=== PATIENT | male | born 1985 | race Caucasian/White ===

== ENCOUNTER 2016-07-05 01:41 | Emergency (ER) | payer MEDICAID ==
[2016-07-05 01:59] VITALS: BP 137/72
[2016-07-05] MEDS ORDERED: ALPRAZolam TAB* 0.5 MG PO ONE (02:49)
[2016-07-05 02:51] LABS: Hematocrit 36 % (42-52); Hemoglobin 11.9 g/dl (14.0-18.0); Mean Corpuscular HGB Conc 33 g/dl (31-36); Mean Corpuscular Hemoglobin 29 pg (27-31); Mean Corpuscular Volume 89 fL (80-94); Mean Platelet Volume 8 um3 (7.4-10.4); Red Blood Count 4.06 10^6/ul (4.0-5.4); Red Cell Distribution Width 14 % (10.5-15); White Blood Count 11.5 10^3/ul (3.5-10.8)
[2016-07-05 03:02] LABS: ALT 25 U/L (7-52); AST 35 U/L (13-39); Albumin 4.2 g/dL (3.2-5.2); Alkaline Phosphatase 79 U/L (34-104); Anion Gap 11 mmol/L (2-11); BUN/Creatinine Ratio 15.5 (8-20); Blood Urea Nitrogen 18 mg/dL (6-24); CO2 Carbon Dioxide 24 mmol/L (22-32); Calcium 9.3 mg/dL (8.6-10.3); Chloride 100 mmol/L (101-111); EGFR African American 93.8 (>60); Globulin 3.4 g/dL (2-4); Glucose 81 mg/dL (70-100); Potassium 3.9 mmol/L (3.5-5.0); Sodium 135 mmol/L (133-145); Total Protein 7.6 g/dL (6.4-8.9)
[2016-07-05 03:24] LABS: Acetaminophen < 15 mcg/mL; Alcohol < 10 mg/dL (<10); Salicylate < 2.50 mg/dL (<30)
[2016-07-05 03:34] LABS: TSH (Thyroid Stimulating Horm) 1.12 mcIU/mL (0.34-5.60)
[2016-07-05 03:37] LABS: Urine Bacteria Absent (Absent); Urine Bilirubin Negative (Negative); Urine Glucose Negative (Negative); Urine Nitrite Negative (Negative)
[2016-07-05 03:44] LABS: Benzodiazepine Urine Screen None Detected (None Detect)
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
[2016-07-05] MEDS ORDERED: Nicotine GUM* 2 MG PO PRN (11:27)
--- NOTE | 2016-07-05 13:31 | CONSULT ---
Consult Consult: Mr. Roberts presented to the ED C/O hallucinations. He admitted to polysubstance abuse and not eating or sleeping well for a couple days (he is either homeless or at a prison depending on when he is asked). He ate here and slept for many hours and then refuses a [facility] when they went in to speak with him. He was D/C'd in stable condition with a diagnosis of polysubstance abuse.
== END 2016-07-05 12:52 | disposition home or self-care (01) ==
LOC: ED 01:41
DX: F19.10 Other psychoactive substance abuse, uncomplicated (principal); R44.3 Hallucinations, unspecified; Z87.891 Personal history of nicotine dependence; I10 Essential (primary) hypertension; Z59.0 Homelessness
CPT/HCPCS: 36415; 80053; 80307; 80320; 80329; 81003; 81015; 84443; 85025; 99285; A9270-GY; G0480

== ENCOUNTER 2016-07-15 18:07 | Emergency (ER) | payer MEDICAID ==
[2016-07-15 19:52] VITALS: BP 147/67
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
--- NOTE | 2016-07-15 21:01 | RAD ---
HISTORY: Chest pain COMPARISONS: January 17, 2016 VIEWS: 2: Frontal dual-energy and lateral views of the chest. FINDINGS: CARDIOMEDIASTINAL SILHOUETTE: The cardiomediastinal silhouette is normal. LOLLY: The lolly are normal. PLEURA: The costophrenic angles are sharp. No pleural abnormalities are noted. LUNG PARENCHYMA: There is been improved aeration of the right lower lung. A nipple shadow is noted overlying the right lower lung field. ABDOMEN: The upper abdomen is clear. There is no subphrenic gas. BONES AND SOFT TISSUES: No bone or soft tissue abnormalities are noted. OTHER: None. IMPRESSION: NO ACTIVE CARDIOPULMONARY DISEASE.
[2016-07-15] MEDS ORDERED: Ibuprofen TAB* 800 MG PO ONE ×3 (21:14→21:15)
== END 2016-07-15 21:48 | disposition home or self-care (01) ==
LOC: ED 18:07
DX: R07.89 Other chest pain (principal); R06.00 Dyspnea, unspecified; Z87.891 Personal history of nicotine dependence
CPT/HCPCS: 71020; 99282; A9270-GY

== ENCOUNTER → 2016-08-22 16:24 | Emergency (ER) | payer MEDICAID ==
[~2016-08-22 16:24] MED LIST: Haloperidol INJ IV/IM* 5 MG/ML AMP IM ONE; LORazepam INJ* 2 MG/ML 1 ML VIAL IM ONE; diPHENhydraMINE IV* 50 MG/ML 1 ml VIAL (BENADRYL) IM ONE
[2016-08-22 18:16] LABS: Hematocrit 33 % (42-52); Mean Corpuscular HGB Conc 34 g/dl (31-36); Mean Corpuscular Hemoglobin 29 pg (27-31); Mean Corpuscular Volume 87 fL (80-94); Mean Platelet Volume 8 um3 (7.4-10.4); Red Blood Count 3.77 10^6/ul (4.0-5.4); Red Cell Distribution Width 13 % (10.5-15); White Blood Count 9.6 10^3/ul (3.5-10.8)
[2016-08-22 18:31] LABS: ALT 28 U/L (7-52); AST 31 U/L (13-39); Alkaline Phosphatase 87 U/L (34-104); Anion Gap 7 mmol/L (2-11); BUN/Creatinine Ratio 20.6 (8-20); Blood Urea Nitrogen 20 mg/dL (6-24); CO2 Carbon Dioxide 26 mmol/L (22-32); Chloride 101 mmol/L (101-111); EGFR African American 115.4 (>60); EGFR Non-African American 89.7 (>60); Globulin 3.3 g/dL (2-4); Glucose 88 mg/dL (70-100); Potassium 3.8 mmol/L (3.5-5.0); Sodium 134 mmol/L (133-145); Total Protein 7.3 g/dL (6.4-8.9)
[2016-08-22 18:37] LABS: Acetaminophen < 15 mcg/mL; Alcohol < 10 mg/dL (<10); Salicylate < 2.50 mg/dL (<30)
[2016-08-22 18:47] LABS: TSH (Thyroid Stimulating Horm) 0.84 mcIU/mL (0.34-5.60)
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
[2016-08-22 23:48] VITALS: BP 91/49
--- NOTE | 2016-08-23 06:58 | ED ---
Elena Holt Rebecca, scribed for Bassem Taveras on 08/22/16 at 2322 . Progress - Progress Note Progress Note: Pt was signed out from Dr. Patel. Pt is currently stable and would like to be D/ C to home to return to the [facility]. He has been eating and responsive in the ED. Pt will be D/C to home with a Dx of substance abuse. Course/Dx - Diagnoses Provider Diagnoses: Substance abuse The documentation as recorded by the Elena brewer Rebecca accurately reflects the service I personally performed and the decisions made by Darcy reynoso Emmanuel.
== END ==
LOC: ED 16:24
DX: F19.10 Other psychoactive substance abuse, uncomplicated (principal); Z87.891 Personal history of nicotine dependence; I10 Essential (primary) hypertension; K21.9 Gastro-esophageal reflux disease without esophagitis
CPT/HCPCS: 36415; 80053; 80320; 80329; 84443; 85025; 96372; 99282; G0480; J1200; J1630; J2060

== ENCOUNTER 2016-10-05 18:18 | Emergency (ER) | payer OTHER ==
[2016-10-05] MEDS ORDERED: Ondansetron ODT TAB* 4 MG PO ONE (18:52)
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
[2016-10-05 23:13] VITALS: BP 104/56
== END 2016-10-05 23:15 | disposition home or self-care (01) ==
LOC: ED 18:18
DX: R11.2 Nausea with vomiting, unspecified (principal); R19.7 Diarrhea, unspecified; R10.9 Unspecified abdominal pain
CPT/HCPCS: 99282; A9270-GY

== ENCOUNTER 2016-11-23 19:41 | Emergency (ER) | payer OTHER ==
[2016-11-23] MEDS ORDERED: diPHENhydraMINE IV* 50 MG/ML 1 ml VIAL (BENADRYL) ONE (19:50)
[2016-11-23] MEDS ORDERED: LORazepam INJ* 2 MG/ML 1 ML VIAL ONE ×2 (19:50)
[2016-11-23] MEDS ORDERED: Haloperidol INJ IV/IM* 5 MG/ML AMP ONE (19:50)
[2016-11-23] MEDS ORDERED: LORazepam INJ* 2 MG/ML 1 ML VIAL IV PUSH ONE (19:53)
[2016-11-23 20:07] LABS: Hematocrit 36 % (42-52); Hemoglobin 11.5 g/dl (14.0-18.0); Mean Corpuscular HGB Conc 32 g/dl (31-36); Mean Corpuscular Hemoglobin 29 pg (27-31); Mean Corpuscular Volume 88 fL (80-94); Mean Platelet Volume 8 um3 (7.4-10.4); Red Blood Count 4.02 10^6/ul (4.0-5.4); Red Cell Distribution Width 15 % (10.5-15); White Blood Count 15.2 10^3/ul (3.5-10.8)
[2016-11-23 20:21] LABS: ALT 28 U/L (7-52); AST 32 U/L (13-39); Albumin 4.6 g/dL (3.2-5.2); Alkaline Phosphatase 92 U/L (34-104); Anion Gap 10 mmol/L (2-11); BUN/Creatinine Ratio 20.8 (8-20); Blood Urea Nitrogen 22 mg/dL (6-24); CO2 Carbon Dioxide 24 mmol/L (22-32); Calcium 9.4 mg/dL (8.6-10.3); Chloride 104 mmol/L (101-111); EGFR African American 104.1 (>60); Globulin 3.8 g/dL (2-4); Glucose 84 mg/dL (70-100); Potassium 3.8 mmol/L (3.5-5.0); Sodium 138 mmol/L (133-145); Total Protein 8.4 g/dL (6.4-8.9)
[2016-11-23 20:58] LABS: Acetaminophen < 15 mcg/mL; Alcohol < 10 mg/dL (<10); Salicylate < 2.50 mg/dL (<30)
[2016-11-23 21:08] LABS: TSH (Thyroid Stimulating Horm) 0.61 mcIU/mL (0.34-5.60)
[2016-11-24 03:56] LABS: Albumin 4.2 g/dL (3.2-5.2); BUN/Creatinine Ratio 20.8 (8-20); Calcium 9.3 mg/dL (8.6-10.3); EGFR African American 116.7 (>60); EGFR Non-African American 90.8 (>60); Globulin 3.7 g/dL (2-4); Potassium 3.9 mmol/L (3.5-5.0); Total Bilirubin 2.6 mg/dL (0.2-1.0); Total Protein 7.9 g/dL (6.4-8.9)
[2016-11-24 04:06] LABS: Urine Bilirubin Negative (Negative); Urine Glucose Negative (Negative); Urine Nitrite Negative (Negative)
[2016-11-24 04:18] LABS: Benzodiazepine Urine Screen None Detected (None Detect)
[2016-11-24 06:24] VITALS: BP 121/54
--- NOTE | 2016-11-24 06:33 | ED ---
Alexy Holt Soohyun, scribed for Paola Muhammad MD on 11/24/16 at 0328 . Progress - Progress Note Progress Note: This 31 y/o male patient has been signed out at shift change from Dr. Calvillo. Pt was given Benadryl, Haldol and Ativan upon admission (paper order, not in MAR ) due to combativeness. Blood work indicates elevated bilirubin. EMR indicates prior elevation of bilirubin back in 2014 when pt was admitted for polysubstance abuse. Lab work results were discussed with Dr. Morales ( Hospitalist expeditionary fighting vehicle crewman) at 0324 PM, and she states that elevated bilirubin won't warrant medical admission. Currently repeat CHEM is pending for repeat bilirubin for medical clearance. 04:15 Repeat T bili is elevated at 2.6, LFT's remain WNL. LFT's are not rising rapidly, and T Bili is not at a dangerous level. Pt denies medication overdose. Toxicology is negative for alcohol and opiates, positive for canabinoids, amphetamines and cocaine. Pt is medically clear for psychiatric evaluation. After [facility], Pt is cleared for discharge per pychiatrist. Pt is ambulatory at discharge in no distress. - Results/Orders Results/Orders: EKG at 0546 AM NSR at 62 bpm Normal TONIE conduction. QTc of 414. Normal [place]. No STEMI. Course/Dx - Diagnoses Provider Diagnoses: Schizoaffective disorder, History of bipolar disorder, Polysubstance abuse, Serum total bilirubin elevated - Critical Care Time Critical Care Time: 30-74 min - 30 minutes The documentation as recorded by the Alexy brewer Soohyun accurately reflects the service I personally performed and the decisions made by , Paola Muhammad MD.
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
== END 2016-11-24 06:22 ==
LOC: ED 19:41
DX: F25.9 Schizoaffective disorder, unspecified (principal); F19.10 Other psychoactive substance abuse, uncomplicated; E80.7 Disorder of bilirubin metabolism, unspecified
CPT/HCPCS: 36415; 80053; 80307; 80320; 80329; 81003; 84443; 85025; 93005; 96374; 96375; 99285; G0480; J1200; J1630; J2060

== ENCOUNTER 2017-01-02 17:25 | Inpatient (IN) | payer OTHER ==
[2017-01-02] MEDS ORDERED: Vancomycin(*) 1,000 MG in NS 0.9% 250 ML* 250 ML IVPB ONE (18:01)
[2017-01-02 18:56] LABS: Hematocrit 32 % (42-52); Hemoglobin 10.5 g/dl (14.0-18.0); Mean Corpuscular HGB Conc 33 g/dl (31-36); Mean Corpuscular Hemoglobin 28 pg (27-31); Mean Corpuscular Volume 87 fL (80-94); Mean Platelet Volume 7 um3 (7.4-10.4); Red Blood Count 3.69 10^6/ul (4.0-5.4); Red Cell Distribution Width 15 % (10.5-15)
[2017-01-02] MEDS ORDERED: Vancomycin per Pharmacy* NOTE FOLLOW UP SCH (19:00)
[2017-01-02 19:13] LABS: Albumin 3.9 g/dL (3.2-5.2); BUN/Creatinine Ratio 12.5 (8-20); C Reactive Protein 131.25 mg/L (< 5.00); Calcium 9.4 mg/dL (8.6-10.3); EGFR African American 144.1 (>60); Globulin 4.6 g/dL (2-4); Potassium 3.8 mmol/L (3.5-5.0); Total Bilirubin 0.4 mg/dL (0.2-1.0); Total Protein 8.5 g/dL (6.4-8.9)
[2017-01-02] MEDS: NS 0.9% 1000 ML* 2,000 ML IV ONE (19:24)
[2017-01-02] MEDS ORDERED: Morphine INJ* 4 MG/ML 1 ML CARPUJECT ONE (19:48)
[2017-01-02] MEDS: Morphine INJ* 4 MG/ML 1 ML CARPUJECT IV PRN (19:49)
[2017-01-02] MEDS: Nicotine GUM* 2 MG PO PRN (22:07)
[2017-01-02] MEDS: Cefepime(*) 1 GM in NS 0.9% 50 ML* 50 ML IVPB SCH (22:09)
[2017-01-02] MEDS: Carbamide Peroxide 6.5% OTIC* 15 ML BTL RIGHT EAR SCH ×2 (22:14→22:20)
[2017-01-02] MEDS: NS 0.9% 1000 ML* 1,000 ML IV SCH (22:15)
[2017-01-02] MEDS: Ketorolac INJ* 30 MG/ML 1 ML VIAL IV PUSH PRN (22:46)
[2017-01-03] MEDS: Nicotine GUM* 2 MG PO PRN ×6 (00:56→22:53)
--- NOTE | 2017-01-03 01:37 | HP ---
HISTORY AND PHYSICAL: DATE OF ADMISSION: 01/02/17 CHIEF COMPLAINT: Right upper extremity pain and swelling. HISTORY OF PRESENT ILLNESS: Mr. Roberts is a 31-year-old with past medical history of schizoaffective disorder, bipolar disorder, polysubstance abuse, chronic pain who presents to the hospital with right upper extremity pain and swelling. The patient reports using IV methamphetamine a few weeks ago. His arm subsequently "got infected." He was seen by [facility]. Schreiber [facility] on 12/29/16. Dr. Schreiber performed an I and D in the clinic and placed the patient on doxycycline. The area of the I and D seemed to improve; however, a separate area of the arm a bit more distally became more erythematous and swollen. Over the past few days, the pain has gotten progressively worse and he has limited mobility in his hand at this point. He denies any fever or chills. No chest pain, shortness of breath, nausea, or vomiting. He reports occasional dizziness. He states the pain from the arm is preventing him from getting sleep. Of note, he also reports being treated by Dr. Schreiber for Lyme disease. The patient was treated for Lyme disease as he was found to have a target lesion on his arm and was treated by Dr. Schreiber with doxycycline. The patient was reevaluated today by Dr. Schreiber who sent him in and also contacted Dr. Gan, Orthopedics, to evaluate the patient for incision and drainage in the OR. PAST MEDICAL HISTORY: Schizoaffective disorder, bipolar disorder, polysubstance abuse, chronic pain. PAST SURGICAL HISTORY: Ankle surgery, wisdom teeth removal. HOME MEDICATIONS: 1. Doxycycline 100 mg by mouth 2 times daily. 2. Suboxone that is not prescribed. ALLERGIES: No known drug allergies. FAMILY HISTORY: Denies. SOCIAL HISTORY: The patient is homeless. Reports occasional marijuana use, 1 pack per day smoking history, minimal alcohol use. Has used IV heroin in the past, now uses home Suboxone which he buys off the street. Also reported IV methamphetamine use recently. REVIEW OF SYSTEMS: A 12-point review of systems negative except for that is noted in the HPI. PHYSICAL EXAMINATION GENERAL: The patient is a young man, appears disheveled and unkempt, lying in bed, in mild distress. VITAL SIGNS: On admission, temperature 97.8, heart rate of 105, respiratory rate of 20, O2 saturation 100% on room air, blood pressure 133/91. HEENT: Head normocephalic, atraumatic. Eyes: Pupils are equal, round, and reactive to light and accommodation. Anicteric sclerae. ENT: Moist mucous membranes. NECK: No cervical adenopathy. LUNGS: Clear to auscultation bilaterally. No wheezes, rales, or rhonchi. CARDIOVASCULAR: Mild tachycardia. No murmurs, gallops, or rubs. ABDOMEN: Soft, nontender, and nondistended. Bowel sounds positive. EXTREMITIES: No cyanosis, clubbing or edema. NEURO: The patient is alert and oriented x3. No focal neurological deficits. SKIN: The patient has an open wound from previous incision on the medial aspect of the forearm that appears to be healing well. Distal to this, there is a larger erythematous and edematous area that is tender to touch, cannot clearly appreciate any fluctuance. This also has a small opening with no drainage. Edema extends to the hand making movement difficult. LABORATORY DATA AND DIAGNOSTICS: White blood cell count of 15, hematocrit of 32, platelets of 525. INR 1.09. CRP of 131. Sodium 137, potassium 3.8, chloride of 100, carbon dioxide of 32, BUN of 10, creatinine of 0.8, glucose of 82. LFTs were within normal limits. ASSESSMENT AND PLAN: Right upper extremity abscess secondary to IV drug abuse in a 31-year-old man with past medical history of schizoaffective disorder and polysubstance abuse and chronic pain. 1. Right upper extremity abscess. The patient was ordered vancomycin in the emergency department, we will continue this for now. Received IV vancomycin in the emergency department. We will add on cefepime as well in case this is possibly polymicrobial as the patient's arm looks fairly dirty. We will recheck CBC in the morning. Blood cultures were taken. Dr. Gan has been consulted to consider taking the patient to the OR for incision and drainage. We will write for morphine IV p.r.n. for pain. Plans as per Dr. Schreiber. Once the pain is controlled here in the hospital, then switch the patient to Suboxone 8 b.i.d. while he is here. We will make the patient n.p.o. after midnight in case he goes to the OR tomorrow. 2. Tobacco abuse. Nicotine replacement patch. 3. DVT prophylaxis. SCDs. 4. Code status. The patient is full code. TIME SPENT: Total time spent on this admission 45 minutes with over half the time spent [id number] with the patient in counseling and coordinating care. [id number]/CPS #: [id number] MTDD
[2017-01-03] MEDS: Vancomycin(*) 1,000 MG in NS 0.9% 250 ML* 250 ML IVPB SCH ×3 (03:59→19:55)
[2017-01-03] MEDS: Morphine INJ* 4 MG/ML 1 ML CARPUJECT IV PRN ×2 (04:01→11:07)
--- NOTE | 2017-01-03 07:31 | PN ---
Progress Note - Progress Note Date of Service: 01/03/17 Note: Full note dictated. Abscess right dorsal forearm and severe cellulitis with possible right dorsal hand abscess. Plan for I&D in the OR later this morning. Please keep NPO. Stat xrays ordered to rule out radioopaque foreign bodies or bony erosions.
[2017-01-03] MEDS ORDERED: Mouth Piece, Nicotine* 1 EACH CARTRIDGE ONE (07:41)
[2017-01-03] MEDS: Ketorolac INJ* 30 MG/ML 1 ML VIAL IV PUSH PRN ×2 (07:45→14:48)
[2017-01-03] MEDS: Nicotine PATCH 21 MG/24 HR* PATCH TRANSDERM SCH (07:46)
[2017-01-03] MEDS: Carbamide Peroxide 6.5% OTIC* 15 ML BTL RIGHT EAR SCH (07:48)
[2017-01-03] MEDS: Nicotine Inhaler* 10 MG AMP INH PRN (07:52)
[2017-01-03] MEDS ORDERED: Lidocaine 2% PF * 5 ML VIAL ONE (08:41)
[2017-01-03] MEDS ORDERED: Ondansetron INJ* 2 MG/ML VIAL ONE (08:41)
[2017-01-03] MEDS ORDERED: fentaNYL* 50 MCG/ML 2 ML VIAL (100 MCG VIAL) ONE ×2 (08:41→10:23)
[2017-01-03] MEDS ORDERED: KETAMINE HCL* 50 MG/ML 10 ML VIAL ONE (08:41)
[2017-01-03] MEDS ORDERED: Ketorolac INJ* 30 MG/ML 1 ML VIAL ONE (08:41)
[2017-01-03] MEDS ORDERED: Propofol* 10 MG/ML 20 ML BTL IV PUSH ONE (08:41)
[2017-01-03] MEDS ORDERED: Midazolam* 1 MG/ML 5 ML VIAL (5 MG) ONE (08:42)
--- NOTE | 2017-01-03 08:48 | RAD ---
Indication: Right hand pain. 4 views of the right hand demonstrate no fracture. No other bone or joint abnormality is identified. There is soft tissue swelling noted. No evidence of subcutaneous air noted. IMPRESSION: No fracture of the right hand is noted. Soft tissue swelling without evidence of subcutaneous air is noted.
--- NOTE | 2017-01-03 08:51 | RAD ---
Indication: Right Forearm injury. 2 views of the right forearm demonstrates no fracture. No other bone or joint abnormality is noted. IMPRESSION: No fracture of the right forearm is noted.
--- NOTE | 2017-01-03 09:02 | PN ---
Progress Note - Progress Note Date of Service: 01/03/17 Note: The plan is for incision and drainage is right dorsal forearm abscess and possibly dorsal hand abscess.
[2017-01-03] MEDS ORDERED: Ondansetron INJ* 2 MG/ML VIAL IV PRN (10:14)
--- NOTE | 2017-01-03 10:20 | PN ---
Progress Note - Progress Note Date of Service: 01/03/17 Note: Now s/p I&D of abscesses. He has packing in place. Please start warm soapy water soaks twice daily for 15 minutes 01/04 in AM. If packing comes out do not replace. If packing has not come out already then please remove 01/05 in AM. Orders have been placed.
[2017-01-03] MEDS: fentaNYL* 50 MCG/ML 2 ML VIAL (100 MCG VIAL) IV PRN ×2 (10:23→10:34)
[2017-01-03] MEDS: Cefepime(*) 1 GM in NS 0.9% 50 ML* 50 ML IVPB SCH (10:52)
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
[2017-01-03] MEDS: NS 0.9% 1000 ML* 1,000 ML IV SCH ×2 (11:15→14:49)
--- NOTE | 2017-01-03 11:18 | CONS ---
CC: Kishor Ibarra MD CONSULTATION REPORT: DATE OF CONSULT: 01/03/17 CHIEF COMPLAINT: Right upper extremity infection. HISTORY OF PRESENT ILLNESS: Issac is 31. He is right-hand dominant. He was admitted to the [facility] yesterday for right forearm and hand infection. He had a spot on the oxp-pe-vskflk aspect of the radial forearm I and D'd by Dr. Schreiber on 12/29/16. He has been on doxycycline since then. Engle bsequently he developed a distal forearm abscess and she sent him over to the ER yesterday. He was admitted and I was consulted. He is refused any lab work. I have ordered some x-rays this morning. He has had some fevers and chills at home. Since he has been in the hospital. He has been afebri le and his vital signs have been stable. He had a T- max of 100.1 last night. Otherwise his vital signs have been stable. He has received vancomycin and cefepime. I do not see any cultures from e I and D on 12/29/16. He has history of polysubstance abuse, schizoaffective disorder, bipolar dis order. PAST MEDICAL HISTORY: Schizoaffective disorder, bipolar disorder, polysubstance abuse, chronic pain . PAST SURGICAL HISTORY: Ankle surgery, wisdom teeth removal, I and D performed in the clinic on 12/19 05/06. HOME MEDICATIONS: 1. He is on doxycycline 100 mg twice daily. 2. Suboxone. It is not prescribed. ALLERGIES: No known drug allergies. FAMILY HISTORY: Noncontributory and negative. SOCIAL HISTORY: He is homeless. He smokes 1 pack per day. Has minimal alcohol abuse. He used IV heroin in the past. He now uses IV Suboxone, which he buys off the street. He has used IV methamph etamine recently. REVIEW OF SYSTEMS: A 12-systems review of systems was conducted and is negative except for that men tioned in the HPI. PHYSICAL EXAM: Awake and alert, somewhat cooperative with the examination this morning. Vital Sign s: T-max is 100.1 since admission, pulse is 82, respiratory rate 22, blood pressure 117/63, satting 100% on room air. Musculoskeletal: He has a 2 to 3 cm I and D site that is longitudinal on the mi d-to-distal radial aspect of the forearm. There is no real infection there currently. He has a lar ge dorsal abscess in the distal forearm. It is large and fluctuant, probably 5 to 10 cm in diameter . There is quite a bit of dorsal hand cellulitis. I cannot definitively feel any fluctuant area, b ut there could be a small abscess there as well. The fingers move reasonably well with moderate di scomfort. Wrist motion is from 30 to 30 degrees with minimal discomfort. There is no involvement o f the infection in the fingers, but they are just mildly diffusely swollen, but not really erythemat ous. DIAGNOSTIC STUDIES/LAB DATA: Imaging: X-rays of the forearm and hand have been ordered this jb velazco Cellulitis from dorsal forearm abscess secondary to IV drug use. Laboratory: In the ER, he did have some labs drawn white blood cell count was 15, H and H was 10.5 and 32, platelet count is 525. INR is 1.09. His BMP is unremarkable. CRP is 131.25. No cultures available today. He is on IV vancomycin and cefepime. PLAN: He has been n.p.o. since midnight. We plan to take him to the operating room later this morn ing in a few hours for incision and drainage and see if we can get this cleaned up nicely. He will stay in the hospital and get IV antibiotics. We will get cultures when we are in the operating room. He has been on antibiotics, but it is a large abscess, so I think that we will probably get some r esult from the cultures. Again, the plan is for incision and drainage, right distal forearm abscess and possibly dorsal hand. [id number]/[facility] #: [id number]
[2017-01-03] MEDS ORDERED: oxyCODONE/Acetamin 5/325 MG* TAB PO PRN (11:26)
[2017-01-03] MEDS: oxyCODONE/Acetamin 5/325 MG* TAB PO PRN ×3 (11:47→22:53)
--- NOTE | 2017-01-03 16:16 | PN ---
Subjective Date of Service: 01/03/17 Interval History: Mr. Roberts reports that the pain to his right forearm is well controlled. He denies other complaint. Objective Active Medications: Carbamide Peroxide (Debrox 6.5% Otic*) 2 drop RIGHT EAR BID [facility] Vancomycin HCl 1,000 mg/ (Sodium Chloride) 250 mls @ 166.667 mls/hr IVPB Q8H [facility] Sodium Chloride (Ns 0.9% 1000 Ml*) 1,000 mls @ 100 mls/hr IV PER RATE [facility] Cefepime HCl 1 gm/ Sodium (Chloride) 50 mls @ 100 mls/hr IVPB Q12H [facility] Ketorolac Tromethamine (Toradol Inj*) 30 mg IV PUSH Q6H PRN Morphine Sulfate (Morphine Inj (Syringe)*) 4 mg IV Q4H PRN Nicotine (Nicotine Patch 21 Mg/24 Hr*) 1 patch TRANSDERM DAILY [facility] Nicotine (Nicotine Inhaler*) 10 mg INH Q2H PRN Nicotine Polacrilex (Nicotine Gum*) 2 mg PO Q2H PRN Oxycodone HCl (Roxycodone Tab*) 10 mg PO Q4H PRN Oxycodone/Acetaminophen (Percocet 5/325 Tab*) 1 tab PO Q3H PRN Oxycodone/Acetaminophen (Percocet 5/325 Tab*) 2 tab PO Q3H PRN Pharmacy Consult (Vancomycin Per Pharmacy*) 1 note FOLLOW UP .VANC PER PHARMACY [facility] Pharmacy Profile Note (Nicotine Patch Removal Note*) 1 note PATCH OFF 2100 [facility] Pharmacy Profile Note (Vancomycin Trough Check) 1 note FOLLOW UP 1130 [facility] Vital Signs: Temp Pulse Resp BP Pulse Ox 97.8 F 62 16 99/44 96 01/03/17 16:11 01/03/17 16:11 01/03/17 17:18 01/03/17 16:11 01/03/17 16:11 Oxygen Devices in Use Now: None Appearance: Male lying in bed in NAD Eyes: No Scleral Icterus Ears/Nose/Mouth/Throat: Mucous Membranes Moist Neck: Trachea Midline Respiratory: Symmetrical Chest Expansion and Respiratory Effort, Clear to Auscultation Cardiovascular: NL Sounds; No Murmurs; No JVD, No Edema Abdominal: NL Sounds; No Tenderness; No Distention Extremities: No Edema, - - Right forearm wrapped with clean dressing, CMS + Neurological: Alert and Oriented x 3, NL Muscle Strength and Tone Result Diagrams: 01/02/17 18:45 01/02/17 18:45 Microbiology and Other Data: Microbiology 01/03/17 09:39 Skin and Soft Tissue MRSA/MSSA (PCR - Final Wound - Right Mrsa Positive S.aureus Positive Gram Stain - Final 01/02/17 22:09 Gram Stain - Final Arm Right Wound Culture - Preliminary No Growth Day 1 01/03/17 00:56 Nasal Screen MRSA (PCR)(TORSTEN) - Final Nasal Mrsa Negative Assess/Plan/Problems-Billing Assessment: Mr. Roberts is a 31 yo male with a PMH of schizoaffective disorder, bipolar disorder, and IVDA who was admitted on 01/02/17 with right forearm abscesses. - Patient Problems (1) Abscess Comment: - MRSA positive, continue vancomycin and stop cefepime. - Appreciate ortho consult, patient to OR today for I&D. - Pain meds prn. (2) History of bipolar disorder Comment: - Not on home meds, supportive care. (3) History of schizoaffective disorder Comment: - Not on home meds, supportive care (4) DVT prophylaxis Comment: - SCDs. (5) Full code status Status and Disposition: Inpatient. Expected LOS > 2 days. Anticipate discharge to home when medically stable.
[2017-01-03] MEDS ORDERED: Senna TAB PO PRN (17:29)
[2017-01-03] MEDS ORDERED: Polyethylene Glycol 3350* 17 GM PACKET PO PRN (17:30)
[2017-01-03] MEDS ORDERED: Docusate CAP* 100 MG PO PRN (17:30)
[2017-01-03] MEDS: oxyCODONE TAB* 5 MG TAB PO PRN (19:56)
[2017-01-03] MEDS: Nicotine Patch Removal NOTE PATCH OFF SCH (22:54)
--- NOTE | 2017-01-03 23:30 | OP ---
DATE OF OPERATION: 01/03/17 - ROOM #[id number] DATE OF : 83 SURGEON: Heri Gan MD ENTRY LEVEL MANUFACTURING ENGINEER: JANAK Rodriguez ANESTHESIOLOGIST: Dr. Rhodes. ANESTHESIA: General. PRE-OP DIAGNOSIS: Right dorsal forearm and hand abscesses. POST-OP DIAGNOSIS: Right dorsal forearm and hand abscesses. OPERATIVE PROCEDURE: Incision and drainage of multiple abscess including large dorsal forearm abscess and a smaller dorsal forearm abscess and then dorsal hand abscess. INDICATIONS: Issac is 31. He is an IV drug user. He developed forearm abscess earlier in the week that was drained by Dr. Schreiber as an outpatient. He saw him back a few days later and he developed a very large dorsal forearm abscess. I talked to him about the risks and benefits. He wanted to proceed. ESTIMATED BLOOD LOSS: 5 mL. COMPLICATIONS: None. FINDINGS: Large amount of karla purulence. DESCRIPTION OF PROCEDURE: Issac was seen in the preoperative holding area. The correct site, side and procedure were identified. We came back to the operating room and anesthesia was induced. After anesthesia was induced, the arm was prepped and draped in usual fashion and a formal time-out was performed. I began by gravity exsanguinating the extremity and the the tourniquet was inflated to 250 mmHg. I then made a longitudinal incision in line with a typical dorsal wrist approach incision, about 3 cm in length, right over the very large dorsal abscess. Karla purulence was encountered. Cultures were taken. I came a little bit more proximal to this over a second abscess. I made a 2 cm incision. This was drained in similar fashion. I then went to the dorsal hand where he had a very large amount of dorsal swelling and few purulent areas. I made an incision in between the second and third rays a centimeter and a half in length and then a second incision a centimeter and a half in length in between the 4th and the 5th rays. The areas were opened. Small amount of purulence was encountered. I then irrigated out all the wounds. I then curetted out the areas to remove any loose nonviable tissue that could serve as a nidus for infection. The area was then copiously irrigated again. Nothing looked like it went deep to the fascia. The wounds were packed with 1-inch iodoform gauze. They were dressed with 4x4s, Kerlix and a volar cock-up wrist splint was applied. He was woken up and taken to recovery room in stable condition. [id number]/[facility] #: [id number] AYLIN
[2017-01-04] MEDS: oxyCODONE TAB* 5 MG TAB PO PRN ×3 (03:49→22:11)
[2017-01-04] MEDS: Vancomycin(*) 1,000 MG in NS 0.9% 250 ML* 250 ML IVPB SCH ×2 (03:50→16:44)
[2017-01-04] MEDS: Nicotine GUM* 2 MG PO PRN ×5 (04:03→21:12)
[2017-01-04] MEDS: Ketorolac INJ* 30 MG/ML 1 ML VIAL IV PUSH PRN (04:16)
[2017-01-04] MEDS: oxyCODONE/Acetamin 5/325 MG* TAB PO PRN ×2 (07:53→15:51)
[2017-01-04] MEDS: Nicotine PATCH 21 MG/24 HR* PATCH TRANSDERM SCH ×2 (07:54→18:50)
[2017-01-04] MEDS ORDERED: Furosemide TAB* 40 MG PO SCH (09:00)
[2017-01-04] MEDS ORDERED: Vancomycin Trough Check NOTE FOLLOW UP ONE (11:30)
--- NOTE | 2017-01-04 14:09 | PN ---
Progress Note - Progress Note Date of Service: 01/04/17 SOAP: Subjective: Pt is doing well. Pain is controlled. Denies cp/sob or f/c Objective: 31 y/o WDWN M NAD, A&Ox3 RUE- splint cdi, able flex and extend fingers, full ROM of elbow, SILT distally Vital Signs Temp Pulse Resp BP Pulse Ox 98.1 F 87 22 124/69 99 01/04/17 11:08 01/04/17 11:08 01/04/17 11:56 01/04/17 11:08 01/04/17 11:08 Culture + for MRSA Assessment: POD 1 s/p I&D right forearm abscesses Plan: Medicine co-managing Cont soapy soaks bid and use of splint Cont vanco per medicine Discharge per medicine
--- NOTE | 2017-01-04 15:12 | PN ---
Subjective Date of Service: 01/04/17 Interval History: Mr. Roberts states that he is doing well. He has some pain intermittently to his right forearm but that it is well controlled on the current regimen. He denies other complaint including chest pain, SOB, nausea, or abdominal pain. Objective Active Medications: Docusate Sodium (Colace Cap*) 100 mg PO DAILY PRN Vancomycin HCl 1,000 mg/ (Sodium Chloride) 250 mls @ 166.667 mls/hr IVPB Q8H [facility] Ketorolac Tromethamine (Toradol Inj*) 30 mg IV PUSH Q6H PRN Morphine Sulfate (Morphine Inj (Syringe)*) 4 mg IV Q4H PRN Nicotine (Nicotine Patch 21 Mg/24 Hr*) 1 patch TRANSDERM DAILY [facility] Nicotine (Nicotine Inhaler*) 10 mg INH Q2H PRN Nicotine Polacrilex (Nicotine Gum*) 2 mg PO Q2H PRN Oxycodone HCl (Roxycodone Tab*) 10 mg PO Q4H PRN Oxycodone/Acetaminophen (Percocet 5/325 Tab*) 1 tab PO Q3H PRN Oxycodone/Acetaminophen (Percocet 5/325 Tab*) 2 tab PO Q3H PRN Pharmacy Consult (Vancomycin Per Pharmacy*) 1 note FOLLOW UP .VANC PER PHARMACY [facility] Pharmacy Profile Note (Nicotine Patch Removal Note*) 1 note PATCH OFF 2100 [facility] Polyethylene Glycol/Electrolytes (Miralax*) 17 gm PO DAILY PRN Senna (Senokot Tab*) 1 tab PO DAILY PRN Vital Signs 01/03/17 01/03/17 01/03/17 16:11 17:18 17:27 Temperature 97.8 F 98.2 F Pulse Rate 62 80 Respiratory 16 16 16 Rate Blood Pressure 99/44 123/57 (mmHg) O2 Sat by Pulse 96 99 Oximetry 01/03/17 01/03/17 01/03/17 19:18 19:56 20:59 Temperature 97.7 F Pulse Rate 73 Respiratory 18 18 16 Rate Blood Pressure 103/50 (mmHg) O2 Sat by Pulse 99 Oximetry 01/03/17 01/03/17 01/03/17 21:56 22:53 22:55 Temperature Pulse Rate Respiratory 16 16 16 Rate Blood Pressure (mmHg) O2 Sat by Pulse Oximetry 01/03/17 01/04/17 01/04/17 23:29 00:53 03:41 Temperature 98.2 F 98.1 F Pulse Rate 65 58 Respiratory 18 16 16 Rate Blood Pressure 105/49 94/52 (mmHg) O2 Sat by Pulse 99 97 Oximetry 01/04/17 01/04/17 01/04/17 03:49 05:49 07:53 Temperature Pulse Rate Respiratory 18 16 16 Rate Blood Pressure (mmHg) O2 Sat by Pulse Oximetry 01/04/17 01/04/17 01/04/17 09:05 09:34 11:08 Temperature 98.0 F 98.1 F Pulse Rate 57 87 Respiratory 18 18 16 Rate Blood Pressure 118/63 124/69 (mmHg) O2 Sat by Pulse 100 100 99 Oximetry 01/04/17 01/04/17 11:56 13:56 Temperature Pulse Rate Respiratory 22 16 Rate Blood Pressure (mmHg) O2 Sat by Pulse Oximetry Oxygen Devices in Use Now: None Appearance: Male sitting up in bed in NAD Eyes: No Scleral Icterus Ears/Nose/Mouth/Throat: Mucous Membranes Moist Neck: Trachea Midline Respiratory: Symmetrical Chest Expansion and Respiratory Effort, Clear to Auscultation Cardiovascular: NL Sounds; No Murmurs; No JVD, No Edema Abdominal: NL Sounds; No Tenderness; No Distention Lymphatic: No Cervical Adenopathy Extremities: No Edema Skin: - - Dressing to right forearm CDI, + CMS Neurological: Alert and Oriented x 3, NL Muscle Strength and Tone Result Diagrams: 01/02/17 18:45 01/02/17 18:45 Microbiology and Other Data: Microbiology 01/03/17 09:39 Skin and Soft Tissue MRSA/MSSA (PCR - Final Wound - Right Mrsa Positive S.aureus Positive Gram Stain - Final 01/02/17 22:09 Gram Stain - Final Arm Right Wound Culture - Preliminary No Growth Day 1 01/03/17 00:56 Nasal Screen MRSA (PCR)(TORSTEN) - Final Nasal Mrsa Negative Assess/Plan/Problems-Billing Assessment: Mr. Roberts is a 31 yo male with a PMH of schizoaffective disorder, bipolar disorder, and IVDA who was admitted on 01/02/17 with right forearm abscesses. - Patient Problems (1) Abscess Comment: - MRSA positive, continue vancomycin and stop cefepime. - Appreciate ortho consult, patient to OR today for I&D. - Pain meds prn. (2) History of bipolar disorder Comment: - Not on home meds, supportive care. (3) History of schizoaffective disorder Comment: - Not on home meds, supportive care (4) DVT prophylaxis Comment: - SCDs. (5) Full code status Status and Disposition: Inpatient. Expected LOS > 2 days. Anticipate discharge to home when medically stable.
[2017-01-04] MEDS: Morphine INJ* 4 MG/ML 1 ML CARPUJECT IV PRN ×2 (16:21→20:59)
[2017-01-04] MEDS: Sulfamethox/Trimethoprim DS 800/160* TAB PO SCH (20:59)
[2017-01-04] MEDS ORDERED: Sulfamethox/Trimethoprim DS 800/160* TAB PO SCH (21:00)
[2017-01-04] MEDS: Nicotine Patch Removal NOTE PATCH OFF SCH (22:24)
[2017-01-05] MEDS: oxyCODONE/Acetamin 5/325 MG* TAB PO PRN ×7 (00:36→23:17)
[2017-01-05] MEDS: Morphine INJ* 4 MG/ML 1 ML CARPUJECT IV PRN ×5 (01:59→19:58)
[2017-01-05] MEDS: Nicotine GUM* 2 MG PO PRN ×7 (02:30→21:58)
[2017-01-05] MEDS: Ketorolac INJ* 30 MG/ML 1 ML VIAL IV PUSH PRN ×2 (04:12→12:23)
[2017-01-05] MEDS: oxyCODONE TAB* 5 MG TAB PO PRN ×4 (04:16→21:35)
[2017-01-05] MEDS: Sulfamethox/Trimethoprim DS 800/160* TAB PO SCH (08:02)
[2017-01-05] MEDS: Nicotine Inhaler* 10 MG AMP INH PRN ×2 (08:03→16:04)
[2017-01-05] MEDS: Nicotine PATCH 21 MG/24 HR* PATCH TRANSDERM SCH (08:03)
[2017-01-05] MEDS ORDERED: Vancomycin per Pharmacy* NOTE FOLLOW UP PRN (10:44)
[2017-01-05] MEDS: Vancomycin(*) 1,000 MG in NS 0.9% 250 ML* 250 ML IVPB SCH ×2 (11:45→18:14)
--- NOTE | 2017-01-05 12:56 | CONS ---
CONSULTATION REPORT: DATE OF CONSULT: 01/05/17 REQUESTING PROVIDER: Dilcia Fay NP. CONSULTING SERVICE: Infectious Disease. REASON FOR CONSULTATION: Right wrist abscess. IMPRESSION: 1. Right forearm and wrist abscess, multiple, status post incision and debridement on 01/03/17. The Gram stain showed gram-positive cocci. The PCR is positive for MRSA. They have been unable to draw a vancomycin trough due to sclerosis of his veins. 2. Injection drug use, active. 3. Positive hepatitic C antibody 2014. RECOMMENDATION: Vancomycin 1 g every 8 hours. Given his age, excellent kidney function and size, I think that will be an appropriate dose for him and we do not have to worry about toxicity when we plan to use it for another 48 hours. HISTORY OF PRESENT ILLNESS: This is a 31-year-old male with injection drug use , admitted with right arm abscesses, they have been drained as an outpatient but they returned, had been there over a week. He had some chills and sweats. He was admitted on the , white count of 15,000 then, he was afebrile. He was started on vancomycin. He had incision and debridement on 01/03/[address] Gan. There were multiple abscesses in the forearm and hand. He says the pain is a little bit better today than when he got here. He has had no fevers or chills. He is eating alright. They could not get a trough last night, so he switched over to Bactrim pills. He has tolerated them fine. PAST MEDICAL HISTORY: 1. Schizoaffective disorder. 2. Bipolar disorder. 3. Polysubstance abuse. 4. Chronic pain. 5. Status post ankle surgery. 6. History of wisdom teeth removal. 7. History of positive hepatitis C antibody. MEDICATIONS: 1. Docusate. 2. Nicotine gum. 3. Nicotine inhaler. 4. Nicotine patch. 5. Senna. 6. Bactrim double strength tablet by mouth twice daily. 7. Vicodin. ALLERGIES: No known drug allergies. FAMILY HISTORY: No tuberculosis. SOCIAL HISTORY: He is homeless, uses injection drugs. No travel. REVIEW OF SYSTEMS: All negative to full review of systems except as noted above. PHYSICAL EXAM: Vital Signs: Temperature 36.6, heart rate is 65, respiratory rate 14, blood pressure 126/105, oxygen saturation 99% on room air. In general , he is awake, not in distress. Neurologic: He is oriented x3. Follows all commands. Moves all extremities. HEENT: There is no conjunctival hemorrhage. Oropharynx without lesions. Neck: The neck is supple without nuchal rigidity. Lymph Nodes: There are small subcentimeter right axillary nodes, which are mobile and mildly tender. Heart is regular rate and rhythm without murmurs, rubs, or gallops. Lungs are clear to auscultation bilaterally. Abdomen: Soft , nontender, nondistended. There are bowel sounds present. Skin: There is no rash or splinter hemorrhage. Musculoskeletal: Right wrist and forearm are wrapped. There is no spine tenderness or other joint synovitis. DIAGNOSTIC STUDIES/LAB DATA: Lab data from 01/02.17, white blood cell count 15 , hemoglobin 10.5, platelets 525. Creatinine 0.8, CRP 130. Please see impressions and recommendations as outlined above, which I discussed with Dilcia Fay NP. Thank you for asking me to see Mr. Roberts in consultation. [id number]/[facility] #: [id number] MTDD
--- NOTE | 2017-01-05 13:37 | PN ---
Progress Note - Progress Note Date of Service: 01/05/17 SOAP: Subjective: 31 y/o male POD 2 s/p I&D right forearm abscesses. Patient denies pain, tolerating BID soaks well, no complaints/ questions. Objective: General- Well appearing, NAD, resting comfortably in bed MSK- dressing in place, no drainage, odor noted, + E/F all fingers R hand with ulnar, rad pulses 2+ senation grossly inctact, cap refill <2 secs. Vital Signs Temp 97.8 F 01/05/17 07:26 Pulse 65 01/05/17 07:26 Resp 16 01/05/17 11:47 BP 126/105 01/05/17 07:26 Pulse Ox 99 01/05/17 07:26 Intake & Output 01/04/17 01/05/17 01/05/17 18:59 06:59 18:59 Intake Total 301.6 Balance 301.6 Intake: IV Fluids 281.6 ABX - VANCOMYCIN 250 NS (0.9%) 31.6 IVPB 20 ABX - VANCOMYCIN 20 Assessment: Stable 31 y/o male POD 2 s/p I&D right forearm abscesses. Plan: - Medicine co-managing - Continue soaks - IV ABX per ID Active Medications Generic Name Dose Route Start Last Admin Trade Name Freq PRN Reason Stop Dose Admin Docusate Sodium 100 mg 01/03/17 17:30 Colace Cap* PO DAILY PRN CONSTIPATION Vancomycin HCl 1,000 mg/ 250 mls @ 166.667 mls/hr 01/05/17 11:00 01/05/17 11: 45 Sodium Chloride IVPB 166.667 mls/hr Q8H VIV Administration Ketorolac Tromethamine 30 mg 01/02/17 22:34 01/05/17 12:23 Toradol Inj* IV PUSH 30 mg Q6H PRN Administration PAIN Morphine Sulfate 4 mg 01/02/17 18:59 01/05/17 10:47 Morphine Inj (Syringe)* IV 4 mg Q4H PRN Administration PAIN Nicotine 1 patch 01/03/17 09:00 01/05/17 08:03 Nicotine Patch 21 Mg/24 Hr* TRANSDERM 1 patch DAILY VIV Administration Nicotine 10 mg 01/02/17 21:29 01/05/17 08:03 Nicotine Inhaler* INH 10 mg Q2H PRN Administration CRAVING Nicotine Polacrilex 2 mg 01/02/17 21:29 01/05/17 11:15 Nicotine Gum* PO 2 mg Q2H PRN Administration CRAVING Oxycodone HCl 10 mg 01/03/17 11:27 01/05/17 09:38 Roxycodone Tab* PO 10 mg Q4H PRN Administration PAIN - SEVERE Oxycodone/Acetaminophen 1 tab 01/03/17 11:26 Percocet 5/325 Tab* PO Q3H PRN PAIN - MILD TO MODERATE Oxycodone/Acetaminophen 2 tab 01/03/17 11:26 01/05/17 08:02 Percocet 5/325 Tab* PO 2 tab Q3H PRN Administration PAIN - MODERATE TO SEVERE Pharmacy Consult 1 note 01/05/17 10:44 Vancomycin Per Pharmacy* FOLLOW UP . PRN PER PROTOCOL Pharmacy Profile Note 1 note 01/03/17 21:00 01/04/17 22:24 Nicotine Patch Removal Note* PATCH OFF Not Given 2100 VIV Polyethylene Glycol/Electrolytes 17 gm 01/03/17 17:30 Miralax* PO DAILY PRN CONSTIPATION Senna 1 tab 01/03/17 17:29 01/04/17 21:12 Senokot Tab* PO 1 tab DAILY PRN Administration CONSTIPATION
--- NOTE | 2017-01-05 17:37 | PN ---
Subjective Date of Service: 01/05/17 Interval History: Mr. Roberts is sleepy today but denies complaint. Objective Active Medications: Docusate Sodium (Colace Cap*) 100 mg PO DAILY PRN Vancomycin HCl 1,000 mg/ (Sodium Chloride) 250 mls @ 166.667 mls/hr IVPB Q8H [facility] Ketorolac Tromethamine (Toradol Inj*) 30 mg IV PUSH Q6H PRN Morphine Sulfate (Morphine Inj (Syringe)*) 4 mg IV Q4H PRN Nicotine (Nicotine Patch 21 Mg/24 Hr*) 1 patch TRANSDERM DAILY [facility] Nicotine (Nicotine Inhaler*) 10 mg INH Q2H PRN Nicotine Polacrilex (Nicotine Gum*) 2 mg PO Q2H PRN Oxycodone HCl (Roxycodone Tab*) 10 mg PO Q4H PRN Oxycodone/Acetaminophen (Percocet 5/325 Tab*) 1 tab PO Q3H PRN Oxycodone/Acetaminophen (Percocet 5/325 Tab*) 2 tab PO Q3H PRN Pharmacy Consult (Vancomycin Per Pharmacy*) 1 note FOLLOW UP . PRN Pharmacy Profile Note (Nicotine Patch Removal Note*) 1 note PATCH OFF 2100 [facility] Polyethylene Glycol/Electrolytes (Miralax*) 17 gm PO DAILY PRN Senna (Senokot Tab*) 1 tab PO DAILY PRN Vital Signs: Temp Pulse Resp BP Pulse Ox 97.8 F 65 16 126/105 99 01/05/17 07:26 01/05/17 07:26 01/05/17 16:46 01/05/17 07:26 01/05/17 07:26 Oxygen Devices in Use Now: None Appearance: Male lying in bed in NAD Eyes: No Scleral Icterus Ears/Nose/Mouth/Throat: Mucous Membranes Moist Neck: Trachea Midline Respiratory: Symmetrical Chest Expansion and Respiratory Effort, Clear to Auscultation Cardiovascular: NL Sounds; No Murmurs; No JVD, No Edema Abdominal: NL Sounds; No Tenderness; No Distention Lymphatic: No Cervical Adenopathy Extremities: No Edema Skin: - - R forearm with dressing CDI Neurological: Alert and Oriented x 3, NL Muscle Strength and Tone Nutrition: Taking PO's Result Diagrams: 01/02/17 18:45 01/02/17 18:45 Microbiology and Other Data: Microbiology 01/03/17 09:39 Skin and Soft Tissue MRSA/MSSA (PCR - Final Wound - Right Mrsa Positive S.aureus Positive Gram Stain - Final 01/02/17 22:09 Gram Stain - Final Arm Right Wound Culture - Preliminary No Growth Day 1 01/03/17 00:56 Nasal Screen MRSA (PCR)(TORSTEN) - Final Nasal Mrsa Negative Assess/Plan/Problems-Billing Assessment: Mr. Roberts is a 31 yo male with a PMH of schizoaffective disorder, bipolar disorder, and IVDA who was admitted on 01/02/17 with right forearm abscesses. - Patient Problems (1) Abscess Comment: - MRSA positive, continue vancomycin. Appreciate ID consult. - Appreciate ortho consult, patient is to continue with soapy water soaks. Packing is out. Can follow up outpatient with ortho in 7-10 days. - Pain meds prn. (2) History of bipolar disorder Comment: - Not on home meds, supportive care. (3) History of schizoaffective disorder Comment: - Not on home meds, supportive care (4) DVT prophylaxis Comment: - SCDs. (5) Full code status Status and Disposition: Inpatient. Expected LOS > 2 days. Anticipate discharge when medically stable to intermediate, patient has been homeless. SW is following along.
[2017-01-05] MEDS: Carbamide Peroxide 6.5% OTIC* 15 ML BTL BOTH EARS SCH (19:57)
[2017-01-05] MEDS: Nicotine Patch Removal NOTE PATCH OFF SCH (21:43)
[2017-01-06] MEDS: Vancomycin(*) 1,000 MG in NS 0.9% 250 ML* 250 ML IVPB SCH ×3 (02:38→20:27)
[2017-01-06] MEDS: oxyCODONE/Acetamin 5/325 MG* TAB PO PRN (02:45)
[2017-01-06] MEDS: Nicotine GUM* 2 MG PO PRN ×6 (02:48→20:29)
[2017-01-06] MEDS ORDERED: Ondansetron INJ* 2 MG/ML VIAL IV PRN (05:24)
[2017-01-06] MEDS ORDERED: Ondansetron INJ* 2 MG/ML VIAL ONE (05:39)
[2017-01-06] MEDS: Morphine INJ* 4 MG/ML 1 ML CARPUJECT IV PRN ×2 (05:42→20:28)
[2017-01-06] MEDS: oxyCODONE TAB* 5 MG TAB PO PRN ×5 (07:02→23:28)
--- NOTE | 2017-01-06 08:04 | PN ---
Progress Note - Progress Note Date of Service: 01/06/17 SOAP: Subjective: resting comfortably with no complaints Objective: Laboratory Last Values WBC 15.0 10^3/ul (3.5-10.8) H 01/02/17 18:45 RBC 3.69 10^6/ul (4.0-5.4) L 01/02/17 18:45 Hgb 10.5 g/dl (14.0-18.0) L 01/02/17 18:45 Hct 32 % (42-52) L 01/02/17 18:45 MCV 87 fL (80-94) 01/02/17 18:45 MCH 28 pg (27-31) 01/02/17 18:45 MCHC 33 g/dl (31-36) 01/02/17 18:45 RDW 15 % (10.5-15) 01/02/17 18:45 Plt Count 525 10^3/ul (150-450) H 01/02/17 18:45 MPV 7 um3 (7.4-10.4) L 01/02/17 18:45 Neut % (Auto) 71.3 % (38-83) 01/02/17 18:45 Lymph % (Auto) 17.9 % (25-47) L 01/02/17 18:45 [place] % (Auto) 8.0 % (1-9) 01/02/17 18:45 Eos % (Auto) 1.8 % (0-6) 01/02/17 18:45 Baso % (Auto) 1.0 % (0-2) 01/02/17 18:45 Absolute Neuts (auto) 10.7 10^3/ul (1.5-7.7) H 01/02/17 18:45 Absolute Lymphs (auto) 2.7 10^3/ul (1.0-4.8) 01/02/17 18:45 Absolute Monos (auto) 1.2 10^3/ul (0-0.8) H 01/02/17 18:45 Absolute Eos (auto) 0.3 10^3/ul (0-0.6) 01/02/17 18:45 Absolute Basos (auto) 0.1 10^3/ul (0-0.2) 01/02/17 18:45 Absolute Nucleated RBC 0.01 10^3/ul 01/02/17 18:45 Nucleated RBC % 0 01/02/17 18:45 INR (Anticoag Therapy) 1.09 (0.89-1.11) 01/02/17 18:45 Sodium 137 mmol/L (133-145) 01/02/17 18:45 Potassium 3.8 mmol/L (3.5-5.0) 01/02/17 18:45 Chloride 100 mmol/L (101-111) L 01/02/17 18:45 Carbon Dioxide 32 mmol/L (22-32) 01/02/17 18:45 Anion Gap 5 mmol/L (2-11) 01/02/17 18:45 BUN 10 mg/dL (6-24) 01/02/17 18:45 Creatinine 0.80 mg/dL (0.67-1.17) 01/02/17 18:45 Est GFR ( Amer) 144.1 (>60) 01/02/17 18:45 Est GFR (Non-Af Amer) 112.0 (>60) 01/02/17 18:45 BUN/Creatinine Ratio 12.5 (8-20) 01/02/17 18:45 Glucose 85 mg/dL (70-100) 01/02/17 18:45 Lactic Acid 1.3 mmol/L (0.5-2.0) 01/02/17 18:45 Calcium 9.4 mg/dL (8.6-10.3) 01/02/17 18:45 Total Bilirubin 0.40 mg/dL (0.2-1.0) 01/02/17 18:45 AST 19 U/L (13-39) 01/02/17 18:45 ALT 20 U/L (7-52) 01/02/17 18:45 Alkaline Phosphatase 77 U/L (34-104) 01/02/17 18:45 Troponin I 0.00 ng/mL (<0.04) 01/02/17 18:45 C-Reactive Protein 131.25 mg/L (< 5.00) H 01/02/17 18:45 Total Protein 8.5 g/dL (6.4-8.9) 01/02/17 18:45 Albumin 3.9 g/dL (3.2-5.2) 01/02/17 18:45 Globulin 4.6 g/dL (2-4) H 01/02/17 18:45 Albumin/Globulin Ratio 0.8 (1-3) L 01/02/17 18:45 Vital Signs Temp Pulse Resp BP Pulse Ox 98.1 F 63 16 106/55 100 01/06/17 06:45 01/06/17 06:45 01/06/17 07:02 01/05/17 23:43 01/06/17 06:45 incision: c/d; dressing intact PE: NVI Assessment: s/p I & D right forearm Plan: 1) medicine co-managing 2) continue IV Abx 3) continue daily dressing changes
[2017-01-06] MEDS: Nicotine PATCH 21 MG/24 HR* PATCH TRANSDERM SCH (08:34)
[2017-01-06] MEDS: Carbamide Peroxide 6.5% OTIC* 15 ML BTL BOTH EARS SCH ×2 (08:35→22:10)
[2017-01-06] MEDS: Ketorolac INJ* 30 MG/ML 1 ML VIAL IV PUSH PRN (10:11)
[2017-01-06] MEDS: LORazepam INJ* 2 MG/ML 1 ML VIAL IV PUSH PRN ×2 (10:11→20:28)
--- NOTE | 2017-01-06 13:47 | PN ---
Subjective Date of Service: 01/06/17 Interval History: Patient seen and examined at bedside. Patient very anxious and agitated this AM. He is refusing antibiotics as well as dressing changes. He c/o of nausea with the IV infusion. Provider Candie from [facility] clinic at bedside to help calm him this morning. Family History: Unchanged from Admission Social History: Unchanged from Admission Past Medical History: Unchanged from Admission Objective Active Medications: Carbamide Peroxide (Debrox 6.5% Otic*) 2 drop BOTH EARS BID VIV Docusate Sodium (Colace Cap*) 100 mg PO DAILY PRN Vancomycin HCl 1,000 mg/ (Sodium Chloride) 250 mls @ 166.667 mls/hr IVPB Q8H VIV Ketorolac Tromethamine (Toradol Inj*) 30 mg IV PUSH Q6H PRN Lorazepam (Ativan Inj*) 2 mg IV PUSH Q8H PRN Morphine Sulfate (Morphine Inj (Syringe)*) 4 mg IV Q4H PRN Nicotine (Nicotine Patch 21 Mg/24 Hr*) 1 patch TRANSDERM DAILY [facility] Nicotine (Nicotine Inhaler*) 10 mg INH Q2H PRN Nicotine Polacrilex (Nicotine Gum*) 2 mg PO Q2H PRN Ondansetron HCl (Zofran Inj*) 4 mg IV Q6H PRN Oxycodone HCl (Roxycodone Tab*) 10 mg PO Q3H PRN Pharmacy Consult (Vancomycin Per Pharmacy*) 1 note FOLLOW UP . PRN Pharmacy Profile Note (Nicotine Patch Removal Note*) 1 note PATCH OFF 2100 [facility] Polyethylene Glycol/Electrolytes (Miralax*) 17 gm PO DAILY PRN Senna (Senokot Tab*) 1 tab PO DAILY PRN Vital Signs 01/05/17 01/05/17 01/06/17 23:35 23:43 00:00 Temperature 98.2 F Pulse Rate 63 Respiratory 14 16 Rate Blood Pressure 106/55 (mmHg) O2 Sat by Pulse 98 100 Oximetry 01/06/17 01/06/17 01/06/17 06:45 07:02 08:00 Temperature 98.1 F Pulse Rate 63 Respiratory 16 16 20 Rate Blood Pressure (mmHg) O2 Sat by Pulse 100 100 Oximetry Oxygen Devices in Use Now: None Appearance: sitting up in bed, NAD Eyes: No Scleral Icterus, PERRLA Ears/Nose/Mouth/Throat: NL Teeth, Lips, Gums Neck: NL Appearance and Movements; NL JVP Respiratory: Symmetrical Chest Expansion and Respiratory Effort, Clear to Auscultation Cardiovascular: NL Sounds; No Murmurs; No JVD, RRR Abdominal: NL Sounds; No Tenderness; No Distention Extremities: No Edema Skin: - - R arm dressing intact and wound not examined. Neurological: Alert and Oriented x 3, NL Muscle Strength and Tone Lines/Tubes/Other Access: Clean, Dry and Intact Peripheral IV Result Diagrams: 01/02/17 18:45 01/02/17 18:45 Microbiology and Other Data: Microbiology Assess/Plan/Problems-Billing Assessment: Mr. Roberts is a 31 yo male with a PMH of schizoaffective disorder, bipolar disorder, and IVDA who was admitted on 01/02/17 with right forearm abscesses. - Patient Problems (1) Abscess Comment: MRSA positive, continue vancomycin. Appreciate ID consult. Appreciate ortho consult, patient is to continue with soapy water soaks. Can follow up outpatient with ortho in 7-10 days. Pain meds prn. (2) History of bipolar disorder Comment: PRN Ativan for anxiety. (3) History of schizoaffective disorder Comment: Not on home meds, supportive care (4) DVT prophylaxis Comment: SCDs. (5) Full code status Status and Disposition: Inpatient. Expected LOS > 2 days. Anticipate discharge when medically stable to [facility], patient has been homeless. SW is following along.
--- NOTE | 2017-01-06 15:13 | PN ---
Progress Note - Progress Note Date of Service: 01/06/17 SOAP: Subjective: CC: abscess HPI: 31 yo man R arm and hand abscess s/p I&D. Arm pain slowly improving as is hand ROM. No fever, rash, or diarrhea. Was more aroused this morning, improved with ativan. Objective: [] Vital Signs Temp 36.7 C 01/06/17 06:45 Pulse 63 01/06/17 06:45 Resp 18 01/06/17 14:14 BP 106/55 01/05/17 23:43 Pulse Ox 100 01/06/17 14:03 Intake & Output 01/05/17 01/06/17 01/06/17 18:59 06:59 18:59 Intake Total 840 338 360 Balance 840 338 360 Intake: IV Fluids 88 NS (0.9%) 88 IVPB 250 ABX - VANCOMYCIN 250 Oral 840 360 Other: Estimated Void Medium # Bowel Movements 0 0 # Voids 1 Gen:awake, no distress HEENT:PERRL, MMM Neck:Supple Heart:RRR no murmur Lungs:CTA BL Abd:+BS NTND soft Skin: no rash MSK: R hand, forearm incision no erythema or fluctuance, mild edema Microbiology 01/03/17 09:39 Anaerobic Culture - Preliminary Wound - Right Skin and Soft Tissue MRSA/MSSA (PCR - Final Mrsa Positive S.aureus Positive Gram Stain - Final Wound Culture - Preliminary Streptococcus Intermedius 01/02/17 19:15 Aerobic Blood Culture - Preliminary Blood Venous No Growth Day 3 Anaerobic Blood Culture - Preliminary No Growth Day 3 Blood Culture - Final 01/02/17 18:45 Aerobic Blood Culture - Preliminary Blood Venous No Growth Day 3 Anaerobic Blood Culture - Preliminary No Growth Day 3 Blood Culture - Final Assessment: 1. R and and forearm abscess s/p I&D, polymicrobial; MRSA and VGS 2. injection drug use in brief remission 3. HCV Ab+ 4. schizophrenia Plan: 1. continue vancomycin another 24 hours then will likely change to PO abx once culture is finalized. Wound care per ortho. 35 minutes floor time >50% face to face in counseling regarding next steps in antibiotic treatment.
[2017-01-06] MEDS: Nicotine Patch Removal NOTE PATCH OFF SCH (21:56)
[2017-01-07] MEDS: Nicotine GUM* 2 MG PO PRN ×5 (02:17→14:16)
[2017-01-07] MEDS: Morphine INJ* 4 MG/ML 1 ML CARPUJECT IV PRN ×3 (02:18→11:46)
[2017-01-07] MEDS: oxyCODONE TAB* 5 MG TAB PO PRN ×3 (03:54→11:45)
[2017-01-07] MEDS: Vancomycin(*) 1,000 MG in NS 0.9% 250 ML* 250 ML IVPB SCH ×2 (04:27→14:26)
[2017-01-07] MEDS: Nicotine PATCH 21 MG/24 HR* PATCH TRANSDERM SCH (07:36)
[2017-01-07 07:53] VITALS: BP 116/62
[2017-01-07] MEDS: LORazepam INJ* 2 MG/ML 1 ML VIAL IV PUSH PRN (08:35)
[2017-01-07] MEDS: Carbamide Peroxide 6.5% OTIC* 15 ML BTL BOTH EARS SCH (08:46)
--- NOTE | 2017-01-07 11:42 | PN ---
Progress Note - Progress Note Date of Service: 01/07/17 SOAP: Subjective: CC: abscess HPI: 31 yo man R arm and hand abscess s/p I&D. Arm pain and swelling improving. No fever, rash, or diarrhea. Objective: [] Gen:awake, no distress HEENT:PERRL, MMM Neck:Supple Heart:RRR no murmur Lungs:CTA BL Abd:+BS NTND soft Skin: no rash MSK: R hand and forearm incisions no erythema or fluctuance, no edema or erythema Assessment: 1. R and and forearm abscess s/p I&D, polymicrobial; MRSA and VGS 2. injection drug use in brief remission 3. HCV Ab+ 4. schizophrenia Plan: 1. continue vancomycin and then can use bactrim ds PO BID and keflex 500 mg PO TID for 10 more days 35 minutes floor time >50% face to face in counseling regarding plans to transition to PO antibiotics.
--- NOTE | 2017-01-07 12:31 | PN ---
Subjective Date of Service: 01/07/17 Interval History: Patient seen and examined at bedside. Patient very frustrated with lack of control he has in the hospital. He has been agreeable to receiving his antibiotics for the time being. Family History: Unchanged from Admission Social History: Unchanged from Admission Past Medical History: Unchanged from Admission Objective Active Medications: Carbamide Peroxide (Debrox 6.5% Otic*) 2 drop BOTH EARS BID VIV Docusate Sodium (Colace Cap*) 100 mg PO DAILY PRN Vancomycin HCl 1,000 mg/ (Sodium Chloride) 250 mls @ 166.667 mls/hr IVPB Q8H VIV Ketorolac Tromethamine (Toradol Inj*) 30 mg IV PUSH Q6H PRN Lorazepam (Ativan Inj*) 2 mg IV PUSH Q8H PRN Morphine Sulfate (Morphine Inj (Syringe)*) 4 mg IV Q4H PRN Nicotine (Nicotine Patch 21 Mg/24 Hr*) 1 patch TRANSDERM DAILY [facility] Nicotine (Nicotine Inhaler*) 10 mg INH Q2H PRN Nicotine Polacrilex (Nicotine Gum*) 2 mg PO Q2H PRN Ondansetron HCl (Zofran Inj*) 4 mg IV Q6H PRN Oxycodone HCl (Roxycodone Tab*) 10 mg PO Q3H PRN Pharmacy Consult (Vancomycin Per Pharmacy*) 1 note FOLLOW UP . PRN Pharmacy Profile Note (Nicotine Patch Removal Note*) 1 note PATCH OFF [facility] Polyethylene Glycol/Electrolytes (Miralax*) 17 gm PO DAILY PRN Senna (Senokot Tab*) 1 tab PO DAILY PRN Vital Signs 01/06/17 01/06/17 01/06/17 14:03 14:14 16:08 Temperature 97.9 F Pulse Rate 89 Respiratory 18 20 Rate Blood Pressure 107/63 (mmHg) O2 Sat by Pulse 100 100 Oximetry 01/06/17 01/06/17 01/06/17 16:14 17:28 19:28 Temperature Pulse Rate Respiratory 20 14 20 Rate Blood Pressure (mmHg) O2 Sat by Pulse Oximetry 01/06/17 01/06/17 01/06/17 20:28 20:30 21:28 Temperature Pulse Rate Respiratory 20 20 18 Rate Blood Pressure (mmHg) O2 Sat by Pulse Oximetry 01/06/17 01/06/17 01/06/17 21:54 22:13 23:28 Temperature 97.9 F Pulse Rate 79 Respiratory 18 20 20 Rate Blood Pressure 151/62 (mmHg) O2 Sat by Pulse 99 Oximetry 01/07/17 01/07/17 01/07/17 01:28 02:18 03:18 Temperature Pulse Rate Respiratory 16 18 20 Rate Blood Pressure (mmHg) O2 Sat by Pulse Oximetry 01/07/17 01/07/17 01/07/17 03:53 03:54 05:54 Temperature 98.1 F Pulse Rate 61 Respiratory 20 20 20 Rate Blood Pressure 130/81 (mmHg) O2 Sat by Pulse 99 Oximetry 01/07/17 01/07/17 01/07/17 06:33 07:33 07:52 Temperature 98.1 F Pulse Rate 72 Respiratory 20 20 16 Rate Blood Pressure 116/62 (mmHg) O2 Sat by Pulse 99 Oximetry 01/07/17 01/07/17 01/07/17 08:35 08:44 11:45 Temperature Pulse Rate Respiratory 22 22 20 Rate Blood Pressure (mmHg) O2 Sat by Pulse Oximetry 01/07/17 11:46 Temperature Pulse Rate Respiratory 20 Rate Blood Pressure (mmHg) O2 Sat by Pulse Oximetry Oxygen Devices in Use Now: None Appearance: sitting up in bed, NAD Eyes: No Scleral Icterus, PERRLA Ears/Nose/Mouth/Throat: NL Teeth, Lips, Gums Neck: NL Appearance and Movements; NL JVP Respiratory: Symmetrical Chest Expansion and Respiratory Effort, Clear to Auscultation Cardiovascular: NL Sounds; No Murmurs; No JVD, RRR Abdominal: NL Sounds; No Tenderness; No Distention Extremities: No Edema Skin: - - wound not examined today - see dr. langley's assessment Neurological: Alert and Oriented x 3 Lines/Tubes/Other Access: Clean, Dry and Intact Peripheral IV Nutrition: Taking PO's Result Diagrams: 01/02/17 18:45 01/02/17 18:45 Assess/Plan/Problems-Billing Assessment: Mr. Roberts is a 31 yo male with a PMH of schizoaffective disorder, bipolar disorder, and IVDA who was admitted on 01/02/17 with right forearm abscesses. - Patient Problems (1) Abscess Comment: Id ok'ed transition to keflex and bactrim for 10 days. Dressing changes BID while in house Appreciate ortho consult, patient is to continue with soapy water soaks. Can follow up outpatient with ortho in 7-10 days. Pain meds prn. (2) History of bipolar disorder Comment: PRN Ativan for anxiety. (3) History of schizoaffective disorder Comment: Not on home meds, supportive care (4) DVT prophylaxis Comment: SCDs. (5) Full code status Status and Disposition: Inpatient. Expected LOS > 2 days. Plan to discharge on PO antibiotics without narcotics. Patient will have dressing changed 2-3x week at [facility].
[2017-01-07] MEDS ORDERED: LORazepam TAB(*) 1 MG PO ONE (14:34)
[2017-01-07] MEDS ORDERED: Sulfamethox/Trimethoprim DS 800/160* TAB PO SCH (14:40)
[2017-01-07] MEDS ORDERED: LORazepam TAB(*) 1 MG ONE (14:41)
[2017-01-07] MEDS ORDERED: Cephalexin CAP* 500 MG PO SCH (15:00)
--- NOTE | 2017-01-08 07:06 | DS ---
CC: Dr. Schreiber; Dr. Gan * DISCHARGE SUMMARY: DATE OF ADMISSION: 01/02/17 DATE OF DISCHARGE: 01/07/17 PRIMARY CARE PROVIDER: Kaela Schreiber MD, [facility]. ATTENDING PHYSICIAN: Dr. Nargis Nance * (report dictated by Aisha Reddy NP). PRIMARY DIAGNOSIS: Right upper extremity abscess. SECONDARY DIAGNOSES: 1. Schizophrenia. 2. Tobacco abuse. 3. Drug abuse. MEDICATIONS AT THE TIME OF DISCHARGE: New medications: 1. Keflex 500 mg oral 3 times daily for 10 days. 2. Bactrim 1 tablet oral twice daily x10 days. 3. Colace 100 mg oral daily as needed. 4. MiraLAX 17 g oral daily as needed. 5. Senna 1 tablet oral every day as needed. The patient was instructed to discontinue doxycycline. STUDIES WHILE IN THE HOSPITAL: 1. Forearm right two views, 01/03/17, no fracture of the right forearm was noted. 2. X-ray of the right hand 3 views, no fracture of the right hand was noted, soft tissue swelling or evidence of subcu air. CONSULTATIONS WHILE IN THE HOSPITAL: Right dorsal forearm and hand abscess I and D by Dr. Heri Gan on 01/03/17. HISTORY OF PRESENT ILLNESS AND HOSPITAL COURSE: Mr. Roberts is a 31-year-old male with past medical history of schizoaffective disease, bipolar disorder, polysubstance abuse, chronic pain, who presented to the hospital on 01/02/17 with complaint of right upper extremity pain and swelling. The patient presented to the emergency room for further evaluation. The patient was admitted to the medical floor and placed on IV antibiotics. The patient was seen in consultation by Dr. Geronimo Escobar from Infectious Disease. Please see his dictation for details. Recommendation was for IV vancomycin. The patient was also seen by Orthopedic Surgery. The patient was taken to the operating room on 01/03/17 for an I and D. The patient's culture was positive for MRSA as well as Streptococcus intermedius. Dr. Escobar recommended vancomycin. After multiple days of vancomycin, Infectious Disease okayed the transition to oral Keflex and Bactrim for a total of 10-day treatment. While the patient was hospitalized here, he received twice a day dressing changes and soaks. On 01/07/17, Dr. Escobar examined the patient's wound and felt that the patient was stable to be discharged for continuation of outpatient wound care. During the patient's hospitalization, the patient required Ativan for anxiety. He was given narcotics on a regular basis. Dr. Schreiber, his physician, who follows him as an outpatient was involved on multiple occasions and the plan is for the patient to be discharged home and he will start on Suboxone tomorrow. At times, the patient became angry and threatened to leave, yet had intermittent doses of IV Ativan helped the patient remain agreeable to the continuation of IV antibiotics until Infectious Disease okayed the transition to oral therapy. On 01/07/17, vitals were as follows: Temperature 98.1, heart rate 72, respiratory rate 20, blood pressure 116/62. At this point, the patient was stable for discharge. DISCHARGE PLANNING: The patient was discharged on a regular diet with activity as tolerated. The patient has been instructed to leave his dressing covered until he goes to the [facility] tomorrow morning for dressing changes. He will have his dressing changes there done on a twice a week basis. In addition, that is where he will receive his Suboxone. The patient has been provided with the information to follow up with Orthopedic Surgery in 7 to 10 days to have his wound checked. The patient has been instructed to return to the hospital if he experiences high fever or worsening pain. I have reviewed all these instructions with the patient and he is agreeable with his discharge today. This is a summarized report of a complex medical history and hospital stay. For more details, please see the entire medical record. TIME SPENT: Time for discharge was 60 minutes, and 35 minutes was spent with the patient discussing discharge plan and followup instructions. CONDITION ON DISCHARGE: Stable. AISHA REDDY NP [id number]/[facility] #: [id number] AYLIN
== END 2017-01-07 15:00 | DRG 364 ==
LOC: ED 17:25 → SSU 18:34 → MED 01-04 10:54
PROVIDERS: ADMIT Hospitalist; ATTEND Internal Medicine
PROC: 0J9G0ZZ Drainage of Right Lower Arm Subcutaneous Tissue and Fascia, Open Approach (ICD-10-PCS; 2017-01-03)
PROC: 0J9J0ZZ Drainage of Right Hand Subcutaneous Tissue and Fascia, Open Approach (ICD-10-PCS; principal; 2017-01-03 09:15)
DX: L02.413 Cutaneous abscess of right upper limb (principal); F25.9 Schizoaffective disorder, unspecified; I10 Essential (primary) hypertension; B95.4 Other streptococcus as the cause of diseases classified elsewhere; B95.62 Methicillin resistant Staphylococcus aureus infection as the cause of diseases classified elsewhere; F17.210 Nicotine dependence, cigarettes, uncomplicated; F11.10 Opioid abuse, uncomplicated; Z72.89 Other problems related to lifestyle; F15.10 Other stimulant abuse, uncomplicated; F12.90 Cannabis use, unspecified, uncomplicated; F31.9 Bipolar disorder, unspecified; G89.29 Other chronic pain; Z59.0 Homelessness; L03.113 Cellulitis of right upper limb; K21.9 Gastro-esophageal reflux disease without esophagitis; F41.9 Anxiety disorder, unspecified; F90.9 Attention-deficit hyperactivity disorder, unspecified type; F43.10 Post-traumatic stress disorder, unspecified; Z91.5 Personal history of self-harm; Z86.14 Personal history of Methicillin resistant Staphylococcus aureus infection; Z81.1 Family history of alcohol abuse and dependence; B19.20 Unspecified viral hepatitis C without hepatic coma
CPT/HCPCS: 36415; 80053; 83605; 84484; 85025; 85610; 86140; 87040; 87070; 87073; 87077; 87186; 87205; 87640; 87641; A9270-GY; J0692; J1885; J2060; J2250; J2270; J2405; J2704; J3010; J3370

== ENCOUNTER 2017-01-25 09:00 | Emergency (ER) | payer OTHER ==
[2017-01-25] MEDS ORDERED: LORazepam TAB(*) 1 MG PO ONE (09:08)
[2017-01-25] MEDS ORDERED: diPHENhydraMINE PO* 50 MG PO ONE (09:08)
[2017-01-25] MEDS ORDERED: LORazepam TAB(*) 1 MG ONE (09:11)
[2017-01-25] MEDS ORDERED: Haloperidol TAB* 5 MG ONE (09:11)
[2017-01-25] MEDS ORDERED: diPHENhydraMINE PO* 50 MG ONE (09:11)
[2017-01-25] MEDS: Haloperidol TAB* 5 MG PO ONE ×2 (09:13→09:16)
[2017-01-25] MEDS ORDERED: Haloperidol INJ IV/IM* 5 MG/ML AMP ONE (09:17)
[2017-01-25] MEDS ORDERED: Haloperidol INJ IV/IM* 5 MG/ML AMP IM ONE (09:19)
[2017-01-25] MEDS ORDERED: Buprenorphine/Naloxone 8-2 MG SL TAB* 1 TAB PO SCH (10:00)
[2017-01-25 12:17] LABS: Hematocrit 33 % (42-52); Hemoglobin 10.7 g/dl (14.0-18.0); Mean Corpuscular HGB Conc 33 g/dl (31-36); Mean Corpuscular Hemoglobin 29 pg (27-31); Mean Corpuscular Volume 87 fL (80-94); Mean Platelet Volume 8 um3 (7.4-10.4); Red Blood Count 3.76 10^6/ul (4.0-5.4); Red Cell Distribution Width 16 % (10.5-15); White Blood Count 10.9 10^3/ul (3.5-10.8)
[2017-01-25 12:30] LABS: ALT 24 U/L (7-52); AST 41 U/L (13-39); Albumin 4.2 g/dL (3.2-5.2); Alkaline Phosphatase 82 U/L (34-104); Anion Gap 7 mmol/L (2-11); Blood Urea Nitrogen 18 mg/dL (6-24); CO2 Carbon Dioxide 27 mmol/L (22-32); Chloride 103 mmol/L (101-111); EGFR African American 125.8 (>60); EGFR Non-African American 97.8 (>60); Globulin 3.5 g/dL (2-4); Glucose 91 mg/dL (70-100); Potassium 3.9 mmol/L (3.5-5.0); Sodium 137 mmol/L (133-145); Total Protein 7.7 g/dL (6.4-8.9)
[2017-01-25 12:33] LABS: Acetaminophen < 15 mcg/mL; Alcohol < 10 mg/dL (<10); Salicylate < 2.50 mg/dL (<30)
[2017-01-25 12:54] LABS: TSH (Thyroid Stimulating Horm) 0.87 mcIU/mL (0.34-5.60)
[2017-01-25] MEDS ORDERED: Nicotine Inhaler* 10 MG AMP ONE (19:09)
[2017-01-25] MEDS ORDERED: Nicotine GUM* 2 MG ONE (19:09)
[2017-01-25] MEDS ORDERED: Mouth Piece, Nicotine* 1 EACH CARTRIDGE ONE (19:10)
[2017-01-25 19:33] LABS: Urine Bacteria Absent (Absent); Urine Bilirubin Negative (Negative); Urine Glucose Negative (Negative); Urine Nitrite Negative (Negative)
[2017-01-25 19:39] LABS: Benzodiazepine Urine Screen None Detected (None Detect)
[2017-01-25 20:11] VITALS: BP 108/78
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
== END 2017-01-25 20:04 | disposition home or self-care (01) ==
LOC: ED 09:00
DX: F19.14 Other psychoactive substance abuse with psychoactive substance-induced mood disorder (principal); F15.10 Other stimulant abuse, uncomplicated; F23 Brief psychotic disorder
CPT/HCPCS: 36415; 80053; 80307; 80320; 80329; 81003; 81015; 84443; 85025; 96372; 99284; A9270-GY; G0480; J1630

== ENCOUNTER 2017-03-21 14:44 | Emergency (ER) | payer OTHER ==
[2017-03-21] MEDS ORDERED: LORazepam TAB(*) 1 MG PO ONE (14:54)
[2017-03-21 15:44] LABS: Hematocrit 35 % (42-52); Hemoglobin 11.9 g/dl (14.0-18.0); Mean Corpuscular HGB Conc 34 g/dl (31-36); Mean Corpuscular Hemoglobin 30 pg (27-31); Mean Corpuscular Volume 88 fL (80-94); Mean Platelet Volume 7 um3 (7.4-10.4); Red Cell Distribution Width 16 % (10.5-15); White Blood Count 11.8 10^3/ul (3.5-10.8)
[2017-03-21 16:00] LABS: ALT 22 U/L (7-52); AST 27 U/L (13-39); Albumin 4.5 g/dL (3.2-5.2); Alkaline Phosphatase 90 U/L (34-104); Anion Gap 8 mmol/L (2-11); BUN/Creatinine Ratio 24.8 (8-20); Blood Urea Nitrogen 25 mg/dL (6-24); CO2 Carbon Dioxide 29 mmol/L (22-32); Calcium 9.4 mg/dL (8.6-10.3); Chloride 102 mmol/L (101-111); EGFR African American 110.1 (>60); EGFR Non-African American 85.6 (>60); Globulin 3.5 g/dL (2-4); Glucose 121 mg/dL (70-100); Potassium 3.7 mmol/L (3.5-5.0); Sodium 139 mmol/L (133-145)
[2017-03-21 16:33] LABS: Acetaminophen < 15 mcg/mL; Alcohol < 10 mg/dL (<10); Salicylate < 2.50 mg/dL (<30)
[2017-03-21 16:48] LABS: TSH (Thyroid Stimulating Horm) 0.45 mcIU/mL (0.34-5.60)
[2017-03-21] MEDS ORDERED: Buprenorphine/Naloxone 8-2 MG SL TAB* 1 TAB PO ONE (17:25)
[2017-03-21] MEDS ORDERED: Nicotine Inhaler* 10 MG AMP INH PRN (17:26)
[2017-03-21] MEDS ORDERED: Mouth Piece, Nicotine* 1 EACH CARTRIDGE ONE (17:27)
[2017-03-21] MEDS ORDERED: Buprenorphine/Naloxone 8-2 MG SL TAB* 1 TAB ONE (17:27)
[2017-03-21] MEDS ORDERED: Nicotine Inhaler* 10 MG AMP ONE (17:27)
[2017-03-21] MEDS ORDERED: Mouth Piece, Nicotine* 1 EACH CARTRIDGE INH ONE (17:29)
[2017-03-21 17:53] LABS: Urine Bilirubin Negative (Negative); Urine Glucose Negative (Negative); Urine Nitrite Negative (Negative)
[2017-03-21 18:15] LABS: Benzodiazepine Urine Screen None Detected (None Detect)
[2017-03-21 22:44] VITALS: BP 124/60
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
== END 2017-03-21 22:55 | disposition home or self-care (01) ==
LOC: ED 14:44
DX: F99 Mental disorder, not otherwise specified (principal); F17.210 Nicotine dependence, cigarettes, uncomplicated; K21.9 Gastro-esophageal reflux disease without esophagitis; I10 Essential (primary) hypertension; F41.9 Anxiety disorder, unspecified; F32.9 Major depressive disorder, single episode, unspecified; F43.10 Post-traumatic stress disorder, unspecified
CPT/HCPCS: 36415; 80053; 80307; 80320; 80329; 81003; 84443; 85025; 99285; A9270-GY; G0480

== ENCOUNTER 2017-04-17 11:49 | Emergency (ER) | payer OTHER ==
[2017-04-17] MEDS ORDERED: LORazepam INJ* 2 MG/ML 1 ML VIAL IM ONE (11:50)
[2017-04-17] MEDS ORDERED: Haloperidol INJ IV/IM* 5 MG/ML AMP IM ONE (11:50)
[2017-04-17] MEDS ORDERED: diPHENhydraMINE IV* 50 MG/ML 1 ml VIAL (BENADRYL) IM ONE (11:51)
[2017-04-17] MEDS ORDERED: KETAMINE HCL* 50 MG/ML 10 ML VIAL IM ONE (12:09)
[2017-04-17] MEDS ORDERED: KETAMINE HCL* 50 MG/ML 10 ML VIAL IV ONE (12:13)
[2017-04-17 14:23] LABS: ABS Basophils 0.1 10^3/ul (0-0.2); ABS Eosinophils 0.1 10^3/ul (0-0.6); ABS Lymphocytes 2.1 10^3/ul (1.0-4.8); ABS Monocytes 1.3 10^3/ul (0-0.8); ABS Neutrophils 5.7 10^3/ul (1.5-7.7); ABS Nucleated RBC 0 10^3/ul; Eosinophil % 1.6 % (0-6); Hematocrit 35 % (42-52); Hemoglobin 11.5 g/dl (14.0-18.0); Lymphocyte % 22.3 % (25-47); Mean Corpuscular HGB Conc 33 g/dl (31-36); Mean Corpuscular Hemoglobin 30 pg (27-31); Mean Corpuscular Volume 90 fL (80-94); Mean Platelet Volume 8 um3 (7.4-10.4); Nucleated Red Blood Cells % 0; Platelet Count 343 10^3/ul (150-450); Red Blood Count 3.89 10^6/ul (4.0-5.4); Red Cell Distribution Width 14 % (10.5-15); White Blood Count 9.3 10^3/ul (3.5-10.8)
[2017-04-17 14:38] LABS: EGFR Non-African American 113.7 (>60)
[2017-04-17 20:21] LABS: Urine Appearance Clear; Urine Blood Negative (Negative); Urine Color Yellow; Urine Ketones Trace (Negative); Urine Protein 1+(30 mg/dL) (Negative); Urine Urobilinogen Negative (Negative)
[2017-04-17] MEDS ORDERED: Nicotine GUM* 2 MG PO PRN ×2 (20:49)
[2017-04-18] MEDS ORDERED: Buprenorphine/Naloxone 8-2 MG SL TAB* 1 TAB PO ONE (10:07)
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
[2017-04-18 11:15] VITALS: BP 113/64
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
== END 2017-04-18 11:12 | disposition home or self-care (01) ==
LOC: ED 11:49
DX: F25.9 Schizoaffective disorder, unspecified (principal); F32.9 Major depressive disorder, single episode, unspecified; F17.210 Nicotine dependence, cigarettes, uncomplicated
CPT/HCPCS: 36415; 80053; 80307; 80320; 80329; 81003; 81015; 84443; 85025; 96372; 99285; A9270-GY; G0480

== ENCOUNTER 2017-05-09 03:16 | Emergency (ER) | payer OTHER ==
[2017-05-09] MEDS ORDERED: diPHENhydraMINE IV* 50 MG/ML 1 ml VIAL (BENADRYL) IM ONE (03:25)
[2017-05-09] MEDS ORDERED: LORazepam INJ* 2 MG/ML 1 ML VIAL IM ONE (03:26)
[2017-05-09] MEDS ORDERED: Ziprasidone IM INJ* 20 MG/ML VIAL IM ONE (03:26)
[2017-05-09] MEDS ORDERED: Nicotine PATCH 14 MG/24 HR* PATCH TRANSDERM ONE (03:48)
[2017-05-09 05:18] LABS: ABS Basophils 0.1 10^3/ul (0-0.2); ABS Eosinophils 0.2 10^3/ul (0-0.6); ABS Lymphocytes 2.2 10^3/ul (1.0-4.8); ABS Nucleated RBC 0 10^3/ul; Eosinophil % 1.8 % (0-6); Hematocrit 31 % (42-52); Hemoglobin 10.1 g/dl (14.0-18.0); Lymphocyte % 26.1 % (25-47); Mean Corpuscular HGB Conc 33 g/dl (31-36); Mean Corpuscular Hemoglobin 29 pg (27-31); Mean Corpuscular Volume 88 fL (80-94); Mean Platelet Volume 7 um3 (7.4-10.4); Nucleated Red Blood Cells % 0; Platelet Count 435 10^3/ul (150-450); Red Blood Count 3.49 10^6/ul (4.0-5.4); Red Cell Distribution Width 14 % (10.5-15); White Blood Count 8.5 10^3/ul (3.5-10.8)
[2017-05-09 05:27] LABS: EGFR Non-African American 108.2 (>60)
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
--- NOTE | 2017-05-09 09:43 | PN ---
ED Flex Patient Progress Note Subjective: This is a 32 year-old M who is pending psychiatric evaluation secondary to ____ __manic episode last night - mental health issue vs. substance induced mania____ . Pt offers no complaints at this time. Reports he is hungry when offered a sandwich. Objective: Vitals: Most recent vital signs documented below. Sleeping on stretcher - rousable with verbal stimulation only. Heart: S1/S2, RRR Lungs: CTA , BREATHING EASILY AB: +BS, soft, NTTP Assessment: manic episode Plan: Pending psychiatric evaluation. They are waiting for pt's potential substance to clear to be able to perform most accurate MH exam. He has refused urine test to this point. Appears calm and relaxed at the moment. MH aware. Will follow up daily __while in ED___. Vital Signs Temp Pulse Resp BP Pulse Ox 99 F 81 20 122/62 96 05/09/17 03:18 05/09/17 03:18 05/09/17 03:47 05/09/17 03:18 05/09/17 03:18 Lab Results - Entire Visit 05/09/17 05/09/17 05:03 05:03 WBC 8.5 RBC 3.49 L Hgb 10.1 L Hct 31 L MCV 88 MCH 29 MCHC 33 RDW 14 Plt Count 435 MPV 7 L Neut % (Auto) 59.4 Lymph % (Auto) 26.1 [place] % (Auto) 11.9 H Eos % (Auto) 1.8 Baso % (Auto) 0.8 Absolute Neuts (auto) 5.0 Absolute Lymphs (auto) 2.2 Absolute Monos (auto) 1.0 H Absolute Eos (auto) 0.2 Absolute Basos (auto) 0.1 Absolute Nucleated RBC 0 Nucleated RBC % 0 Sodium 134 Potassium 3.7 Chloride 102 Carbon Dioxide 26 Anion Gap 6 BUN 19 Creatinine 0.82 Est GFR ( Amer) 139.2 Est GFR (Non-Af Amer) 108.2 BUN/Creatinine Ratio 23.2 H Glucose 115 H Calcium 8.8 Total Bilirubin 0.50 AST 22 ALT 16 Alkaline Phosphatase 67 Total Protein 7.1 Albumin 3.7 Globulin 3.4 Albumin/Globulin Ratio 1.1 TSH 1.11 Salicylates < 2.50 Acetaminophen < 15 Serum Alcohol < 10
[2017-05-09] MEDS ORDERED: Mouth Piece, Nicotine* 1 EACH CARTRIDGE ONE (10:49)
[2017-05-09] MEDS ORDERED: Nicotine Inhaler* 10 MG AMP ONE (10:49)
[2017-05-09] MEDS ORDERED: Mouth Piece, Nicotine* 1 EACH CARTRIDGE INH PRN ×2 (10:50)
[2017-05-09] MEDS ORDERED: Nicotine Inhaler* 10 MG AMP INH ONE (10:50)
[2017-05-09 11:20] VITALS: BP 146/87
--- NOTE | 2017-05-09 12:24 | CONSULT ---
Consult Consult: Mr. Roberts presented manic on a previous shift. He was medically cleared and had a MHE this AM. They felt that he was safe to go home and he is D/C'd in stable condition with a diagnosis of drug induced mood disorder.
== END 2017-05-09 11:19 ==
LOC: ED 03:16
DX: F30.9 Manic episode, unspecified (principal)
CPT/HCPCS: 36415; 80053; 80320; 80329; 84443; 85025; 96372; 99284; A9270-GY; G0480; J1200; J2060; J3486

== ENCOUNTER 2017-05-14 13:35 | Inpatient (IN) | payer OTHER ==
[2017-05-14] MEDS ORDERED: KETAMINE HCL* 50 MG/ML 10 ML VIAL ONE (13:41)
[2017-05-14] MEDS ORDERED: LORazepam INJ* 2 MG/ML 1 ML VIAL IM ONE (13:43)
[2017-05-14] MEDS ORDERED: KETAMINE HCL* 50 MG/ML 10 ML VIAL IM ONE ×2 (13:45→14:29)
--- NOTE | 2017-05-14 15:24 | RAD ---
INDICATION: Fever. COMPARISON: Comparison is made with prior study from July 15, 2016. TECHNIQUE: A portable view of the chest was obtained. FINDINGS: Cardiac and mediastinal contours appear to be within normal limits. The lungs are clear. No pleural effusion is seen. There is a [id number] dorsal spine lumbar scoliosis convex toward the right in the dorsal region. IMPRESSION: NO EVIDENCE FOR ACUTE DISEASE.
[2017-05-14 17:46] LABS: Hematocrit 37 % (42-52); Hemoglobin 12.1 g/dl (14.0-18.0); Mean Corpuscular HGB Conc 33 g/dl (31-36); Mean Corpuscular Hemoglobin 29 pg (27-31); Mean Corpuscular Volume 89 fL (80-94); Mean Platelet Volume 7 um3 (7.4-10.4); Platelet Count 384 10^3/ul (150-450); Red Blood Count 4.13 10^6/ul (4.0-5.4); Red Cell Distribution Width 14 % (10.5-15)
[2017-05-14 18:07] LABS: EGFR Non-African American 87.1 (>60)
[2017-05-14] MEDS ORDERED: Nicotine PATCH 21 MG/24 HR* PATCH TRANSDERM ONE (21:43)
[2017-05-14] MEDS ORDERED: Buprenorphine/Naloxone 8-2 MG SL TAB* 1 TAB ONE (21:58)
[2017-05-14] MEDS ORDERED: Buprenorphine/Naloxone 8-2 MG SL TAB* 1 TAB PO SCH (22:00)
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
[2017-05-15] MEDS ORDERED: Mouth Piece, Nicotine* 1 EACH CARTRIDGE INH SCH (01:42)
[2017-05-15] MEDS ORDERED: Al Hydrox/Mg Hydrox/Simet LIQ* 30 ML UDC PO PRN (01:42)
[2017-05-15] MEDS ORDERED: Haloperidol TAB* 5 MG PO PRN (01:43)
[2017-05-15] MEDS: Buprenorphine/Naloxone 8-2 MG SL TAB* 1 TAB SL SCH ×3 (08:34→20:25)
[2017-05-15] MEDS: Vitamin THERAPEUTIC TAB PO SCH (08:34)
[2017-05-15] MEDS: Nicotine Inhaler* 10 MG AMP INH PRN ×3 (09:10→18:04)
[2017-05-15] MEDS: Nicotine GUM* 2 MG PO PRN ×3 (09:10→18:04)
[2017-05-15] MEDS ORDERED: chlorproMAZINE TAB* 100 MG PO PRN (12:08)
[2017-05-15] MEDS: Nicotine PATCH 21 MG/24 HR* PATCH TRANSDERM SCH (13:10)
[2017-05-15] MEDS: OLANzapine TAB* 5 MG PO SCH (20:26)
[2017-05-15] MEDS: Nicotine Patch Removal NOTE FOLLOW UP SCH (20:27)
[2017-05-15] MEDS ORDERED: Nicotine Patch Removal NOTE PATCH OFF ONE (21:00)
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
[2017-05-16] MEDS: Acetaminophen TAB* 325 MG PO PRN (03:39)
[2017-05-16] MEDS: Nicotine PATCH 21 MG/24 HR* PATCH TRANSDERM SCH (08:20)
[2017-05-16] MEDS: Buprenorphine/Naloxone 8-2 MG SL TAB* 1 TAB SL SCH ×3 (08:21→20:18)
[2017-05-16] MEDS: Vitamin THERAPEUTIC TAB PO SCH (08:21)
[2017-05-16] MEDS: Nicotine Inhaler* 10 MG AMP INH PRN ×4 (08:23→20:21)
[2017-05-16] MEDS: Nicotine GUM* 2 MG PO PRN ×4 (08:23→20:21)
[2017-05-16] MEDS: Nicotine Patch Removal NOTE FOLLOW UP SCH (20:19)
[2017-05-16] MEDS: OLANzapine TAB* 5 MG PO SCH (20:19)
[2017-05-17] MEDS: Nicotine GUM* 2 MG PO PRN ×6 (00:22→20:46)
[2017-05-17] MEDS: Nicotine Inhaler* 10 MG AMP INH PRN ×5 (00:22→20:46)
[2017-05-17] MEDS: Buprenorphine/Naloxone 8-2 MG SL TAB* 1 TAB SL SCH ×3 (08:41→20:44)
[2017-05-17] MEDS: Nicotine PATCH 21 MG/24 HR* PATCH TRANSDERM SCH (08:41)
[2017-05-17] MEDS: Vitamin THERAPEUTIC TAB PO SCH (08:41)
--- NOTE | 2017-05-17 16:04 | PN ---
Subjective - Subjective Date of Service: 05/17/17 Service Type: 55249 Hosp care 15 min low complexity Subjective: Was in bed, his head covered with hoodie and blanket, unwilling to talk. Not feeling well he says. Refused to answer probing questions. Refused to take Zyprexa. Instead wants Adderall, Klonopin etc. Later came out to apologize. Objective - Appearance Appearance: Healthy Appearing Dysmorphic Features: No Hygiene: Normal Grooming: Fairly Well Kept - Behavior Psychomotor Activities: Normal Exhibits Abnormal Movement: No - Attitude and Relatedness Attitude and Relatedness: Dismissive Eye Contact: Poor - Speech Quality: Unpressured Latencies: Normal Quantity: Appropriate - Mood Patient's Decription of Mood: "Terrible" - Affect Observed Affect: Tense Affect Consistent with: Dysphoria - Thought Process Patient's Thought Process: Coherent Thought Content: No Passive Wish, No Suicidal Planning, No Homicidal Ideation, No Paranoid Ideation - Sensorium Experiencing Hallucinations: No, Sensorium is Clear Type of Hallucinations: Visual: No, Auditory: No, Command: No - Level of Consciousness Level of Consciousness: Alert Orientation: Yes Intact, Yes Orientated to Time, Yes Orientated to Place, Yes Orientated to Person - Impulse Control Impulse Control: Tenuous - Insight and Judgement Insight and Judgement: Poor - Group Participation Particating in Group Activities: No - Medication Management Medication Management Adherence: No Assessment - Assessment Merits Inpatient Hospitalization: For Immediate Safety, To Initiate Treatment, For Ongoing Evaluation, For Discharge Planning Plan - Plan Treatment Plan: Name: ARLEEN ESPARZA Birthdate: 1985 [id number] Continued Medication Management: Consider Medication Medications: Current Medications Acetaminophen (Tylenol Tab*) 650 mg PO Q4H PRN PRN Reason: PAIN or TEMP > 101 F Last Admin: 05/16/17 03:39 Dose: 650 mg Al Hydrox/Mg Hydrox/Simethicone (Maalox Plus*) 30 ml PO Q4H PRN PRN Reason: INDIGESTION Buprenorphine/Naloxone (Suboxone 8-2 Mg Sl Tab*) 1 tab.sl SL TID VIV Last Admin: 05/17/17 14:01 Dose: 1 tab.sl Chlorpromazine HCl (Thorazine Tab*) 100 mg PO Q6H PRN PRN Reason: AGITATION Device (Nicotine Mouth Piece*) 1 each INH .CARTRIDGE VIV Last Admin: 05/15/17 09:10 Dose: 1 each Haloperidol (Haldol Tab*) 5 mg PO Q6H PRN PRN Reason: AGITATION Multivitamins (Theragran Tab*) 1 tab PO DAILY [facility] Last Admin: 05/17/17 08:41 Dose: 1 tab Nicotine (Nicotine Inhaler*) 10 mg INH Q2H PRN PRN Reason: CRAVING Last Admin: 05/17/17 14:40 Dose: 10 mg Nicotine (Nicotine Patch 21 Mg/24 Hr*) 1 patch TRANSDERM DAILY [facility] Last Admin: 05/17/17 08:41 Dose: 1 patch Nicotine Polacrilex (Nicotine Gum*) 2 mg PO Q2H PRN PRN Reason: CRAVING Last Admin: 05/17/17 14:40 Dose: 2 mg Olanzapine (Zyprexa Tab*) 5 mg PO BEDTIME [facility] Last Admin: 05/16/17 20:19 Dose: Not Given Pharmacy Profile Note (Nicotine Patch Removal Note*) 1 note FOLLOW UP 2100 [facility] Last Admin: 05/16/17 20:19 Dose: Not Given - Discharge Plan Discharge Plan: Outpatient Follow Up Outpatient Program: [facility]
[2017-05-17] MEDS: OLANzapine TAB* 5 MG PO SCH ×2 (20:43→20:53)
[2017-05-17] MEDS: Acetaminophen TAB* 325 MG PO PRN (21:41)
[2017-05-18] MEDS: Nicotine GUM* 2 MG PO PRN ×4 (03:00→12:45)
[2017-05-18] MEDS: Nicotine Patch Removal NOTE FOLLOW UP SCH (03:10)
[2017-05-18] MEDS: Nicotine PATCH 21 MG/24 HR* PATCH TRANSDERM SCH (08:31)
[2017-05-18] MEDS: Buprenorphine/Naloxone 8-2 MG SL TAB* 1 TAB SL SCH (08:33)
[2017-05-18] MEDS: Vitamin THERAPEUTIC TAB PO SCH (08:33)
[2017-05-18] MEDS: Nicotine Inhaler* 10 MG AMP INH PRN ×3 (08:33→12:45)
[2017-05-18 09:06] VITALS: BP 125/60
[2017-05-18] MEDS: Acetaminophen TAB* 325 MG PO PRN (09:35)
--- NOTE | 2017-05-20 00:08 | DS ---
CC: [facility] Care Coordination; [facility] DISCHARGE SUMMARY: DATE OF ADMISSION: 05/15/17 DATE OF DISCHARGE: 05/18/17 SUPERVISING PSYCHIATRIST: Dr. Won Christiansen. DISCHARGE DIAGNOSES: 1. Schizoaffective disorder, bipolar type. 2. Cannabis use disorder. 3. Cocaine use disorder. 4. Opiate use disorder, in remission. 5. Tobacco use disorder. CONDITION AT THE TIME OF DISCHARGE: Improved. The patient states he is "better than I was." He rep orts he slept much over the course of admission and this was restorative after he had not slept for 4 days prior. He reports that he smoked crack cocaine approximately 2 days before admission. He stat es he does not drink alcohol anymore. He is benefiting from Suboxone treatment for pain management a nd opiate addiction. He will continue with his provider, Dr. Kaela Schreiber in regards to Suboxone therapy and harm reduction substance use. He will also continue working with [facility] as well as [facility]. This combination of treatment providers have been helpful in avoiding the hospitalizations multiple times for trips. He states that he is frustrated with fatigue related to Lyme disease and is circumstantial in regards to this. The patient is able t o identify insight about some of his delusions and thoughts that are not based on reality. He veheme ntly denies or refuses psychiatric medications. The patient reports hopefulness in regards to psycho social stressors. He states that his little sister in [place] is his payee and they have coordinated, s o that he has social service benefits. He also reports concerned that he has missed court last due to an assault charge. However, the patient was relieved to know that his care connector, Honorio saunders knew of his admission and coordinated with court to be rescheduled for Thursday the . The p atient denies suicidal ideation. He denies homicidal ideation or violence ideation. He is pleasant and cooperative. He denies need for medication refills due to having a supply from prior 2 admission s. MENTAL STATUS EXAM: At the time of discharge, he is appropriately groomed and well kempt. He has dr jeter in his own clothing, was his hoodie over his head and removed that later in conversation. He i s in behavioral control. The patient sits on couch and is cooperative with interview. In the midst of the interview, he is able to tolerate an intrusive peer and agrees to move to a more private [facility]. He is alert and oriented x3. His eye contact is good. His speech is normal rate, rhythm, and v olume. Thought process is tangential, but redirectable. Thought content is positive for delusions a bout which the patient has insight. He denies SI, HI, or . His insight is good, his judgment is g ood, and his fund of knowledge is adequate. DISCHARGE INSTRUCTIONS GIVEN TO THE PATIENT: A. Medications: He will continue his prescribed medica tions through Dr. Schreiber of Suboxone and Concerta. He denies need for refills at this time. Suboxo ne is 8- 2 SL t.i.d. and Concerta is 54 mg p.o. q.a.m. B. Diet: Regular. C: Activities: Ambulation as tolerated. Tobacco cessation is declined by the patient. There are n o studies or labs pending at the time of discharge. D. Followup care: [facility]. The patient has an appointment with his case work er, Darcie Pink on 05/22/17 at 2:15. He will follow up today at [facility] with his care management coordinator, Kallie and his Dr. Kaela Schreiber. E. Substance use followup: The patient denied referral to intensive substance abuse treatment. He is in treatment for medicated assisted therapy for opiate use disorder through [facility] rdination. HOSPITAL COURSE: A. Reason for admission: The patient presented to the emergency department via bianca ice on status. He was acting bizarrely and agitated in the community. He had been chased by po lice. Apparently, he has in frequent contact with emergency outreach services due to homelessness an d untreated psychiatric diagnosis. The patient was admitted to the adult behavioral services unit on status. His code status was full. He was placed on 15-minute checks for safety. B. Psychiatric treatment rendered: While in the emergency department, the patient was agreeable to blood draws. His CBC and CMP were done. His white blood cell count was high at 13.0. He denied sym ptoms of illness. His toxicology was positive for amphetamines, cocaine, and cannabis, which were al l consistent with the patient report. The patient was admitted to the adult behavioral services unit and monitor for mood and thought content. He was primarily seclusive to self and in behavioral cont rol. On the first day of admission, he presented hyperactive and appeared to be under the influence of stimulants. Again, he declined use of psychiatric medications. Olanzapine was ordered, but the p atient refused. He agreed to STI testing. He was negative for chlamydia, gonorrhea, and HIV. Over the course of admission as stated above, the patient was in behavioral control. He was safe on all checks. He was minimally engaged in programing. He was irritable with on-call psychiatrist over the weekend and then later apologized. On day of discharge, the patient was calm and cooperative as stated above. He requested to be discharged and denies SI, HI, or . He was well related. He antonia ed need for further treatment. This advertising copy writer reached out to his primary care provider, Dr. Schreiber who was agreeable to see him in the community through [facility] Care Coordination. She reports that the patient is very well known to the agency and has established good rapport with them. She spoke well of the patient and his resiliency in the face of multiple psychosocial stressors. Due to obliga tion to treat in the least restrictive setting, discharge was agreed upon by treatment team. The [facility] has multiple outpatient care providers and he states that he is eager to return to the community , so he can provide for himself. This advertising copy writer asked if the patient would return to hospital if he nee ded psychiatric admission again and the patient agreed. We hope that he does well in the outpatient arena and returns to the ED should symptoms worsen. This advertising copy writer spoke to him about strong recommenda tion to abstain from cocaine use as this was likely a large factor into presentation leading to admis mendel. BREANNA SORIA NP [id number]/[facility] #: [id number]
== END 2017-05-18 13:27 | disposition home or self-care (01) | DRG 750 ==
LOC: ED 13:35 → BSU 05-15 01:05
PROVIDERS: ADMIT Psychiatry & Neurology Psychiatry; ATTEND Psychiatry & Neurology Psychiatry
DX: F25.9 Schizoaffective disorder, unspecified (principal); R45.851 Suicidal ideations; F15.10 Other stimulant abuse, uncomplicated; F12.10 Cannabis abuse, uncomplicated; F17.210 Nicotine dependence, cigarettes, uncomplicated; M54.9 Dorsalgia, unspecified; K21.9 Gastro-esophageal reflux disease without esophagitis; Z79.899 Other long term (current) drug therapy
CPT/HCPCS: 36415; 71045; 80053; 80307; 80320; 83735; 84443; 85027; 86703; 87491; 87591; 93005; 99222; 99231; 99238; A9270-GY; G0480

== ENCOUNTER 2017-05-20 21:03 | Inpatient (IN) | payer MEDICAID, OTHER ==
[2017-05-20] MEDS ORDERED: Buprenorphine/Naloxone 8-2 MG SL TAB* 1 TAB PO ONE (22:42)
[2017-05-20] MEDS ORDERED: LORazepam TAB(*) 1 MG PO ONE (23:18)
[2017-05-21] MEDS ORDERED: Nicotine GUM* 2 MG ONE (00:26)
[2017-05-21] MEDS: Nicotine GUM* 2 MG PO PRN ×5 (00:27→19:55)
[2017-05-21] MEDS ORDERED: LORazepam TAB(*) 1 MG PO ONE (02:24)
[2017-05-21] MEDS ORDERED: Haloperidol TAB* 5 MG PO ONE (02:24)
[2017-05-21] MEDS ORDERED: diPHENhydraMINE PO* 50 MG PO ONE (02:24)
[2017-05-21 02:25] LABS: Urine Appearance Clear; Urine Blood Negative (Negative); Urine Color Yellow; Urine Ketones Negative (Negative); Urine Protein Negative (Negative); Urine Specific Gravity 1.024 (1.010-1.030); Urine Urobilinogen Negative (Negative)
[2017-05-21] MEDS ORDERED: diPHENhydraMINE PO* 50 MG ONE (02:28)
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
[2017-05-21] MEDS: Acetaminophen TAB* 325 MG PO PRN (04:00)
[2017-05-21] MEDS ORDERED: Mouth Piece, Nicotine* 1 EACH CARTRIDGE INH ONE (04:00)
[2017-05-21] MEDS: Nicotine PATCH 21 MG/24 HR* PATCH TRANSDERM SCH (09:20)
[2017-05-21] MEDS: Vitamin THERAPEUTIC TAB PO SCH (10:18)
[2017-05-21] MEDS: Buprenorphine/Naloxone 8-2 MG SL TAB* 1 TAB SL SCH ×3 (10:18→19:55)
[2017-05-21] MEDS: Methylphenidate ER 27 MG TAB PO SCH (10:18)
[2017-05-21] MEDS ORDERED: Mouth Piece, Nicotine* 1 EACH CARTRIDGE ONE (12:39)
[2017-05-21] MEDS: Nicotine Inhaler* 10 MG AMP INH PRN ×2 (12:40→19:55)
[2017-05-21] MEDS: LORazepam TAB(*) 1 MG PO PRN (17:59)
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
[2017-05-22] MEDS ORDERED: Mouth Piece, Nicotine* 1 EACH CARTRIDGE ONE (00:01)
[2017-05-22] MEDS: Nicotine Inhaler* 10 MG AMP INH PRN ×8 (00:03→22:31)
[2017-05-22] MEDS: Nicotine GUM* 2 MG PO PRN ×10 (00:03→22:31)
[2017-05-22] MEDS: Nicotine PATCH 21 MG/24 HR* PATCH TRANSDERM SCH (08:41)
[2017-05-22] MEDS: Buprenorphine/Naloxone 8-2 MG SL TAB* 1 TAB SL SCH ×3 (08:42→20:27)
[2017-05-22] MEDS: Vitamin THERAPEUTIC TAB PO SCH (08:42)
[2017-05-22] MEDS: Methylphenidate ER 27 MG TAB PO SCH (08:42)
[2017-05-22] MEDS: Nicotine Patch Removal NOTE PATCH OFF SCH ×2 (13:26→21:22)
--- NOTE | 2017-05-22 16:25 | PN ---
<Citlali Jaimes - Last Filed: 05/22/17 16:48> Subjective - Subjective Service Type: [id number] Hosp care 15 min low complexity Subjective: Patient in room pacing, reports he came to his room so he "wouldn't get in trouble", he is irritated with some peers and staff. Has been interacting some with peers playing cards in milieu. Denies suicidal or homicidal thoughts. "Trip " signed MADY to speak with sister Rosario Roberts/Dante. Objective - Appearance Appearance: Thin Framed Dysmorphic Features: No Hygiene: Mal-odorous Grooming: Disheveled - Behavior Psychomotor Activities: Abnormal-Increased Exhibits Abnormal Movement: No - Attitude and Relatedness Attitude and Relatedness: Irritable Eye Contact: Poor - Speech Quality: Pressured Latencies: Short Quantity: Copious - Mood Patient's Decription of Mood: irritated - Affect Observed Affect: Labile Affect Consistent with: Dysphoria - Thought Process Patient's Thought Process: Disorganized, Tangential Thought Content: Yes Homicidal Ideation - patient denies, but per staff he has violent ideations, Yes Paranoid Ideation - feels "others out there" are out to get him., No Passive Wish, No Suicidal Planning - Sensorium Experiencing Hallucinations: Yes - hyperreligious, ideas of reference. he denies hallucinations but appears to respond to internal stimuli. Type of Hallucinations: Visual: No - denies, Auditory: No - denies, Command: No - denies - Level of Consciousness Level of Consciousness: Agitated Orientation: Yes Intact, Yes Orientated to Time, Yes Orientated to Place, Yes Orientated to Person - Impulse Control Impulse Control: Poor - Insight and Judgement Insight and Judgement: Poor - Group Participation Particating in Group Activities: No - Medication Management Medication Management Adherence: Yes Assessment - Assessment Merits Inpatient Hospitalization: For Immediate Safety, For Stabilization, For Discharge Planning Clinical Impression: Presented to ED with bizarre and disorganized behavior asking for mental health evaluation. Discharge from [facility] 05/18/17, has multiple admissions to this hospital. Known schizoaffective disorder, nondomiciled and recently "kicked out " of rescue mission. His of violence related to command hallucinations and delusions. he merits continued hospitalization for immediate safety, stabilization and discharge planning. Plan - Plan Treatment Plan: Name: ARLEEN ROBERTS Birthdate: 1985 [id number] Continued Medication Management: Continue Outpt Medication Medications: Current Medications Acetaminophen (Tylenol Tab*) 650 mg PO Q4H PRN PRN Reason: PAIN or TEMP > 101 F Last Admin: 05/21/17 04:00 Dose: 650 mg Al Hydrox/Mg Hydrox/Simethicone (Maalox Plus*) 30 ml PO Q4H PRN PRN Reason: INDIGESTION Buprenorphine/Naloxone (Suboxone 8-2 Mg Sl Tab*) 1 tab.sl SL TID [facility] Last Admin: 05/22/17 14:00 Dose: 1 tab.sl Haloperidol (Haldol Tab*) 5 mg PO Q6H PRN PRN Reason: AGITATION Lorazepam (Ativan Tab(*)) 2 mg PO Q6H PRN PRN Reason: AGITATION Last Admin: 05/21/17 17:59 Dose: 2 mg Methylphenidate HCl (Concerta) 54 mg PO DAILY [facility] Last Admin: 05/22/17 08:42 Dose: 54 mg Multivitamins (Theragran Tab*) 1 tab PO DAILY [facility] Last Admin: 05/22/17 08:42 Dose: 1 tab Nicotine (Nicotine Inhaler*) 10 mg INH Q2H PRN PRN Reason: CRAVING Last Admin: 05/22/17 16:09 Dose: 10 mg Nicotine (Nicotine Patch 21 Mg/24 Hr*) 1 patch TRANSDERM DAILY [facility] Last Admin: 05/22/17 08:41 Dose: 1 patch Nicotine Polacrilex (Nicotine Gum*) 2 mg PO Q2H PRN PRN Reason: CRAVING Last Admin: 05/22/17 16:09 Dose: 2 mg Pharmacy Profile Note (Nicotine Patch Removal Note*) 1 note PATCH OFF 2100 [facility] Last Admin: 05/22/17 13:26 Dose: Not Given <Gardenia Marie - Last Filed: 06/05/17 15:28> Subjective - Subjective Subjective: Above note reviewed and discussed with student. Plan - Plan Treatment Plan: Name: ARLEEN ROBERTS Birthdate: 1985 [id number] Medications: Current Medications Acetaminophen (Tylenol Tab*) 650 mg PO Q4H PRN PRN Reason: PAIN or TEMP > 101 F Last Admin: 05/21/17 04:00 Dose: 650 mg Al Hydrox/Mg Hydrox/Simethicone (Maalox Plus*) 30 ml PO Q4H PRN PRN Reason: INDIGESTION Last Admin: 05/26/17 08:46 Dose: 30 ml Buprenorphine/Naloxone (Suboxone 8-2 Mg Sl Tab*) 1 tab.sl SL BID [facility] Last Admin: 06/05/17 07:35 Dose: 1 tab.sl Buprenorphine/Naloxone (Suboxone 8-2 Mg Sl Tab*) 0.5 tab.sl PO 1400 [facility] Last Admin: 06/05/17 14:22 Dose: 0.5 tab.sl Haloperidol (Haldol Tab*) 5 mg PO Q6H PRN PRN Reason: AGITATION Haloperidol Decanoate (Haldol Decanoate*) 100 mg IM Q28D [facility] Last Admin: 06/02/17 12:45 Dose: 100 mg Lorazepam (Ativan Tab(*)) 2 mg PO Q6H PRN PRN Reason: AGITATION Last Admin: 06/04/17 17:33 Dose: 2 mg Multivitamins (Theragran Tab*) 1 tab PO DAILY [facility] Last Admin: 06/05/17 07:35 Dose: 1 tab Nicotine (Nicotine Inhaler*) 10 mg INH Q2H PRN PRN Reason: CRAVING Last Admin: 06/05/17 14:23 Dose: 10 mg Nicotine (Nicotine Patch 21 Mg/24 Hr*) 1 patch TRANSDERM DAILY [facility] Last Admin: 06/05/17 07:35 Dose: 1 patch Nicotine Polacrilex (Nicotine Gum*) 2 mg PO Q2H PRN PRN Reason: CRAVING Last Admin: 06/05/17 14:23 Dose: 2 mg Pharmacy Profile Note (Nicotine Patch Removal Note*) 1 note PATCH OFF 2100 [facility] Last Admin: 06/04/17 20:57 Dose: Not Given
[2017-05-22] MEDS: LORazepam TAB(*) 1 MG PO PRN (18:41)
[2017-05-23] MEDS: Nicotine Inhaler* 10 MG AMP INH PRN ×7 (00:19→20:12)
[2017-05-23] MEDS: Nicotine GUM* 2 MG PO PRN ×9 (00:19→23:35)
[2017-05-23] MEDS: Methylphenidate ER 27 MG TAB PO SCH (08:26)
[2017-05-23] MEDS: Buprenorphine/Naloxone 8-2 MG SL TAB* 1 TAB SL SCH ×3 (08:27→20:12)
[2017-05-23] MEDS: Vitamin THERAPEUTIC TAB PO SCH (08:27)
[2017-05-23] MEDS: Nicotine PATCH 21 MG/24 HR* PATCH TRANSDERM SCH (08:30)
--- NOTE | 2017-05-23 14:36 | PN ---
<MoeCitlali guzman - Last Filed: 05/25/17 11:57> Subjective - Subjective Service Type: [id number] Hosp care 15 min low complexity Subjective: Patient in milieu, pleasant on approach. We talk about his use of Ativan po last evening for "agitation" that he asked for,"I didn't want to go off". States he is sleeping ok, feels safe in unit, and that his "scary delusions" are out there. Denies suicidal thoughts, no homicidal/violent thoughts "in here , but out there when I'm afraid. He refuses to have bloodwork ordered in ED completed, stating he is afraid of that. He is drawing, which consists of mostly dots, which he explains to me is a an [place] on one side of the paper with a trench drawn on other side of paper which ewocs dump "their poop into". Objective - Appearance Appearance: Thin Framed Dysmorphic Features: No Hygiene: Normal Grooming: Fairly Well Kept - Behavior Psychomotor Activities: Abnormal-Increased Exhibits Abnormal Movement: No - Attitude and Relatedness Attitude and Relatedness: Psychotically Related Eye Contact: Good - Speech Quality: Pressured Latencies: Short Quantity: Copious - Mood Patient's Decription of Mood: "Fine" - Affect Observed Affect: Labile Affect Consistent with: Euthymia - Thought Process Patient's Thought Process: Disorganized, Tangential Thought Content: Yes Homicidal Ideation - "out there", Yes Paranoid Ideation, No Passive Wish, No Suicidal Planning - Sensorium Experiencing Hallucinations: Yes Type of Hallucinations: Visual: Yes - "flashes", Auditory: Yes, Command: No - Level of Consciousness Level of Consciousness: Alert Orientation: Yes Intact, Yes Orientated to Time, Yes Orientated to Place, Yes Orientated to Person - Impulse Control Impulse Control: Poor - Insight and Judgement Insight and Judgement: Impaired - Group Participation Particating in Group Activities: No - Medication Management Medication Management Adherence: Yes Assessment - Assessment Merits Inpatient Hospitalization: For Immediate Safety, For Stabilization, For Discharge Planning Clinical Impression: Presented to ED with bizarre and disorganized behavior asking for mental health evaluation. Discharge from [facility] 05/18/17, has multiple admissions to this hospital. Known schizoaffective disorder, nondomiciled and recently "kicked out " of rescue mission. His of violence related to command hallucinations and delusions. he merits continued hospitalization for immediate safety, stabilization and discharge planning. Plan - Plan Treatment Plan: Name: ARLEEN ESPARZA Birthdate: 1985 [id number] Medications: Current Medications Acetaminophen (Tylenol Tab*) 650 mg PO Q4H PRN PRN Reason: PAIN or TEMP > 101 F Last Admin: 05/21/17 04:00 Dose: 650 mg Al Hydrox/Mg Hydrox/Simethicone (Maalox Plus*) 30 ml PO Q4H PRN PRN Reason: INDIGESTION Buprenorphine/Naloxone (Suboxone 8-2 Mg Sl Tab*) 1 tab.sl SL TID [facility] Last Admin: 05/23/17 13:03 Dose: 1 tab.sl Haloperidol (Haldol Tab*) 5 mg PO Q6H PRN PRN Reason: AGITATION Lorazepam (Ativan Tab(*)) 2 mg PO Q6H PRN PRN Reason: AGITATION Last Admin: 05/22/17 18:41 Dose: 2 mg Methylphenidate HCl (Concerta) 54 mg PO DAILY [facility] Last Admin: 05/23/17 08:26 Dose: 54 mg Multivitamins (Theragran Tab*) 1 tab PO DAILY [facility] Last Admin: 05/23/17 08:27 Dose: 1 tab Nicotine (Nicotine Inhaler*) 10 mg INH Q2H PRN PRN Reason: CRAVING Last Admin: 05/23/17 13:03 Dose: 10 mg Nicotine (Nicotine Patch 21 Mg/24 Hr*) 1 patch TRANSDERM DAILY [facility] Last Admin: 05/23/17 08:30 Dose: 1 patch Nicotine Polacrilex (Nicotine Gum*) 2 mg PO Q2H PRN PRN Reason: CRAVING Last Admin: 05/23/17 13:03 Dose: 2 mg Pharmacy Profile Note (Nicotine Patch Removal Note*) 1 note PATCH OFF 2100 [facility] Last Admin: 05/22/17 21:22 Dose: 1 note <Baldomero Payne - Last Filed: 05/25/17 11:58> Subjective - Subjective Subjective: Reviewed this note written by student psychiatric nurse practitioner, Tina Giles, and approved it after discussion with her. Plan - Plan Treatment Plan: Name: ARLEEN ESPARZA Birthdate: 1985 [id number] Medications: Current Medications Acetaminophen (Tylenol Tab*) 650 mg PO Q4H PRN PRN Reason: PAIN or TEMP > 101 F Last Admin: 05/21/17 04:00 Dose: 650 mg Al Hydrox/Mg Hydrox/Simethicone (Maalox Plus*) 30 ml PO Q4H PRN PRN Reason: INDIGESTION Last Admin: 05/24/17 21:58 Dose: 30 ml Buprenorphine/Naloxone (Suboxone 8-2 Mg Sl Tab*) 1 tab.sl SL TID [facility] Last Admin: 05/25/17 08:13 Dose: 1 tab.sl Haloperidol (Haldol Tab*) 5 mg PO Q6H PRN PRN Reason: AGITATION Lorazepam (Ativan Tab(*)) 2 mg PO Q6H PRN PRN Reason: AGITATION Last Admin: 05/24/17 17:32 Dose: 2 mg Methylphenidate HCl (Concerta) 54 mg PO DAILY [facility] Last Admin: 05/25/17 08:13 Dose: 54 mg Multivitamins (Theragran Tab*) 1 tab PO DAILY [facility] Last Admin: 05/25/17 08:13 Dose: 1 tab Nicotine (Nicotine Inhaler*) 10 mg INH Q2H PRN PRN Reason: CRAVING Last Admin: 05/25/17 06:03 Dose: 10 mg Nicotine (Nicotine Patch 21 Mg/24 Hr*) 1 patch TRANSDERM DAILY [facility] Last Admin: 05/25/17 08:14 Dose: 1 patch Nicotine Polacrilex (Nicotine Gum*) 2 mg PO Q2H PRN PRN Reason: CRAVING Last Admin: 05/25/17 08:18 Dose: 2 mg Pharmacy Profile Note (Nicotine Patch Removal Note*) 1 note PATCH OFF 2099 [facility] Last Admin: 05/24/17 22:12 Dose: Not Given
[2017-05-23] MEDS: LORazepam TAB(*) 1 MG PO PRN (18:13)
[2017-05-23] MEDS: Nicotine Patch Removal NOTE PATCH OFF SCH (20:13)
[2017-05-24] MEDS: Nicotine GUM* 2 MG PO PRN ×9 (02:00→20:42)
[2017-05-24] MEDS: Nicotine Inhaler* 10 MG AMP INH PRN ×7 (06:05→20:42)
[2017-05-24] MEDS: Buprenorphine/Naloxone 8-2 MG SL TAB* 1 TAB SL SCH ×3 (07:25→20:05)
[2017-05-24] MEDS: Nicotine PATCH 21 MG/24 HR* PATCH TRANSDERM SCH (07:26)
[2017-05-24] MEDS: Vitamin THERAPEUTIC TAB PO SCH (07:26)
[2017-05-24] MEDS: Methylphenidate ER 27 MG TAB PO SCH (07:26)
[2017-05-24] MEDS: LORazepam TAB(*) 1 MG PO PRN (17:32)
[2017-05-24] MEDS: Al Hydrox/Mg Hydrox/Simet LIQ* 30 ML UDC PO PRN (21:58)
[2017-05-24] MEDS: Nicotine Patch Removal NOTE PATCH OFF SCH (22:12)
[2017-05-25] MEDS: Nicotine GUM* 2 MG PO PRN ×8 (02:28→21:22)
[2017-05-25] MEDS: Nicotine Inhaler* 10 MG AMP INH PRN ×7 (02:28→21:25)
[2017-05-25] MEDS: Buprenorphine/Naloxone 8-2 MG SL TAB* 1 TAB SL SCH ×3 (08:13→21:22)
[2017-05-25] MEDS: Methylphenidate ER 27 MG TAB PO SCH (08:13)
[2017-05-25] MEDS: Vitamin THERAPEUTIC TAB PO SCH (08:13)
[2017-05-25] MEDS: Nicotine PATCH 21 MG/24 HR* PATCH TRANSDERM SCH (08:14)
--- NOTE | 2017-05-25 16:45 | PN ---
Subjective - Subjective Subjective: Patient reports he is "hurt" and "embarrassed" about being rejected by the [facility] and his family. He goes on to describe a delusion that Robert told him to be accountable and other such commands. He states that his sister in [place] is keeping his money (as a payee) because he won't agree to participating in "illegal porn." He also states that he will likely never because he is not getting along with his sister and this will impact all relationships with women. Patient is tearful and visibly distraught. He states he no longer feels safe in this community. He states he "wants to kill myself but Robert told me a long time ago, that would be worse [in the afterlife] ." He continues to refuse offer of medications with antipsychotic category and is able to list multiple SGA's he has trialed. He refers to this class of medications as torturous. Tactical Debriefer left for his sister, Rosario Roberts. Objective - Appearance Appearance: Healthy Appearing Dysmorphic Features: Yes Hygiene: Dirty Grooming: Fairly Well Kept - Behavior Psychomotor Activities: Normal Exhibits Abnormal Movement: No - Attitude and Relatedness Attitude and Relatedness: Psychotically Related Eye Contact: Good - Speech Quality: Unpressured Latencies: Normal Quantity: Appropriate - Mood Patient's Decription of Mood: "Upset" - Affect Observed Affect: Expansive Affect Consistent with: Dysphoria - Thought Process Patient's Thought Process: Tangential Thought Content: Yes Suicidal Planning, Yes Paranoid Ideation, No Passive Wish, No Homicidal Ideation - Sensorium Experiencing Hallucinations: Yes Type of Hallucinations: Visual: No, Auditory: Yes, Command: No - Level of Consciousness Level of Consciousness: Alert Orientation: Yes Intact, Yes Orientated to Time, Yes Orientated to Place, Yes Orientated to Person - Impulse Control Impulse Control: Tenuous - Insight and Judgement Insight and Judgement: Poor - Group Participation Particating in Group Activities: Yes - Medication Management Medication Management Adherence: Partial Assessment - Assessment Merits Inpatient Hospitalization: For Immediate Safety, For Stabilization, To Initiate Treatment, For Ongoing Evaluation, For Discharge Planning Inpatient DSM-IV Dx: schizoaffective d/o; PTSD; cannabis use d/o; opiate use d/o , in remission Clinical Impression: 32yo white male with hx of poor adherence to treatment for schizoaffectivve d/ o. He is chronically homeless and vulnerable in the community. He is recovering from opiate use d/o with suboxone-assisted treatment and reports this to be extremely helpful. He merits hospitalization for immediate safety and stabilization. Plan - Plan Treatment Plan: Name: ARLEEN ROBERTS Birthdate: 1985 [id number] continue acute intensive psychiatric treatment. decrease to q30min observation and allow staff pass. Continue to establish therapeutic rapport and encourage antipsychotic medication. May refer to state hospitalization. Continued Medication Management: Consider Medication Medications: Current Medications Acetaminophen (Tylenol Tab*) 650 mg PO Q4H PRN PRN Reason: PAIN or TEMP > 101 F Last Admin: 05/21/17 04:00 Dose: 650 mg Al Hydrox/Mg Hydrox/Simethicone (Maalox Plus*) 30 ml PO Q4H PRN PRN Reason: INDIGESTION Last Admin: 05/24/17 21:58 Dose: 30 ml Buprenorphine/Naloxone (Suboxone 8-2 Mg Sl Tab*) 1 tab.sl SL TID [facility] Last Admin: 05/25/17 13:11 Dose: 1 tab.sl Haloperidol (Haldol Tab*) 5 mg PO Q6H PRN PRN Reason: AGITATION Lorazepam (Ativan Tab(*)) 2 mg PO Q6H PRN PRN Reason: AGITATION Last Admin: 05/24/17 17:32 Dose: 2 mg Methylphenidate HCl (Concerta) 54 mg PO DAILY [facility] Last Admin: 05/25/17 08:13 Dose: 54 mg Multivitamins (Theragran Tab*) 1 tab PO DAILY [facility] Last Admin: 05/25/17 08:13 Dose: 1 tab Nicotine (Nicotine Inhaler*) 10 mg INH Q2H PRN PRN Reason: CRAVING Last Admin: 05/25/17 16:34 Dose: 10 mg Nicotine (Nicotine Patch 21 Mg/24 Hr*) 1 patch TRANSDERM DAILY [facility] Last Admin: 05/25/17 08:14 Dose: 1 patch Nicotine Polacrilex (Nicotine Gum*) 2 mg PO Q2H PRN PRN Reason: CRAVING Last Admin: 05/25/17 16:34 Dose: 2 mg Pharmacy Profile Note (Nicotine Patch Removal Note*) 1 note PATCH OFF 2100 [facility] Last Admin: 05/24/17 22:12 Dose: Not Given - Discharge Plan Discharge Plan: Consider Longer Term Tx Outpatient Program: [facility]
[2017-05-25] MEDS: LORazepam TAB(*) 1 MG PO PRN (17:42)
[2017-05-25] MEDS: Al Hydrox/Mg Hydrox/Simet LIQ* 30 ML UDC PO PRN (17:59)
[2017-05-25] MEDS: Nicotine Patch Removal NOTE PATCH OFF SCH (22:15)
[2017-05-26] MEDS: Nicotine GUM* 2 MG PO PRN ×9 (00:10→22:47)
[2017-05-26] MEDS: Nicotine Inhaler* 10 MG AMP INH PRN ×7 (07:31→22:46)
[2017-05-26] MEDS: Buprenorphine/Naloxone 8-2 MG SL TAB* 1 TAB SL SCH ×3 (08:43→20:40)
[2017-05-26] MEDS: Vitamin THERAPEUTIC TAB PO SCH (08:44)
[2017-05-26] MEDS: Methylphenidate ER 27 MG TAB PO SCH (08:44)
[2017-05-26] MEDS: Nicotine PATCH 21 MG/24 HR* PATCH TRANSDERM SCH (08:45)
[2017-05-26] MEDS: Al Hydrox/Mg Hydrox/Simet LIQ* 30 ML UDC PO PRN (08:46)
--- NOTE | 2017-05-26 13:15 | PN ---
[facility]: Group Therapy Note - Service Type Service Type: [id number] Group Psychotherapy - Cognitive Behavioral Group Therapy ( CBT):Patient attended CBT programming this morning and presented with flat affect that did not vary with discussion. Although responsive to direct prompts to respond to questions, patient did not engage in spontaneous conversation.
--- NOTE | 2017-05-26 14:53 | PN ---
Subjective - Subjective Service Type: [id number] Hosp care 25 min moderate complexity Subjective: Patient continues to endorse desire to be referred to longer term hospitalization. He refuses antipsychotics and cites current medication regimen is "giving me a new life." He goes on to describe being diagnosed with ADHD as a child but that his parents would not allow him to be prescribed medications. He states he has been treated with antipsychotic medications since age 17 and continues to have "bad effects" from them. Patient goes on to describe belief in science, extra-terrestrial life and aliens that influence human behavior. He phoned [facility] but there was not an [place] attorney available; he was told he will receive a call back. Objective - Appearance Appearance: Well Developed/Nourished Dysmorphic Features: No Hygiene: Normal Grooming: Fairly Well Kept - Behavior Psychomotor Activities: Normal Exhibits Abnormal Movement: No - Attitude and Relatedness Attitude and Relatedness: Psychotically Related Eye Contact: Good - Speech Quality: Unpressured Latencies: Normal Quantity: Appropriate - Mood Patient's Decription of Mood: "Good" - Affect Observed Affect: Expansive Affect Consistent with: Euphoria - Thought Process Patient's Thought Process: Tangential Thought Content: Yes Paranoid Ideation, No Passive Wish, No Suicidal Planning, No Homicidal Ideation - Sensorium Experiencing Hallucinations: No, Sensorium is Clear Type of Hallucinations: Visual: No, Auditory: No, Command: No - Level of Consciousness Level of Consciousness: Alert Orientation: Yes Intact, Yes Orientated to Time, Yes Orientated to Place, Yes Orientated to Person - Impulse Control Impulse Control: Tenuous - Insight and Judgement Insight and Judgement: Poor - Group Participation Particating in Group Activities: No - Medication Management Medication Management Adherence: Yes Assessment - Assessment Merits Inpatient Hospitalization: For Immediate Safety, For Stabilization, For Ongoing Evaluation, Consolidate Improvements Inpatient DSM-IV Dx: schizoaffective d/o; PTSD; cannabis use d/o; opiate use d/o , in remission Clinical Impression: 32yo white male with hx of poor adherence to treatment for schizoaffectivve d/ o. He is chronically homeless and vulnerable in the community. He is recovering from opiate use d/o with suboxone-assisted treatment and reports this to be extremely helpful. He merits hospitalization for immediate safety and stabilization. Plan - Plan Treatment Plan: Name: ARLEEN ESPARZA Birthdate: 1985 [id number] continue acute intensive psychiatric treatment. decrease to q30min observation and allow staff pass. Continue to establish therapeutic rapport and encourage antipsychotic medication. will refer to state hospitalization and may consider treatment over objection. Medications: Current Medications Acetaminophen (Tylenol Tab*) 650 mg PO Q4H PRN PRN Reason: PAIN or TEMP > 101 F Last Admin: 05/21/17 04:00 Dose: 650 mg Al Hydrox/Mg Hydrox/Simethicone (Maalox Plus*) 30 ml PO Q4H PRN PRN Reason: INDIGESTION Last Admin: 05/26/17 08:46 Dose: 30 ml Buprenorphine/Naloxone (Suboxone 8-2 Mg Sl Tab*) 1 tab.sl SL TID [facility] Last Admin: 05/26/17 14:27 Dose: 1 tab.sl Haloperidol (Haldol Tab*) 5 mg PO Q6H PRN PRN Reason: AGITATION Lorazepam (Ativan Tab(*)) 2 mg PO Q6H PRN PRN Reason: AGITATION Last Admin: 05/25/17 17:42 Dose: 2 mg Methylphenidate HCl (Concerta) 54 mg PO DAILY [facility] Last Admin: 05/26/17 08:44 Dose: 54 mg Multivitamins (Theragran Tab*) 1 tab PO DAILY [facility] Last Admin: 05/26/17 08:44 Dose: 1 tab Nicotine (Nicotine Inhaler*) 10 mg INH Q2H PRN PRN Reason: CRAVING Last Admin: 05/26/17 12:36 Dose: 10 mg Nicotine (Nicotine Patch 21 Mg/24 Hr*) 1 patch TRANSDERM DAILY [facility] Last Admin: 05/26/17 08:45 Dose: 1 patch Nicotine Polacrilex (Nicotine Gum*) 2 mg PO Q2H PRN PRN Reason: CRAVING Last Admin: 05/26/17 12:36 Dose: 2 mg Pharmacy Profile Note (Nicotine Patch Removal Note*) 1 note PATCH OFF 2100 [facility] Last Admin: 05/25/17 22:15 Dose: Not Given quetiapine 50mg qhs - Discharge Plan Discharge Plan: Consider Longer Term Tx
[2017-05-26] MEDS: LORazepam TAB(*) 1 MG PO PRN (17:27)
[2017-05-26] MEDS: Nicotine Patch Removal NOTE PATCH OFF SCH (22:48)
[2017-05-27] MEDS: Nicotine GUM* 2 MG PO PRN ×9 (02:20→22:54)
[2017-05-27] MEDS: Nicotine Inhaler* 10 MG AMP INH PRN ×7 (07:31→22:54)
[2017-05-27] MEDS: Buprenorphine/Naloxone 8-2 MG SL TAB* 1 TAB SL SCH ×3 (08:23→20:17)
[2017-05-27] MEDS: Vitamin THERAPEUTIC TAB PO SCH (08:23)
[2017-05-27] MEDS: Methylphenidate ER 27 MG TAB PO SCH (08:24)
[2017-05-27] MEDS: Nicotine PATCH 21 MG/24 HR* PATCH TRANSDERM SCH (08:24)
--- NOTE | 2017-05-27 13:32 | PN ---
Subjective - Subjective Service Type: 68468 Hosp care 25 min moderate complexity Subjective: Staff notes patient observed responding to internal stimuli and he continues to be religiously preoccupied. Patient reports he spoke with [facility] and gave consent for referral to [facility]. [employer] discussed suggestion of antipsychotic medication. Patient was irritable and stated that he no longer considers verse writer as part of his trusted team. He excused himself to his room then returned to group room, tearful and apologetic. He approached verse writer to apologize for initial reaction. We discussed options of medications and patient states he has not trialed Latuda and would be willing to do so. Objective - Appearance Appearance: Well Developed/Nourished Dysmorphic Features: Yes Hygiene: Normal Grooming: Disheveled - Behavior Psychomotor Activities: Normal Exhibits Abnormal Movement: No - Attitude and Relatedness Attitude and Relatedness: Psychotically Related Eye Contact: Good - Speech Quality: Unpressured Latencies: Normal Quantity: Appropriate - Mood Patient's Decription of Mood: "Upset" - Affect Observed Affect: Labile - Thought Process Patient's Thought Process: Tangential Thought Content: Yes Paranoid Ideation, No Passive Wish, No Suicidal Planning, No Homicidal Ideation - Sensorium Experiencing Hallucinations: Yes Type of Hallucinations: Visual: No, Auditory: Yes, Command: No - Level of Consciousness Level of Consciousness: Alert Orientation: Yes Intact, Yes Orientated to Time, Yes Orientated to Place, Yes Orientated to Person - Impulse Control Impulse Control: Tenuous - Insight and Judgement Insight and Judgement: Fair - Group Participation Particating in Group Activities: Yes - Medication Management Medication Management Adherence: Yes Assessment - Assessment Merits Inpatient Hospitalization: For Immediate Safety, For Stabilization, For Ongoing Evaluation Inpatient DSM-IV Dx: schizoaffective d/o; PTSD; cannabis use d/o; opiate use d/o , in remission Clinical Impression: 32yo white male with hx of poor adherence to treatment for schizoaffectivve d/ o. He is chronically homeless and vulnerable in the community. He is recovering from opiate use d/o with suboxone-assisted treatment and reports this to be extremely helpful. He merits hospitalization for immediate safety and stabilization. Plan - Plan Treatment Plan: Name: ARLEEN ESPARZA Birthdate: 1985 [id number] continue acute intensive psychiatric treatment. add lurasidone for psychotic symptoms. will refer to state hospitalization. Continued Medication Management: Start Medication Medications: Current Medications Acetaminophen (Tylenol Tab*) 650 mg PO Q4H PRN PRN Reason: PAIN or TEMP > 101 F Last Admin: 05/21/17 04:00 Dose: 650 mg Al Hydrox/Mg Hydrox/Simethicone (Maalox Plus*) 30 ml PO Q4H PRN PRN Reason: INDIGESTION Last Admin: 05/26/17 08:46 Dose: 30 ml Buprenorphine/Naloxone (Suboxone 8-2 Mg Sl Tab*) 1 tab.sl SL TID [facility] Last Admin: 05/27/17 13:18 Dose: 1 tab.sl Haloperidol (Haldol Tab*) 5 mg PO Q6H PRN PRN Reason: AGITATION Lorazepam (Ativan Tab(*)) 2 mg PO Q6H PRN PRN Reason: AGITATION Last Admin: 05/26/17 17:27 Dose: 2 mg Lurasidone HCl (Latuda) 20 mg PO 1700 VIV Methylphenidate HCl (Concerta) 54 mg PO DAILY [facility] Last Admin: 05/27/17 08:24 Dose: 54 mg Multivitamins (Theragran Tab*) 1 tab PO DAILY [facility] Last Admin: 05/27/17 08:23 Dose: 1 tab Nicotine (Nicotine Inhaler*) 10 mg INH Q2H PRN PRN Reason: CRAVING Last Admin: 05/27/17 12:27 Dose: 10 mg Nicotine (Nicotine Patch 21 Mg/24 Hr*) 1 patch TRANSDERM DAILY [facility] Last Admin: 05/27/17 08:24 Dose: 1 patch Nicotine Polacrilex (Nicotine Gum*) 2 mg PO Q2H PRN PRN Reason: CRAVING Last Admin: 05/27/17 12:27 Dose: 2 mg Pharmacy Profile Note (Nicotine Patch Removal Note*) 1 note PATCH OFF 2100 [facility] Last Admin: 05/26/17 22:48 Dose: 1 note - Discharge Plan Discharge Plan: Consider Longer Term Tx
[2017-05-27] MEDS: LORazepam TAB(*) 1 MG PO PRN (17:41)
[2017-05-27] MEDS ORDERED: OLANzapine TAB* 5 MG PO SCH (21:00)
[2017-05-27] MEDS: Lurasidone(*) 20 MG TAB PO SCH (22:06)
[2017-05-27] MEDS: Nicotine Patch Removal NOTE PATCH OFF SCH (22:06)
[2017-05-28] MEDS: Nicotine Inhaler* 10 MG AMP INH PRN ×7 (02:02→21:44)
[2017-05-28] MEDS: Nicotine GUM* 2 MG PO PRN ×6 (02:02→21:44)
[2017-05-28] MEDS: Nicotine PATCH 21 MG/24 HR* PATCH TRANSDERM SCH (08:36)
[2017-05-28] MEDS: Methylphenidate ER 27 MG TAB PO SCH (09:23)
[2017-05-28] MEDS: Buprenorphine/Naloxone 8-2 MG SL TAB* 1 TAB SL SCH ×3 (09:23→20:33)
[2017-05-28] MEDS: Vitamin THERAPEUTIC TAB PO SCH (09:23)
--- NOTE | 2017-05-28 10:33 | PN ---
Subjective - Subjective Service Type: 45586 Hosp care 15 min low complexity Subjective: Patient reports he missed the dose of lurasidone last evening due to timing conflict. He states he did not refuse the medication and is agreeable to start today. He states he would prefer to take this medication with evening snack due sedative effect. He continues to agree with referral to state hospitalization. He states he prefers [facility] due to previous positive interactions there. Patient states he was irritable upon waking and has insight that he personalized interactions with a nurse and a specific female patient. Objective - Appearance Appearance: Well Developed/Nourished Dysmorphic Features: No Hygiene: Normal Grooming: Fairly Well Kept - Behavior Psychomotor Activities: Normal Exhibits Abnormal Movement: No - Attitude and Relatedness Attitude and Relatedness: Psychotically Related Eye Contact: Good - Speech Quality: Pressured Latencies: Normal Quantity: Copious - Mood Patient's Decription of Mood: "Irritable" - Affect Observed Affect: Expansive Affect Consistent with: Euphoria - Thought Process Patient's Thought Process: Tangential, Over Inclusive Thought Content: Yes Paranoid Ideation, No Passive Wish, No Suicidal Planning, No Homicidal Ideation - Sensorium Experiencing Hallucinations: Yes Type of Hallucinations: Visual: Yes, Auditory: Yes, Command: Yes - Level of Consciousness Level of Consciousness: Alert Orientation: Yes Intact, Yes Orientated to Time, Yes Orientated to Place, Yes Orientated to Person - Impulse Control Impulse Control: Tenuous - Insight and Judgement Insight and Judgement: Fair - Group Participation Particating in Group Activities: Yes - Medication Management Medication Management Adherence: Yes Assessment - Assessment Merits Inpatient Hospitalization: For Immediate Safety, For Stabilization, For Ongoing Evaluation Inpatient DSM-IV Dx: schizoaffective d/o; PTSD; cannabis use d/o; opiate use d/o , in remission Clinical Impression: 32yo white male with hx of poor adherence to treatment for schizoaffectivve d/ o. He is chronically homeless and vulnerable in the community. He is recovering from opiate use d/o with suboxone-assisted treatment and reports this to be extremely helpful. He merits hospitalization for immediate safety and stabilization. Plan - Plan Treatment Plan: Name: ARLEEN ESPARZA Birthdate: 1985 [id number] continue acute intensive psychiatric treatment. add lurasidone for psychotic symptoms. will refer to state hospitalization. Continued Medication Management: Start Medication Medications: Current Medications Acetaminophen (Tylenol Tab*) 650 mg PO Q4H PRN PRN Reason: PAIN or TEMP > 101 F Last Admin: 05/21/17 04:00 Dose: 650 mg Al Hydrox/Mg Hydrox/Simethicone (Maalox Plus*) 30 ml PO Q4H PRN PRN Reason: INDIGESTION Last Admin: 05/26/17 08:46 Dose: 30 ml Buprenorphine/Naloxone (Suboxone 8-2 Mg Sl Tab*) 1 tab.sl SL TID [facility] Last Admin: 05/28/17 09:23 Dose: 1 tab.sl Haloperidol (Haldol Tab*) 5 mg PO Q6H PRN PRN Reason: AGITATION Lorazepam (Ativan Tab(*)) 2 mg PO Q6H PRN PRN Reason: AGITATION Last Admin: 05/27/17 17:41 Dose: 2 mg Lurasidone HCl (Latuda) 20 mg PO 1700 [facility] Last Admin: 05/27/17 22:06 Dose: Not Given Methylphenidate HCl (Concerta) 54 mg PO DAILY [facility] Last Admin: 05/28/17 09:23 Dose: 54 mg Multivitamins (Theragran Tab*) 1 tab PO DAILY [facility] Last Admin: 05/28/17 09:23 Dose: 1 tab Nicotine (Nicotine Inhaler*) 10 mg INH Q2H PRN PRN Reason: CRAVING Last Admin: 05/28/17 08:40 Dose: 10 mg Nicotine (Nicotine Patch 21 Mg/24 Hr*) 1 patch TRANSDERM DAILY [facility] Last Admin: 05/28/17 08:36 Dose: 1 patch Nicotine Polacrilex (Nicotine Gum*) 2 mg PO Q2H PRN PRN Reason: CRAVING Last Admin: 05/28/17 09:22 Dose: 2 mg Pharmacy Profile Note (Nicotine Patch Removal Note*) 1 note PATCH OFF 2100 [facility] Last Admin: 05/27/17 22:06 Dose: Not Given - Discharge Plan Discharge Plan: Consider Longer Term Tx
--- NOTE | 2017-05-28 11:47 | PN ---
MHU: Group Therapy Note - Service Type Service Type: [id number] Group Psychotherapy - Cognitive Behavioral Therapy (CBT): Patient presents with high volume of speech that impresses as being coherent within the context of self-report, but is tangential and off topic in group context. Concerns regarding disorganization of thought are apparent.
--- NOTE | 2017-05-28 16:33 | PN ---
MHU: Group Therapy Note - Service Type Service Type: [id number] Group Psychotherapy - Medication Education Group: Patient joined group and was intermittently in room. Patient asked questions that were not particularly on topic. Patient receptive to redirection when monopolizing group.
[2017-05-28] MEDS: LORazepam TAB(*) 1 MG PO PRN (17:39)
[2017-05-28] MEDS: Lurasidone(*) 20 MG TAB PO SCH ×2 (20:33→21:26)
[2017-05-28] MEDS: Nicotine Patch Removal NOTE PATCH OFF SCH (22:50)
[2017-05-29] MEDS: Nicotine Inhaler* 10 MG AMP INH PRN ×9 (01:50→23:39)
[2017-05-29] MEDS: Nicotine GUM* 2 MG PO PRN ×9 (01:50→23:39)
[2017-05-29] MEDS: Methylphenidate ER 27 MG TAB PO SCH (08:35)
[2017-05-29] MEDS: Buprenorphine/Naloxone 8-2 MG SL TAB* 1 TAB SL SCH ×3 (08:35→21:04)
[2017-05-29] MEDS: Vitamin THERAPEUTIC TAB PO SCH (08:37)
[2017-05-29] MEDS: Nicotine PATCH 21 MG/24 HR* PATCH TRANSDERM SCH (08:37)
--- NOTE | 2017-05-29 11:52 | PN ---
MHU: Group Therapy Note - Service Type Service Type: [id number] Group Psychotherapy - Cognitive Behavioral Group Therapy ( CBT):Patient was attentive and participatory in CBT programming this morning, and remained in good behavioral control. Patient expressed positive insights regarding relevant treatment interventions and goals. He continues to require redirection for being over inclusive in content, but accepts redirection reasonably well.
--- NOTE | 2017-05-29 17:04 | PN ---
Subjective - Subjective Service Type: [id number] Hosp care 25 min moderate complexity Subjective: Patient is irritable and is often heard yelling in his room. He states he is being teased and persecuted by others. He states that Robert told him this would happen. He spends free time drawing and explains his art to have visuals that are not apparent to this health technical writer. He has been medication compliant and continues to agree with plan to refer to [facility]. Voicemail received from patient's sister, Rosario. Manager Advanced attempted to return call but line was busy multiple times. Received call from patient's mother, Ibrahima Roberts. She states she and his grandmother, his sister are all thinking of him and would do whatever they can for him. She states these presentations and hospitalizations have been similar for 13 years in 10 different states. Objective - Appearance Appearance: Well Developed/Nourished Dysmorphic Features: Yes Hygiene: Normal Grooming: Fairly Well Kept - Behavior Psychomotor Activities: Normal Exhibits Abnormal Movement: No - Attitude and Relatedness Attitude and Relatedness: Psychotically Related Eye Contact: Good - Speech Quality: Pressured Latencies: Normal Quantity: Terse - Mood Patient's Decription of Mood: "Upset" - Affect Observed Affect: Expansive Affect Consistent with: Euphoria - Thought Process Patient's Thought Process: Disorganized, Loose Associations, Filght of Ideas Thought Content: Yes Paranoid Ideation, No Passive Wish, No Suicidal Planning, No Homicidal Ideation - Sensorium Experiencing Hallucinations: Yes Type of Hallucinations: Visual: No, Auditory: Yes, Command: No - Level of Consciousness Level of Consciousness: Alert Orientation: Yes Intact, Yes Orientated to Time, Yes Orientated to Place, Yes Orientated to Person - Impulse Control Impulse Control: Poor - Insight and Judgement Insight and Judgement: Poor - Group Participation Particating in Group Activities: Yes - Medication Management Medication Management Adherence: Yes Assessment - Assessment Merits Inpatient Hospitalization: For Immediate Safety, For Stabilization, To Initiate Treatment, For Ongoing Evaluation, Pending Safe DC Plan Inpatient DSM-IV Dx: schizoaffective d/o; PTSD; cannabis use d/o; opiate use d/o , in remission Clinical Impression: 32yo white male with hx of poor adherence to treatment for schizoaffectivve d/ o. He is chronically homeless and vulnerable in the community. He is recovering from opiate use d/o with suboxone-assisted treatment and reports this to be extremely helpful. He merits hospitalization for immediate safety and stabilization. Plan - Plan Treatment Plan: Name: ARLEEN ROBERTS Birthdate: 1985 [id number] continue acute intensive psychiatric treatment. add lurasidone for psychotic symptoms. awaiting response for referral to state hospitalization. Continued Medication Management: Start Medication Medications: Current Medications Acetaminophen (Tylenol Tab*) 650 mg PO Q4H PRN PRN Reason: PAIN or TEMP > 101 F Last Admin: 05/21/17 04:00 Dose: 650 mg Al Hydrox/Mg Hydrox/Simethicone (Maalox Plus*) 30 ml PO Q4H PRN PRN Reason: INDIGESTION Last Admin: 05/26/17 08:46 Dose: 30 ml Buprenorphine/Naloxone (Suboxone 8-2 Mg Sl Tab*) 1 tab.sl SL TID [facility] Last Admin: 05/29/17 13:18 Dose: 1 tab.sl Haloperidol (Haldol Tab*) 5 mg PO Q6H PRN PRN Reason: AGITATION Lorazepam (Ativan Tab(*)) 2 mg PO Q6H PRN PRN Reason: AGITATION Last Admin: 05/28/17 17:39 Dose: 2 mg Lurasidone HCl (Latuda) 20 mg PO 2100 [facility] Last Admin: 05/28/17 20:33 Dose: 20 mg Methylphenidate HCl (Concerta) 54 mg PO DAILY [facility] Last Admin: 05/29/17 08:35 Dose: 54 mg Multivitamins (Theragran Tab*) 1 tab PO DAILY [facility] Last Admin: 05/29/17 08:37 Dose: 1 tab Nicotine (Nicotine Inhaler*) 10 mg INH Q2H PRN PRN Reason: CRAVING Last Admin: 05/29/17 15:44 Dose: 10 mg Nicotine (Nicotine Patch 21 Mg/24 Hr*) 1 patch TRANSDERM DAILY [facility] Last Admin: 05/29/17 08:37 Dose: 1 patch Nicotine Polacrilex (Nicotine Gum*) 2 mg PO Q2H PRN PRN Reason: CRAVING Last Admin: 05/29/17 15:44 Dose: 2 mg Pharmacy Profile Note (Nicotine Patch Removal Note*) 1 note PATCH OFF 2099 [facility] Last Admin: 05/28/17 22:50 Dose: 1 note - Discharge Plan Discharge Plan: Consider Longer Term Tx
[2017-05-29] MEDS: LORazepam TAB(*) 1 MG PO PRN (17:29)
[2017-05-29] MEDS: Nicotine Patch Removal NOTE PATCH OFF SCH (21:03)
[2017-05-29] MEDS: Lurasidone(*) 20 MG TAB PO SCH (21:04)
[2017-05-30] MEDS: Nicotine GUM* 2 MG PO PRN ×8 (05:38→22:36)
[2017-05-30] MEDS: Nicotine Inhaler* 10 MG AMP INH PRN ×7 (05:39→22:36)
[2017-05-30] MEDS: Buprenorphine/Naloxone 8-2 MG SL TAB* 1 TAB SL SCH ×3 (08:04→20:13)
[2017-05-30] MEDS: Vitamin THERAPEUTIC TAB PO SCH (08:04)
[2017-05-30] MEDS: Methylphenidate ER 27 MG TAB PO SCH (08:04)
[2017-05-30] MEDS: Nicotine PATCH 21 MG/24 HR* PATCH TRANSDERM SCH (08:07)
[2017-05-30] MEDS: LORazepam TAB(*) 1 MG PO PRN (17:39)
[2017-05-30] MEDS: Lurasidone(*) 20 MG TAB PO SCH (20:13)
[2017-05-30] MEDS: Nicotine Patch Removal NOTE PATCH OFF SCH (20:14)
[2017-05-31] MEDS: Nicotine Inhaler* 10 MG AMP INH PRN ×10 (01:30→23:32)
[2017-05-31] MEDS: Nicotine GUM* 2 MG PO PRN ×9 (01:30→23:32)
[2017-05-31] MEDS: Methylphenidate ER 27 MG TAB PO SCH (08:00)
[2017-05-31] MEDS: Vitamin THERAPEUTIC TAB PO SCH (08:00)
[2017-05-31] MEDS: Buprenorphine/Naloxone 8-2 MG SL TAB* 1 TAB SL SCH ×3 (08:00→20:04)
[2017-05-31] MEDS: Nicotine PATCH 21 MG/24 HR* PATCH TRANSDERM SCH (08:01)
[2017-05-31] MEDS: LORazepam TAB(*) 1 MG PO PRN (17:36)
[2017-05-31] MEDS: Lurasidone(*) 20 MG TAB PO SCH (20:05)
[2017-05-31] MEDS: Nicotine Patch Removal NOTE PATCH OFF SCH (21:23)
[2017-05-31] MEDS ORDERED: Mouth Piece, Nicotine* 1 EACH CARTRIDGE ONE (23:32)
[2017-06-01] MEDS: Nicotine GUM* 2 MG PO PRN ×8 (03:41→20:31)
[2017-06-01] MEDS: Nicotine Inhaler* 10 MG AMP INH PRN ×8 (03:41→20:31)
[2017-06-01] MEDS: Vitamin THERAPEUTIC TAB PO SCH (08:14)
[2017-06-01] MEDS: Methylphenidate ER 27 MG TAB PO SCH (08:14)
[2017-06-01] MEDS: Buprenorphine/Naloxone 8-2 MG SL TAB* 1 TAB SL SCH ×3 (08:14→20:32)
[2017-06-01] MEDS: Nicotine PATCH 21 MG/24 HR* PATCH TRANSDERM SCH (08:15)
--- NOTE | 2017-06-01 13:45 | PN ---
Subjective - Subjective Service Type: 20597 Hosp care 15 min low complexity Subjective: Patient is overheard cursing and yelling in his room at times. He is pleasant upon approach. He continues to endorse visualizing items in his drawings that are not apparent to others. He is interactive with select peers, suspicious of others and some staff members. He continues to endorse agreement with plan to be referred to [facility]. Objective - Appearance Appearance: Well Developed/Nourished Dysmorphic Features: No Hygiene: Mal-odorous Grooming: Fairly Well Kept - Behavior Psychomotor Activities: Normal Exhibits Abnormal Movement: No - Attitude and Relatedness Attitude and Relatedness: Psychotically Related Eye Contact: Fair - Speech Quality: Pressured Latencies: Normal Quantity: Copious - Mood Patient's Decription of Mood: "Upset" - Affect Observed Affect: Expansive Affect Consistent with: Euphoria - Thought Process Patient's Thought Process: Filght of Ideas Thought Content: Yes Paranoid Ideation, No Passive Wish, No Suicidal Planning, No Homicidal Ideation - Sensorium Experiencing Hallucinations: No, Sensorium is Clear Type of Hallucinations: Visual: No, Auditory: Yes, Command: Yes - Level of Consciousness Level of Consciousness: Alert Orientation: Yes Intact, Yes Orientated to Time, Yes Orientated to Place, Yes Orientated to Person - Impulse Control Impulse Control: Poor - Insight and Judgement Insight and Judgement: Poor - Group Participation Particating in Group Activities: Yes - Medication Management Medication Management Adherence: Yes Assessment - Assessment Merits Inpatient Hospitalization: For Immediate Safety, For Stabilization Inpatient DSM-IV Dx: schizoaffective d/o; PTSD; cannabis use d/o; opiate use d/o , in remission Clinical Impression: 32yo white male with hx of poor adherence to treatment for schizoaffectivve d/ o. He is chronically homeless and vulnerable in the community. He is recovering from opiate use d/o with suboxone-assisted treatment and reports this to be extremely helpful. He merits hospitalization for immediate safety and stabilization. Plan - Plan Treatment Plan: Name: ARLEEN ESPARZA Birthdate: 1985 [id number] continue acute intensive psychiatric treatment. add lurasidone for psychotic symptoms. awaiting response for referral to state hospitalization. Continued Medication Management: Start Medication Medications: Current Medications Acetaminophen (Tylenol Tab*) 650 mg PO Q4H PRN PRN Reason: PAIN or TEMP > 101 F Last Admin: 05/21/17 04:00 Dose: 650 mg Al Hydrox/Mg Hydrox/Simethicone (Maalox Plus*) 30 ml PO Q4H PRN PRN Reason: INDIGESTION Last Admin: 05/26/17 08:46 Dose: 30 ml Buprenorphine/Naloxone (Suboxone 8-2 Mg Sl Tab*) 1 tab.sl SL TID [facility] Last Admin: 06/01/17 13:15 Dose: 1 tab.sl Haloperidol (Haldol Tab*) 5 mg PO Q6H PRN PRN Reason: AGITATION Lorazepam (Ativan Tab(*)) 2 mg PO Q6H PRN PRN Reason: AGITATION Last Admin: 05/31/17 17:36 Dose: 2 mg Lurasidone HCl (Latuda) 20 mg PO 2099 [facility] Last Admin: 05/31/17 20:05 Dose: 20 mg Methylphenidate HCl (Concerta) 54 mg PO DAILY [facility] Last Admin: 06/01/17 08:14 Dose: 54 mg Multivitamins (Theragran Tab*) 1 tab PO DAILY [facility] Last Admin: 06/01/17 08:14 Dose: 1 tab Nicotine (Nicotine Inhaler*) 10 mg INH Q2H PRN PRN Reason: CRAVING Last Admin: 06/01/17 13:14 Dose: 10 mg Nicotine (Nicotine Patch 21 Mg/24 Hr*) 1 patch TRANSDERM DAILY [facility] Last Admin: 06/01/17 08:15 Dose: 1 patch Nicotine Polacrilex (Nicotine Gum*) 2 mg PO Q2H PRN PRN Reason: CRAVING Last Admin: 06/01/17 13:14 Dose: 2 mg Pharmacy Profile Note (Nicotine Patch Removal Note*) 1 note PATCH OFF 2099 [facility] Last Admin: 05/31/17 21:23 Dose: 1 note - Discharge Plan Discharge Plan: Consider Longer Term Tx
[2017-06-01] MEDS: LORazepam TAB(*) 1 MG PO PRN (17:35)
[2017-06-01] MEDS: Lurasidone(*) 20 MG TAB PO SCH (20:31)
[2017-06-01] MEDS: Nicotine Patch Removal NOTE PATCH OFF SCH (20:33)
[2017-06-02] MEDS: Nicotine GUM* 2 MG PO PRN ×8 (03:30→22:38)
[2017-06-02] MEDS: Nicotine Inhaler* 10 MG AMP INH PRN ×8 (03:30→22:38)
[2017-06-02] MEDS: Nicotine PATCH 21 MG/24 HR* PATCH TRANSDERM SCH (07:59)
[2017-06-02] MEDS: Vitamin THERAPEUTIC TAB PO SCH (07:59)
[2017-06-02] MEDS: Methylphenidate ER 27 MG TAB PO SCH (07:59)
[2017-06-02] MEDS: Buprenorphine/Naloxone 8-2 MG SL TAB* 1 TAB SL SCH ×3 (07:59→19:59)
--- NOTE | 2017-06-02 11:19 | PN ---
Subjective - Subjective Service Type: 15671 Hosp care 25 min moderate complexity Subjective: No change in mental status. Patient continues to exhibit disorganized and psychotic behavior. Tan Room Supervisor spoke with director of [facility]. Suggested trial of VENEGAS or clozapine, or inpatient substance use treatment prior to state hospitalization. Tan Room Supervisor notified patient of suggested treatment plan and he stated "ok, you can give me a shot." He mentioned haloperidol by name and agreed to start today. Patient reports difficulty with afternoon "slump" in energy and asked for increase in concerta. Objective - Appearance Appearance: Healthy Appearing Hygiene: Mal-odorous Grooming: Fairly Well Kept - Behavior Psychomotor Activities: Normal Exhibits Abnormal Movement: No - Attitude and Relatedness Attitude and Relatedness: Psychotically Related Eye Contact: Good - Speech Quality: Pressured Latencies: Normal Quantity: Copious - Mood Patient's Decription of Mood: "Good" - Affect Observed Affect: Expansive Affect Consistent with: Euphoria - Thought Process Patient's Thought Process: Tangential, Circumstantial, Over Inclusive Thought Content: Yes Paranoid Ideation, No Passive Wish, No Suicidal Planning, No Homicidal Ideation - Sensorium Experiencing Hallucinations: No, Sensorium is Clear Type of Hallucinations: Visual: No, Auditory: Yes, Command: Yes - Level of Consciousness Level of Consciousness: Alert Orientation: Yes Intact, Yes Orientated to Time, Yes Orientated to Place, Yes Orientated to Person - Impulse Control Impulse Control: Poor - Insight and Judgement Insight and Judgement: Poor - Group Participation Particating in Group Activities: Yes - Medication Management Medication Management Adherence: Yes Assessment - Assessment Merits Inpatient Hospitalization: For Immediate Safety, For Stabilization, Consolidate Improvements, For Discharge Planning Inpatient DSM-IV Dx: schizoaffective d/o; PTSD; cannabis use d/o; opiate use d/o , in remission Clinical Impression: 32yo white male with hx of poor adherence to treatment for schizoaffectivve d/ o. He is chronically homeless and vulnerable in the community. He is recovering from opiate use d/o with suboxone-assisted treatment and reports this to be extremely helpful. He merits hospitalization for immediate safety and stabilization. Plan - Plan Treatment Plan: Name: ARLEEN ESPARZA Birthdate: 1985 [id number] continue acute intensive psychiatric treatment. start haloperidol decanoate 100mg IM today. pending acceptance to [facility]. Continued Medication Management: Start Medication Medications: Current Medications Acetaminophen (Tylenol Tab*) 650 mg PO Q4H PRN PRN Reason: PAIN or TEMP > 101 F Last Admin: 05/21/17 04:00 Dose: 650 mg Al Hydrox/Mg Hydrox/Simethicone (Maalox Plus*) 30 ml PO Q4H PRN PRN Reason: INDIGESTION Last Admin: 05/26/17 08:46 Dose: 30 ml Buprenorphine/Naloxone (Suboxone 8-2 Mg Sl Tab*) 1 tab.sl SL TID [facility] Last Admin: 06/02/17 07:59 Dose: 1 tab.sl Haloperidol (Haldol Tab*) 5 mg PO Q6H PRN PRN Reason: AGITATION Haloperidol Decanoate (Haldol Decanoate*) 100 mg IM Q28D VIV Lorazepam (Ativan Tab(*)) 2 mg PO Q6H PRN PRN Reason: AGITATION Last Admin: 06/01/17 17:35 Dose: 2 mg Methylphenidate HCl (Concerta) 54 mg PO DAILY [facility] Last Admin: 06/02/17 07:59 Dose: 54 mg Methylphenidate HCl (Ritalin Tab*) 5 mg PO 1200 [facility] Multivitamins (Theragran Tab*) 1 tab PO DAILY [facility] Last Admin: 06/02/17 07:59 Dose: 1 tab Nicotine (Nicotine Inhaler*) 10 mg INH Q2H PRN PRN Reason: CRAVING Last Admin: 06/02/17 10:14 Dose: 10 mg Nicotine (Nicotine Patch 21 Mg/24 Hr*) 1 patch TRANSDERM DAILY [facility] Last Admin: 06/02/17 07:59 Dose: 1 patch Nicotine Polacrilex (Nicotine Gum*) 2 mg PO Q2H PRN PRN Reason: CRAVING Last Admin: 06/02/17 10:13 Dose: 2 mg Pharmacy Profile Note (Nicotine Patch Removal Note*) 1 note PATCH OFF 2100 [facility] Last Admin: 06/01/17 20:33 Dose: Not Given - Discharge Plan Discharge Plan: Consider Longer Term Tx
[2017-06-02] MEDS ORDERED: Haloperidol Decanoate* 50 MG/ML AMP IM SCH (12:00)
[2017-06-02] MEDS ORDERED: Methylphenidate TAB* 5 MG PO SCH (12:00)
[2017-06-02] MEDS: LORazepam TAB(*) 1 MG PO PRN (17:30)
[2017-06-02] MEDS: Nicotine Patch Removal NOTE PATCH OFF SCH (21:37)
[2017-06-03] MEDS: Nicotine GUM* 2 MG PO PRN ×9 (00:30→22:14)
[2017-06-03] MEDS: Nicotine Inhaler* 10 MG AMP INH PRN ×9 (00:30→22:14)
[2017-06-03] MEDS: Methylphenidate ER 27 MG TAB PO SCH (08:11)
[2017-06-03] MEDS: Vitamin THERAPEUTIC TAB PO SCH (08:12)
[2017-06-03] MEDS: Buprenorphine/Naloxone 8-2 MG SL TAB* 1 TAB SL SCH ×2 (08:12→20:03)
[2017-06-03] MEDS: Nicotine PATCH 21 MG/24 HR* PATCH TRANSDERM SCH (08:14)
[2017-06-03] MEDS: Buprenorphine/Naloxone 8-2 MG SL TAB* 1 TAB PO SCH (13:09)
--- NOTE | 2017-06-03 15:57 | PN ---
Subjective - Subjective Service Type: 11318 Hosp care 25 min moderate complexity Subjective: [employer] received another call from director of [facility]. He suggested that patient be challenged with substance use issues and recommended for inpatient substance use treatment. Patient notified of above and declines offer of inpatient substance use treatment. He is agitated and tearful but remains in behavioral control. [employer] notifies him of need to discontinue concerta and start taper of suboxone. He states he would like to continue with pursuing state hospitalization. Objective - Appearance Appearance: Well Developed/Nourished Dysmorphic Features: No Hygiene: Mal-odorous Grooming: Fairly Well Kept - Behavior Psychomotor Activities: Normal Exhibits Abnormal Movement: No - Attitude and Relatedness Attitude and Relatedness: Psychotically Related Eye Contact: Good - Speech Quality: Unpressured Latencies: Short Quantity: Copious - Mood Patient's Decription of Mood: "Upset" - Affect Observed Affect: Expansive Affect Consistent with: Euphoria - Thought Process Patient's Thought Process: Filght of Ideas, Circumstantial Thought Content: Yes Paranoid Ideation, No Passive Wish, No Suicidal Planning, No Homicidal Ideation - Sensorium Experiencing Hallucinations: Yes Type of Hallucinations: Visual: No, Auditory: Yes, Command: Yes - Level of Consciousness Level of Consciousness: Alert Orientation: Yes Intact, Yes Orientated to Time, Yes Orientated to Place, Yes Orientated to Person - Impulse Control Impulse Control: Tenuous - Insight and Judgement Insight and Judgement: Poor - Group Participation Particating in Group Activities: Yes Group Participation Comments: intermittent - Medication Management Medication Management Adherence: Yes Assessment - Assessment Merits Inpatient Hospitalization: For Immediate Safety, For Stabilization, To Initiate Treatment, Consolidate Improvements, Pending Safe DC Plan Inpatient DSM-V Dx: F25.9 Clinical Impression: 32yo white male with hx of poor adherence to treatment for schizoaffective d/o. He is chronically homeless and vulnerable in the community. He is recovering from opiate use d/o with suboxone-assisted treatment and reports this to be extremely helpful. He merits hospitalization for immediate safety and stabilization. Plan - Plan Treatment Plan: Name: ARLEEN ESPARZA Birthdate: 1985 [id number] continue acute intensive psychiatric treatment. start haloperidol decanoate 100mg IM today. pending acceptance to [facility]. Continued Medication Management: Different Medication Medications: Current Medications Acetaminophen (Tylenol Tab*) 650 mg PO Q4H PRN PRN Reason: PAIN or TEMP > 101 F Last Admin: 05/21/17 04:00 Dose: 650 mg Al Hydrox/Mg Hydrox/Simethicone (Maalox Plus*) 30 ml PO Q4H PRN PRN Reason: INDIGESTION Last Admin: 05/26/17 08:46 Dose: 30 ml Buprenorphine/Naloxone (Suboxone 8-2 Mg Sl Tab*) 1 tab.sl SL BID [facility] Buprenorphine/Naloxone (Suboxone 8-2 Mg Sl Tab*) 0.5 tab.sl PO 1400 [facility] Last Admin: 06/03/17 13:09 Dose: 0.5 tab.sl Haloperidol (Haldol Tab*) 5 mg PO Q6H PRN PRN Reason: AGITATION Haloperidol Decanoate (Haldol Decanoate*) 100 mg IM Q28D [facility] Last Admin: 06/02/17 12:45 Dose: 100 mg Lorazepam (Ativan Tab(*)) 2 mg PO Q6H PRN PRN Reason: AGITATION Last Admin: 06/02/17 17:30 Dose: 2 mg Multivitamins (Theragran Tab*) 1 tab PO DAILY [facility] Last Admin: 06/03/17 08:12 Dose: 1 tab Nicotine (Nicotine Inhaler*) 10 mg INH Q2H PRN PRN Reason: CRAVING Last Admin: 06/03/17 13:51 Dose: 10 mg Nicotine (Nicotine Patch 21 Mg/24 Hr*) 1 patch TRANSDERM DAILY [facility] Last Admin: 06/03/17 08:14 Dose: 1 patch Nicotine Polacrilex (Nicotine Gum*) 2 mg PO Q2H PRN PRN Reason: CRAVING Last Admin: 06/03/17 13:51 Dose: 2 mg Pharmacy Profile Note (Nicotine Patch Removal Note*) 1 note PATCH OFF 2099 [facility] Last Admin: 06/02/17 21:37 Dose: Not Given - Discharge Plan Discharge Plan: Consider Longer Term Tx
[2017-06-03] MEDS: LORazepam TAB(*) 1 MG PO PRN (17:03)
[2017-06-03] MEDS: Nicotine Patch Removal NOTE PATCH OFF SCH (21:53)
[2017-06-04] MEDS: LORazepam TAB(*) 1 MG PO PRN ×2 (01:10→17:33)
[2017-06-04] MEDS: Nicotine GUM* 2 MG PO PRN ×9 (01:10→21:29)
[2017-06-04] MEDS: Nicotine Inhaler* 10 MG AMP INH PRN ×9 (01:10→21:29)
[2017-06-04] MEDS: Nicotine PATCH 21 MG/24 HR* PATCH TRANSDERM SCH (08:05)
[2017-06-04] MEDS: Buprenorphine/Naloxone 8-2 MG SL TAB* 1 TAB SL SCH ×2 (08:06→21:28)
[2017-06-04] MEDS: Vitamin THERAPEUTIC TAB PO SCH (08:06)
[2017-06-04] MEDS: Buprenorphine/Naloxone 8-2 MG SL TAB* 1 TAB PO SCH (13:10)
--- NOTE | 2017-06-04 16:53 | PN ---
MHU: Group Therapy Note - Service Type Service Type: [id number] Group Psychotherapy - Medication Education Group: Patient was irritable and did not engage in conversation. He left within minutes of beginning of group.
[2017-06-04] MEDS: Nicotine Patch Removal NOTE PATCH OFF SCH (20:57)
[2017-06-05] MEDS: Nicotine GUM* 2 MG PO PRN ×7 (01:26→20:44)
[2017-06-05] MEDS: Nicotine Inhaler* 10 MG AMP INH PRN ×7 (01:26→20:44)
[2017-06-05] MEDS: Vitamin THERAPEUTIC TAB PO SCH (07:35)
[2017-06-05] MEDS: Buprenorphine/Naloxone 8-2 MG SL TAB* 1 TAB SL SCH ×2 (07:35→20:42)
[2017-06-05] MEDS: Nicotine PATCH 21 MG/24 HR* PATCH TRANSDERM SCH (07:35)
--- NOTE | 2017-06-05 11:59 | PN ---
Subjective - Subjective Service Type: [id number] Hosp care 25 min moderate complexity Subjective: Patient continues to respond to internal stimuli. He is agitated at advertising copy writer and expresses blame that I am no longer accountable and part of his family. He blames advertising copy writer for changing medications and does not accept explanation of need for stopping stimulant medication/starting taper of buprenorphine. He continues to endorse desire for state hospitalization. Objective - Appearance Appearance: Well Developed/Nourished Dysmorphic Features: No Hygiene: Mal-odorous Grooming: Fairly Well Kept - Behavior Psychomotor Activities: Normal Exhibits Abnormal Movement: No - Attitude and Relatedness Attitude and Relatedness: Psychotically Related Eye Contact: Poor - Speech Quality: Pressured Latencies: Normal Quantity: Terse - Mood Patient's Decription of Mood: "Angry" - Affect Observed Affect: Expansive Affect Consistent with: Euphoria - Thought Process Patient's Thought Process: Filght of Ideas, Circumstantial Thought Content: Yes Paranoid Ideation, No Passive Wish, No Suicidal Planning, No Homicidal Ideation - Sensorium Experiencing Hallucinations: Yes Type of Hallucinations: Visual: No, Auditory: Yes, Command: No - Level of Consciousness Level of Consciousness: Alert Orientation: Yes Intact, Yes Orientated to Time, Yes Orientated to Place, Yes Orientated to Person - Impulse Control Impulse Control: Poor - Insight and Judgement Insight and Judgement: Poor - Group Participation Particating in Group Activities: No - Medication Management Medication Management Adherence: Yes Assessment - Assessment Merits Inpatient Hospitalization: For Immediate Safety, For Stabilization, Consolidate Improvements Inpatient DSM-V Dx: F25.9 Clinical Impression: 32yo white male with hx of poor adherence to treatment for schizoaffective d/o. He is chronically homeless and vulnerable in the community. He is recovering from opiate use d/o with suboxone-assisted treatment and reports this to be extremely helpful. He merits hospitalization for immediate safety and stabilization. Plan - Plan Treatment Plan: Name: ARLEEN ESPARZA Birthdate: 1985 [id number] continue acute intensive psychiatric treatment. increase haldol decanoate and add 50mg IM today. pending acceptance to [facility]. Continued Medication Management: Start Medication Medications: Current Medications Acetaminophen (Tylenol Tab*) 650 mg PO Q4H PRN PRN Reason: PAIN or TEMP > 101 F Last Admin: 05/21/17 04:00 Dose: 650 mg Al Hydrox/Mg Hydrox/Simethicone (Maalox Plus*) 30 ml PO Q4H PRN PRN Reason: INDIGESTION Last Admin: 05/26/17 08:46 Dose: 30 ml Buprenorphine/Naloxone (Suboxone 8-2 Mg Sl Tab*) 1 tab.sl SL BID [facility] Last Admin: 06/05/17 07:35 Dose: 1 tab.sl Buprenorphine/Naloxone (Suboxone 8-2 Mg Sl Tab*) 0.5 tab.sl PO 1400 [facility] Last Admin: 06/04/17 13:10 Dose: 0.5 tab.sl Haloperidol (Haldol Tab*) 5 mg PO Q6H PRN PRN Reason: AGITATION Haloperidol Decanoate (Haldol Decanoate*) 100 mg IM Q28D [facility] Last Admin: 06/02/17 12:45 Dose: 100 mg Lorazepam (Ativan Tab(*)) 2 mg PO Q6H PRN PRN Reason: AGITATION Last Admin: 06/04/17 17:33 Dose: 2 mg Multivitamins (Theragran Tab*) 1 tab PO DAILY [facility] Last Admin: 06/05/17 07:35 Dose: 1 tab Nicotine (Nicotine Inhaler*) 10 mg INH Q2H PRN PRN Reason: CRAVING Last Admin: 06/05/17 10:55 Dose: 10 mg Nicotine (Nicotine Patch 21 Mg/24 Hr*) 1 patch TRANSDERM DAILY [facility] Last Admin: 06/05/17 07:35 Dose: 1 patch Nicotine Polacrilex (Nicotine Gum*) 2 mg PO Q2H PRN PRN Reason: CRAVING Last Admin: 06/05/17 10:55 Dose: 2 mg Pharmacy Profile Note (Nicotine Patch Removal Note*) 1 note PATCH OFF 2099 [facility] Last Admin: 06/04/17 20:57 Dose: Not Given - Discharge Plan Discharge Plan: Consider Longer Term Tx
[2017-06-05] MEDS: Buprenorphine/Naloxone 8-2 MG SL TAB* 1 TAB PO SCH (14:22)
[2017-06-05] MEDS ORDERED: Ibuprofen TAB* 800 MG PO PRN (15:33)
[2017-06-05] MEDS: LORazepam TAB(*) 1 MG PO PRN (17:27)
[2017-06-06] MEDS: cloNIDine TAB* 0.1 MG PO SCH ×3 (07:56→21:19)
[2017-06-06] MEDS: Vitamin THERAPEUTIC TAB PO SCH (07:56)
[2017-06-06] MEDS: Buprenorphine/Naloxone 8-2 MG SL TAB* 1 TAB PO SCH ×4 (07:57→21:19)
[2017-06-06] MEDS: Nicotine GUM* 2 MG PO PRN ×5 (07:59→21:18)
[2017-06-06] MEDS: Nicotine PATCH 21 MG/24 HR* PATCH TRANSDERM SCH (08:00)
[2017-06-06] MEDS: Nicotine Inhaler* 10 MG AMP INH PRN ×5 (08:00→21:18)
[2017-06-06] MEDS: Nicotine Patch Removal NOTE PATCH OFF SCH ×2 (08:03→22:33)
[2017-06-06] MEDS: LORazepam TAB(*) 1 MG PO PRN (17:06)
[2017-06-07] MEDS: Nicotine GUM* 2 MG PO PRN ×6 (01:50→21:21)
[2017-06-07] MEDS: Nicotine Inhaler* 10 MG AMP INH PRN ×6 (01:50→21:21)
[2017-06-07] MEDS: Nicotine PATCH 21 MG/24 HR* PATCH TRANSDERM SCH (08:41)
[2017-06-07] MEDS: Vitamin THERAPEUTIC TAB PO SCH (08:43)
[2017-06-07] MEDS: cloNIDine TAB* 0.1 MG PO SCH ×3 (08:43→20:47)
[2017-06-07] MEDS: Buprenorphine/Naloxone 8-2 MG SL TAB* 1 TAB PO SCH ×3 (08:43→20:46)
[2017-06-07] MEDS: LORazepam TAB(*) 1 MG PO PRN (16:59)
[2017-06-08] MEDS: Nicotine Inhaler* 10 MG AMP INH PRN ×7 (01:30→20:00)
[2017-06-08] MEDS: Nicotine GUM* 2 MG PO PRN ×7 (01:30→20:00)
[2017-06-08] MEDS: Buprenorphine/Naloxone 8-2 MG SL TAB* 1 TAB PO SCH ×2 (08:35→14:13)
[2017-06-08] MEDS: cloNIDine TAB* 0.1 MG PO SCH ×3 (08:36→20:00)
[2017-06-08] MEDS: Nicotine PATCH 21 MG/24 HR* PATCH TRANSDERM SCH (08:36)
[2017-06-08] MEDS: Vitamin THERAPEUTIC TAB PO SCH (08:36)
[2017-06-08] MEDS: Carisoprodol TAB* 350 MG PO PRN (14:59)
--- NOTE | 2017-06-08 15:33 | PN ---
<MoeCitlali guzman - Last Filed: 06/08/17 15:38> Subjective - Subjective Service Type: [id number] Hosp care 15 min low complexity Subjective: "Trip" found participating in recreation group. He reports he has slept all day and is irritated by this. States he hates feeling foggy in his head and "sick"; reminded him to ask for Soma and Ibuprofen combination to help with withdrawl symptoms from tapering of buprenorphine. He was able to calm himself and understands need for taper; per requirement to be considered for [facility] placement. Apologized to provider for past angry behavior directed at her. Objective - Appearance Appearance: Thin Framed Dysmorphic Features: No Hygiene: Mal-odorous Grooming: Fairly Well Kept - Behavior Psychomotor Activities: Abnormal-Increased - Attitude and Relatedness Attitude and Relatedness: Cooperative - with some intermittent irritability. Eye Contact: Poor - Speech Quality: Unpressured Latencies: Normal Quantity: Appropriate - Mood Patient's Decription of Mood: "Irritable" - Affect Observed Affect: Labile Affect Consistent with: Dysphoria - Thought Process Patient's Thought Process: Goal Directed Thought Content: Yes Paranoid Ideation, No Passive Wish, No Suicidal Planning, No Homicidal Ideation - Sensorium Type of Hallucinations: Visual: No, Auditory: Yes - responds to internal stimuli , Command: No - Level of Consciousness Level of Consciousness: Alert Orientation: Yes Intact, Yes Orientated to Time, Yes Orientated to Place, Yes Orientated to Person - Impulse Control Impulse Control: Tenuous - Insight and Judgement Insight and Judgement: Poor - Group Participation Particating in Group Activities: No - Medication Management Medication Management Adherence: Yes Assessment - Assessment Merits Inpatient Hospitalization: For Immediate Safety, For Stabilization, Pending Safe DC Plan Inpatient DSM-V Dx: F25.9 Clinical Impression: Presented to ED with bizarre and disorganized behavior asking for mental health evaluation. His of violence related to command hallucinations and delusions. He is recovering from opiate use d/o with buprenorphine-assisted treatment; taper for buprenorphine in progress with hope that he will then be admitted to [facility]. He merits hospitalization for immediate safety and stabilization. Plan - Plan Treatment Plan: Name: ARLEEN ESPARZA Birthdate: 1985 [id number] Continue acute intensive psychiatric treatment.Continue taper of buprenorphine. Awaiting acceptance to [facility]. Medications: Current Medications Acetaminophen (Tylenol Tab*) 650 mg PO Q4H PRN PRN Reason: PAIN or TEMP > 101 F Last Admin: 05/21/17 04:00 Dose: 650 mg Al Hydrox/Mg Hydrox/Simethicone (Maalox Plus*) 30 ml PO Q4H PRN PRN Reason: INDIGESTION Last Admin: 05/26/17 08:46 Dose: 30 ml Buprenorphine/Naloxone (Suboxone 8-2 Mg Sl Tab*) 0.25 tab.sl PO TID [facility] Carisoprodol (Soma Tab*) 350 mg PO Q8H PRN PRN Reason: DISCOMFORT Last Admin: 06/08/17 14:59 Dose: 350 mg Clonidine HCl (Catapres Tab*) 0.1 mg PO TID [facility] Last Admin: 06/08/17 14:13 Dose: 0.1 mg Haloperidol (Haldol Tab*) 5 mg PO Q6H PRN PRN Reason: AGITATION Haloperidol Decanoate (Haldol Decanoate*) 100 mg IM Q28D [facility] Last Admin: 06/02/17 12:45 Dose: 100 mg Ibuprofen (Motrin Tab*) 800 mg PO Q8H PRN PRN Reason: PAIN Lorazepam (Ativan Tab(*)) 2 mg PO Q6H PRN PRN Reason: AGITATION Last Admin: 06/07/17 16:59 Dose: 2 mg Multivitamins (Theragran Tab*) 1 tab PO DAILY [facility] Last Admin: 06/08/17 08:36 Dose: 1 tab Nicotine (Nicotine Inhaler*) 10 mg INH Q2H PRN PRN Reason: CRAVING Last Admin: 06/08/17 14:32 Dose: 10 mg Nicotine (Nicotine Patch 21 Mg/24 Hr*) 1 patch TRANSDERM DAILY [facility] Last Admin: 06/08/17 08:36 Dose: 1 patch Nicotine Polacrilex (Nicotine Gum*) 2 mg PO Q2H PRN PRN Reason: CRAVING Last Admin: 06/08/17 14:32 Dose: 2 mg Pharmacy Profile Note (Nicotine Patch Removal Note*) 1 note PATCH OFF 2100 [facility] Last Admin: 06/08/17 00:00 Dose: Not Given <Gardenia Marie - Last Filed: 06/08/17 15:52> Subjective - Subjective Subjective: Patient blames haloperidol dec for his physical symptoms that are likely due to buprenorphine taper. Above note reviewed and discussed with student. eliseo Plan - Plan Treatment Plan: Name: ARLEEN ESPARZA Birthdate: 1985 [id number] Continued Medication Management: Different Medication Medications: Current Medications Acetaminophen (Tylenol Tab*) 650 mg PO Q4H PRN PRN Reason: PAIN or TEMP > 101 F Last Admin: 05/21/17 04:00 Dose: 650 mg Al Hydrox/Mg Hydrox/Simethicone (Maalox Plus*) 30 ml PO Q4H PRN PRN Reason: INDIGESTION Last Admin: 05/26/17 08:46 Dose: 30 ml Buprenorphine/Naloxone (Suboxone 8-2 Mg Sl Tab*) 0.25 tab.sl PO TID [facility] Carisoprodol (Soma Tab*) 350 mg PO Q8H PRN PRN Reason: DISCOMFORT Last Admin: 06/08/17 14:59 Dose: 350 mg Clonidine HCl (Catapres Tab*) 0.1 mg PO TID [facility] Last Admin: 06/08/17 14:13 Dose: 0.1 mg Haloperidol (Haldol Tab*) 5 mg PO Q6H PRN PRN Reason: AGITATION Haloperidol Decanoate (Haldol Decanoate*) 100 mg IM Q28D [facility] Last Admin: 06/02/17 12:45 Dose: 100 mg Ibuprofen (Motrin Tab*) 800 mg PO Q8H PRN PRN Reason: PAIN Lorazepam (Ativan Tab(*)) 2 mg PO Q6H PRN PRN Reason: AGITATION Last Admin: 06/07/17 16:59 Dose: 2 mg Multivitamins (Theragran Tab*) 1 tab PO DAILY [facility] Last Admin: 06/08/17 08:36 Dose: 1 tab Nicotine (Nicotine Inhaler*) 10 mg INH Q2H PRN PRN Reason: CRAVING Last Admin: 06/08/17 14:32 Dose: 10 mg Nicotine (Nicotine Patch 21 Mg/24 Hr*) 1 patch TRANSDERM DAILY [facility] Last Admin: 06/08/17 08:36 Dose: 1 patch Nicotine Polacrilex (Nicotine Gum*) 2 mg PO Q2H PRN PRN Reason: CRAVING Last Admin: 06/08/17 14:32 Dose: 2 mg Pharmacy Profile Note (Nicotine Patch Removal Note*) 1 note PATCH OFF 2100 [facility] Last Admin: 06/08/17 00:00 Dose: Not Given - Discharge Plan Discharge Plan: Consider Longer Term Tx
[2017-06-08] MEDS: LORazepam TAB(*) 1 MG PO PRN (17:20)
[2017-06-08] MEDS: Nicotine Patch Removal NOTE PATCH OFF SCH ×2 (20:03)
[2017-06-09] MEDS: Buprenorphine/Naloxone 8-2 MG SL TAB* 1 TAB PO SCH ×3 (08:18→20:29)
[2017-06-09] MEDS: Nicotine PATCH 21 MG/24 HR* PATCH TRANSDERM SCH (08:19)
[2017-06-09] MEDS: cloNIDine TAB* 0.1 MG PO SCH ×3 (08:19→20:30)
[2017-06-09] MEDS: Vitamin THERAPEUTIC TAB PO SCH (08:19)
[2017-06-09] MEDS: Nicotine Inhaler* 10 MG AMP INH PRN ×5 (08:22→19:40)
[2017-06-09] MEDS: Nicotine GUM* 2 MG PO PRN ×5 (08:22→19:40)
[2017-06-09] MEDS: Carisoprodol TAB* 350 MG PO PRN ×2 (08:22→16:39)
[2017-06-09] MEDS: LORazepam TAB(*) 1 MG PO PRN (17:13)
[2017-06-09] MEDS: Nicotine Patch Removal NOTE PATCH OFF SCH (22:34)
[2017-06-10] MEDS: Nicotine Inhaler* 10 MG AMP INH PRN ×8 (02:43→23:56)
[2017-06-10] MEDS: Nicotine GUM* 2 MG PO PRN ×8 (02:43→23:56)
[2017-06-10] MEDS: Nicotine PATCH 21 MG/24 HR* PATCH TRANSDERM SCH (08:24)
[2017-06-10] MEDS: Vitamin THERAPEUTIC TAB PO SCH (08:24)
[2017-06-10] MEDS: cloNIDine TAB* 0.1 MG PO SCH ×3 (08:24→20:36)
[2017-06-10] MEDS: Buprenorphine/Naloxone 8-2 MG SL TAB* 1 TAB PO SCH ×2 (08:25→20:36)
[2017-06-10] MEDS: Carisoprodol TAB* 350 MG PO PRN ×2 (08:27→16:39)
--- NOTE | 2017-06-10 09:55 | PN ---
Subjective - Subjective Service Type: [id number] Hosp care 15 min low complexity Subjective: Patient is lying on bed, easy to rouse. He declines to meet today. Per staff, he has been in behavioral control. He is more interactive in afternoons and evening. He spends free time working on his art work. Objective - Appearance Appearance: Well Developed/Nourished Dysmorphic Features: No Hygiene: Normal Grooming: Fairly Well Kept - Behavior Psychomotor Activities: Normal Exhibits Abnormal Movement: No - Attitude and Relatedness Attitude and Relatedness: Withdrawn Eye Contact: Poor - Speech Quality: Unpressured Latencies: Normal Quantity: Appropriate - Mood Patient's Decription of Mood: "Fine" - Affect Observed Affect: Depressed Affect Consistent with: Dysphoria - Thought Process Patient's Thought Process: Tangential Thought Content: Yes Paranoid Ideation, No Passive Wish, No Suicidal Planning, No Homicidal Ideation - Sensorium Experiencing Hallucinations: Yes Type of Hallucinations: Auditory: Yes - Level of Consciousness Level of Consciousness: Alert Orientation: Yes Intact, Yes Orientated to Time, Yes Orientated to Place, Yes Orientated to Person - Impulse Control Impulse Control: Tenuous - Insight and Judgement Insight and Judgement: Poor - Group Participation Particating in Group Activities: No - Medication Management Medication Management Adherence: Yes Assessment - Assessment Merits Inpatient Hospitalization: For Immediate Safety, Consolidate Improvements Inpatient DSM-V Dx: F25.9 Clinical Impression: 32yo white male with hx of poor adherence to treatment for schizoaffective d/o. He is chronically homeless and vulnerable in the community. He is tolerating suboxone taper and continues to express desire for [facility] hospitalization. He merits hospitalization for immediate safety and stabilization. Plan - Plan Treatment Plan: Name: ARLEEN ESPARZA Birthdate: 1985 [id number] continue acute intensive psychiatric treatment. continue suboxone taper. obtain labs in am: cbc, cmp, lipid panel, hgba1c. awaiting acceptance to [facility]. Continued Medication Management: Different Medication Medications: Current Medications Acetaminophen (Tylenol Tab*) 650 mg PO Q4H PRN PRN Reason: PAIN or TEMP > 101 F Last Admin: 05/21/17 04:00 Dose: 650 mg Al Hydrox/Mg Hydrox/Simethicone (Maalox Plus*) 30 ml PO Q4H PRN PRN Reason: INDIGESTION Last Admin: 05/26/17 08:46 Dose: 30 ml Buprenorphine/Naloxone (Suboxone 8-2 Mg Sl Tab*) 0.25 tab.sl PO BID [facility] Carisoprodol (Soma Tab*) 350 mg PO Q8H PRN PRN Reason: DISCOMFORT Last Admin: 06/10/17 08:27 Dose: 350 mg Clonidine HCl (Catapres Tab*) 0.1 mg PO TID [facility] Last Admin: 06/10/17 08:24 Dose: 0.1 mg Haloperidol (Haldol Tab*) 5 mg PO Q6H PRN PRN Reason: AGITATION Haloperidol Decanoate (Haldol Decanoate*) 100 mg IM Q28D [facility] Last Admin: 06/02/17 12:45 Dose: 100 mg Ibuprofen (Motrin Tab*) 800 mg PO Q8H PRN PRN Reason: PAIN Lorazepam (Ativan Tab(*)) 2 mg PO Q6H PRN PRN Reason: AGITATION Last Admin: 06/09/17 17:13 Dose: 2 mg Multivitamins (Theragran Tab*) 1 tab PO DAILY [facility] Last Admin: 06/10/17 08:24 Dose: 1 tab Nicotine (Nicotine Inhaler*) 10 mg INH Q2H PRN PRN Reason: CRAVING Last Admin: 06/10/17 08:28 Dose: 10 mg Nicotine (Nicotine Patch 21 Mg/24 Hr*) 1 patch TRANSDERM DAILY [facility] Last Admin: 06/10/17 08:24 Dose: 1 patch Nicotine Polacrilex (Nicotine Gum*) 2 mg PO Q2H PRN PRN Reason: CRAVING Last Admin: 06/10/17 08:28 Dose: 2 mg Pharmacy Profile Note (Nicotine Patch Removal Note*) 1 note PATCH OFF 2099 [facility] Last Admin: 06/09/17 22:34 Dose: 1 note - Discharge Plan Discharge Plan: Consider Longer Term Tx
[2017-06-10] MEDS: LORazepam TAB(*) 1 MG PO PRN ×2 (16:39→22:37)
[2017-06-11] MEDS: Nicotine PATCH 21 MG/24 HR* PATCH TRANSDERM SCH (08:18)
[2017-06-11] MEDS: Vitamin THERAPEUTIC TAB PO SCH (08:19)
[2017-06-11] MEDS: cloNIDine TAB* 0.1 MG PO SCH ×3 (08:19→20:41)
[2017-06-11] MEDS: Carisoprodol TAB* 350 MG PO PRN ×2 (08:21→16:41)
[2017-06-11] MEDS: Buprenorphine/Naloxone 8-2 MG SL TAB* 1 TAB PO SCH (08:23)
[2017-06-11] MEDS: Nicotine Inhaler* 10 MG AMP INH PRN ×7 (08:25→22:45)
[2017-06-11] MEDS: Nicotine GUM* 2 MG PO PRN ×7 (08:25→22:45)
[2017-06-11] MEDS: Nicotine Patch Removal NOTE PATCH OFF SCH ×2 (10:19→20:42)
[2017-06-11] MEDS: LORazepam TAB(*) 1 MG PO PRN ×3 (10:52→22:46)
--- NOTE | 2017-06-11 11:38 | PN ---
Subjective - Subjective Service Type: [id number] Hosp care 25 min moderate complexity Subjective: Patient sleeping upon approach, easy to rouse. He refused blood draw this morning and states that he doesn't understand the need. After discussion, he agreed to comply with blood draw and specified that he did not want a male appliance fixer. He states readiness to discontinue suboxone. Ballet Master/Mistress encouraged him to utilize prn medications for withdrawal symptoms. Objective - Appearance Appearance: Well Developed/Nourished Dysmorphic Features: Yes Hygiene: Mal-odorous Grooming: Disheveled - Behavior Psychomotor Activities: Normal Exhibits Abnormal Movement: No - Attitude and Relatedness Attitude and Relatedness: Cooperative Eye Contact: Fair - Speech Quality: Unpressured Latencies: Normal Quantity: Appropriate - Mood Patient's Decription of Mood: "Terrible" - Affect Observed Affect: Depressed Affect Consistent with: Dysphoria - Thought Process Patient's Thought Process: Impoverished Thought Content: Yes Paranoid Ideation, No Passive Wish, No Suicidal Planning, No Homicidal Ideation - Sensorium Experiencing Hallucinations: Yes Type of Hallucinations: Visual: No, Auditory: Yes, Command: No - Level of Consciousness Level of Consciousness: Alert Orientation: Yes Intact, Yes Orientated to Time, Yes Orientated to Place, Yes Orientated to Person - Impulse Control Impulse Control: Intact - in this setting - Insight and Judgement Insight and Judgement: Poor - Group Participation Particating in Group Activities: Yes - Medication Management Medication Management Adherence: Yes Assessment - Assessment Merits Inpatient Hospitalization: For Immediate Safety, For Stabilization, To Initiate Treatment, Consolidate Improvements, Pending Safe DC Plan Inpatient DSM-V Dx: F25.9 Clinical Impression: 32yo white male with hx of poor adherence to treatment for schizoaffective d/o. He is chronically homeless and vulnerable in the community. He is tolerating suboxone taper and continues to express desire for [employer] hospitalization. He merits hospitalization for immediate safety and stabilization. Plan - Plan Treatment Plan: Name: ARLEEN ESPARZA Birthdate: 1985 [id number] continue acute intensive psychiatric treatment. Discontinue suboxone. awaiting lab results. Continued Medication Management: Start Medication Medications: Current Medications Acetaminophen (Tylenol Tab*) 650 mg PO Q4H PRN PRN Reason: PAIN or TEMP > 101 F Last Admin: 05/21/17 04:00 Dose: 650 mg Al Hydrox/Mg Hydrox/Simethicone (Maalox Plus*) 30 ml PO Q4H PRN PRN Reason: INDIGESTION Last Admin: 05/26/17 08:46 Dose: 30 ml Carisoprodol (Soma Tab*) 350 mg PO Q8H PRN PRN Reason: DISCOMFORT Last Admin: 06/11/17 08:21 Dose: 350 mg Clonidine HCl (Catapres Tab*) 0.1 mg PO TID [facility] Last Admin: 06/11/17 08:19 Dose: 0.1 mg Haloperidol (Haldol Tab*) 5 mg PO Q6H PRN PRN Reason: AGITATION Haloperidol Decanoate (Haldol Decanoate*) 100 mg IM Q28D [facility] Last Admin: 06/02/17 12:45 Dose: 100 mg Ibuprofen (Motrin Tab*) 800 mg PO Q8H PRN PRN Reason: PAIN Lorazepam (Ativan Tab(*)) 2 mg PO Q6H PRN PRN Reason: AGITATION Last Admin: 06/11/17 10:52 Dose: 2 mg Multivitamins (Theragran Tab*) 1 tab PO DAILY [facility] Last Admin: 06/11/17 08:19 Dose: 1 tab Nicotine (Nicotine Inhaler*) 10 mg INH Q2H PRN PRN Reason: CRAVING Last Admin: 06/11/17 11:27 Dose: 10 mg Nicotine (Nicotine Patch 21 Mg/24 Hr*) 1 patch TRANSDERM DAILY [facility] Last Admin: 06/11/17 08:18 Dose: 1 patch Nicotine Polacrilex (Nicotine Gum*) 2 mg PO Q2H PRN PRN Reason: CRAVING Last Admin: 06/11/17 10:52 Dose: 2 mg Pharmacy Profile Note (Nicotine Patch Removal Note*) 1 note PATCH OFF 2100 [facility] Last Admin: 06/11/17 10:19 Dose: Not Given - Discharge Plan Discharge Plan: Consider Longer Term Tx
[2017-06-11 11:39] LABS: ABS Basophils 0 10^3/ul (0-0.2); ABS Eosinophils 0.2 10^3/ul (0-0.6); ABS Lymphocytes 1.8 10^3/ul (1.0-4.8); ABS Monocytes 0.9 10^3/ul (0-0.8); ABS Neutrophils 5.9 10^3/ul (1.5-7.7); ABS Nucleated RBC 0 10^3/ul; Eosinophil % 2.1 % (0-6); Hematocrit 36 % (42-52); Hemoglobin 11.9 g/dl (14.0-18.0); Lymphocyte % 20.3 % (25-47); Mean Corpuscular HGB Conc 33 g/dl (31-36); Mean Corpuscular Hemoglobin 29 pg (27-31); Mean Corpuscular Volume 88 fL (80-94); Mean Platelet Volume 8 um3 (7.4-10.4); Nucleated Red Blood Cells % 0; Platelet Count 346 10^3/ul (150-450); Red Blood Count 4.08 10^6/ul (4.0-5.4); Red Cell Distribution Width 14 % (10.5-15); White Blood Count 8.8 10^3/ul (3.5-10.8)
[2017-06-11 12:08] LABS: EGFR Non-African American 111.3 (>60)
--- NOTE | 2017-06-11 16:19 | PN ---
MHU: Group Therapy Note - Service Type Service Type: [id number] Group Psychotherapy - Medication Education Group: Patient was attentive and participatory in group, and remained in good behavioral control. Patient expressed positive insights regarding relevant treatment interventions. Patient stated understanding of material discussed and had appropriate questions.
[2017-06-12] MEDS: Nicotine GUM* 2 MG PO PRN ×8 (03:52→20:18)
[2017-06-12] MEDS: Nicotine Inhaler* 10 MG AMP INH PRN ×8 (03:52→20:18)
[2017-06-12] MEDS: LORazepam TAB(*) 1 MG PO PRN ×4 (07:12→22:17)
[2017-06-12] MEDS: Carisoprodol TAB* 350 MG PO PRN ×3 (07:13→20:19)
[2017-06-12] MEDS: cloNIDine TAB* 0.1 MG PO SCH ×3 (08:26→20:19)
[2017-06-12] MEDS: Vitamin THERAPEUTIC TAB PO SCH (08:26)
[2017-06-12] MEDS: Nicotine PATCH 21 MG/24 HR* PATCH TRANSDERM SCH (08:26)
[2017-06-12] MEDS ORDERED: Buprenorphine/Naloxone 8-2 MG SL TAB* 1 TAB PO SCH (09:00)
--- NOTE | 2017-06-12 13:52 | PN ---
Subjective - Subjective Service Type: [id number] Hosp care 25 min moderate complexity Subjective: Patient was tearful and irritable this morning. He later apologized for verbal aggression toward narrative writer. Patient education done regarding suboxone withdrawal. He is strongly encouraged to utilize prn soma and ibuprofen together, along with clonidine. Crm Technical Lead received call from patient's outpatient provider, Dr Schreiber. Patient had phoned her and reported frustration with symptoms. Crm Technical Lead updated Dr Schreiber on current status, presentation and treatment plan including. Patient has exhibited improved psychosis. He is no longer hyper-congregation and not observed to reacting to internal stimuli. He has demonstrated paranoid ideation. Objective - Appearance Appearance: Well Developed/Nourished Dysmorphic Features: Yes Hygiene: Normal Grooming: Fairly Well Kept - Behavior Psychomotor Activities: Normal Exhibits Abnormal Movement: No - Attitude and Relatedness Attitude and Relatedness: Irritable Eye Contact: Good - Speech Quality: Unpressured Latencies: Normal Quantity: Appropriate - Mood Patient's Decription of Mood: "Terrible" - Affect Observed Affect: Expansive Affect Consistent with: Euthymia - Thought Process Patient's Thought Process: Circumstantial Thought Content: Yes Paranoid Ideation, No Passive Wish, No Suicidal Planning, No Homicidal Ideation - Sensorium Experiencing Hallucinations: No, Sensorium is Clear Type of Hallucinations: Visual: No, Auditory: No, Command: No - Level of Consciousness Level of Consciousness: Alert Orientation: Yes Intact, Yes Orientated to Time, Yes Orientated to Place, Yes Orientated to Person - Impulse Control Impulse Control: Poor - Insight and Judgement Insight and Judgement: Poor - Group Participation Particating in Group Activities: Yes - Medication Management Medication Management Adherence: Yes Assessment - Assessment Merits Inpatient Hospitalization: For Immediate Safety, For Stabilization, To Initiate Treatment, Pending Safe DC Plan Inpatient DSM-V Dx: F25.9 Clinical Impression: 32yo white male with hx of poor adherence to treatment for schizoaffective d/o. He is chronically homeless and vulnerable in the community. He is tolerating suboxone taper and continues to express desire for [facility]. He merits hospitalization for immediate safety and stabilization. Plan - Plan Treatment Plan: Name: ARLEEN ESPARZA Birthdate: 1985 [id number] continue acute intensive psychiatric treatment. Discontinue suboxone. Patient has been accepted to [facility] and is waiting for a bed opening. Continued Medication Management: Start Medication Medications: Current Medications Acetaminophen (Tylenol Tab*) 650 mg PO Q4H PRN PRN Reason: PAIN or TEMP > 101 F Last Admin: 05/21/17 04:00 Dose: 650 mg Al Hydrox/Mg Hydrox/Simethicone (Maalox Plus*) 30 ml PO Q4H PRN PRN Reason: INDIGESTION Last Admin: 05/26/17 08:46 Dose: 30 ml Carisoprodol (Soma Tab*) 350 mg PO Q8H PRN PRN Reason: DISCOMFORT Last Admin: 06/12/17 07:13 Dose: 350 mg Clonidine HCl (Catapres Tab*) 0.1 mg PO TID [facility] Last Admin: 06/12/17 13:27 Dose: 0.1 mg Haloperidol (Haldol Tab*) 5 mg PO Q6H PRN PRN Reason: AGITATION Haloperidol Decanoate (Haldol Decanoate*) 100 mg IM Q28D [facility] Last Admin: 06/02/17 12:45 Dose: 100 mg Ibuprofen (Motrin Tab*) 800 mg PO Q8H PRN PRN Reason: PAIN Lorazepam (Ativan Tab(*)) 2 mg PO Q4H PRN PRN Reason: AGITATION Multivitamins (Theragran Tab*) 1 tab PO DAILY [facility] Last Admin: 06/12/17 08:26 Dose: 1 tab Nicotine (Nicotine Inhaler*) 10 mg INH Q2H PRN PRN Reason: CRAVING Last Admin: 06/12/17 13:29 Dose: 10 mg Nicotine (Nicotine Patch 21 Mg/24 Hr*) 1 patch TRANSDERM DAILY [facility] Last Admin: 06/12/17 08:26 Dose: 1 patch Nicotine Polacrilex (Nicotine Gum*) 2 mg PO Q2H PRN PRN Reason: CRAVING Last Admin: 06/12/17 13:29 Dose: 2 mg Pharmacy Profile Note (Nicotine Patch Removal Note*) 1 note PATCH OFF 2100 [facility] Last Admin: 06/11/17 20:42 Dose: 1 note - Discharge Plan Discharge Plan: Consider Longer Term Tx
[2017-06-12] MEDS: Acetaminophen TAB* 325 MG PO PRN (14:23)
[2017-06-13] MEDS: Nicotine Patch Removal NOTE PATCH OFF SCH ×2 (00:14→22:21)
[2017-06-13] MEDS: Ibuprofen TAB* 600 MG PO PRN (03:23)
[2017-06-13] MEDS: LORazepam TAB(*) 1 MG PO PRN ×6 (03:24→23:35)
[2017-06-13] MEDS: Carisoprodol TAB* 350 MG PO PRN ×4 (03:24→23:35)
[2017-06-13] MEDS: Nicotine Inhaler* 10 MG AMP INH PRN ×9 (03:25→23:35)
[2017-06-13] MEDS: Nicotine GUM* 2 MG PO PRN ×9 (03:25→23:35)
[2017-06-13] MEDS: cloNIDine TAB* 0.1 MG PO SCH ×3 (08:37→19:51)
[2017-06-13] MEDS: Vitamin THERAPEUTIC TAB PO SCH (08:37)
[2017-06-13] MEDS: Nicotine PATCH 21 MG/24 HR* PATCH TRANSDERM SCH (08:50)
[2017-06-14] MEDS ORDERED: hydrOXYzine HCL TAB* 25 MG ONE (00:15)
[2017-06-14] MEDS: Haloperidol TAB* 5 MG PO PRN ×2 (01:07→19:28)
[2017-06-14] MEDS: LORazepam TAB(*) 1 MG PO PRN ×5 (05:34→23:35)
[2017-06-14] MEDS: Nicotine Inhaler* 10 MG AMP INH PRN ×8 (05:34→23:39)
[2017-06-14] MEDS: Carisoprodol TAB* 350 MG PO PRN ×4 (05:34→23:36)
[2017-06-14] MEDS: Nicotine GUM* 2 MG PO PRN ×9 (05:35→23:40)
[2017-06-14] MEDS: Nicotine PATCH 21 MG/24 HR* PATCH TRANSDERM SCH (08:31)
[2017-06-14] MEDS: cloNIDine TAB* 0.1 MG PO SCH ×2 (08:33→13:39)
[2017-06-14] MEDS: Vitamin THERAPEUTIC TAB PO SCH (08:33)
[2017-06-14] MEDS ORDERED: cloNIDine TAB* 0.1 MG Q4H DAYS 1 TO 4 PO SCH (14:00)
[2017-06-14] MEDS: cloNIDine TAB* 0.1 MG Q4H DAYS 1 TO 4 PO SCH ×2 (14:24→18:03)
[2017-06-14] MEDS ORDERED: cloNIDine TAB* 0.1 MG ADDITIONAL PRN DOSES DAYS 1-4 PO (14:30)
[2017-06-14] MEDS: cloNIDine TAB* 0.1 MG ADDITIONAL PRN DOSES DAYS 1-4 PO (16:58)
[2017-06-14] MEDS: hydrOXYzine HCL TAB* 25 MG PO PRN (20:10)
[2017-06-14] MEDS: Nicotine Patch Removal NOTE PATCH OFF SCH (23:40)
[2017-06-15] MEDS: cloNIDine TAB* 0.1 MG Q4H DAYS 1 TO 4 PO SCH ×6 (05:06→18:13)
[2017-06-15] MEDS: Carisoprodol TAB* 350 MG PO PRN ×3 (06:06→17:50)
[2017-06-15] MEDS: LORazepam TAB(*) 1 MG PO PRN ×2 (06:07→10:06)
[2017-06-15] MEDS: Nicotine GUM* 2 MG PO PRN ×8 (06:07→22:30)
[2017-06-15] MEDS: Nicotine Inhaler* 10 MG AMP INH PRN ×8 (06:07→22:30)
[2017-06-15] MEDS: Nicotine PATCH 21 MG/24 HR* PATCH TRANSDERM SCH (07:41)
[2017-06-15] MEDS: Vitamin THERAPEUTIC TAB PO SCH (07:43)
[2017-06-15] MEDS ORDERED: Loperamide CAP* 2 MG PO PRN (10:51)
[2017-06-15] MEDS: Ibuprofen TAB* 600 MG PO PRN (14:01)
[2017-06-15] MEDS ORDERED: clonazePAM TAB(*) 0.5 MG PO ONE (14:42)
--- NOTE | 2017-06-15 15:08 | PN ---
Subjective - Subjective Service Type: [id number] Hosp care 25 min moderate complexity Subjective: Patient is irritable, labile and reports significant physical symptoms of withdrawal. He attempts to bargain with residential mortgage underwriter to add suboxone. He tells multiple staff members about his need for specific medications. Drug Abuse Resistance Education Officer received call from [facility] director. He states he researched buprenorphine at [facility] but this is not on formulary nor are there prescribers with prescribing waiver for MAT at this time. Director notified of continued plan to await for bed availability. Drug Abuse Resistance Education Officer meets with patient in the afternoon when he is cooperative and in behavioral control. Drug Abuse Resistance Education Officer explains that providing suboxone, even temporarily, would prolong withdrawal symptoms. He states understanding after attempts to bargain. He agrees to utilize prn medications such as soma, ibu and loperamide. He continues to endorse desire for state hospitalization. 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 Objective - Appearance Appearance: Well Developed/Nourished Dysmorphic Features: Yes Hygiene: Mal-odorous Grooming: Fairly Well Kept - Behavior Psychomotor Activities: Normal Exhibits Abnormal Movement: No - Attitude and Relatedness Attitude and Relatedness: Irritable Eye Contact: Fair - Speech Quality: Unpressured Latencies: Normal Quantity: Appropriate - Mood Patient's Decription of Mood: "Terrible" - Affect Observed Affect: Labile Affect Consistent with: Euphoria - Thought Process Patient's Thought Process: Circumstantial Thought Content: Yes Paranoid Ideation, No Passive Wish, No Suicidal Planning, No Homicidal Ideation - Sensorium Experiencing Hallucinations: Yes Type of Hallucinations: Visual: No, Auditory: Yes, Command: No - Level of Consciousness Level of Consciousness: Alert Orientation: Yes Intact, Yes Orientated to Time, Yes Orientated to Place, Yes Orientated to Person - Impulse Control Impulse Control: Poor - Insight and Judgement Insight and Judgement: Poor - Group Participation Particating in Group Activities: No - Medication Management Medication Management Adherence: Yes Assessment - Assessment Merits Inpatient Hospitalization: For Immediate Safety, For Stabilization, Consolidate Improvements, Pending Safe DC Plan Inpatient DSM-V Dx: F25.9 Clinical Impression: 32yo white male with hx of poor adherence to treatment for schizoaffective d/o. He is chronically homeless and vulnerable in the community. He is completed suboxone taper and continues to express desire for senior living hospitalization. He merits hospitalization for immediate safety and stabilization. Plan - Plan Treatment Plan: Name: ARLEEN ESPARZA Birthdate: 1985 [id number] continue acute intensive psychiatric treatment. change lorazepam to clonazepam for longer effect. Patient has been accepted to [facility] and is waiting for a bed opening. Continued Medication Management: Different Medication Medications: Current Medications Acetaminophen (Tylenol Tab*) 650 mg PO Q4H PRN PRN Reason: PAIN or TEMP > 101 F Last Admin: 06/12/17 14:23 Dose: 650 mg Al Hydrox/Mg Hydrox/Simethicone (Maalox Plus*) 30 ml PO Q4H PRN PRN Reason: INDIGESTION Last Admin: 05/26/17 08:46 Dose: 30 ml Carisoprodol (Soma Tab*) 350 mg PO Q6H PRN PRN Reason: DISCOMFORT Last Admin: 06/15/17 12:01 Dose: 350 mg Clonazepam (Klonopin Tab(*)) 1 mg PO BID PRN PRN Reason: agitation/anxiety Clonidine HCl (Catapres Tab*) 0.1 mg PO Q4HR [facility]IV Stop: 06/17/17 13:59 Last Admin: 06/15/17 13:23 Dose: 0.1 mg Clonidine HCl (Catapres Tab*) 0 - 0.6 mg PO Q8HR VIV Stop: 06/18/17 23:59 Clonidine HCl (Catapres Tab*) 0 - 0.3 mg PO Q8HR VIV Stop: 06/19/17 23:59 Clonidine HCl (Catapres Tab*) 0 - 0.15 mg PO Q12HR VIV PRN Reason: Protocol Stop: 06/20/17 23:59 Clonidine HCl (Catapres Tab*) 0.1 mg PO Q4H PRN PRN Reason: DETOX Stop: 06/17/17 23:59 Last Admin: 06/14/17 16:58 Dose: 0.1 mg Haloperidol (Haldol Tab*) 5 mg PO Q6H PRN PRN Reason: AGITATION Last Admin: 06/14/17 19:28 Dose: 5 mg Haloperidol Decanoate (Haldol Decanoate*) 100 mg IM Q28D [facility] Last Admin: 06/02/17 12:45 Dose: 100 mg Hydroxyzine HCl (Atarax Tab*) 25 mg PO Q4H PRN PRN Reason: .AGITATION/ANXIETY Last Admin: 06/14/17 20:10 Dose: 25 mg Ibuprofen (Motrin Tab*) 600 mg PO Q6H PRN PRN Reason: PAIN Last Admin: 06/15/17 14:01 Dose: 600 mg Loperamide HCl (Imodium Cap*) 2 mg PO .SEE DIRECTIONS PRN PRN Reason: DIARRHEA Multivitamins (Theragran Tab*) 1 tab PO DAILY [facility] Last Admin: 06/15/17 07:43 Dose: 1 tab Nicotine (Nicotine Inhaler*) 10 mg INH Q2H PRN PRN Reason: CRAVING Last Admin: 06/15/17 14:02 Dose: 10 mg Nicotine (Nicotine Patch 21 Mg/24 Hr*) 1 patch TRANSDERM DAILY [facility] Last Admin: 06/15/17 07:41 Dose: 1 patch Nicotine Polacrilex (Nicotine Gum*) 2 mg PO Q2H PRN PRN Reason: CRAVING Last Admin: 06/15/17 14:53 Dose: 2 mg Pharmacy Profile Note (Nicotine Patch Removal Note*) 1 note PATCH OFF 2100 [facility] Last Admin: 06/14/17 23:40 Dose: Not Given - Discharge Plan Discharge Plan: Consider Longer Term Tx
[2017-06-15] MEDS: cloNIDine TAB* 0.1 MG ADDITIONAL PRN DOSES DAYS 1-4 PO ×2 (15:32→20:02)
[2017-06-15] MEDS: clonazePAM TAB(*) 1 MG PO PRN (20:01)
[2017-06-15] MEDS: hydrOXYzine HCL TAB* 25 MG PO PRN (21:15)
[2017-06-15] MEDS: Haloperidol TAB* 5 MG PO PRN (21:49)
[2017-06-15] MEDS: Nicotine Patch Removal NOTE PATCH OFF SCH (22:46)
[2017-06-16] MEDS: cloNIDine TAB* 0.1 MG Q4H DAYS 1 TO 4 PO SCH ×7 (00:33→23:00)
[2017-06-16] MEDS: Carisoprodol TAB* 350 MG PO PRN ×4 (00:33→19:48)
[2017-06-16] MEDS: hydrOXYzine HCL TAB* 25 MG PO PRN (00:34)
[2017-06-16] MEDS: Nicotine Inhaler* 10 MG AMP INH PRN ×8 (00:34→19:48)
[2017-06-16] MEDS: Nicotine GUM* 2 MG PO PRN ×9 (00:34→21:45)
[2017-06-16] MEDS: clonazePAM TAB(*) 1 MG PO PRN ×2 (01:07→09:08)
[2017-06-16] MEDS: Ibuprofen TAB* 600 MG PO PRN (01:51)
[2017-06-16] MEDS: cloNIDine TAB* 0.1 MG ADDITIONAL PRN DOSES DAYS 1-4 PO ×2 (03:27→12:12)
[2017-06-16] MEDS: Vitamin THERAPEUTIC TAB PO SCH (07:48)
[2017-06-16] MEDS: Acetaminophen TAB* 325 MG PO PRN ×3 (07:48→18:18)
[2017-06-16] MEDS: Nicotine PATCH 21 MG/24 HR* PATCH TRANSDERM SCH (08:00)
--- NOTE | 2017-06-16 11:46 | PN ---
MHU: Group Therapy Note - Service Type Service Type: [id number] Group Psychotherapy - Cognitive Behavioral Group Therapy ( CBT):Patient was attentive and participatory in CBT programming this morning, and remained in good behavioral control. Patient expressed positive insights regarding relevant treatment interventions and goals.
[2017-06-16] MEDS ORDERED: QUEtiapine TAB* 100 MG PO PRN (11:51)
[2017-06-16] MEDS ORDERED: Haloperidol Decanoate* 50 MG/ML AMP IM ONE (12:30)
--- NOTE | 2017-06-16 15:28 | PN ---
Subjective - Subjective Service Type: [id number] Hosp care 25 min moderate complexity Subjective: Per staff, patient was irritable, demanding and agitated for the majority of the evening and night warehouse selector. He is focused on medications, especially those that he considers are most helpful for withdrawal from suboxone. Patient eventually accepted po haloperidol along with clonidine protocol medications. He fell asleep in the shower while water flooded the hallway. This morning, patient reported mild improvement in withdrawal symptoms. He states he wants to be "engaged in groups but I'm crawling out of my skin." He states he is utilizing exercise in his room to strengthen core muscles. He states he has goals and aspirations but did not elaborate due to frequently changing topics. He agrees to use of quetiapine as a prn for sleep. Objective - Appearance Appearance: Well Developed/Nourished Dysmorphic Features: No Hygiene: Normal Grooming: Well Kept - Behavior Psychomotor Activities: Normal Exhibits Abnormal Movement: No - Attitude and Relatedness Attitude and Relatedness: Needy Eye Contact: Good - Speech Quality: Unpressured Latencies: Normal Quantity: Appropriate - Mood Patient's Decription of Mood: "Terrible" - Affect Observed Affect: Expansive Affect Consistent with: Euphoria - Thought Process Patient's Thought Process: Tangential, Filght of Ideas, Circumstantial Thought Content: No Passive Wish, No Suicidal Planning, No Homicidal Ideation, No Paranoid Ideation - Sensorium Type of Hallucinations: Visual: No, Auditory: Yes, Command: No - Level of Consciousness Level of Consciousness: Alert Orientation: No Intact, No Orientated to Time, No Orientated to Place, No Orientated to Person - Impulse Control Impulse Control: Tenuous - Insight and Judgement Insight and Judgement: Poor - Group Participation Particating in Group Activities: Yes - Medication Management Medication Management Adherence: Yes Assessment - Assessment Merits Inpatient Hospitalization: For Immediate Safety, For Stabilization, Consolidate Improvements, Pending Safe DC Plan Inpatient DSM-V Dx: F25.9 Clinical Impression: 32yo white male with hx of poor adherence to treatment for schizoaffective d/o. He is chronically homeless and vulnerable in the community. He is completed suboxone taper and continues to express desire for [facility] hospitalization. He merits hospitalization for immediate safety and stabilization. Plan - Plan Treatment Plan: Name: ARLEEN ESPARZA Birthdate: 1985 [id number] continue acute intensive psychiatric treatment. increase haloperidol decanoate by administering 100mg IM today. continue palliative efforts for buprenorphine withdrawal. Patient has been accepted to [facility] and is waiting for a bed opening. Continued Medication Management: Start Medication Medications: Current Medications Acetaminophen (Tylenol Tab*) 650 mg PO Q4H PRN PRN Reason: PAIN or TEMP > 101 F Last Admin: 06/16/17 13:49 Dose: 650 mg Al Hydrox/Mg Hydrox/Simethicone (Maalox Plus*) 30 ml PO Q4H PRN PRN Reason: INDIGESTION Last Admin: 05/26/17 08:46 Dose: 30 ml Carisoprodol (Soma Tab*) 350 mg PO Q6H PRN PRN Reason: DISCOMFORT Last Admin: 06/16/17 13:48 Dose: 350 mg Clonazepam (Klonopin Tab(*)) 1 mg PO BID PRN PRN Reason: agitation/anxiety Last Admin: 06/16/17 09:08 Dose: 1 mg Clonazepam (Klonopin Tab(*)) 0.5 mg PO ONCE ONE Stop: 06/16/17 18:01 Clonidine HCl (Catapres Tab*) 0.1 mg PO Q4HR [facility]IV Stop: 06/17/17 13:59 Last Admin: 06/16/17 13:48 Dose: 0.1 mg Clonidine HCl (Catapres Tab*) 0 - 0.6 mg PO Q8HR [facility]IV Stop: 06/18/17 23:59 Clonidine HCl (Catapres Tab*) 0 - 0.3 mg PO Q8HR [facility]IV Stop: 06/19/17 23:59 Clonidine HCl (Catapres Tab*) 0 - 0.15 mg PO Q12HR [facility]IV PRN Reason: Protocol Stop: 06/20/17 23:59 Clonidine HCl (Catapres Tab*) 0.1 mg PO Q4H PRN PRN Reason: DETOX Stop: 06/17/17 23:59 Last Admin: 06/16/17 12:12 Dose: 0.1 mg Haloperidol (Haldol Tab*) 5 mg PO Q6H PRN PRN Reason: AGITATION Last Admin: 06/15/17 21:49 Dose: 5 mg Haloperidol Decanoate (Haldol Decanoate*) 100 mg IM Q28D [facility] Last Admin: 06/02/17 12:45 Dose: 100 mg Hydroxyzine HCl (Atarax Tab*) 25 mg PO Q4H PRN PRN Reason: .AGITATION/ANXIETY Last Admin: 06/16/17 00:34 Dose: 25 mg Ibuprofen (Motrin Tab*) 600 mg PO Q6H PRN PRN Reason: PAIN Last Admin: 06/16/17 01:51 Dose: 600 mg Loperamide HCl (Imodium Cap*) 2 mg PO .SEE DIRECTIONS PRN PRN Reason: DIARRHEA Multivitamins (Theragran Tab*) 1 tab PO DAILY [facility] Last Admin: 06/16/17 07:48 Dose: Not Given Nicotine (Nicotine Inhaler*) 10 mg INH Q2H PRN PRN Reason: CRAVING Last Admin: 06/16/17 14:36 Dose: 10 mg Nicotine (Nicotine Patch 21 Mg/24 Hr*) 1 patch TRANSDERM DAILY [facility] Last Admin: 06/16/17 08:00 Dose: 1 patch Nicotine Polacrilex (Nicotine Gum*) 2 mg PO Q2H PRN PRN Reason: CRAVING Last Admin: 06/16/17 14:28 Dose: 2 mg Pharmacy Profile Note (Nicotine Patch Removal Note*) 1 note PATCH OFF 2100 [facility] Last Admin: 06/15/17 22:46 Dose: Not Given Quetiapine Fumarate (Seroquel Tab*) 200 mg PO BEDTIME PRN PRN Reason: AGITATION/ANXIETY/INSOMNIA - Discharge Plan Discharge Plan: Consider Longer Term Tx
[2017-06-16] MEDS ORDERED: clonazePAM TAB(*) 0.5 MG PO ONE (18:00)
[2017-06-16] MEDS: Nicotine Patch Removal NOTE PATCH OFF SCH (23:22)
[2017-06-17] MEDS: cloNIDine TAB* 0.1 MG Q4H DAYS 1 TO 4 PO SCH ×6 (02:00→22:16)
[2017-06-17] MEDS: Nicotine GUM* 2 MG PO PRN ×9 (04:03→23:53)
[2017-06-17] MEDS: Carisoprodol TAB* 350 MG PO PRN ×4 (04:06→21:46)
[2017-06-17] MEDS: Acetaminophen TAB* 325 MG PO PRN ×3 (04:10→18:58)
[2017-06-17] MEDS: clonazePAM TAB(*) 1 MG PO PRN ×2 (04:14→16:52)
[2017-06-17] MEDS: Nicotine PATCH 21 MG/24 HR* PATCH TRANSDERM SCH (07:21)
[2017-06-17] MEDS: Vitamin THERAPEUTIC TAB PO SCH (07:22)
[2017-06-17] MEDS: Ibuprofen TAB* 600 MG PO PRN ×2 (07:22→21:46)
[2017-06-17] MEDS: Nicotine Inhaler* 10 MG AMP INH PRN ×4 (08:32→21:19)
[2017-06-17] MEDS: BuPROPion XL* 150 MG TAB.XL PO SCH (10:59)
[2017-06-18] MEDS: clonazePAM TAB(*) 1 MG PO PRN ×2 (00:15→07:15)
[2017-06-18] MEDS: Nicotine Inhaler* 10 MG AMP INH PRN ×5 (00:50→10:46)
[2017-06-18] MEDS: Nicotine Patch Removal NOTE PATCH OFF SCH (00:50)
[2017-06-18] MEDS: Nicotine GUM* 2 MG PO PRN ×5 (02:05→10:46)
[2017-06-18] MEDS: cloNIDine TAB* 0.1 MG Q4H DAYS 1 TO 4 PO SCH (02:05)
[2017-06-18] MEDS: Carisoprodol TAB* 350 MG PO PRN ×2 (03:50→09:52)
[2017-06-18] MEDS: Ibuprofen TAB* 600 MG PO PRN ×2 (03:50→09:53)
[2017-06-18] MEDS ORDERED: cloNIDine TAB* DOSING for DAY 5 PO SCH ×2 (06:00)
[2017-06-18] MEDS: Acetaminophen TAB* 325 MG PO PRN ×2 (06:25→12:29)
[2017-06-18] MEDS: BuPROPion XL* 150 MG TAB.XL PO SCH (07:15)
[2017-06-18] MEDS: Nicotine PATCH 21 MG/24 HR* PATCH TRANSDERM SCH (07:15)
[2017-06-18] MEDS: Vitamin THERAPEUTIC TAB PO SCH (07:15)
[2017-06-18 07:46] VITALS: BP 118/72
[2017-06-18] MEDS ORDERED: BuPROPion XL* 150 MG TAB.XL PO ONE (10:42)
--- NOTE | 2017-06-18 11:54 | PN ---
MHU: Group Therapy Note - Service Type Service Type: [id number] Group Psychotherapy - Cognitive Behavioral Group Therapy ( CBT):Patient was attentive and participatory in CBT programming this morning, and remained in good behavioral control. Patient expressed positive insights regarding relevant treatment interventions and goals.
[2017-06-19] MEDS ORDERED: cloNIDine TAB* DOSING for DAY 6 PO SCH ×2 (06:00)
[2017-06-20] MEDS ORDERED: cloNIDine TAB* DOSING FOR DAY 7 PO SCH ×2 (09:00)
--- NOTE | 2017-06-20 13:25 | DS ---
CC: [facility]; Dr. Lemon; [facility], Dr. Kaela Schreiber; [facility] Care Coordination* DISCHARGE SUMMARY: DATE OF ADMISSION: 05/21/17 DATE OF DISCHARGE: 06/18/17 SUPERVISING PSYCHIATRIST: Won Christiansen MD* (dictated by KIMANI Irwin) . DISCHARGE DIAGNOSES: 1. Schizoaffective disorder, bipolar type. 2. Cannabis use disorder. 3. Cocaine use disorder. 4. Opiate use disorder, in remission. 5. Tobacco use disorder. CONDITION AT THE TIME OF DISCHARGE: Guarded. Issac prefers to be called "Trip" as this has been a nickname for many years. The patient states he is looking forward to going to [facility] hospitalization. 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 He states he has contacted his grandmother in [place], notified her of the treatment plan for him to go to [place]. The patient continues to be circumstantial about medications and withdraw from Suboxone therapy. The patient denies homicidal or violent ideation. He denies suicidal ideations. He identifies that he is at risk for violence and harm to himself in the community. This is likely directly related to delusional disorder and his interactions with peers when he is not on consistent antipsychotic therapy. MENTAL STATUS EXAM: At the time of discharge, the patient is adequately groomed and is wearing multiple layers of clothing from the donations on the unit. He is in behavioral control. He stands in the hallway with technical report writer and is cooperative with interview. The patient states appreciation for treatment. He is alert and oriented x3. His eye contact is good. His speech is somewhat rapid and loud at times. Thought process is tangential, but re-directable. Thought process is also circumstantial in regards to medication management. Thought content is positive for evangelical preoccupation and sex delusions. He denies SI, HI or . His insight is poor. His judgement is poor. His fund of knowledge is adequate. DISCHARGE INSTRUCTIONS: A. Medications: The patient will continue on the following medications at [facility] until further assessed by director, Dr. Lemon. 1. Acetaminophen 650 mg p.o. q.4 hours p.r.n. pain or temp greater than 101. 2. Maalox 30 mL p.o. q.4 hours p.r.n. indigestion. 3. Soma 350 mg p.o. q.6 hours p.r.n. discomfort related to buprenorphine withdrawal. 4. Clonazepam 1 mg p.o. b.i.d. p.r.n. agitation and anxiety. 5. Clonidine 0.1 mg p.o. q.4 hours p.r.n. detox. 6. Haloperidol 5 mg p.o. q.6 hours p.r.n. agitation. 7. Haldol Decanoate 100 mg IM q.28 days. The patient received initial dose on June 02 and additional dose due to continued psychosis on June 15. 8. Hydroxyzine 25 mg p.o. q.4 hours p.r.n. agitation and anxiety. 9. Ibuprofen 600 mg p.o. q.6 hours p.r.n. pain. 10. Loperamide 2 mg per protocol. 11. Multivitamin 1 p.o. daily. 12. Nicotine inhaler 10 mg q.2 hour p.r.n. craving. 13. Nicotine patch 21 mg 1 daily, remove at bedtime. 14. Nicotine gum 2 mg p.o. q.2 hour p.r.n. craving. 15. Quetiapine 200 mg p.o. p.r.n. insomnia, also beneficial for mood stabilization. B. Diet: Regular. C. Activities: Ambulation as tolerated. D. Tobacco cessation has been provided to the patient. There are no studies pending at the time of discharge. E: Followup Care: The patient is accepted for transfer to [facility] for longer term hospitalization. SUBSTANCE ABUSE FOLLOWUP: The patient will follow up with his local outpatient provider, Dr. Schreiber, for primary care and medication-assisted treatment for substance use disorder. HOSPITAL COURSE: Part-A: Reason for admission: The patient presented to the emergency department and requested a mental health evaluation. He had been discharged from the unit 3 days prior. In the emergency department, he was disorganized and bizarre. He initially refused a mental health evaluation despite having asked for one. He was seen in the emergency department and medically cleared. He refused blood draws. His urinalysis was within normal limits. Toxicology: His urine drug screen was positive for cannabinoid which is consistent with patient report. The patient was admitted to psychiatric unit on status. His code status was full. He was placed on 15-minute checks for safety. He was encouraged to participate in supportive milieu, psychoeducational groups depending on his interactions with others. The patient was continued on current outpatient medications. Part-B: Psychiatric treatment rendered: Upon admission, the patient was irritable and easily agitated. He was often observed to be yelling at himself in his room. He was religiously preoccupied. He reported having direct messages from [employer]. The patient was circumstantial and tangential on topic of conversation. For some time, he refused antipsychotic medications. We discussed potential need for longer term hospitalization due to decompensation in the community as well as repeat hospitalization. The patient agreed for referral for [facility] hospitalization and gave clearance to mental health legal services. Referral was made to [facility]. The patient reported prior hospitalization in 2014 and reported that this was beneficial for him and would like to do this again. Director of [facility] suggested the patient be challenged on his use of controlled substances and denial of antipsychotic medications. The patient was agreeable to Haldol Decanoate. He declined to discuss further other options of long-acting injectable medications. The patient was agreeable initially to stopping Concerta despite his strong feelings that it was very efficacious for diagnosis of Lyme disease. He agreed to start taper of buprenorphine. The patient did well with the taper of buprenorphine until it was discontinued. After this medication was discontinued , we utilized p.r.n. medications to assist in discomfort from withdrawal symptoms. The patient had a strong change in behavioral symptoms. He was increasingly agitated, demanding of staff and often requested to have another dose of buprenorphine. The patient told his outpatient provider multiple times from the unit in attempt to ask her to advocate for reinstating of buprenorphine and Concerta. The patient was consistently given the feedback that in order to pursue longer term hospitalization, buprenorphine was not available at the [facility] and that the primary focus would be to treat schizoaffective disorder. The patient eventually agreed to lab work ordered by the technical report writer. His CBC was noteworthy for H and H 11.9 and 36, lymphocyte percentage 20.3, monocyte percentage 10.0, absolute monos 0.9. BMP within normal limits. Hemoglobin A1c and lipid panel were performed due to quetiapine therapy. His hemoglobin A1c was 5.8, triglycerides 139, cholesterol 158, LDL cholesterol 60, HDL cholesterol 70. The patient was accepted for transfer to [facility] on 06/18/17. When notified of this, the patient was very excited and as stated above, looking forward to more intensive and longer term treatment for mental health disorder. Report was given to Dr. Lemon, nursing report was done and the patient was transported to [facility] via [facility]. We hope Trip will do very well in the state hospitalization and be able to procure resources for himself in the outpatient arena when stabilized. KIMANI IRWIN [id number]/CPS #: [id number] AYLIN
== END 2017-06-18 13:00 | disposition short-term general hospital (02) | DRG 750 ==
LOC: ED 21:03 → BSU 05-21 02:58
PROVIDERS: ADMIT Psychiatry & Neurology Psychiatry; ATTEND Psychiatry & Neurology Psychiatry
PROC: GZHZZZZ Group Psychotherapy (ICD-10-PCS; principal; 2017-05-26)
DX: F25.0 Schizoaffective disorder, bipolar type (principal); F22 Delusional disorders; F11.23 Opioid dependence with withdrawal; F12.90 Cannabis use, unspecified, uncomplicated; G89.29 Other chronic pain; M54.9 Dorsalgia, unspecified; K21.9 Gastro-esophageal reflux disease without esophagitis; I10 Essential (primary) hypertension; F14.90 Cocaine use, unspecified, uncomplicated; F41.9 Anxiety disorder, unspecified; F32.9 Major depressive disorder, single episode, unspecified; F43.10 Post-traumatic stress disorder, unspecified; F11.21 Opioid dependence, in remission; F17.210 Nicotine dependence, cigarettes, uncomplicated; Z91.19 Patient's noncompliance with other medical treatment and regimen; Z59.0 Homelessness; Z91.5 Personal history of self-harm; Z81.1 Family history of alcohol abuse and dependence; Z86.14 Personal history of Methicillin resistant Staphylococcus aureus infection; Z72.89 Other problems related to lifestyle; Q71.32 Congenital absence of left hand and finger
CPT/HCPCS: 36415; 80053; 80061; 80307; 81003; 83036; 85025; 90853; 99222; 99231; 99232; 99238; 99285; A9270-GY; J1631

== ENCOUNTER 2017-08-30 13:25 | Inpatient (IN) | payer MEDICAID, OTHER ==
[2017-08-30] MEDS ORDERED: NS 0.9% 1000 ML*IV.FLUID IV ONE (13:50)
[2017-08-30] MEDS ORDERED: Vancomycin(*) 1,000 MG VIAL IVPB SCH (14:00)
[2017-08-30 14:14] LABS: Hematocrit 34 % (42-52); Hemoglobin 11.6 g/dl (14.0-18.0); Mean Corpuscular HGB Conc 34 g/dl (31-36); Mean Corpuscular Hemoglobin 30 pg (27-31); Mean Corpuscular Volume 89 fL (80-94); Mean Platelet Volume 7.6 um3 (7.4-10.4); Platelet Count 364 10^3/ul (150-450); Red Blood Count 3.85 10^6/ul (4.0-5.4); Red Cell Distribution Width 14 % (10.5-15); White Blood Count 18.5 10^3/ul (3.5-10.8)
[2017-08-30 14:23] LABS: INR 1.04 (0.77-1.02)
[2017-08-30 14:30] LABS: ABS Basophils 0.1 10^3/ul (0-0.2); ABS Eosinophils 0.1 10^3/ul (0-0.6); ABS Lymphocytes 1.8 10^3/ul (1.0-4.8); ABS Monocytes 1.6 10^3/ul (0-0.8); ABS Neutrophils 14.9 10^3/ul (1.5-7.7); ABS Nucleated RBC 0 10^3/ul; Eosinophil % 0.4 % (0-6); Lymphocyte % 9.8 % (25-47); Nucleated Red Blood Cells % 0
[2017-08-30] MEDS ORDERED: Vancomycin(*) 1,250 MG IV x ONCE IVPB ONE ×2 (14:30)
[2017-08-30 14:31] LABS: EGFR Non-African American 121.8 (>60)
--- NOTE | 2017-08-30 14:45 | RAD ---
Indication: Abscess in the right wrist. 2 views of the chest including dual energy PA views demonstrates no mediastinal shift. Heart is of normal size and configuration. Lung villanueva appear clear. IMPRESSION: No active cardiopulmonary disease is noted.
[2017-08-30] MEDS ORDERED: LORazepam TAB(*) 1 MG ONE (15:32)
[2017-08-30] MEDS ORDERED: LORazepam TAB(*) 1 MG PO ONE (15:32)
--- NOTE | 2017-08-30 15:34 | RAD ---
Indication: Right wrist abscess. Real-time sonography of the right wrist was performed. This echo complex collection in the right wrist measuring 3.4 x 3.3 x 2.9 cm. IMPRESSION: ECHO complex fluid collection as described above.
[2017-08-30] MEDS ORDERED: Morphine INJ* 10 MG/ML 1 ML CARPUJECT IV ONE (16:23)
[2017-08-30] MEDS ORDERED: Morphine VIAL* 4 MG/ML VIAL (1 ml vial) IV ONE ×2 (16:28→16:31)
[2017-08-30] MEDS ORDERED: Vancomycin per Pharmacy* NOTE FOLLOW UP SCH (17:00)
[2017-08-30] MEDS ORDERED: Nicotine GUM* 2 MG ONE (17:45)
[2017-08-30] MEDS: Nicotine GUM* 2 MG PO PRN ×2 (17:47→21:14)
[2017-08-30] MEDS: NS 0.9% 1000 ML* 1,000 ML IV SCH ×2 (18:40→21:14)
--- NOTE | 2017-08-30 20:21 | HP ---
HISTORY AND PHYSICAL: DATE OF ADMISSION: 08/30/17 TIME OF ADMISSION: 4:30 p.m. CHIEF COMPLAINT: Spider bite. HISTORY OF PRESENT ILLNESS: This is a 32-year-old man with history of IV drug abuse who presents today with a concern for a spider bite and abscess on his right wrist. He denies injecting drugs into this wrist as he usually uses bigger veins, but [place] and has seen a brown recluse spider near his tent and is confident that this was a spider bite. He noticed swelling and concern for a formed abscess over the past 3 days, which has continued to get worse and has been accompanied by a spreading erythema that has extended up to his elbow at this time, so he came to the emergency department today. He does not believe he has been having fevers recently; however, he says he had been awake for 3 days because he has been high on methamphetamine. PAST MEDICAL HISTORY: Schizoaffective disorder, overdose attempt, self- mutilation, several admissions to [facility] as well as other psychiatric facilities. SOCIAL HISTORY: [place] He uses daily marijuana, methamphetamine, and denies alcohol abuse. He does not smoke cigarettes. REVIEW OF SYSTEMS: Limited by his distractibility and pressured speech. He is tangential, but answers questions appropriately and denies any other associated symptoms. He denies any other rashes or abscesses. He says he has otherwise been feeling well. No cough, shortness of breath, chest pain, abdominal pain, nausea, vomiting, constipation, or diarrhea. PHYSICAL EXAMINATION GENERAL: Alert, unkempt young man, in no distress. He is energetic with elevated mood. VITAL SIGNS: Temperature 100.4, heart rate 113, respiratory rate 18, pulse ox 97% on room air, blood pressure 139/83. HEENT: Pupils are 3 mm bilaterally and reactive to light. His oral mucosa is moist with no petechiae or pharyngeal exudates or erythema. NECK: No JVD. No cervical adenopathy. No track haynes. LUNGS: Clear bilaterally. CHEST: Tachycardic. No murmurs. ABDOMEN: Soft, nontender, nondistended. EXTREMITIES: A 3-cm abscess was noted on the right lateral wrist and I was present when Dr. Muhammad performed I and D. Approximately 10 cc of pus was expressed. There is now 1-cm incision. He has surrounding erythema from the wrist that extends to the antecubital fossa. His left hand is significant for absent 4th and 5th digits. He has no splinter hemorrhages. He has dirty fingernails and toenails. He has healed scars on his hands that he says are from self-mutilation. He has no lower extremity edema and no other areas of erythema or abscess. LABORATORY DATA: White blood cells 18.5, hemoglobin 11.6, platelets 364. INR 1.04. Sodium 136, potassium 3.6, chloride 102, bicarb 25, creatinine 0.74. CRP 80.5. Troponin 0.00. ALT 15, AST 17. Salicylates, acetaminophen, and serum alcohol are negative. ASSESSMENT AND PLAN: This is a 32-year-old man with history of polysubstance abuse and IV drug use, who presents with an abscess on his right wrist. 1. Sepsis due to right wrist abscess, status post incision and drainage in the emergency department. He is currently receiving volume resuscitation. I will give him 2 more liters. He is receiving vancomycin in the emergency department. I will continue this and culture has been sent from the abscess. Blood cultures have also been sent and we will follow up on these. The abscess is likely from injection drug use. He follows with Dr. Schreiber at the [facility]. 2. Polysubstance abuse. As mentioned, he follows with the [facility] and has had good success with their support. 3. Psychiatric history. He has a very extensive psychiatric history; however, apart from being high on methamphetamine, his mood at this time seems stable. He has no suicidal ideations or intentions nor homicidal ideations or intentions. He expresses interest in his hobbies and I will continue him on his methylphenidate. He is pleasant and agreeable to these plans. 4. DVT prophylaxis. He is ambulatory. 5. Full code. [id number]/[facility] #: [id number] [facility]
[2017-08-31] MEDS: Morphine VIAL* 4 MG/ML VIAL (1 ml vial) IV PRN ×5 (00:12→20:46)
[2017-08-31] MEDS: Vancomycin(*) 1,250 MG IV Q8H IVPB SCH ×6 (00:19→16:43)
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
[2017-08-31] MEDS: Nicotine GUM* 2 MG PO PRN ×8 (04:03→22:08)
[2017-08-31 04:47] LABS: Urine Appearance Clear; Urine Blood Negative (Negative); Urine Color Yellow; Urine Ketones Negative (Negative); Urine Protein Negative (Negative); Urine Specific Gravity 1.012 (1.010-1.030); Urine Urobilinogen Negative (Negative)
[2017-08-31] MEDS: Methylphenidate ER 27 MG TAB PO SCH (07:59)
--- NOTE | 2017-08-31 08:20 | PN ---
Subjective Date of Service: 08/31/17 Interval History: Tmax 100.2 overnight. He had an uneventful night. He feels better this morning , got some sleep for the first time in 4 days. 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 His pain is controlled and the erythema is receding from the marker line. Social History: Unchanged from Admission Past Medical History: Unchanged from Admission Objective Active Medications: Vancomycin HCl 1,250 mg/ (Sodium Chloride) 250 mls @ 166.667 mls/hr IVPB Q8H [facility] Last Admin: 08/31/17 00:19 Dose: 166.667 mls/hr Methylphenidate HCl (Concerta) 54 mg PO DAILY [facility] Last Admin: 08/31/17 07:59 Dose: 54 mg Morphine Sulfate (Morphine Vial*) 4 mg IV Q4H PRN PRN Reason: PAIN - MILD Last Admin: 08/31/17 08:00 Dose: 4 mg Nicotine Polacrilex (Nicotine Gum*) 2 mg PO Q2H PRN PRN Reason: CRAVING Last Admin: 08/31/17 08:14 Dose: 2 mg Pharmacy Consult (Vancomycin Per Pharmacy*) 1 note FOLLOW UP .VANC PER PHARMACY [facility] Pharmacy Profile Note (Vancomycin Trough Check) 1 note FOLLOW UP .ENTER TIME ONE Stop: 09/01/17 08:31 Vital Signs - 8 hr 08/31/17 08/31/17 08/31/17 01:19 02:03 04:02 Temperature 98.0 F Pulse Rate 74 Respiratory 18 18 16 Rate Blood Pressure 128/45 (mmHg) O2 Sat by Pulse 96 Oximetry 08/31/17 08:00 Temperature Pulse Rate Respiratory 20 Rate Blood Pressure (mmHg) O2 Sat by Pulse Oximetry Oxygen Devices in Use Now: None Appearance: alert, nontoxic, pleasant, somewhat childlike affect Eyes: No Scleral Icterus, PERRLA, - - no nystagmus Ears/Nose/Mouth/Throat: NL Teeth, Lips, Gums Neck: NL Appearance and Movements; NL JVP Respiratory: Symmetrical Chest Expansion and Respiratory Effort Cardiovascular: NL Sounds; No Murmurs; No JVD, RRR, No Edema Abdominal: NL Sounds; No Tenderness; No Distention, No Hepatosplenomegaly Lymphatic: No Cervical Adenopathy Extremities: No Edema, - - right wrist I&D site dressed with some bloody drainage, proximal soft tissue with marked edema and tenderness, radial pulse 2 + hand warm, sensation in tact, strength in tact. left 4th and 5th digits absent. scattered old healed scars on all extremities. Result Diagrams: 08/30/17 14:01 08/30/17 14:01 Microbiology and Other Data: Microbiology 08/30/17 16:45 Skin and Soft Tissue MRSA/MSSA (PCR - Final Wrist Right Mrsa Negative S.aureus Negative Gram Stain - Preliminary Assess/Plan/Problems-Billing Assessment: 32 yo man with history of polysubstance abuse and mental health illness admitted 08/30 with a right wrist abscess. - Patient Problems (1) Sepsis Current Visit: Yes Status: Acute Comment: present on admission and related to wrist abscess received 3L IVF at admission continue vancomycin per pharmacy protocol for skin source follow up blood cultures (2) Abscess Current Visit: No Status: Acute Code(s): L02.91 - CUTANEOUS ABSCESS, UNSPECIFIED SNOMED Code(s): 357683818 Comment: s/p I&D in ED check forearm ultrasound today to rule out extension wound culture MRSA negative, but will follow up I&D culture to narrow antibiotics (3) Polysubstance dependence Current Visit: No Status: Acute Code(s): F19.20 - OTHER PSYCHOACTIVE SUBSTANCE DEPENDENCE, UNCOMPLICATED SNOMED Code(s): 08873769 Comment: [facility] at discharge, has been on suboxone in the past no evidence of withdrawal at this point (4) History of bipolar disorder Current Visit: No Status: Chronic Code(s): Z86.59 - PERSONAL HISTORY OF OTHER MENTAL AND BEHAVIORAL DISORDERS SNOMED Code(s): 283060718 Comment: expressed some evidence of spencer yesterday but had been on methamphetamine. mood appears stable at this time.
--- NOTE | 2017-08-31 10:08 | RAD ---
HISTORY: Right wrist abscess drainage, edematous tissue of right forearm COMPARISONS: August 30, 2017 TECHNIQUE: Multiple transverse and longitudinal ultrasound images were obtained right wrist using grayscale and color Doppler imaging. FINDINGS: The loculated fluid collection noted on the previous examination is no longer evident. There is subcutaneous edema of the right wrist with hypervascularity. There is no appreciable fluid tracking along the visualized tendon sheaths. IMPRESSION: SUBCUTANEOUS EDEMA AND HYPERVASCULARITY CONSISTENT WITH CELLULITIS. NO APPRECIABLE LOCULATED FLUID COLLECTION TO SUGGEST ABSCESS
[2017-09-01] MEDS: Morphine VIAL* 4 MG/ML VIAL (1 ml vial) IV PRN ×4 (00:32→12:28)
[2017-09-01] MEDS: Vancomycin(*) 1,250 MG IV Q8H IVPB SCH ×8 (00:33→17:06)
[2017-09-01] MEDS: Nicotine GUM* 2 MG PO PRN ×6 (04:08→16:21)
[2017-09-01 05:51] LABS: ABS Basophils 0.1 10^3/ul (0-0.2); ABS Eosinophils 0.3 10^3/ul (0-0.6); ABS Monocytes 0.9 10^3/ul (0-0.8); ABS Neutrophils 6.2 10^3/ul (1.5-7.7); ABS Nucleated RBC 0 10^3/ul; Eosinophil % 2.7 % (0-6); Hematocrit 30 % (42-52); Hemoglobin 10.1 g/dl (14.0-18.0); Lymphocyte % 20.9 % (25-47); Mean Corpuscular HGB Conc 33 g/dl (31-36); Mean Corpuscular Hemoglobin 30 pg (27-31); Mean Corpuscular Volume 89 fL (80-94); Mean Platelet Volume 7.8 um3 (7.4-10.4); Nucleated Red Blood Cells % 0; Platelet Count 306 10^3/ul (150-450); Red Blood Count 3.43 10^6/ul (4.0-5.4); Red Cell Distribution Width 15 % (10.5-15); White Blood Count 9.4 10^3/ul (3.5-10.8)
[2017-09-01 06:08] LABS: EGFR Non-African American 125.7 (>60)
[2017-09-01] MEDS: Methylphenidate ER 27 MG TAB PO SCH (08:06)
[2017-09-01] MEDS ORDERED: Vancomycin Trough Check NOTE FOLLOW UP ONE (08:30)
[2017-09-01 17:18] VITALS: BP 135/67
[2017-09-03] MEDS ORDERED: Vancomycin Trough Check NOTE FOLLOW UP ONE (08:00)
--- NOTE | 2017-09-04 01:38 | DS ---
CC: [facility]* DISCHARGE SUMMARY: DATE OF ADMISSION: 08/30/17 DATE OF DISCHARGE: 09/01/17 PRINCIPAL DISCHARGE DIAGNOSES: 1. Sepsis. 2. Wrist abscess. 3. Intravenous drug abuse. SECONDARY DISCHARGE DIAGNOSES: 1. Schizoaffective disorder. 2. Bipolar disorder. PHYSICAL EXAMINATION: At the time of discharge, temperature 98.1, heart rate 76 , respiratory rate 18, pulse oximetry 99% on room air, blood pressure 135/67. General: Alert, well-appearing man, in no distress. His mood is pleasant and calm. HEENT: Pupils are equal, round, and reactive to light. Oral mucosa is moist. No pharyngeal or palatal lesions or exudates. Neck: No supraclavicular or cervical lymphadenopathy. Chest: Regular rate and rhythm. No murmurs. Lungs: Clear bilaterally. Abdomen: Soft, nontender, nondistended. No guarding or rebound. Extremities: Right wrist I and D site 1 cm with scant bloody drainage. Pale erythema receding from marked line from admission over right forearm. Right hand sensation is intact. Strength 5/5. 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 Old healed incisions and scars on bilateral upper and lower extremities. No edema. No splinter hemorrhages. HOSPITAL COURSE BY PROBLEM: 1. Abscess. The source was the right wrist abscess from IV drug abuse. Mr. Roberts believes this was from a spider bite from a spider he witnessed outside his tent. The abscess was I and D'd in the emergency department, which he tolerated well and he was started on vancomycin at that time. Blood cultures remained negative. Sepsis resolved on vancomycin and wound cultures returned as MRSA negative, but positive for haemophilus, parainfluenza and Streptococcus intermedius. Based on these organisms, vancomycin was narrowed to Augmentin and he is being discharged on 10 days total of Augmentin. He is instructed to change his dressing once daily. 2. Polysubstance abuse. He underwent no withdrawal while he was admitted. His most recent substance of choice was methamphetamine, which he was high on when he came to the emergency department, but he recovered well from that and follows up with the [facility] as an outpatient. DISPOSITION: Mr. Roberts was stable for discharge on 09/01/17 and meds to bed was used to fill his antibiotic prescription. He agrees to take them for 7 more days and follow up with the PCP at the [facility]. Please feel free to call me any time at [phone] with questions or concerns. [id number]/[facility] #: [id number] AYLIN
== END 2017-09-01 18:25 | disposition home or self-care (01) | DRG 720 ==
LOC: ED 13:25 → MED 16:31
PROVIDERS: ADMIT Internal Medicine; ATTEND Internal Medicine
PROC: 0H9DXZZ Drainage of Right Lower Arm Skin, External Approach (ICD-10-PCS; principal; 2017-08-30)
DX: A41.9 Sepsis, unspecified organism (principal); L02.413 Cutaneous abscess of right upper limb; F19.20 Other psychoactive substance dependence, uncomplicated; B95.4 Other streptococcus as the cause of diseases classified elsewhere; B96.3 Hemophilus influenzae [H. influenzae] as the cause of diseases classified elsewhere; F31.9 Bipolar disorder, unspecified; F25.9 Schizoaffective disorder, unspecified
CPT/HCPCS: 36415; 71046; 80053; 80202; 80307; 80320; 80329; 81003; 82550; 83605; 84443; 84484; 85025; 85610; 85652; 85730; 86140; 87040; 87070; 87077; 87186; 87205; 87640; 87641; 93005; 99285; A9270-GY; G0480; J2270; J3370

== ENCOUNTER 2017-11-07 14:53 | Emergency (ER) | payer OTHER ==
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
[2017-11-07 17:17] VITALS: BP 0/0
== END 2017-11-07 17:17 | disposition left against medical advice (07) ==
LOC: ED 14:53
DX: L02.414 Cutaneous abscess of left upper limb (principal); L03.113 Cellulitis of right upper limb; F17.210 Nicotine dependence, cigarettes, uncomplicated
CPT/HCPCS: 99282

== ENCOUNTER 2017-11-16 13:37 | Emergency (ER) | payer OTHER ==
[~2017-11-16 13:37] MED LIST changes: -Haloperidol INJ IV/IM* 5 MG/ML AMP IM ONE; +Haloperidol INJ IV/IM* 5 MG/ML AMP ONE; -LORazepam INJ* 2 MG/ML 1 ML VIAL IM ONE; +LORazepam INJ* 2 MG/ML 1 ML VIAL ONE; -diPHENhydraMINE IV* 50 MG/ML 1 ml VIAL (BENADRYL) IM ONE; +diPHENhydraMINE IV* 50 MG/ML 1 ml VIAL (BENADRYL) ONE
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
[2017-11-16 14:39] LABS: ABS Basophils 0.1 10^3/ul (0-0.2); ABS Eosinophils 0.1 10^3/ul (0-0.6); ABS Lymphocytes 2.4 10^3/ul (1.0-4.8); ABS Monocytes 0.8 10^3/ul (0-0.8); ABS Neutrophils 5.6 10^3/ul (1.5-7.7); ABS Nucleated RBC 0 10^3/ul; Eosinophil % 0.8 % (0-6); Hematocrit 32 % (42-52); Hemoglobin 10.5 g/dl (14.0-18.0); Mean Corpuscular HGB Conc 33 g/dl (31-36); Mean Corpuscular Hemoglobin 29 pg (27-31); Mean Corpuscular Volume 87 fL (80-94); Mean Platelet Volume 7.4 um3 (7.4-10.4); Nucleated Red Blood Cells % 0; Platelet Count 409 10^3/ul (150-450); Red Blood Count 3.64 10^6/ul (4.00-5.40); Red Cell Distribution Width 14 % (10.5-15)
[2017-11-16 16:10] LABS: EGFR Non-African American 111.3 (>60)
[2017-11-16 16:21] LABS: Urine Appearance Clear; Urine Blood Negative (Negative); Urine Color Yellow; Urine Ketones Trace (Negative); Urine Protein 1+(30 mg/dL) (Negative); Urine Red Blood Cell Trace(0-2/hpf) (Absent); Urine Urobilinogen Negative (Negative); Urine White Blood Cell Trace(0-5/hpf) (Absent)
--- NOTE | 2017-11-17 06:26 | ED ---
Progress - Progress Note Progress Note: Pt signed out by Dr. Rodriguez awaiting MHE. - Consult/PCP Time Called: 12:40 Course/Dx - Course Course Of Treatment: Pt will be signed out to Dr. Melvin in the morning. Awaiting MHE. - Diagnoses Provider Diagnoses: Psychosis Discharge - Sign-Out/Discharge Documenting (check all that apply): Sign-Out Patient Signing out patient TO: Jermaine Melvin Receiving patient FROM: Bassem Taveras - Discharge Plan Referrals: Kaela Schreiber MD [Primary Care Provider] -
--- NOTE | 2017-11-17 07:16 | ED ---
Progress - Progress Note Progress Note: 07:00-Pt signed out to Dr. Melvin at shift change pending MHE. This is scribe Monika Rowe documenting for attending Dr. Jermaine Melvin - Consult/PCP Time Called: 12:40 Course/Dx - Course Course Of Treatment: Pt will be signed out to Dr. Melvin in the morning. Awaiting MHE. Pt. will be discharged home. - Diagnoses Provider Diagnoses: Psychosis, Substance induced mood disorder, Schizoaffective disorder Discharge - Sign-Out/Discharge Documenting (check all that apply): Patient Departure - DC, Receiving Sign-Out Receiving patient FROM: Bassem Taveras - Discharge Plan Referrals: Kaela Schreiber MD [Primary Care Provider] -
[2017-11-17 13:06] VITALS: BP 126/69
== END 2017-11-17 13:08 | disposition home or self-care (01) ==
LOC: ED 13:37
DX: F29 Unspecified psychosis not due to a substance or known physiological condition (principal); F19.94 Other psychoactive substance use, unspecified with psychoactive substance-induced mood disorder; F25.9 Schizoaffective disorder, unspecified; F17.210 Nicotine dependence, cigarettes, uncomplicated
CPT/HCPCS: 36415; 80053; 80307; 80320; 80329; 81003; 81015; 84443; 85025; 87086; 96374; 96375; 99285; G0480; J1200; J1630; J2060

== ENCOUNTER 2017-12-09 16:40 | Inpatient (IN) | payer MEDICAID, OTHER ==
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
[2017-12-09] MEDS ORDERED: LORazepam INJ* 2 MG/ML 1 ML VIAL ONE (17:22)
[2017-12-09] MEDS: LORazepam INJ* 2 MG/ML 1 ML VIAL IM ONE ×2 (17:43→17:53)
[2017-12-09 20:02] LABS: ABS Basophils 0 10^3/ul (0-0.2); ABS Eosinophils 0.1 10^3/ul (0-0.6); ABS Lymphocytes 2.5 10^3/ul (1.0-4.8); ABS Monocytes 1.1 10^3/ul (0-0.8); ABS Nucleated RBC 0 10^3/ul; Eosinophil % 1.4 % (0-6); Hematocrit 35 % (42-52); Hemoglobin 11.7 g/dl (14.0-18.0); Lymphocyte % 28.3 % (25-47); Mean Corpuscular HGB Conc 33 g/dl (31-36); Mean Corpuscular Hemoglobin 29 pg (27-31); Mean Corpuscular Volume 86 fL (80-94); Mean Platelet Volume 7.6 um3 (7.4-10.4); Nucleated Red Blood Cells % 0; Platelet Count 374 10^3/ul (150-450); Red Blood Count 4.09 10^6/ul (4.00-5.40); Red Cell Distribution Width 15 % (10.5-15); White Blood Count 8.7 10^3/ul (3.5-10.8)
[2017-12-09 20:19] LABS: EGFR Non-African American 86.1 (>60)
[2017-12-09] MEDS ORDERED: NS 0.9% 1000 ML* 1,000 ML IV ONE ×2 (20:53→20:55)
[2017-12-09 22:46] LABS: Urine Appearance Clear; Urine Blood Negative (Negative); Urine Color Yellow; Urine Ketones Negative (Negative); Urine Protein Negative (Negative); Urine Urobilinogen Negative (Negative)
--- NOTE | 2017-12-10 00:59 | ED ---
Progress - Progress Note Progress Note: 2205 pt EKG returned with sinus brachycardia at 50 bpm, as well as an old inferior infarct. ED physician reviewed this report. Course/Dx - Course Course Of Treatment: Methamphetamine addict presents by police/EMS after they witnessed bizarre behaviors downtown. The patient is manic and difficult to question. He reports that he only drank alcohol. He required Ativan sedation and didn't calm until after he received 4 mg. Were then able to get blood drawn as he could not sit still prior. Alcohol is 0. His CPK is elevated consistent with amphetamine use. He does have track haynes on both arms which she states are from meth. He'll be aggressively hydrated here in attempts to drive down the CPK. Hospitalist once this trended after IV fluids. Patient will be signed out to the oncoming ER provider pending that result. - Diagnoses Provider Diagnoses: Altered mental status, Homelessness, Methamphetamine abuse - Provider Notifications Time Discussed With Above Provider: 20:54 Instructed by Provider To: Other - Consulted Dr. Cardona who wants to give him 2L of fluid total and then repeat his CPK after that. - Critical Care Time Critical Care Time: 30-74 min - 30 minutes. CCT is EXCLUSIVE of separately billable procedures. Discharge - Sign-Out/Discharge Documenting (check all that apply): Patient Departure - admit - Discharge Plan Condition: Fair Disposition: ADMITTED TO [facility] Referrals: Kaela Schreiber MD [Primary Care Provider] - - Attestation Statements Document Initiated by Scribe: Yes
[2017-12-10] MEDS ORDERED: LORazepam INJ* 2 MG/ML 1 ML VIAL IV PUSH PRN ×2 (03:00→08:12)
[2017-12-10] MEDS ORDERED: NS 0.9% 1000 ML* 1,000 ML IV SCH (03:00)
[2017-12-10] MEDS ORDERED: LORazepam INJ* 2 MG/ML 1 ML VIAL ONE (06:14)
--- NOTE | 2017-12-10 06:26 | HP ---
H&P (Free Text) History and Physical: PCP: none Date/Time: 12/10/2017 0300 CC: AMS HPI: Mr Roberts is a 32YO male HX polysubstance abuse who was brought in by police after being found downtown throwing garbage cans and being threatening. He has a known history of polysubstance abuse. When asked what brought him in tonight, he replies, The state of the boogie is still in the booging state! We CANNOT breathe underwater! He does not appear in any distress. PMedHx polysubstance abuse schizoaffective disorder HX overdose PSurgHx unobtainable SocHx: reportedly homeless [place]; otherwise unobtainable FamHx: unobtainable ROS: as above, otherwise reviewed and all were negative vitals: reviewed Constitutional: NAD, normally developed, well-nourished white male HEENM: atraumatic; sclera/conjunctiva: anicteric/clear; hearing: clinically intact; oropharynx: clear, mucosa moist Neck: soft tissue: non-tender; thyroid: normal Pulmonary: clear to auscultation bilaterally, good aeration, no accessory muscle use CV: RR/RR, normal S1S2, no carotid bruit, no jugular venous distention, 2+ B DP/ PT, no edema Abdominal: soft, non-distended, non-tender, no rebound/guarding/rigidity, normoactive bowel sounds, no hepatosplenomegaly or masses, no costovertebral angle tenderness Musculoskeletal: general: grossly intact, non-tender Integumental: normal appearance and texture Psychiatric orientation: AA&O to PPS affect: confused mood: initially asleep, excited when awake eye contact: good content: incoherent to non-sensical memory: unable to assess responses: as above insight: poor Testing: unavailable, not printed prior to EMR downtime; total CK reported as 1200 Impression: 32M HX polysubstance abuse & schizoaffective disorder presents in apparent acute intoxication on unknown substance DIAGNOSIS & PLAN Primary acute intoxication, HX polysubstance abuse : tincture of time : safety monitor : supportive care : psychiatric evaluation when able to participate mildly elevated CK : IVFs, trend Admission Rational: observation for AMS DVTp: JANAY Code Status: full
[2017-12-10] MEDS ORDERED: Ziprasidone IM INJ* 20 MG/ML VIAL IM ONE (06:32)
[2017-12-10] MEDS ORDERED: Nicotine GUM* 2 MG ONE (06:33)
[2017-12-10] MEDS: Nicotine GUM* 2 MG PO PRN (06:34)
[2017-12-10] MEDS ORDERED: Haloperidol INJ IV/IM* 5 MG/ML AMP IV SLOW PU PRN (08:12)
[2017-12-10 09:01] LABS: Hematocrit 35 % (42-52); Hemoglobin 11.6 g/dl (14.0-18.0); Mean Corpuscular HGB Conc 33 g/dl (31-36); Mean Corpuscular Hemoglobin 29 pg (27-31); Mean Corpuscular Volume 87 fL (80-94); Mean Platelet Volume 7.7 um3 (7.4-10.4); Platelet Count 354 10^3/ul (150-450); Red Blood Count 4.05 10^6/ul (4.00-5.40); Red Cell Distribution Width 15 % (10.5-15); White Blood Count 7.6 10^3/ul (3.5-10.8)
[2017-12-10 09:20] LABS: EGFR Non-African American 81.3 (>60)
--- NOTE | 2017-12-10 11:33 | CONSULT ---
Identification - Patient Identification Reason for Psychiatric Consultation: Violent Behavior -: Patient is a 32 year old, M admitted on 12/10/17. Patient was brought to ED by law enforcement and EMS due to violent behavior in the community. - MHU Identification Employment Status: Disabled Hx Psychiatric Hospitalization: Yes Prior Psychiatric Diagnosis: schizoaffective d/o, polysubstance use d/o Arrived to Hospital Via: Law Enforcement History - Objective HPI: Patient is known to this policy writer sales due to admission to [facility] in june. He was transferred to [facility] for longer hospitalization then returned to [place]. He is undomicilied and unable to stay at [facility]. Patient is being [facility] by [facility]. Film Splicer left with provider for collateral information. Received call from Dr Schreiber who reports patient has been increasingly erratic this past week. She gave number of [facility] child caregiver private home, [place]: [phone] as she is working on housing for him. Film Splicer left . Patient sleeping in hospital bed, agitated upon being awakened. He demands ice cream and a sandwich. He is pleasant when redirected. He denies needs for mental health services other than "my meds." Patient reports he is being prescribed methylphenidate only. This is accurate per ELECT[employer] INSTALLATION SUPERVISOR, ref # [id number]. He denies SI or HI/. He blames hospital employees for losing or stealing his belongings. He reports desire to be discharged from the hospital. Patient exhibits poor insight and judgment. Exam Appearance: Well Developed/Nourished Hygiene: Dirty Grooming: Disheveled Psychomotor Activities: Normal Exhibits Abnormal Movement: No Attitude and Relatedness: Irritable Eye Contact: Fair - Speech Quality: Unpressured Latencies: Normal Quantity: Appropriate Observed Affect: Tense Patient's Thought Process: Circumstantial Thought Content: Yes Paranoid Ideation, No Passive Wish, No Suicidal Planning, No Homicidal Ideation Experiencing Hallucinations: No, Sensorium is Clear Type of Hallucinations: Visual: No, Auditory: No, Command: No Level of Consciousness: Alert Orientation: Yes Intact, Yes Orientated to Time, Yes Orientated to Place, Yes Orientated to Person Impulse Control: Tenuous Insight and Judgement: Poor Impression - Impression Clinical Impression: 32yo white male with history of schizoaffective disorder and poor adherence to mental health treatment. He also has a history of polysubstance use. He denies need for treatment for either of the above. Patient was brought to the ED via law enforcement due to threatening behavior in the community. Inpatient DSM-V Dx: F25.0 Merits Inpatient Hospitalization: Yes Problem List - MHU Problems Type of Problem: Impulse Control Status of Problem: Active Plan - Treatment Plan Treatment Plan: admit patient to [facility] on status. Continued Medication Management: Continue Outpt Medication Medications: Current Medications Haloperidol Lactate (Haldol Inj Iv/Im*) 2 mg IV SLOW PU Q6H PRN PRN Reason: AGITATION Sodium Chloride (Ns 0.9% 1000 Ml*) 1,000 mls @ 125 mls/hr IV PER RATE VIV Lorazepam (Ativan Inj*) 1 mg IV PUSH Q6H PRN PRN Reason: AGITATION Nicotine Polacrilex (Nicotine Gum*) 2 mg PO Q2H PRN PRN Reason: CRAVING Last Admin: 12/10/17 06:34 Dose: 2 mg
[2017-12-10] MEDS ORDERED: Al Hydrox/Mg Hydrox/Simet LIQ* 30 ML UDC PO PRN (15:00)
[2017-12-10] MEDS ORDERED: Acetaminophen TAB* 325 MG PO PRN (15:00)
[2017-12-10 17:10] VITALS: BP 147/59
[2017-12-10] MEDS ORDERED: Nicotine Patch Removal NOTE PATCH OFF SCH (21:00)
[2017-12-10] MEDS ORDERED: chlorproMAZINE TAB* 50 MG PO PRN (21:07)
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
[2017-12-11] MEDS ORDERED: Nicotine PATCH 21 MG/24 HR* PATCH TRANSDERM SCH (08:00)
[2017-12-11] MEDS ORDERED: Vitamin THERAPEUTIC TAB PO SCH (09:00)
[2017-12-11] MEDS ORDERED: Methylphenidate ER TAB* 18 MG PO SCH (09:00)
[2017-12-11] MEDS: Nicotine GUM* 2 MG PO PRN ×3 (10:24→15:08)
[2017-12-11] MEDS ORDERED: Mouth Piece, Nicotine* 1 EACH CARTRIDGE ONE (10:26)
[2017-12-11] MEDS: Nicotine Inhaler* 10 MG AMP INH PRN ×3 (10:27→15:07)
[2017-12-11] MEDS ORDERED: Buprenorphine/Naloxone 8-2 MG SL TAB* 1 TAB PO ONE (10:37)
--- NOTE | 2017-12-14 19:49 | DS ---
CC: [facility], Darcie Pink; [facility] Medical; [facility] PSYCHIATRIC ADMIT NOTE/DISCHARGE SUMMARY: DATE OF PSYCHIATRIC ADMISSION: 12/11/17 DATE OF DISCHARGE: 12/11/17 SUPERVISING PSYCHIATRIST: Dr. Won Christiansen. DIAGNOSES: 1. Schizoaffective disorder. 2. Opiate use disorder. 3. Cannabis use disorder. CONDITION AT THE TIME OF DISCHARGE: Improved. The patient is organized and well related. He is not exhibiting psychotic symptoms at this time. He denies suicidal ideation, homicidal ideation, or romaine lent ideations. The patient is offered to remain in the hospital for continued safety and stabilizat ion. The patient denies citing that he would prefer to be discharged. He reports concern of further decompensation if remained in the hospital. The jingle writer speaks with the patient for some time in reg ards to current substance use. He is likely evasive on the topic of IV drug use. We go through his belongings that include clean needles. He is offered to go through his bag with this jingle writer to dispo se of any used needles, which there were none. Reporting Analyst had information that the patient had been usin g IV substances. He was also noted to have multiple needle haynes on his arms. As stated above, the patient was inconsistent with his information. He states he is using Suboxone IV, which is likely no t true as this is typically not a substance that people can get high from due to the naloxone compone nt. The patient denies injecting methamphetamine despite collateral information to the contrary. Th e patient denies problems with opiate use. He denies he has been using opiates. His drug screen was only positive for cannabinoids. The patient wants to return to [facility] and [facility] for outpatient suppor t. I have communicated with his providers there who agreed to continue seeing him and continue harm reduction approaches. MENTAL STATUS EXAM: Issac is a 32-year-old white male, undomiciled single, mentally disabled, who appears stated age. He is wearing a hospital gown. He has a shaved head and full mejia. ADLs are c ompleted. He is alert and oriented x3. Eye contact is good. Speech is soft, articulate with normal volume and rhythm. His mood is euthymic with full range of affect. No abnormal psychomotor activity noted. Thought process is logical, goal directed, coherent, circumstantial in regards to discharge. Thought content is negative for SI, HI, or passive wish. He denies AH or VH or delusions. Hi s insight and judgment are fair. Cognitively, he is awake with what appear to be an average intellect . INSTRUCTIONS GIVEN TO PATIENT: A. Medications: The patient declined offer of Suboxone or other medi cations for substance use disorder. He will resume his outpatient medications to [facility]. I did not p rescribe any medications other than one time dose of Suboxone that he took while in the [facility]. B. Diet is regular. C. Activity: Ambulation as tolerated. Tobacco cessation was declined by patient. Ther e are no pending labs or diagnostic studies. D. Followup care: The patient will follow up with Dr. Schreiber on 12/15/17 at 11 a.m. and [facility] with Darcie iPnk on 12/14/17 at 2 p.m. E. Substance use followup: The patient is working with [facility] in regarding to anton rm reduction efforts. He denies offers for other substance use treatment. HOSPITAL COURSE: A. Reason for admission: The patient was admitted to the medical floor on 8. Apparently, he had been in the community and brought in by police after being found down town thr owing garbage cans and threatening. He presented as disorganized and floridly psychotic. He was jody tated and unable to participate in coherent conversation. He was noted to show signs of mild rhabdom yolysis, which improved with IV fluids. Psychiatry was consulted due to the patient's presentation. Upon approach, the patient was agitated. He was demanding food and ice cream. Mildly pleasant when r edirected. The patient was disorganized and tangential in speech. He denied need for psychiatric ad mission, however, due to his presentation, we transferred him to the psychiatric floor on involuntary admission. The patient was calm and cooperative with the transfer. He was pleasant upon approach th e following morning. As stated above, this jingle writer discussed current substance use with the patient. He is engaging in IV drug use and denies offer for substance use rehab. This jingle writer spoke with his providers at [facility] and [facility] to give collateral about his presentation. Collateral information obtain ed from [facility]. Providers are suspicious of the patient's IV methamphetamine use, they state that he typically presents as erratic in the beginning of the week after receiving a week supply of methylphenidate. [place] and partaking with others who ar e manufacturing methamphetamines. The patient has been working with [employer] in regard to finding iwoca options. The patient tells me he was recently denied housing. The patient declined offer of presc ription for Suboxone from this jingle writer. He presented as diaphoretic and shaking. Reporting Analyst asked if he was withdrawing from opiates and he denied. However, due to his presentation, I offered a one time d ose of Suboxone, which the patient accepted. The patient has been safe in all checks. He denies SI or passive wish. The patient expresses concern for increased decompensation if admission continues. The patient is at chronic risk based on history of impulsivity for treatment and insight for mental health as well as significant substance use. At the time of discharge, risk was lessened due to stabilization in the hospital. BREANNA SORIA, BIRGIT [id number]/CPS #: [id number]
== END 2017-12-11 14:25 | disposition home or self-care (01) | DRG 351 ==
LOC: ED 16:40 → MED 12-10 03:00 → INTOOBSV 12-10 03:00 → OBSVTOIN 12-10 03:00 → BSU 12-10 16:46
PROVIDERS: ADMIT Hospitalist; ATTEND Psychiatry & Neurology Psychiatry
DX: M62.82 Rhabdomyolysis (principal); F15.129 Other stimulant abuse with intoxication, unspecified; R00.0 Tachycardia, unspecified; I10 Essential (primary) hypertension; K21.9 Gastro-esophageal reflux disease without esophagitis; M89.9 Disorder of bone, unspecified; F41.9 Anxiety disorder, unspecified; F32.9 Major depressive disorder, single episode, unspecified; F43.10 Post-traumatic stress disorder, unspecified; F17.210 Nicotine dependence, cigarettes, uncomplicated; F25.0 Schizoaffective disorder, bipolar type; R45.6 Violent behavior; Z91.5 Personal history of self-harm; Z59.0 Homelessness; Z81.1 Family history of alcohol abuse and dependence; Z72.89 Other problems related to lifestyle; Z91.19 Patient's noncompliance with other medical treatment and regimen
CPT/HCPCS: 36415; 80053; 80307; 80320; 80329; 81003; 82550; 84443; 85025; 85027; 87641; 93005; 99285; A9270-GY; G0480; J1630; J2060; J3486

== ENCOUNTER 2017-12-23 07:21 | Emergency (ER) | payer OTHER ==
[2017-12-23] MEDS ORDERED: Nicotine PATCH 21 MG/24 HR* PATCH TRANSDERM ONE (07:29)
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
[2017-12-23 08:07] LABS: ABS Basophils 0.1 10^3/ul (0-0.2); ABS Eosinophils 0.2 10^3/ul (0-0.6); ABS Lymphocytes 2.6 10^3/ul (1.0-4.8); ABS Monocytes 0.9 10^3/ul (0-0.8); ABS Neutrophils 6.1 10^3/ul (1.5-7.7); ABS Nucleated RBC 0 10^3/ul; Eosinophil % 1.7 % (0-6); Hematocrit 31 % (42-52); Hemoglobin 10.5 g/dl (14.0-18.0); Lymphocyte % 26.6 % (25-47); Mean Corpuscular HGB Conc 34 g/dl (31-36); Mean Corpuscular Hemoglobin 29 pg (27-31); Mean Corpuscular Volume 86 fL (80-94); Mean Platelet Volume 7.8 um3 (7.4-10.4); Nucleated Red Blood Cells % 0; Platelet Count 316 10^3/ul (150-450); Red Blood Count 3.64 10^6/ul (4.00-5.40); Red Cell Distribution Width 16 % (10.5-15); White Blood Count 9.9 10^3/ul (3.5-10.8)
[2017-12-23 08:33] LABS: EGFR Non-African American 87.1 (>60)
[2017-12-23 10:15] LABS: Urine Appearance Clear; Urine Blood Negative (Negative); Urine Color Yellow; Urine Ketones Negative (Negative); Urine Protein 1+(30 mg/dL) (Negative); Urine Red Blood Cell 1+(3-5/hpf) (Absent); Urine Urobilinogen Negative (Negative); Urine White Blood Cell Trace(0-5/hpf) (Absent)
[2017-12-23 13:41] VITALS: BP 112/57
== END 2017-12-23 11:30 | disposition home or self-care (01) ==
LOC: ED 07:21
DX: F19.10 Other psychoactive substance abuse, uncomplicated (principal); I10 Essential (primary) hypertension; F17.210 Nicotine dependence, cigarettes, uncomplicated
CPT/HCPCS: 36415; 80053; 80307; 80320; 80329; 81003; 81015; 84443; 85025; 87086; 99283; A9270-GY; G0480

== ENCOUNTER 2017-12-24 15:34 | Inpatient (IN) | payer OTHER ==
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
[2017-12-24] MEDS ORDERED: LORazepam TAB(*) 1 MG PO ONE (15:50)
[2017-12-24 16:20] LABS: ABS Basophils 0.1 10^3/ul (0-0.2); ABS Eosinophils 0.1 10^3/ul (0-0.6); ABS Lymphocytes 2.2 10^3/ul (1.0-4.8); ABS Monocytes 0.6 10^3/ul (0-0.8); ABS Nucleated RBC 0 10^3/ul; Eosinophil % 1.1 % (0-6); Hematocrit 34 % (42-52); Hemoglobin 11.1 g/dl (14.0-18.0); Lymphocyte % 27.4 % (25-47); Mean Corpuscular HGB Conc 33 g/dl (31-36); Mean Corpuscular Hemoglobin 29 pg (27-31); Mean Corpuscular Volume 87 fL (80-94); Mean Platelet Volume 8.1 um3 (7.4-10.4); Nucleated Red Blood Cells % 0.1; Platelet Count 321 10^3/ul (150-450); Red Blood Count 3.86 10^6/ul (4.00-5.40); Red Cell Distribution Width 16 % (10.5-15)
[2017-12-24 16:40] LABS: EGFR Non-African American 78.7 (>60)
--- NOTE | 2017-12-24 20:54 | ED ---
Progress - Progress Note Progress Note: This pt was signed out by Dr. Gann at shift change, pending disposition, awaiting MHE. Course/Dx - Course Course Of Treatment: Pt underwent a mental health evaluation and his case was reviewed by Dr. Payne, psychiatrist. Per Dr. Payne, pt will be admitted with a diagnosis of unspecified psychosis. - Diagnoses Provider Diagnoses: Unspecified psychosis Discharge - Sign-Out/Discharge Documenting (check all that apply): Patient Departure - Admit to psych, Receiving Sign-Out Receiving patient FROM: Issac Gann - Discharge Plan Condition: Stable Disposition: PSYCHIATRIC FAC[place] [place] Attestation Statements Document Initiated by Scribe: Yes Documenting Scribe: Pati Morales Provider For Whom Scribe is Documenting (Include Credential): Dr. Nya Washington MD Scribe Attestation: Pati Holt, scribed for Dr. Nya Washington MD on 12/25/17 at 0441.
[2017-12-25 04:26] LABS: Urine Appearance Clear; Urine Blood Negative (Negative); Urine Color Yellow; Urine Ketones Negative (Negative); Urine Protein 1+(30 mg/dL) (Negative); Urine Red Blood Cell Absent (Absent); Urine Specific Gravity 1.031 (1.010-1.030); Urine Urobilinogen Positive (Negative); Urine White Blood Cell Trace(0-5/hpf) (Absent)
[2017-12-25] MEDS ORDERED: Al Hydrox/Mg Hydrox/Simet LIQ* 30 ML UDC PO PRN (04:31)
[2017-12-25] MEDS ORDERED: Acetaminophen TAB* 325 MG PO PRN (04:31)
[2017-12-25] MEDS ORDERED: Haloperidol TAB* 5 MG PO PRN (04:32)
[2017-12-25] MEDS: Vitamin THERAPEUTIC TAB PO SCH (07:47)
[2017-12-25] MEDS: Nicotine GUM* 2 MG PO PRN ×5 (07:47→19:46)
[2017-12-25] MEDS: Nicotine Inhaler* 10 MG AMP INH PRN ×4 (11:43→19:43)
[2017-12-25] MEDS: Mouth Piece, Nicotine* 1 EACH CARTRIDGE INH SCH (11:43)
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
[2017-12-25] MEDS: Buprenorphine/Naloxone 8-2 MG SL TAB* 1 TAB SL SCH (20:08)
[2017-12-26] MEDS: Nicotine Inhaler* 10 MG AMP INH PRN ×8 (02:43→22:42)
[2017-12-26] MEDS: Vitamin THERAPEUTIC TAB PO SCH (08:07)
[2017-12-26] MEDS: Buprenorphine/Naloxone 8-2 MG SL TAB* 1 TAB SL SCH ×2 (08:07→20:22)
[2017-12-26] MEDS: Nicotine GUM* 2 MG PO PRN ×6 (08:07→22:42)
[2017-12-26] MEDS: Mouth Piece, Nicotine* 1 EACH CARTRIDGE INH SCH (13:54)
[2017-12-27] MEDS: Nicotine Inhaler* 10 MG AMP INH PRN ×7 (07:21→23:12)
[2017-12-27] MEDS: Nicotine GUM* 2 MG PO PRN ×7 (07:21→23:12)
[2017-12-27] MEDS: Vitamin THERAPEUTIC TAB PO SCH (08:24)
[2017-12-27] MEDS: Buprenorphine/Naloxone 8-2 MG SL TAB* 1 TAB SL SCH ×2 (08:24→20:28)
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
[2017-12-27] MEDS: Mouth Piece, Nicotine* 1 EACH CARTRIDGE INH SCH (19:05)
[2017-12-28] MEDS: Nicotine Inhaler* 10 MG AMP INH PRN ×7 (05:57→21:36)
[2017-12-28] MEDS: Nicotine GUM* 2 MG PO PRN ×7 (05:57→21:36)
[2017-12-28] MEDS: Vitamin THERAPEUTIC TAB PO SCH (08:01)
[2017-12-28] MEDS: Buprenorphine/Naloxone 8-2 MG SL TAB* 1 TAB SL SCH ×2 (08:01→20:19)
[2017-12-28] MEDS: Nicotine PATCH 21 MG/24 HR* PATCH TRANSDERM SCH (12:38)
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
[2017-12-28] MEDS: Nicotine Patch Removal NOTE FOLLOW UP SCH (22:02)
[2017-12-29] MEDS: Nicotine Inhaler* 10 MG AMP INH PRN ×9 (03:01→23:20)
[2017-12-29] MEDS: Nicotine GUM* 2 MG PO PRN ×9 (03:02→23:20)
[2017-12-29] MEDS: Nicotine PATCH 21 MG/24 HR* PATCH TRANSDERM SCH (07:42)
[2017-12-29] MEDS: Vitamin THERAPEUTIC TAB PO SCH (07:43)
[2017-12-29] MEDS: Buprenorphine/Naloxone 8-2 MG SL TAB* 1 TAB SL SCH ×2 (07:43→20:38)
--- NOTE | 2017-12-29 11:42 | PN ---
MHU: Group Therapy Note - Service Type Service Type: 67110 Group Psychotherapy - Cognitive Behavioral Group Therapy ( CBT):Patient was attentive and participatory in CBT programming this morning, and remained in good behavioral control. Patient expressed positive insights regarding relevant treatment interventions and goals.
--- NOTE | 2017-12-29 15:06 | PN ---
Subjective - Subjective Date of Service: 12/29/17 Service Type: 40728 Hosp care 25 min moderate complexity Subjective: Patient reports that he is now motivated to pursue "writing" instead of art and that this is a reason that he had an epiphany. He states that he can now accept offers of housing through DSS that would be in locations outside of [place]. He is noted to be hypertalkative, tangential and hypergraphic. He has pressured speech. Patient states his pain is improved due to exercising and goes on to describe the aptitude of his physique. Objective - Appearance Appearance: Well Developed/Nourished Dysmorphic Features: No Hygiene: Normal Grooming: Fairly Well Kept - Behavior Psychomotor Activities: Normal Exhibits Abnormal Movement: No - Attitude and Relatedness Eye Contact: Good - Speech Quality: Pressured Latencies: Normal Quantity: Copious - Mood Patient's Decription of Mood: "Great" - Affect Observed Affect: Expansive Affect Consistent with: Euphoria - Thought Process Patient's Thought Process: Loose Associations, Tangential, Over Inclusive Thought Content: Yes Paranoid Ideation, No Passive Wish, No Suicidal Planning, No Homicidal Ideation - Sensorium Experiencing Hallucinations: No, Sensorium is Clear Type of Hallucinations: Visual: No, Auditory: No, Command: No - Level of Consciousness Level of Consciousness: Alert Orientation: Yes Intact, Yes Orientated to Time, Yes Orientated to Place, Yes Orientated to Person - Impulse Control Impulse Control: Impaired - Insight and Judgement Insight and Judgement: Impaired - Group Participation Particating in Group Activities: No - Medication Management Medication Management Adherence: Yes Assessment - Assessment Merits Inpatient Hospitalization: For Immediate Safety, For Stabilization, Consolidate Improvements Inpatient DSM-V Dx: F25.0 - schizoaffective Clinical Impression: 32yo white male, single, undomiciled with history of schizoaffective d/o and opiate use d/o who has presented to ED multiple times via law enforcement. He has been expressing paranoid delusions and menacing in the the community. Patient reports engaging in methamphetamine and suboxone IVDU. He merits hospitalization for immediate safety and stabilization. Plan - Plan Treatment Plan: Name: ARLEEN ESPARZA Birthdate: 1985 [id number] continue acute intensive psychiatric treatment. collaborate with outpatient providers. add low dose vyvanse for attention deficit with amphetamine use d/o start risperidone at bedtime, consider VENEGAS with patient consent. consider injectable suboxone Continued Medication Management: Different Medication Medications: Current Medications Acetaminophen (Tylenol Tab*) 650 mg PO Q4H PRN PRN Reason: PAIN or TEMP > 101 F Al Hydrox/Mg Hydrox/Simethicone (Maalox Plus*) 30 ml PO Q4H PRN PRN Reason: INDIGESTION Buprenorphine/Naloxone (Suboxone 8-2 Mg Sl Tab*) 1 tab.sl SL BID [facility] Last Admin: 12/29/17 07:43 Dose: 1 tab.sl Device (Nicotine Mouth Piece*) 1 each INH .CARTRIDGE [facility] Last Admin: 12/27/17 19:05 Dose: 1 each Haloperidol (Haldol Tab*) 5 mg PO Q4H PRN PRN Reason: AGITATION Lisdexamfetamine Dimesylate (Vyvanse(Nf)) 20 mg PO DAILY [facility] Multivitamins (Theragran Tab*) 1 tab PO DAILY [facility] Last Admin: 12/29/17 07:43 Dose: 1 tab Nicotine (Nicotine Inhaler*) 10 mg INH Q2H PRN PRN Reason: CRAVING Last Admin: 12/29/17 14:05 Dose: 10 mg Nicotine (Nicotine Patch 21 Mg/24 Hr*) 1 patch TRANSDERM DAILY@0800 [facility] Last Admin: 12/29/17 07:42 Dose: 1 patch Nicotine Polacrilex (Nicotine Gum*) 2 mg PO Q2H PRN PRN Reason: CRAVING Last Admin: 12/29/17 14:06 Dose: 2 mg Pharmacy Profile Note (Nicotine Patch Removal Note*) 1 note FOLLOW UP 2100 [facility] Last Admin: 12/28/17 22:02 Dose: 1 note - Discharge Plan Discharge Plan: Outpatient Follow Up Outpatient Program: [facility]
[2017-12-29] MEDS: Lisdexamfetamine(NF) 10 MG CAP PO SCH (15:52)
[2017-12-29] MEDS: risperiDONE TAB* 1 MG PO SCH (21:38)
[2017-12-30] MEDS: Nicotine Inhaler* 10 MG AMP INH PRN ×9 (01:26→22:57)
[2017-12-30] MEDS: Nicotine Patch Removal NOTE FOLLOW UP SCH ×2 (01:26→22:43)
[2017-12-30] MEDS: Nicotine GUM* 2 MG PO PRN ×8 (06:53→22:57)
[2017-12-30] MEDS: Vitamin THERAPEUTIC TAB PO SCH (07:55)
[2017-12-30] MEDS: Buprenorphine/Naloxone 8-2 MG SL TAB* 1 TAB SL SCH ×2 (07:55→20:18)
[2017-12-30] MEDS: Lisdexamfetamine(NF) 10 MG CAP PO SCH (07:55)
[2017-12-30] MEDS: Nicotine PATCH 21 MG/24 HR* PATCH TRANSDERM SCH (07:56)
--- NOTE | 2017-12-30 10:29 | PN ---
Subjective - Subjective Date of Service: 12/31/17 Service Type: 15821 Hosp care 25 min moderate complexity Subjective: Patient reports improved ability to "function" with use of stimulants. He refused risperidone and states that "every antipsychotic makes me feel terrible. " He states that for the past 13 years, every doctor has been wrong in attempting to prescribe antipsychotics. He states that ativan and klonopin provide mood stabilization without side effects. He attempts to negotiate and utilize rapport as a manipulation tactic. Patient blames recent menacing behavior on homelessness and being targeted by other homeless peers. Objective - Appearance Appearance: Well Developed/Nourished Dysmorphic Features: No Hygiene: Normal Grooming: Fairly Well Kept - Behavior Psychomotor Activities: Normal Exhibits Abnormal Movement: No - Attitude and Relatedness Attitude and Relatedness: Manipulative Eye Contact: Poor - Speech Quality: Unpressured Latencies: Normal Quantity: Appropriate - Mood Patient's Decription of Mood: "Terrible" - Affect Observed Affect: Expansive Affect Consistent with: Euphoria - Thought Process Patient's Thought Process: Circumstantial Thought Content: Yes Paranoid Ideation, No Passive Wish, No Suicidal Planning, No Homicidal Ideation - Sensorium Experiencing Hallucinations: No, Sensorium is Clear Type of Hallucinations: Visual: No, Auditory: No, Command: No - Level of Consciousness Level of Consciousness: Alert Orientation: Yes Intact, Yes Orientated to Time, Yes Orientated to Place, Yes Orientated to Person - Impulse Control Impulse Control: Poor - Insight and Judgement Insight and Judgement: Impaired - Group Participation Particating in Group Activities: Yes - Medication Management Medication Management Adherence: Partial Assessment - Assessment Merits Inpatient Hospitalization: For Immediate Safety, For Stabilization, To Initiate Treatment Inpatient DSM-V Dx: F25.0 - schizoaffective Clinical Impression: 32yo white male, single, undomiciled with history of schizoaffective d/o and opiate use d/o who has presented to ED multiple times via law enforcement. He has been expressing paranoid delusions and menacing in the the community. Patient reports engaging in methamphetamine and suboxone IVDU. He merits hospitalization for immediate safety and stabilization. Plan - Plan Treatment Plan: Name: ARLEEN ESPARZA Birthdate: 1985 [id number] continue acute intensive psychiatric treatment. The patient remains noncompliant with medications and still demonstrates clear signs of affective psychosis. We will initiate the T.O.O. process and await a court ruling to force-medicate for safety. Patient risk to himself and others if discharged secondary to dangerous and psychotic thought process. Continued Medication Management: Start Medication Medications: Current Medications Acetaminophen (Tylenol Tab*) 650 mg PO Q4H PRN PRN Reason: PAIN or TEMP > 101 F Al Hydrox/Mg Hydrox/Simethicone (Maalox Plus*) 30 ml PO Q4H PRN PRN Reason: INDIGESTION Buprenorphine/Naloxone (Suboxone 8-2 Mg Sl Tab*) 1 tab.sl SL BID [facility] Last Admin: 12/30/17 07:55 Dose: 1 tab.sl Device (Nicotine Mouth Piece*) 1 each INH .CARTRIDGE [facility] Last Admin: 12/27/17 19:05 Dose: 1 each Haloperidol (Haldol Tab*) 5 mg PO Q4H PRN PRN Reason: AGITATION Lisdexamfetamine Dimesylate (Vyvanse(Nf)) 20 mg PO DAILY [facility] Last Admin: 12/30/17 07:55 Dose: 20 mg Multivitamins (Theragran Tab*) 1 tab PO DAILY [facility] Last Admin: 12/30/17 07:55 Dose: 1 tab Nicotine (Nicotine Inhaler*) 10 mg INH Q2H PRN PRN Reason: CRAVING Last Admin: 12/30/17 09:00 Dose: 10 mg Nicotine (Nicotine Patch 21 Mg/24 Hr*) 1 patch TRANSDERM DAILY@0800 [facility] Last Admin: 12/30/17 07:56 Dose: 1 patch Nicotine Polacrilex (Nicotine Gum*) 2 mg PO Q2H PRN PRN Reason: CRAVING Last Admin: 12/30/17 09:00 Dose: 2 mg Pharmacy Profile Note (Nicotine Patch Removal Note*) 1 note FOLLOW UP 2100 [facility] Last Admin: 12/30/17 01:26 Dose: 1 note Risperidone (Risperdal*) 1 mg PO BEDTIME [facility] Last Admin: 12/29/17 21:38 Dose: Not Given - Discharge Plan Discharge Plan: Outpatient Follow Up Outpatient Program: [facility]
--- NOTE | 2017-12-30 17:36 | PN ---
MHU: Group Therapy Note - Service Type Service Type: [id number] Group Psychotherapy - Group Participation Patient Participating in Group: Yes Level of Group Participation: Attentive, Spontaneously Participate Relatedness to Group: Well Related - Additional Group Comments Group Comments: Medication Education Group: Patient was attentive and participatory in group, and remained in good behavioral control. Patient expressed positive insights regarding relevant treatment interventions. Patient stated understanding of material discussed and had appropriate questions.
[2017-12-30] MEDS: risperiDONE TAB* 1 MG PO SCH (20:16)
[2017-12-31] MEDS: Nicotine GUM* 2 MG PO PRN ×8 (01:20→23:07)
[2017-12-31] MEDS: Nicotine Inhaler* 10 MG AMP INH PRN ×8 (01:20→23:06)
[2017-12-31] MEDS: Nicotine PATCH 21 MG/24 HR* PATCH TRANSDERM SCH (07:24)
[2017-12-31] MEDS: Buprenorphine/Naloxone 8-2 MG SL TAB* 1 TAB SL SCH ×2 (08:03→20:17)
[2017-12-31] MEDS: Vitamin THERAPEUTIC TAB PO SCH (08:03)
[2017-12-31] MEDS: Lisdexamfetamine(NF) 10 MG CAP PO SCH (08:03)
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
--- NOTE | 2017-12-31 15:53 | PN ---
Subjective - Subjective Date of Service: 12/31/17 Service Type: 72039 Hosp care 25 min moderate complexity Subjective: Patient observed to have loud and agitated conversations in his room. He is religiously preoccupied and endorses grandiosity. Patient is adamant that prior trials of antipsychotics were ineffective and does not agree with spectrum of diagnoses including schizophrenia or bipolar d/o. He goes on to describe long-standing history of trauma and associated behaviors. Carbon Paste Mixer Operator met with patient along with Isabella Garcia LMSW. Patient benefitted from SW attempts to reframe caption writer's recommendations. Patient expresses agreement to utilize depakote. Objective - Appearance Appearance: Well Developed/Nourished Dysmorphic Features: Yes Hygiene: Normal Grooming: Fairly Well Kept - Behavior Psychomotor Activities: Normal Exhibits Abnormal Movement: No - Attitude and Relatedness Attitude and Relatedness: Irritable Eye Contact: Fair - Speech Quality: Pressured Latencies: Normal Quantity: Copious - Mood Patient's Decription of Mood: "Upset" - Affect Observed Affect: Labile Affect Consistent with: Euphoria - Thought Process Patient's Thought Process: Disorganized, Tangential, Circumstantial, Over Inclusive Thought Content: Yes Paranoid Ideation, No Passive Wish, No Suicidal Planning, No Homicidal Ideation - Sensorium Experiencing Hallucinations: Yes - denies but is observed responding to internal stimuli Type of Hallucinations: Visual: Yes, Auditory: Yes, Command: Yes - Level of Consciousness Level of Consciousness: Alert Orientation: Yes Intact, Yes Orientated to Time, Yes Orientated to Place, Yes Orientated to Person - Impulse Control Impulse Control: Impaired - Insight and Judgement Insight and Judgement: Impaired - Group Participation Particating in Group Activities: Yes - Medication Management Medication Management Adherence: Partial Assessment - Assessment Merits Inpatient Hospitalization: For Immediate Safety, For Stabilization, To Initiate Treatment Inpatient DSM-V Dx: F25.0 - schizoaffective Clinical Impression: 32yo white male, single, undomiciled with history of schizoaffective d/o and opiate use d/o who has presented to ED multiple times via law enforcement. He has been expressing paranoid delusions and menacing in the the community. Patient reports engaging in methamphetamine and suboxone IVDU. In the past week , patient ability to mask psychotic symptoms is decreasing. He merits hospitalization for immediate safety and stabilization. Plan - Plan Treatment Plan: Name: ARLEEN ESPARZA Birthdate: 1985 [id number] continue acute intensive psychiatric treatment. add depakote 750mg qhs. The patient remains noncompliant with medications and still demonstrates clear signs of affective psychosis. We will consider the T.O.O. process and await a court ruling to force-medicate for safety. Patient risk to himself and others if discharged secondary to dangerous and psychotic thought process. Continued Medication Management: Start Medication Medications: Current Medications Acetaminophen (Tylenol Tab*) 650 mg PO Q4H PRN PRN Reason: PAIN or TEMP > 101 F Al Hydrox/Mg Hydrox/Simethicone (Maalox Plus*) 30 ml PO Q4H PRN PRN Reason: INDIGESTION Buprenorphine/Naloxone (Suboxone 8-2 Mg Sl Tab*) 1 tab.sl SL BID [facility] Last Admin: 12/31/17 08:03 Dose: 1 tab.sl Device (Nicotine Mouth Piece*) 1 each INH .[facility] Last Admin: 12/27/17 19:05 Dose: 1 each Haloperidol (Haldol Tab*) 5 mg PO Q4H PRN PRN Reason: AGITATION Lisdexamfetamine Dimesylate (Vyvanse(Nf)) 20 mg PO DAILY [facility] Last Admin: 12/31/17 08:03 Dose: 20 mg Multivitamins (Theragran Tab*) 1 tab PO DAILY [facility] Last Admin: 12/31/17 08:03 Dose: 1 tab Nicotine (Nicotine Inhaler*) 10 mg INH Q2H PRN PRN Reason: CRAVING Last Admin: 12/31/17 12:58 Dose: 10 mg Nicotine (Nicotine Patch 21 Mg/24 Hr*) 1 patch TRANSDERM DAILY@0800 [facility] Last Admin: 12/31/17 07:24 Dose: 1 patch Nicotine Polacrilex (Nicotine Gum*) 2 mg PO Q2H PRN PRN Reason: CRAVING Last Admin: 12/31/17 12:58 Dose: 2 mg Pharmacy Profile Note (Nicotine Patch Removal Note*) 1 note FOLLOW UP 2100 [facility] Last Admin: 12/30/17 22:43 Dose: 1 note add depakote 750mg qhs - Discharge Plan Discharge Plan: Outpatient Follow Up Outpatient Program: [facility]
[2017-12-31] MEDS: Divalproex DR TAB(*) 250 MG PO SCH (20:17)
[2017-12-31] MEDS: Nicotine Patch Removal NOTE FOLLOW UP SCH (23:52)
[2018-01-01] MEDS: Nicotine Inhaler* 10 MG AMP INH PRN ×9 (02:24→20:47)
[2018-01-01] MEDS: Nicotine GUM* 2 MG PO PRN ×9 (02:24→20:47)
[2018-01-01] MEDS: Lisdexamfetamine(NF) 10 MG CAP PO SCH (07:35)
[2018-01-01] MEDS: Vitamin THERAPEUTIC TAB PO SCH (07:35)
[2018-01-01] MEDS: Buprenorphine/Naloxone 8-2 MG SL TAB* 1 TAB SL SCH ×2 (07:35→20:13)
[2018-01-01] MEDS: Nicotine PATCH 21 MG/24 HR* PATCH TRANSDERM SCH (07:35)
[2018-01-01] MEDS ORDERED: diPHENhydraMINE PO* 50 MG PO PRN (11:46)
--- NOTE | 2018-01-01 14:34 | PN ---
Subjective - Subjective Date of Service: 01/01/18 Service Type: 79267 Hosp care 25 min moderate complexity Subjective: Patient is pleasant upon approach. He then states that in the past he has opened up to people and expected that, in turn, that would create a mutual relationship. He states he has been hurt in the past when he opens up to people. He quickly changes topic to various traumatic events involving his childhood. He has pressured speech with loose associations. Patient then goes on to state various reasons that lorazepam is indicated. He becomes agitated when gag writer attempts to discuss risk of habit-forming medications. He accuses gag writer of treating him "as a drug addict." He states preference to end conversation despite gag writer's attempts to clarify. He is later overheard yelling about the milieu then his room. Objective - Appearance Appearance: Well Developed/Nourished Dysmorphic Features: Yes Hygiene: Normal Grooming: Disheveled - Behavior Psychomotor Activities: Normal Exhibits Abnormal Movement: No - Attitude and Relatedness Attitude and Relatedness: Psychotically Related Eye Contact: Good - Speech Quality: Pressured Latencies: Normal Quantity: Copious - Mood Patient's Decription of Mood: "Terrible" - Affect Observed Affect: Labile Affect Consistent with: Euphoria - Thought Process Patient's Thought Process: Disorganized, Tangential, Filght of Ideas, Over Inclusive Thought Content: Yes Paranoid Ideation, No Passive Wish, No Suicidal Planning, No Homicidal Ideation - Sensorium Experiencing Hallucinations: Yes Type of Hallucinations: Visual: Yes, Auditory: Yes, Command: Yes - Level of Consciousness Level of Consciousness: Alert Orientation: Yes Intact, Yes Orientated to Time, Yes Orientated to Place, Yes Orientated to Person - Impulse Control Impulse Control: Impaired - Insight and Judgement Insight and Judgement: Impaired - Group Participation Particating in Group Activities: No - Medication Management Medication Management Adherence: Partial Assessment - Assessment Merits Inpatient Hospitalization: For Immediate Safety, For Stabilization Inpatient DSM-V Dx: F25.0 - schizoaffective Clinical Impression: 32yo white male, single, undomiciled with history of schizoaffective d/o and opiate use d/o who has presented to ED multiple times via law enforcement. He has been expressing paranoid delusions and menacing in the the community. Patient reports engaging in methamphetamine and suboxone IVDU. In the past week , patient ability to mask psychotic symptoms is decreasing. He merits hospitalization for immediate safety and stabilization. Plan - Plan Treatment Plan: Name: ARLEEN ESPARZA Birthdate: 1985 [id number] continue acute intensive psychiatric treatment. continue depakote 750mg qhs, utilize haloperidol and diphenhydramine prn for agitation and anxiety. The patient remains noncompliant with medications and still demonstrates clear signs of affective psychosis. We will consider the T.O.O. process and await a court ruling to force-medicate for safety. Patient risk to himself and others if discharged secondary to dangerous and psychotic thought process. Continued Medication Management: Different Medication Medications: Current Medications Acetaminophen (Tylenol Tab*) 650 mg PO Q4H PRN PRN Reason: PAIN or TEMP > 101 F Al Hydrox/Mg Hydrox/Simethicone (Maalox Plus*) 30 ml PO Q4H PRN PRN Reason: INDIGESTION Buprenorphine/Naloxone (Suboxone 8-2 Mg Sl Tab*) 1 tab.sl SL BID [facility] Last Admin: 01/01/18 07:35 Dose: 1 tab.sl Device (Nicotine Mouth Piece*) 1 each INH .[facility] Last Admin: 12/27/17 19:05 Dose: 1 each Diphenhydramine HCl (Benadryl Po*) 50 mg PO Q6H PRN PRN Reason: anxiety/agitation Divalproex Sodium (Depakote Dr Tab(*)) 750 mg PO BEDTIME [facility] Last Admin: 12/31/17 20:17 Dose: 750 mg Haloperidol (Haldol Tab*) 5 mg PO Q4H PRN PRN Reason: AGITATION Lisdexamfetamine Dimesylate (Vyvanse(Nf)) 20 mg PO DAILY [facility] Last Admin: 01/01/18 07:35 Dose: 20 mg Multivitamins (Theragran Tab*) 1 tab PO DAILY [facility] Last Admin: 01/01/18 07:35 Dose: 1 tab Nicotine (Nicotine Inhaler*) 10 mg INH Q2H PRN PRN Reason: CRAVING Last Admin: 01/01/18 14:02 Dose: 10 mg Nicotine (Nicotine Patch 21 Mg/24 Hr*) 1 patch TRANSDERM DAILY@0800 [facility] Last Admin: 01/01/18 07:35 Dose: 1 patch Nicotine Polacrilex (Nicotine Gum*) 2 mg PO Q2H PRN PRN Reason: CRAVING Last Admin: 01/01/18 14:02 Dose: 2 mg Pharmacy Profile Note (Nicotine Patch Removal Note*) 1 note FOLLOW UP 2100 [facility] Last Admin: 12/31/17 23:52 Dose: 1 note - Discharge Plan Discharge Plan: Consider Longer Term Tx
[2018-01-01] MEDS: Divalproex DR TAB(*) 250 MG PO SCH (20:13)
[2018-01-01] MEDS: Nicotine Patch Removal NOTE FOLLOW UP SCH (23:29)
[2018-01-02] MEDS: Nicotine Inhaler* 10 MG AMP INH PRN ×7 (03:01→20:07)
[2018-01-02] MEDS: Nicotine GUM* 2 MG PO PRN ×8 (05:06→21:40)
[2018-01-02] MEDS: Vitamin THERAPEUTIC TAB PO SCH (08:00)
[2018-01-02] MEDS: Nicotine PATCH 21 MG/24 HR* PATCH TRANSDERM SCH (08:00)
[2018-01-02] MEDS: Lisdexamfetamine(NF) 10 MG CAP PO SCH (08:00)
[2018-01-02] MEDS: Buprenorphine/Naloxone 8-2 MG SL TAB* 1 TAB SL SCH ×2 (08:00→20:07)
[2018-01-02] MEDS: Divalproex DR TAB(*) 250 MG PO SCH (20:07)
[2018-01-02] MEDS: Nicotine Patch Removal NOTE FOLLOW UP SCH (22:40)
[2018-01-03] MEDS: Nicotine Inhaler* 10 MG AMP INH PRN ×10 (00:35→23:34)
[2018-01-03] MEDS: Nicotine GUM* 2 MG PO PRN ×9 (00:35→23:34)
[2018-01-03] MEDS: Nicotine PATCH 21 MG/24 HR* PATCH TRANSDERM SCH (08:01)
[2018-01-03] MEDS: Lisdexamfetamine(NF) 10 MG CAP PO SCH (08:02)
[2018-01-03] MEDS: Buprenorphine/Naloxone 8-2 MG SL TAB* 1 TAB SL SCH ×2 (08:02→20:55)
[2018-01-03] MEDS: Vitamin THERAPEUTIC TAB PO SCH (08:02)
[2018-01-03] MEDS: Nicotine Patch Removal NOTE FOLLOW UP SCH (20:55)
[2018-01-03] MEDS: Divalproex DR TAB(*) 250 MG PO SCH (20:55)
[2018-01-04] MEDS: Nicotine Inhaler* 10 MG AMP INH PRN ×10 (01:34→23:20)
[2018-01-04] MEDS: Nicotine GUM* 2 MG PO PRN ×8 (03:42→23:20)
[2018-01-04] MEDS: Buprenorphine/Naloxone 8-2 MG SL TAB* 1 TAB SL SCH ×2 (07:59→20:18)
[2018-01-04] MEDS: Lisdexamfetamine(NF) 10 MG CAP PO SCH (07:59)
[2018-01-04] MEDS: Vitamin THERAPEUTIC TAB PO SCH (07:59)
[2018-01-04] MEDS: Nicotine PATCH 21 MG/24 HR* PATCH TRANSDERM SCH (08:00)
--- NOTE | 2018-01-04 16:35 | PN ---
Subjective - Subjective Date of Service: 01/04/18 Service Type: 71494 Hosp care 25 min moderate complexity Subjective: Patient is present in milieu, often drawing or interacting with peers/staff. He demonstrates paranoid ideation in regards to child pornography, substance use and expresses that staff are against him. Patient is observed by staff to respond to internal stimuli. He sleeps poorly and is often disruptive and agitated during filing clerk. He reports improvement in impulsivity and mood lability. He attributes this to depakote and states that he feels hopeful about this medication. Patient continues to refuse to take antipsychotic medication. Patient is noted to have improved ability to tolerate two-way conversation. Objective - Appearance Appearance: Well Developed/Nourished Dysmorphic Features: No Hygiene: Normal Grooming: Fairly Well Kept - Behavior Psychomotor Activities: Normal Exhibits Abnormal Movement: No - Attitude and Relatedness Attitude and Relatedness: Psychotically Related Eye Contact: Good - Speech Quality: Pressured Latencies: Normal Quantity: Appropriate - Mood Patient's Decription of Mood: "Great" - Affect Observed Affect: Expansive Affect Consistent with: Euphoria - Thought Process Patient's Thought Process: Loose Associations, Circumstantial Thought Content: Yes Paranoid Ideation, No Passive Wish, No Suicidal Planning, No Homicidal Ideation - Sensorium Experiencing Hallucinations: Yes Type of Hallucinations: Visual: No, Auditory: Yes, Command: Yes - Level of Consciousness Level of Consciousness: Alert Orientation: Yes Intact, Yes Orientated to Time, Yes Orientated to Place, Yes Orientated to Person - Impulse Control Impulse Control: Impaired - Insight and Judgement Insight and Judgement: Impaired - Group Participation Particating in Group Activities: No - Medication Management Medication Management Adherence: Partial Assessment - Assessment Merits Inpatient Hospitalization: For Immediate Safety, For Stabilization, Consolidate Improvements Inpatient DSM-V Dx: F25.0 - schizoaffective Clinical Impression: 32yo white male, single, undomiciled with history of schizoaffective d/o and opiate use d/o who has presented to ED multiple times via law enforcement. He has been expressing paranoid delusions and menacing in the the community. Patient reports engaging in methamphetamine and suboxone IVDU. In the past week , patient ability to mask psychotic symptoms is decreasing. He merits hospitalization for immediate safety and stabilization. Plan - Plan Treatment Plan: Name: ARLEEN ESPARZA Birthdate: 1985 [id number] continue acute intensive psychiatric treatment. continue depakote 750mg qhs, utilize haloperidol and diphenhydramine prn for agitation and anxiety. The patient remains noncompliant with medications and still demonstrates clear signs of affective psychosis. We will pursue the T.O.O. process and await a court ruling to force-medicate for safety. Patient risk to himself and others if discharged secondary to dangerous and psychotic thought process. Continued Medication Management: Start Medication Medications: Current Medications Acetaminophen (Tylenol Tab*) 650 mg PO Q4H PRN PRN Reason: PAIN or TEMP > 101 F Al Hydrox/Mg Hydrox/Simethicone (Maalox Plus*) 30 ml PO Q4H PRN PRN Reason: INDIGESTION Buprenorphine/Naloxone (Suboxone 8-2 Mg Sl Tab*) 1 tab.sl SL BID [facility] Last Admin: 01/04/18 07:59 Dose: 1 tab.sl Device (Nicotine Mouth Piece*) 1 each INH .[facility] Last Admin: 12/27/17 19:05 Dose: 1 each Diphenhydramine HCl (Benadryl Po*) 50 mg PO Q6H PRN PRN Reason: anxiety/agitation Last Admin: 01/01/18 17:50 Dose: 50 mg Divalproex Sodium (Depakote Dr Tab(*)) 750 mg PO BEDTIME [facility] Last Admin: 01/03/18 20:55 Dose: 750 mg Haloperidol (Haldol Tab*) 5 mg PO Q4H PRN PRN Reason: AGITATION Haloperidol (Haldol Tab*) 5 mg PO BEDTIME [facility] Lisdexamfetamine Dimesylate (Vyvanse(Nf)) 20 mg PO DAILY [facility] Last Admin: 01/04/18 07:59 Dose: 20 mg Multivitamins (Theragran Tab*) 1 tab PO DAILY [facility] Last Admin: 01/04/18 07:59 Dose: 1 tab Nicotine (Nicotine Inhaler*) 10 mg INH Q2H PRN PRN Reason: CRAVING Last Admin: 01/04/18 14:33 Dose: 10 mg Nicotine (Nicotine Patch 21 Mg/24 Hr*) 1 patch TRANSDERM DAILY@0800 [facility] Last Admin: 01/04/18 08:00 Dose: 1 patch Nicotine Polacrilex (Nicotine Gum*) 2 mg PO Q2H PRN PRN Reason: CRAVING Last Admin: 01/04/18 14:32 Dose: 2 mg Pharmacy Profile Note (Nicotine Patch Removal Note*) 1 note FOLLOW UP 2100 [facility] Last Admin: 01/03/18 20:55 Dose: 1 note - Discharge Plan Discharge Plan: Outpatient Follow Up Outpatient Program: [facility]
[2018-01-04] MEDS: Divalproex DR TAB(*) 250 MG PO SCH (20:19)
[2018-01-04] MEDS: Haloperidol TAB* 5 MG PO SCH (21:15)
[2018-01-04] MEDS: Nicotine Patch Removal NOTE FOLLOW UP SCH (23:45)
[2018-01-05] MEDS: Nicotine Inhaler* 10 MG AMP INH PRN ×10 (02:30→22:43)
[2018-01-05] MEDS: Nicotine GUM* 2 MG PO PRN ×8 (06:00→20:31)
[2018-01-05] MEDS: Vitamin THERAPEUTIC TAB PO SCH (08:09)
[2018-01-05] MEDS: Buprenorphine/Naloxone 8-2 MG SL TAB* 1 TAB SL SCH ×2 (08:09→20:13)
[2018-01-05] MEDS: Nicotine PATCH 21 MG/24 HR* PATCH TRANSDERM SCH (08:09)
[2018-01-05] MEDS: Lisdexamfetamine(NF) 10 MG CAP PO SCH (08:09)
--- NOTE | 2018-01-05 15:04 | PN ---
Subjective - Subjective Date of Service: 01/05/18 Service Type: 18253 Hosp care 15 min low complexity Subjective: patient refused blood draw for valproic acid level, hgba1c and lipid panel multiple times. He is notified of team pursuing treatment over objection. during conversation, patient stops talking and avoids eye contact. he asks to speak to a blacksmith assistant and bond writer assists him to phone [facility]. Objective - Appearance Appearance: Well Developed/Nourished Dysmorphic Features: No Hygiene: Normal Grooming: Fairly Well Kept - Behavior Psychomotor Activities: Normal Exhibits Abnormal Movement: No - Attitude and Relatedness Attitude and Relatedness: Irritable Eye Contact: Fair - Speech Quality: Unpressured Latencies: Normal Quantity: Terse - Mood Patient's Decription of Mood: "Fine" - Affect Observed Affect: Expansive Affect Consistent with: Euphoria - Thought Process Patient's Thought Process: Loose Associations, Over Inclusive Thought Content: Yes Paranoid Ideation, No Passive Wish, No Suicidal Planning, No Homicidal Ideation - Sensorium Experiencing Hallucinations: Yes Type of Hallucinations: Visual: No, Auditory: Yes, Command: Yes - Level of Consciousness Level of Consciousness: Alert Orientation: Yes Intact, Yes Orientated to Time, Yes Orientated to Place, Yes Orientated to Person - Impulse Control Impulse Control: Impaired - Insight and Judgement Insight and Judgement: Impaired - Group Participation Particating in Group Activities: Yes - Medication Management Medication Management Adherence: Partial Assessment - Assessment Merits Inpatient Hospitalization: For Immediate Safety, For Stabilization, To Initiate Treatment Inpatient DSM-V Dx: F25.0 - schizoaffective Clinical Impression: 32yo white male, single, undomiciled with history of schizoaffective d/o and opiate use d/o who has presented to ED multiple times via law enforcement. He has been expressing paranoid delusions and menacing in the the community. Patient reports engaging in methamphetamine and suboxone IVDU. In the past week , patient ability to mask psychotic symptoms is decreasing. He merits hospitalization for immediate safety and stabilization. Plan - Plan Treatment Plan: Name: ARLEEN ESPARZA Birthdate: 1985 [id number] continue acute intensive psychiatric treatment. continue current medications. utilize haloperidol and diphenhydramine prn for agitation and anxiety. The patient remains noncompliant with medications and still demonstrates clear signs of affective psychosis. We will initiate the T.O.O. process and await a court ruling to force-medicate for safety. Patient risk to himself and others if discharged secondary to dangerous and psychotic thought process. Continued Medication Management: Different Medication Medications: Current Medications Acetaminophen (Tylenol Tab*) 650 mg PO Q4H PRN PRN Reason: PAIN or TEMP > 101 F Al Hydrox/Mg Hydrox/Simethicone (Maalox Plus*) 30 ml PO Q4H PRN PRN Reason: INDIGESTION Buprenorphine/Naloxone (Suboxone 8-2 Mg Sl Tab*) 1 tab.sl SL BID [facility] Last Admin: 01/05/18 08:09 Dose: 1 tab.sl Device (Nicotine Mouth Piece*) 1 each INH .[facility] Last Admin: 12/27/17 19:05 Dose: 1 each Diphenhydramine HCl (Benadryl Po*) 50 mg PO Q6H PRN PRN Reason: anxiety/agitation Last Admin: 01/01/18 17:50 Dose: 50 mg Divalproex Sodium (Depakote Dr Tab(*)) 750 mg PO BEDTIME [facility] Last Admin: 01/04/18 20:19 Dose: 750 mg Haloperidol (Haldol Tab*) 5 mg PO Q4H PRN PRN Reason: AGITATION Haloperidol (Haldol Tab*) 5 mg PO BEDTIME [facility] Last Admin: 01/04/18 21:15 Dose: Not Given Lisdexamfetamine Dimesylate (Vyvanse(Nf)) 20 mg PO DAILY [facility] Last Admin: 01/05/18 08:09 Dose: 20 mg Multivitamins (Theragran Tab*) 1 tab PO DAILY [facility] Last Admin: 01/05/18 08:09 Dose: 1 tab Nicotine (Nicotine Inhaler*) 10 mg INH Q2H PRN PRN Reason: CRAVING Last Admin: 01/05/18 14:14 Dose: 10 mg Nicotine (Nicotine Patch 21 Mg/24 Hr*) 1 patch TRANSDERM DAILY@0800 [facility] Last Admin: 01/05/18 08:09 Dose: 1 patch Nicotine Polacrilex (Nicotine Gum*) 2 mg PO Q2H PRN PRN Reason: CRAVING Last Admin: 01/05/18 14:14 Dose: 2 mg Pharmacy Profile Note (Nicotine Patch Removal Note*) 1 note FOLLOW UP 2100 [facility] Last Admin: 01/04/18 23:45 Dose: 1 note - Discharge Plan Discharge Plan: Outpatient Follow Up Outpatient Program: [facility]
[2018-01-05] MEDS: Divalproex DR TAB(*) 250 MG PO SCH (20:13)
[2018-01-06] MEDS: Nicotine Patch Removal NOTE FOLLOW UP SCH ×2 (00:19→23:39)
[2018-01-06] MEDS: Haloperidol TAB* 5 MG PO SCH ×2 (00:19→21:23)
[2018-01-06] MEDS: Nicotine Inhaler* 10 MG AMP INH PRN ×9 (01:41→23:43)
[2018-01-06] MEDS: Nicotine GUM* 2 MG PO PRN ×8 (06:04→23:43)
[2018-01-06] MEDS: Nicotine PATCH 21 MG/24 HR* PATCH TRANSDERM SCH (08:02)
[2018-01-06] MEDS: Vitamin THERAPEUTIC TAB PO SCH (08:04)
[2018-01-06] MEDS: Buprenorphine/Naloxone 8-2 MG SL TAB* 1 TAB SL SCH ×2 (08:04→20:12)
[2018-01-06] MEDS: Lisdexamfetamine(NF) 10 MG CAP PO SCH (08:04)
--- NOTE | 2018-01-06 12:12 | PN ---
Subjective - Subjective Date of Service: 01/06/18 Service Type: 22208 Hosp care 35 min high complexity Subjective: I had my first examination of Jonh today since taking over his care yesterday from NPP, Gardenia Marie. The intention of this change in providers was to pursue T.O.O., given the fact that the patient has been consistently refusing antipsychotic medications. Today he gives me a long, quite detailed history of his experiences with antipsychotic medications, having taken ziprasidone, risperidone, quetiapine, olanzapine, fluphenazine, haloperidol and aripiprazole in the past. "I do not do well on antipsychotics. I can't sleep and they make me feel like I have bugs crawling up and down my arms." He insists that forced medication through the judicial system will only make him turn to drugs of abuse and flee the community. He insists that the trial of oral Depakote is taking the edge off and making him think straight. "I've never been on this plan before, taking the Depakote with the Vyvanse. I'm doing well. I don't see why you would add the antipsychotic and make me worse so that I have to go to the [facility]." He denies SI or HI and staff notes indicate that he has been doing better behaviorally on the unit since the weekend. Objective - Appearance Appearance: Well Developed/Nourished Dysmorphic Features: No Hygiene: Normal Grooming: Well Kept - Behavior Psychomotor Activities: Normal Exhibits Abnormal Movement: No - Attitude and Relatedness Attitude and Relatedness: Cooperative Eye Contact: Good - Speech Quality: Unpressured Latencies: Normal Quantity: Appropriate - Mood Patient's Decription of Mood: "Good" - Affect Observed Affect: Fair Affect Consistent with: Euthymia - Thought Process Patient's Thought Process: Coherent Thought Content: No Passive Wish, No Suicidal Planning, No Homicidal Ideation, No Paranoid Ideation - Sensorium Experiencing Hallucinations: No, Sensorium is Clear Type of Hallucinations: Visual: No, Auditory: No, Command: No - Level of Consciousness Level of Consciousness: Alert Orientation: Yes Intact, Yes Orientated to Time, Yes Orientated to Place, Yes Orientated to Person - Impulse Control Impulse Control: Tenuous - Insight and Judgement Insight and Judgement: Fair - Group Participation Particating in Group Activities: Yes - Medication Management Medication Management Adherence: Yes Assessment - Assessment Merits Inpatient Hospitalization: For Immediate Safety, For Stabilization Inpatient DSM-V Dx: F25.0 - schizoaffective Clinical Impression: 32yo white male, single, undomiciled with history of schizoaffective d/o and opiate use d/o who has presented to ED multiple times via law enforcement. He has been expressing paranoid delusions and menacing in the the community. Patient reports engaging in methamphetamine and suboxone IVDU. In the past week , patient ability to mask psychotic symptoms is decreasing. He merits hospitalization for immediate safety and stabilization. Plan - Plan Treatment Plan: Name: ARLEEN ESPARZA Birthdate: 1985 [id number] The patient is receiving maintenance Suboxone treatment as well as Vyvanse 20mg PO qam and Depakote 750mg PO qday. Will check VPA level. Will hold off court for T.O.O. and consider discharge on current med regimen, with the understanding that we will pursue T.O.O. if he returns to the hospital with further psychosis. Consider d/c to homeless snf on Thursday, 01/08. Continued Medication Management: Start Medication Medications: Current Medications Acetaminophen (Tylenol Tab*) 650 mg PO Q4H PRN PRN Reason: PAIN or TEMP > 101 F Al Hydrox/Mg Hydrox/Simethicone (Maalox Plus*) 30 ml PO Q4H PRN PRN Reason: INDIGESTION Buprenorphine/Naloxone (Suboxone 8-2 Mg Sl Tab*) 1 tab.sl SL BID [facility] Last Admin: 01/06/18 08:04 Dose: 1 tab.sl Device (Nicotine Mouth Piece*) 1 each INH .[facility] Last Admin: 12/27/17 19:05 Dose: 1 each Diphenhydramine HCl (Benadryl Po*) 50 mg PO Q6H PRN PRN Reason: anxiety/agitation Last Admin: 01/01/18 17:50 Dose: 50 mg Divalproex Sodium (Depakote Dr Tab(*)) 750 mg PO BEDTIME [facility] Last Admin: 01/05/18 20:13 Dose: 750 mg Haloperidol (Haldol Tab*) 5 mg PO Q4H PRN PRN Reason: AGITATION Haloperidol (Haldol Tab*) 5 mg PO BEDTIME [facility] Last Admin: 09/19/18 00:19 Dose: Not Given Lisdexamfetamine Dimesylate (Vyvanse(Nf)) 20 mg PO DAILY [facility] Last Admin: 01/06/18 08:04 Dose: 20 mg Multivitamins (Theragran Tab*) 1 tab PO DAILY [facility] Last Admin: 01/06/18 08:04 Dose: 1 tab Nicotine (Nicotine Inhaler*) 10 mg INH Q2H PRN PRN Reason: CRAVING Last Admin: 01/06/18 08:04 Dose: 10 mg Nicotine (Nicotine Patch 21 Mg/24 Hr*) 1 patch TRANSDERM DAILY@0800 [facility] Last Admin: 01/06/18 08:02 Dose: 1 patch Nicotine Polacrilex (Nicotine Gum*) 2 mg PO Q2H PRN PRN Reason: CRAVING Last Admin: 01/06/18 08:04 Dose: 2 mg Pharmacy Profile Note (Nicotine Patch Removal Note*) 1 note FOLLOW UP 2100 [facility] Last Admin: 01/06/18 00:19 Dose: 1 note - Discharge Plan Discharge Plan: Inpatient Hospitalization
[2018-01-06] MEDS: Divalproex DR TAB(*) 250 MG PO SCH (20:12)
[2018-01-07] MEDS: Nicotine Inhaler* 10 MG AMP INH PRN ×8 (02:45→23:07)
[2018-01-07] MEDS: Nicotine GUM* 2 MG PO PRN ×8 (02:45→23:07)
[2018-01-07] MEDS: Lisdexamfetamine(NF) 10 MG CAP PO SCH (09:13)
[2018-01-07] MEDS: Buprenorphine/Naloxone 8-2 MG SL TAB* 1 TAB SL SCH ×2 (09:13→20:18)
[2018-01-07] MEDS: Vitamin THERAPEUTIC TAB PO SCH (09:13)
[2018-01-07] MEDS: Nicotine PATCH 21 MG/24 HR* PATCH TRANSDERM SCH (09:14)
[2018-01-07] MEDS: Divalproex DR TAB(*) 250 MG PO SCH (20:16)
[2018-01-07] MEDS: Haloperidol TAB* 5 MG PO SCH (20:17)
[2018-01-08] MEDS: Nicotine GUM* 2 MG PO PRN ×7 (02:35→22:43)
[2018-01-08] MEDS: Nicotine Inhaler* 10 MG AMP INH PRN ×8 (02:35→22:43)
[2018-01-08] MEDS: Nicotine Patch Removal NOTE FOLLOW UP SCH (06:05)
[2018-01-08] MEDS: Nicotine PATCH 21 MG/24 HR* PATCH TRANSDERM SCH (08:06)
[2018-01-08] MEDS: Buprenorphine/Naloxone 8-2 MG SL TAB* 1 TAB SL SCH ×2 (08:07→20:00)
[2018-01-08] MEDS: Vitamin THERAPEUTIC TAB PO SCH (08:07)
[2018-01-08] MEDS: Lisdexamfetamine(NF) 10 MG CAP PO SCH (08:07)
--- NOTE | 2018-01-08 15:15 | PN ---
Subjective - Subjective Date of Service: 01/08/18 Subjective: Jonh continues to adhere with unit expectations and handles it well when receiving disappointing news from the manager social services that he has extremely limited options in the community from a housing standpoint, as his past violent and psychotic behaviors when off meds and on drugs have made him an unwelcome guest in many hotels, shelters and temporary stay facilities. The patient allowed us to draw blood work this morning and has been participating well in groups and unit activities. He indicates that his sister in [place], who is his rep-payee, has been spending his money on drugs and alcohol. He is agreeable with changing this responsibility over to his [facility] transplant case manager, Clau. He denies SI or HI. Objective - Appearance Appearance: Well Developed/Nourished Dysmorphic Features: No Hygiene: Normal Grooming: Fairly Well Kept - Behavior Psychomotor Activities: Normal Exhibits Abnormal Movement: No - Attitude and Relatedness Attitude and Relatedness: Cooperative Eye Contact: Fair - Speech Quality: Unpressured Latencies: Short Quantity: Copious - Mood Patient's Decription of Mood: "Good" - Affect Observed Affect: Expansive Affect Consistent with: Euthymia - Thought Process Patient's Thought Process: Tangential Thought Content: No Passive Wish, No Suicidal Planning, No Homicidal Ideation, No Paranoid Ideation - Sensorium Experiencing Hallucinations: No, Sensorium is Clear Type of Hallucinations: Visual: No, Auditory: No, Command: No - Level of Consciousness Level of Consciousness: Alert Orientation: Yes Intact, Yes Orientated to Time, Yes Orientated to Place, Yes Orientated to Person - Impulse Control Impulse Control: Poor - Insight and Judgement Insight and Judgement: Impaired - Group Participation Particating in Group Activities: Yes - Medication Management Medication Management Adherence: Yes Assessment - Assessment Merits Inpatient Hospitalization: For Immediate Safety, For Stabilization Inpatient DSM-V Dx: F25.0 - schizoaffective Clinical Impression: 32yo white male, single, undomiciled with history of schizoaffective d/o and opiate use d/o who has presented to ED multiple times via law enforcement. He has been expressing paranoid delusions and menacing in the community. Patient reports engaging in methamphetamine and suboxone IVDU. In the past week, patient ability to mask psychotic symptoms is decreasing. He merits hospitalization for immediate safety and stabilization. Plan - Plan Treatment Plan: Name: ARLEEN JOSSY ESPARZA Birthdate: 1985 [id number] The patient is receiving maintenance Suboxone treatment as well as Vyvanse 20mg PO qam and Depakote 750mg PO qday. VPA level low therapeutic at 56. Will hold off court for T.O.O. and consider discharge on current med regimen, with the understanding that we will pursue T.O.O. if he returns to the hospital with further psychosis. Consider d/c to homeless retirement on Thursday, 01/11. Continued Medication Management: Different Medication Medications: Current Medications Acetaminophen (Tylenol Tab*) 650 mg PO Q4H PRN PRN Reason: PAIN or TEMP > 101 F Al Hydrox/Mg Hydrox/Simethicone (Maalox Plus*) 30 ml PO Q4H PRN PRN Reason: INDIGESTION Buprenorphine/Naloxone (Suboxone 8-2 Mg Sl Tab*) 1 tab.sl SL BID [facility] Last Admin: 01/08/18 08:07 Dose: 1 tab.sl Device (Nicotine Mouth Piece*) 1 each INH .CARTRIDGE [facility] Last Admin: 12/27/17 19:05 Dose: 1 each Diphenhydramine HCl (Benadryl Po*) 50 mg PO Q6H PRN PRN Reason: anxiety/agitation Last Admin: 01/01/18 17:50 Dose: 50 mg Divalproex Sodium (Depakote Dr Tab(*)) 750 mg PO BEDTIME [facility] Last Admin: 01/07/18 20:16 Dose: 750 mg Haloperidol (Haldol Tab*) 5 mg PO Q4H PRN PRN Reason: AGITATION Haloperidol (Haldol Tab*) 5 mg PO BEDTIME [facility] Last Admin: 01/07/18 20:17 Dose: Not Given Lisdexamfetamine Dimesylate (Vyvanse(Nf)) 20 mg PO DAILY [facility] Last Admin: 01/08/18 08:07 Dose: 20 mg Multivitamins (Theragran Tab*) 1 tab PO DAILY [facility] Last Admin: 01/08/18 08:07 Dose: 1 tab Nicotine (Nicotine Inhaler*) 10 mg INH Q2H PRN PRN Reason: CRAVING Last Admin: 01/08/18 14:22 Dose: 10 mg Nicotine (Nicotine Patch 21 Mg/24 Hr*) 1 patch TRANSDERM DAILY@0800 [facility] Last Admin: 01/08/18 08:06 Dose: 1 patch Nicotine Polacrilex (Nicotine Gum*) 2 mg PO Q2H PRN PRN Reason: CRAVING Last Admin: 01/08/18 14:22 Dose: 2 mg Pharmacy Profile Note (Nicotine Patch Removal Note*) 1 note FOLLOW UP 2100 [facility] Last Admin: 01/08/18 06:05 Dose: Not Given - Discharge Plan Discharge Plan: Inpatient Hospitalization Lab Results - Lab Results Lab Results: 01/08/18 01/08/18 07:50 07:50 Hemoglobin A1c 5.8 H Triglycerides 103 Cholesterol 156 LDL Cholesterol 51 HDL Cholesterol 84.0 Valproic Acid 56.0
[2018-01-08] MEDS: Haloperidol TAB* 5 MG PO SCH (20:00)
[2018-01-08] MEDS: Divalproex DR TAB(*) 250 MG PO SCH (20:00)
[2018-01-09] MEDS: Nicotine Patch Removal NOTE FOLLOW UP SCH (01:28)
[2018-01-09] MEDS: Nicotine GUM* 2 MG PO PRN ×9 (02:43→23:33)
[2018-01-09] MEDS: Nicotine Inhaler* 10 MG AMP INH PRN ×9 (02:43→23:33)
[2018-01-09] MEDS: Lisdexamfetamine(NF) 10 MG CAP PO SCH (08:19)
[2018-01-09] MEDS: Nicotine PATCH 21 MG/24 HR* PATCH TRANSDERM SCH (08:20)
[2018-01-09] MEDS: Buprenorphine/Naloxone 8-2 MG SL TAB* 1 TAB SL SCH ×2 (08:20→21:15)
[2018-01-09] MEDS: Vitamin THERAPEUTIC TAB PO SCH (08:20)
[2018-01-09] MEDS: Divalproex DR TAB(*) 250 MG PO SCH (21:15)
[2018-01-09] MEDS: Haloperidol TAB* 5 MG PO SCH (22:16)
[2018-01-10] MEDS: Nicotine Patch Removal NOTE FOLLOW UP SCH (00:23)
[2018-01-10] MEDS: Nicotine Inhaler* 10 MG AMP INH PRN ×8 (04:19→22:39)
[2018-01-10] MEDS: Nicotine GUM* 2 MG PO PRN ×8 (04:19→22:39)
[2018-01-10] MEDS: Vitamin THERAPEUTIC TAB PO SCH (07:53)
[2018-01-10] MEDS: Buprenorphine/Naloxone 8-2 MG SL TAB* 1 TAB SL SCH ×2 (07:53→20:27)
[2018-01-10] MEDS: Lisdexamfetamine(NF) 10 MG CAP PO SCH (07:53)
[2018-01-10] MEDS: Nicotine PATCH 21 MG/24 HR* PATCH TRANSDERM SCH ×2 (07:54→12:44)
[2018-01-10] MEDS: Divalproex DR TAB(*) 250 MG PO SCH (20:27)
[2018-01-10] MEDS: Haloperidol TAB* 5 MG PO SCH (21:11)
[2018-01-11] MEDS: Nicotine Inhaler* 10 MG AMP INH PRN ×8 (01:00→22:38)
[2018-01-11] MEDS: Nicotine GUM* 2 MG PO PRN ×8 (01:00→22:38)
[2018-01-11] MEDS: Lisdexamfetamine(NF) 10 MG CAP PO SCH (08:41)
[2018-01-11] MEDS: Buprenorphine/Naloxone 8-2 MG SL TAB* 1 TAB SL SCH ×2 (08:41→20:18)
[2018-01-11] MEDS: Nicotine PATCH 21 MG/24 HR* PATCH TRANSDERM SCH (08:42)
[2018-01-11] MEDS: Vitamin THERAPEUTIC TAB PO SCH (08:42)
[2018-01-11] MEDS: Nicotine Patch Removal NOTE FOLLOW UP SCH ×2 (09:32→23:00)
--- NOTE | 2018-01-11 12:36 | PN ---
Subjective - Subjective Date of Service: 01/11/18 Service Type: [id number] Hosp care 15 min low complexity Subjective: Jonh remains a little hyperverbal, but he had a good weekend on the unit and appears to be doing well with Depakote. I note that his level on Thursday was low -therapeutic at 56, so he agreed to my suggestion to raise the dose to 1000mg PO qhs. He remains a struggle to place, being homeless and lacking residential agencies willing to work with him because of his prior disruptive and dangerous behaviors in the community. He remains adamantly opposed to antipsychotic therapy. He denies SI or HI. Objective - Appearance Appearance: Well Developed/Nourished Dysmorphic Features: No Hygiene: Normal Grooming: Well Kept - Behavior Psychomotor Activities: Normal Exhibits Abnormal Movement: No - Attitude and Relatedness Attitude and Relatedness: Cooperative Eye Contact: Good - Speech Quality: Pressured Latencies: Short Quantity: Copious - Mood Patient's Decription of Mood: "Great" - Affect Observed Affect: Expansive Affect Consistent with: Euphoria - Thought Process Patient's Thought Process: Coherent, Goal Directed Thought Content: No Passive Wish, No Suicidal Planning, No Homicidal Ideation, No Paranoid Ideation - Sensorium Experiencing Hallucinations: No, Sensorium is Clear Type of Hallucinations: Visual: No, Auditory: No, Command: No - Level of Consciousness Level of Consciousness: Alert Orientation: Yes Intact, Yes Orientated to Time, Yes Orientated to Place, Yes Orientated to Person - Impulse Control Impulse Control: Tenuous - Insight and Judgement Insight and Judgement: Fair - Group Participation Particating in Group Activities: Yes - Medication Management Medication Management Adherence: Yes Assessment - Assessment Merits Inpatient Hospitalization: For Immediate Safety, For Stabilization Inpatient DSM-V Dx: F25.0 - schizoaffective Clinical Impression: 32yo white male, single, undomiciled with history of schizoaffective d/o and opiate use d/o who has presented to ED multiple times via law enforcement. He has been expressing paranoid delusions and menacing in the community. Patient reports engaging in methamphetamine and suboxone IVDU. In the past week, patient ability to mask psychotic symptoms is decreasing. He merits hospitalization for immediate safety and stabilization. Plan - Plan Treatment Plan: Name: ARLEEN ESPARZA Birthdate: 1985 [id number] The patient is receiving maintenance Suboxone treatment as well as Vyvanse 20mg PO qam and Depakote 750mg PO qday. VPA level low therapeutic at 56 so we will increase the dose to 1000mg. Will have discharge planning meeting with his outpatient childcare teacher, Karey on Thursday, January 13. We're looking at housing options that would allow us to safely discharge him. Continued Medication Management: Start Medication Medications: Current Medications Acetaminophen (Tylenol Tab*) 650 mg PO Q4H PRN PRN Reason: PAIN or TEMP > 101 F Al Hydrox/Mg Hydrox/Simethicone (Maalox Plus*) 30 ml PO Q4H PRN PRN Reason: INDIGESTION Buprenorphine/Naloxone (Suboxone 8-2 Mg Sl Tab*) 1 tab.sl SL BID [facility] Last Admin: 01/11/18 08:41 Dose: 1 tab.sl Device (Nicotine Mouth Piece*) 1 each INH .CARTRIDGE [facility] Last Admin: 12/27/17 19:05 Dose: 1 each Diphenhydramine HCl (Benadryl Po*) 50 mg PO Q6H PRN PRN Reason: anxiety/agitation Last Admin: 01/01/18 17:50 Dose: 50 mg Divalproex Sodium (Depakote Dr Tab(*)) 1,000 mg PO BEDTIME [facility] Haloperidol (Haldol Tab*) 5 mg PO Q4H PRN PRN Reason: AGITATION Haloperidol (Haldol Tab*) 5 mg PO BEDTIME [facility] Last Admin: 01/10/18 21:11 Dose: Not Given Lisdexamfetamine Dimesylate (Vyvanse(Nf)) 20 mg PO DAILY [facility] Last Admin: 01/11/18 08:41 Dose: 20 mg Multivitamins (Theragran Tab*) 1 tab PO DAILY [facility] Last Admin: 01/11/18 08:42 Dose: 1 tab Nicotine (Nicotine Inhaler*) 10 mg INH Q2H PRN PRN Reason: CRAVING Last Admin: 01/11/18 10:34 Dose: 10 mg Nicotine (Nicotine Patch 21 Mg/24 Hr*) 1 patch TRANSDERM DAILY@0800 [facility] Last Admin: 01/11/18 08:42 Dose: 1 patch Nicotine Polacrilex (Nicotine Gum*) 2 mg PO Q2H PRN PRN Reason: CRAVING Last Admin: 01/11/18 10:34 Dose: 2 mg Pharmacy Profile Note (Nicotine Patch Removal Note*) 1 note FOLLOW UP 2100 [facility] Last Admin: 01/11/18 09:32 Dose: 1 note - Discharge Plan Discharge Plan: Inpatient Hospitalization
[2018-01-11] MEDS: Divalproex DR TAB(*) 500 MG PO SCH (20:19)
[2018-01-11] MEDS: Haloperidol TAB* 5 MG PO SCH (21:12)
[2018-01-12] MEDS: Nicotine GUM* 2 MG PO PRN ×8 (02:28→22:13)
[2018-01-12] MEDS: Nicotine Inhaler* 10 MG AMP INH PRN ×8 (02:28→22:13)
[2018-01-12] MEDS: Nicotine PATCH 21 MG/24 HR* PATCH TRANSDERM SCH (08:01)
[2018-01-12] MEDS: Vitamin THERAPEUTIC TAB PO SCH (08:03)
[2018-01-12] MEDS: Lisdexamfetamine(NF) 10 MG CAP PO SCH (08:03)
[2018-01-12] MEDS: Buprenorphine/Naloxone 8-2 MG SL TAB* 1 TAB SL SCH ×2 (08:03→20:09)
[2018-01-12] MEDS: Divalproex DR TAB(*) 500 MG PO SCH (20:10)
[2018-01-12] MEDS: Haloperidol TAB* 5 MG PO SCH (20:12)
[2018-01-12] MEDS: Nicotine Patch Removal NOTE FOLLOW UP SCH (22:15)
[2018-01-13] MEDS: Nicotine Inhaler* 10 MG AMP INH PRN ×8 (02:35→22:33)
[2018-01-13] MEDS: Nicotine GUM* 2 MG PO PRN ×8 (02:40→22:33)
[2018-01-13] MEDS: Nicotine PATCH 21 MG/24 HR* PATCH TRANSDERM SCH (08:11)
[2018-01-13] MEDS: Buprenorphine/Naloxone 8-2 MG SL TAB* 1 TAB SL SCH ×2 (08:12→20:00)
[2018-01-13] MEDS: Lisdexamfetamine(NF) 10 MG CAP PO SCH (08:12)
[2018-01-13] MEDS: Vitamin THERAPEUTIC TAB PO SCH (08:13)
--- NOTE | 2018-01-13 15:03 | PN ---
Subjective - Subjective Date of Service: 01/13/18 Service Type: [id number] [facility] Psyc Subjective: Jonh is met with his outpatient social worker palliative care from [facility], Karey, and unit TAZ ChristieIsabella. Additionally, we are joined over speaker phone at one point by [facility] Survey Engineer Heri, who shares that he has some leads on apartments in the community that meet Jonh's budget. Jonh continues to speak highly of his Depakote and how he's doing on this. "It makes me mellow without taking away that spark that makes people interested in being with me." We discussed his rep-payee situation, and he denies that his sister is misusing his funds. His preference is to have her remain in this fiduciary role. Jonh agrees to follow up with [facility], [facility] and substance abuse services at [facility] after discharge and would like to target housing outside of the [facility] area, so as to reduce temptations to relapse on drugs. He is articulate and cooperative throughout the interview. Objective - Appearance Appearance: Well Developed/Nourished Dysmorphic Features: No Hygiene: Normal Grooming: Well Kept - Behavior Psychomotor Activities: Normal Exhibits Abnormal Movement: No - Attitude and Relatedness Attitude and Relatedness: Cooperative Eye Contact: Good - Speech Quality: Unpressured Latencies: Normal Quantity: Appropriate - Mood Patient's Decription of Mood: "Good" - Affect Observed Affect: Good Affect Consistent with: Euthymia - Thought Process Patient's Thought Process: Coherent Thought Content: No Passive Wish, No Suicidal Planning, No Homicidal Ideation, No Paranoid Ideation - Sensorium Experiencing Hallucinations: No, Sensorium is Clear Type of Hallucinations: Visual: No, Auditory: No, Command: No - Level of Consciousness Level of Consciousness: Alert Orientation: Yes Intact, Yes Orientated to Time, Yes Orientated to Place, Yes Orientated to Person - Impulse Control Impulse Control: Tenuous - Insight and Judgement Insight and Judgement: Fair - Group Participation Particating in Group Activities: Yes - Medication Management Medication Management Adherence: Yes Assessment - Assessment Merits Inpatient Hospitalization: Consolidate Improvements, Pending Safe DC Plan Inpatient DSM-V Dx: F25.0 - schizoaffective Clinical Impression: 32yo white male, single, undomiciled with history of schizoaffective d/o and opiate use d/o who has presented to ED multiple times via law enforcement. He has been expressing paranoid delusions and menacing in the community. Patient reports engaging in methamphetamine and suboxone IVDU. In the past week, patient ability to mask psychotic symptoms is decreasing. He merits hospitalization for immediate safety and stabilization. Plan - Plan Treatment Plan: Name: ARLEEN ESPARZA Birthdate: 1985 [id number] The patient has improved greatly and is nearing readiness for discharge, however , he is homeless and lacks placement. He has been receiving maintenance Suboxone treatment as well as Vyvanse 20mg PO qam and Depakote 1000mg PO qday. We're assertively looking at housing options that would allow us to safely discharge him. Continued Medication Management: Different Medication Medications: Current Medications Acetaminophen (Tylenol Tab*) 650 mg PO Q4H PRN PRN Reason: PAIN or TEMP > 101 F Al Hydrox/Mg Hydrox/Simethicone (Maalox Plus*) 30 ml PO Q4H PRN PRN Reason: INDIGESTION Buprenorphine/Naloxone (Suboxone 8-2 Mg Sl Tab*) 1 tab.sl SL BID [facility] Last Admin: 01/13/18 08:12 Dose: 1 tab.sl Device (Nicotine Mouth Piece*) 1 each INH .CARTRIDGE [facility] Last Admin: 12/27/17 19:05 Dose: 1 each Diphenhydramine HCl (Benadryl Po*) 50 mg PO Q6H PRN PRN Reason: anxiety/agitation Last Admin: 01/01/18 17:50 Dose: 50 mg Divalproex Sodium (Depakote Dr Tab(*)) 1,000 mg PO BEDTIME [facility] Last Admin: 01/12/18 20:10 Dose: 1,000 mg Haloperidol (Haldol Tab*) 5 mg PO Q4H PRN PRN Reason: AGITATION Haloperidol (Haldol Tab*) 5 mg PO BEDTIME [facility] Last Admin: 01/12/18 20:12 Dose: Not Given Lisdexamfetamine Dimesylate (Vyvanse(Nf)) 20 mg PO DAILY [facility] Last Admin: 01/13/18 08:12 Dose: 20 mg Multivitamins (Theragran Tab*) 1 tab PO DAILY [facility] Last Admin: 01/13/18 08:13 Dose: 1 tab Nicotine (Nicotine Inhaler*) 10 mg INH Q2H PRN PRN Reason: CRAVING Last Admin: 01/13/18 12:23 Dose: 10 mg Nicotine (Nicotine Patch 21 Mg/24 Hr*) 1 patch TRANSDERM DAILY@0800 [facility] Last Admin: 01/13/18 08:11 Dose: 1 patch Nicotine Polacrilex (Nicotine Gum*) 2 mg PO Q2H PRN PRN Reason: CRAVING Last Admin: 01/13/18 12:23 Dose: 2 mg Pharmacy Profile Note (Nicotine Patch Removal Note*) 1 note FOLLOW UP 2099 [facility] Last Admin: 01/12/18 22:15 Dose: 1 note - Discharge Plan Discharge Plan: Outpatient Follow Up Outpatient Program: [facility]
--- NOTE | 2018-01-13 16:47 | PN ---
MHU: Group Therapy Note - Service Type Service Type: [id number] Group Psychotherapy - Medication Education Group: Patient was attentive and participatory in group, and remained in good behavioral control. Patient expressed positive insights regarding relevant treatment interventions. Patient stated understanding of material discussed and had appropriate questions.
[2018-01-13] MEDS: Divalproex DR TAB(*) 500 MG PO SCH (20:00)
[2018-01-13] MEDS: Haloperidol TAB* 5 MG PO SCH (22:35)
[2018-01-13] MEDS: Nicotine Patch Removal NOTE FOLLOW UP SCH (22:35)
[2018-01-14] MEDS: Nicotine Inhaler* 10 MG AMP INH PRN ×7 (03:21→22:16)
[2018-01-14] MEDS: Nicotine GUM* 2 MG PO PRN ×7 (03:21→22:16)
[2018-01-14] MEDS: Lisdexamfetamine(NF) 10 MG CAP PO SCH (08:06)
[2018-01-14] MEDS: Buprenorphine/Naloxone 8-2 MG SL TAB* 1 TAB SL SCH ×2 (08:06→20:11)
[2018-01-14] MEDS: Vitamin THERAPEUTIC TAB PO SCH (08:06)
[2018-01-14] MEDS: Nicotine PATCH 21 MG/24 HR* PATCH TRANSDERM SCH (10:05)
[2018-01-14] MEDS ORDERED: Buprenorphine/Naloxone 8-2 MG SL TAB* 1 TAB ONE (18:58)
[2018-01-14] MEDS: Divalproex DR TAB(*) 500 MG PO SCH (20:11)
[2018-01-14] MEDS: Haloperidol TAB* 5 MG PO SCH (20:12)
[2018-01-15] MEDS: Nicotine Inhaler* 10 MG AMP INH PRN ×9 (00:20→23:55)
[2018-01-15] MEDS: Nicotine GUM* 2 MG PO PRN ×9 (00:20→23:54)
[2018-01-15] MEDS: Vitamin THERAPEUTIC TAB PO SCH (08:02)
[2018-01-15] MEDS: Lisdexamfetamine(NF) 10 MG CAP PO SCH (08:02)
[2018-01-15] MEDS: Buprenorphine/Naloxone 8-2 MG SL TAB* 1 TAB SL SCH ×2 (08:02→20:00)
[2018-01-15] MEDS: Nicotine Patch Removal NOTE FOLLOW UP SCH ×2 (08:21→23:54)
[2018-01-15] MEDS: Nicotine PATCH 21 MG/24 HR* PATCH TRANSDERM SCH (09:20)
--- NOTE | 2018-01-15 12:20 | PN ---
Subjective - Subjective Date of Service: 01/15/18 Service Type: [id number] Hosp care 15 min low complexity Subjective: Jonh remains polite and in good spirits. He notes attentional difficulties in the afternoon. Also noting some weight gain here in the hospital, but acknowledges that this could be because of lack of exercise and getting three hospital meals a day. He denies SI or HI. Objective - Appearance Appearance: Well Developed/Nourished Dysmorphic Features: No Hygiene: Normal Grooming: Well Kept - Behavior Psychomotor Activities: Normal Exhibits Abnormal Movement: No - Attitude and Relatedness Attitude and Relatedness: Cooperative Eye Contact: Good - Speech Quality: Unpressured Latencies: Normal Quantity: Appropriate - Mood Patient's Decription of Mood: "Good" - Affect Observed Affect: Good Affect Consistent with: Euthymia - Thought Process Patient's Thought Process: Coherent Thought Content: No Passive Wish, No Suicidal Planning, No Homicidal Ideation, No Paranoid Ideation - Sensorium Experiencing Hallucinations: No, Sensorium is Clear Type of Hallucinations: Visual: No, Auditory: No, Command: No - Level of Consciousness Level of Consciousness: Alert Orientation: Yes Intact, Yes Orientated to Time, Yes Orientated to Place, Yes Orientated to Person - Impulse Control Impulse Control: Tenuous - Insight and Judgement Insight and Judgement: Fair - Group Participation Particating in Group Activities: Yes - Medication Management Medication Management Adherence: Yes Assessment - Assessment Merits Inpatient Hospitalization: Consolidate Improvements, Pending Safe DC Plan Inpatient DSM-V Dx: F25.0 - schizoaffective Clinical Impression: 32yo white male, single, undomiciled with history of schizoaffective d/o and opiate use d/o who has presented to ED multiple times via law enforcement. He has been expressing paranoid delusions and menacing in the community. Patient reports engaging in methamphetamine and suboxone IVDU. In the past week, patient ability to mask psychotic symptoms is decreasing. He merits hospitalization for immediate safety and stabilization. Plan - Plan Treatment Plan: Name: ARLEEN ESPARZA Birthdate: 1985 [id number] The patient has improved greatly and is nearing readiness for discharge, however , he is homeless and lacks placement. He has been receiving maintenance Suboxone treatment as well as Vyvanse 20mg PO qam and Depakote 1000mg PO qday. Will increase Vyvanse to 30mg daily. We're assertively looking at housing options that would allow us to safely discharge him. Continued Medication Management: Different Medication Medications: Current Medications Acetaminophen (Tylenol Tab*) 650 mg PO Q4H PRN PRN Reason: PAIN or TEMP > 101 F Al Hydrox/Mg Hydrox/Simethicone (Maalox Plus*) 30 ml PO Q4H PRN PRN Reason: INDIGESTION Buprenorphine/Naloxone (Suboxone 8-2 Mg Sl Tab*) 1 tab.sl SL BID [facility] Last Admin: 01/15/18 08:02 Dose: 1 tab.sl Device (Nicotine Mouth Piece*) 1 each INH .CARTRIDGE [facility] Last Admin: 12/27/17 19:05 Dose: 1 each Diphenhydramine HCl (Benadryl Po*) 50 mg PO Q6H PRN PRN Reason: anxiety/agitation Last Admin: 01/01/18 17:50 Dose: 50 mg Divalproex Sodium (Depakote Dr Tab(*)) 1,000 mg PO BEDTIME [facility] Last Admin: 01/14/18 20:11 Dose: 1,000 mg Haloperidol (Haldol Tab*) 5 mg PO Q4H PRN PRN Reason: AGITATION Haloperidol (Haldol Tab*) 5 mg PO BEDTIME [facility] Last Admin: 01/14/18 20:12 Dose: Not Given Lisdexamfetamine Dimesylate (Vyvanse(Nf)) 20 mg PO DAILY [facility] Last Admin: 01/15/18 08:02 Dose: 20 mg Multivitamins (Theragran Tab*) 1 tab PO DAILY [facility] Last Admin: 01/15/18 08:02 Dose: 1 tab Nicotine (Nicotine Inhaler*) 10 mg INH Q2H PRN PRN Reason: CRAVING Last Admin: 01/15/18 10:17 Dose: 10 mg Nicotine (Nicotine Patch 21 Mg/24 Hr*) 1 patch TRANSDERM DAILY@0800 [facility] Last Admin: 01/15/18 09:20 Dose: 1 patch Nicotine Polacrilex (Nicotine Gum*) 2 mg PO Q2H PRN PRN Reason: CRAVING Last Admin: 01/15/18 10:17 Dose: 2 mg Pharmacy Profile Note (Nicotine Patch Removal Note*) 1 note FOLLOW UP 2100 [facility] Last Admin: 01/15/18 08:21 Dose: Not Given - Discharge Plan Discharge Plan: Outpatient Follow Up Outpatient Program: [facility]
[2018-01-15] MEDS: Divalproex DR TAB(*) 500 MG PO SCH (20:00)
[2018-01-15] MEDS: Haloperidol TAB* 5 MG PO SCH (22:43)
[2018-01-16] MEDS: Nicotine GUM* 2 MG PO PRN ×7 (03:20→23:10)
[2018-01-16] MEDS: Nicotine Inhaler* 10 MG AMP INH PRN ×7 (03:20→23:10)
[2018-01-16] MEDS: Lisdexamfetamine(NF) 10 MG CAP PO SCH (08:11)
[2018-01-16] MEDS: Buprenorphine/Naloxone 8-2 MG SL TAB* 1 TAB SL SCH ×2 (08:11→20:05)
[2018-01-16] MEDS: Vitamin THERAPEUTIC TAB PO SCH (08:12)
[2018-01-16] MEDS: Nicotine PATCH 21 MG/24 HR* PATCH TRANSDERM SCH (09:09)
[2018-01-16] MEDS: Haloperidol TAB* 5 MG PO SCH (20:05)
[2018-01-16] MEDS: Divalproex DR TAB(*) 500 MG PO SCH (20:05)
[2018-01-16] MEDS: Nicotine Patch Removal NOTE FOLLOW UP SCH (22:39)
[2018-01-17] MEDS: Nicotine Inhaler* 10 MG AMP INH PRN ×7 (01:55→21:56)
[2018-01-17] MEDS: Nicotine GUM* 2 MG PO PRN ×7 (01:55→21:56)
[2018-01-17] MEDS: Lisdexamfetamine(NF) 10 MG CAP PO SCH (08:10)
[2018-01-17] MEDS: Vitamin THERAPEUTIC TAB PO SCH (08:10)
[2018-01-17] MEDS: Buprenorphine/Naloxone 8-2 MG SL TAB* 1 TAB SL SCH ×2 (08:11→20:29)
[2018-01-17] MEDS: Nicotine PATCH 21 MG/24 HR* PATCH TRANSDERM SCH (09:47)
[2018-01-17] MEDS: Divalproex DR TAB(*) 500 MG PO SCH (20:29)
[2018-01-17] MEDS: Haloperidol TAB* 5 MG PO SCH (20:30)
[2018-01-17] MEDS: Nicotine Patch Removal NOTE FOLLOW UP SCH (23:30)
[2018-01-18] MEDS: Nicotine Inhaler* 10 MG AMP INH PRN ×7 (04:39→22:38)
[2018-01-18] MEDS: Nicotine GUM* 2 MG PO PRN ×7 (04:39→22:38)
[2018-01-18] MEDS: Lisdexamfetamine(NF) 10 MG CAP PO SCH (07:44)
[2018-01-18] MEDS: Buprenorphine/Naloxone 8-2 MG SL TAB* 1 TAB SL SCH ×2 (07:44→20:17)
[2018-01-18] MEDS: Vitamin THERAPEUTIC TAB PO SCH (07:44)
--- NOTE | 2018-01-18 12:37 | PN ---
Subjective - Subjective Date of Service: 01/18/18 Service Type: [id number] Hosp care 15 min low complexity Subjective: Jonh remains hyperverbal and somewhat hypomanic, but has been cooperative and engaged on the unit, doing what is expected in the milieu. He is in good spirits and happy to share his writing and drawings with me. He is future- oriented and working on contacting prospective landlords in the area to procure housing for himself. He denies SI, HI or the desire to use drugs. Objective - Appearance Appearance: Well Developed/Nourished Dysmorphic Features: No Hygiene: Normal Grooming: Well Kept - Behavior Psychomotor Activities: Normal Exhibits Abnormal Movement: No - Attitude and Relatedness Attitude and Relatedness: Cooperative Eye Contact: Good - Speech Quality: Pressured Latencies: Short Quantity: Copious - Mood Patient's Decription of Mood: "Great" - Affect Observed Affect: Expansive Affect Consistent with: Euphoria - Thought Process Patient's Thought Process: Tangential Thought Content: No Passive Wish, No Suicidal Planning, No Homicidal Ideation, No Paranoid Ideation - Sensorium Experiencing Hallucinations: No, Sensorium is Clear Type of Hallucinations: Visual: No, Auditory: No, Command: No - Level of Consciousness Level of Consciousness: Alert Orientation: Yes Intact, Yes Orientated to Time, Yes Orientated to Place, Yes Orientated to Person - Impulse Control Impulse Control: Tenuous - Insight and Judgement Insight and Judgement: Fair - Group Participation Particating in Group Activities: Yes - Medication Management Medication Management Adherence: Yes Assessment - Assessment Merits Inpatient Hospitalization: Consolidate Improvements, Pending Safe DC Plan Inpatient DSM-V Dx: F25.0 - schizoaffective Clinical Impression: 32yo white male, single, undomiciled with history of schizoaffective d/o and opiate use d/o who has presented to ED multiple times via law enforcement. He has been expressing paranoid delusions and menacing in the community. Patient reports engaging in methamphetamine and suboxone IVDU. In the past week, patient ability to mask psychotic symptoms is decreasing. He merits hospitalization for immediate safety and stabilization. Plan - Plan Treatment Plan: Name: ARLEEN ESPARZA Birthdate: 1985 [id number] The patient has improved greatly and is nearing readiness for discharge, however , he is homeless and lacks placement. He has been receiving maintenance Suboxone treatment as well as Vyvanse 30mg PO qam and Depakote 1000mg PO qday. We're assertively looking at housing options that would allow us to safely discharge him. Continued Medication Management: Start Medication Medications: Current Medications Acetaminophen (Tylenol Tab*) 650 mg PO Q4H PRN PRN Reason: PAIN or TEMP > 101 F Al Hydrox/Mg Hydrox/Simethicone (Maalox Plus*) 30 ml PO Q4H PRN PRN Reason: INDIGESTION Buprenorphine/Naloxone (Suboxone 8-2 Mg Sl Tab*) 1 tab.sl SL BID [facility] Last Admin: 01/18/18 07:44 Dose: 1 tab.sl Device (Nicotine Mouth Piece*) 1 each INH .CARTRIDGE [facility] Last Admin: 12/27/17 19:05 Dose: 1 each Diphenhydramine HCl (Benadryl Po*) 50 mg PO Q6H PRN PRN Reason: anxiety/agitation Last Admin: 01/01/18 17:50 Dose: 50 mg Divalproex Sodium (Depakote Dr Tab(*)) 1,000 mg PO BEDTIME [facility] Last Admin: 01/17/18 20:29 Dose: 1,000 mg Haloperidol (Haldol Tab*) 5 mg PO Q4H PRN PRN Reason: AGITATION Haloperidol (Haldol Tab*) 5 mg PO BEDTIME [facility] Last Admin: 01/17/18 20:30 Dose: Not Given Lisdexamfetamine Dimesylate (Vyvanse(Nf)) 30 mg PO DAILY [facility] Last Admin: 01/18/18 07:44 Dose: 30 mg Multivitamins (Theragran Tab*) 1 tab PO DAILY [facility] Last Admin: 01/18/18 07:44 Dose: 1 tab Nicotine (Nicotine Inhaler*) 10 mg INH Q2H PRN PRN Reason: CRAVING Last Admin: 01/18/18 11:04 Dose: 10 mg Nicotine (Nicotine Patch 21 Mg/24 Hr*) 1 patch TRANSDERM DAILY@0800 [facility] Last Admin: 01/17/18 09:47 Dose: 1 patch Nicotine Polacrilex (Nicotine Gum*) 2 mg PO Q2H PRN PRN Reason: CRAVING Last Admin: 01/18/18 11:04 Dose: 2 mg Pharmacy Profile Note (Nicotine Patch Removal Note*) 1 note FOLLOW UP 2100 [facility] Last Admin: 01/17/18 23:30 Dose: Not Given - Discharge Plan Discharge Plan: Outpatient Follow Up Out[facility]
[2018-01-18] MEDS: Nicotine PATCH 21 MG/24 HR* PATCH TRANSDERM SCH (13:05)
--- NOTE | 2018-01-18 13:58 | PN ---
MHU: Group Therapy Note - Service Type Service Type: [id number] Group Psychotherapy - Cognitive Behavioral Group Therapy ( CBT):Patient was attentive and participatory in CBT programming this morning, and remained in good behavioral control. Patient expressed positive insights regarding relevant treatment interventions and goals.
[2018-01-18] MEDS: Divalproex DR TAB(*) 500 MG PO SCH (20:17)
[2018-01-18] MEDS: Nicotine Patch Removal NOTE FOLLOW UP SCH (23:16)
[2018-01-19] MEDS: Nicotine GUM* 2 MG PO PRN ×8 (01:16→22:37)
[2018-01-19] MEDS: Nicotine Inhaler* 10 MG AMP INH PRN ×9 (01:16→22:37)
[2018-01-19] MEDS: Buprenorphine/Naloxone 8-2 MG SL TAB* 1 TAB SL SCH ×2 (07:37→20:08)
[2018-01-19] MEDS: Vitamin THERAPEUTIC TAB PO SCH (07:37)
[2018-01-19] MEDS: Lisdexamfetamine(NF) 10 MG CAP PO SCH (07:38)
[2018-01-19] MEDS: Nicotine PATCH 21 MG/24 HR* PATCH TRANSDERM SCH (10:57)
--- NOTE | 2018-01-19 14:17 | PN ---
MHU: Group Therapy Note - Service Type Service Type: 58621 Group Psychotherapy - Cognitive Behavioral Group Therapy ( CBT):Patient was attentive and participatory in CBT programming this morning, and remained in good behavioral control. Patient expressed positive insights regarding relevant treatment interventions and goals.
[2018-01-19] MEDS: Divalproex DR TAB(*) 500 MG PO SCH (20:08)
[2018-01-20] MEDS: Nicotine Inhaler* 10 MG AMP INH PRN ×8 (01:42→23:47)
[2018-01-20] MEDS: Nicotine GUM* 2 MG PO PRN ×8 (01:42→23:47)
[2018-01-20] MEDS: Nicotine Patch Removal NOTE FOLLOW UP SCH (01:42)
[2018-01-20] MEDS: Buprenorphine/Naloxone 8-2 MG SL TAB* 1 TAB SL SCH ×3 (06:41→20:00)
[2018-01-20] MEDS: Lisdexamfetamine(NF) 10 MG CAP PO SCH ×2 (06:41→06:48)
[2018-01-20] MEDS: Vitamin THERAPEUTIC TAB PO SCH ×2 (06:41→06:48)
[2018-01-20] MEDS: Nicotine PATCH 21 MG/24 HR* PATCH TRANSDERM SCH (09:16)
--- NOTE | 2018-01-20 11:26 | PN ---
Subjective - Subjective Date of Service: 01/20/18 Service Type: [id number] Hosp care 15 min low complexity Subjective: Jonh remains in good spirits, hypomanic and hyperverbal, but good-natured, polite and easily redirectible. He has no complaints today. He continues to use the computer to research potential apartments and has a pass to leave the hospital on Thursday with the unit SW to [facility], along with an outpatient caser up. He denies SI or HI and is tolerating his medicines well. Objective - Appearance Appearance: Well Developed/Nourished Dysmorphic Features: No Hygiene: Normal Grooming: Well Kept - Behavior Psychomotor Activities: Normal Exhibits Abnormal Movement: No - Attitude and Relatedness Attitude and Relatedness: Cooperative Eye Contact: Good - Speech Quality: Pressured Latencies: Short Quantity: Copious - Mood Patient's Decription of Mood: "Great" - Affect Observed Affect: Expansive Affect Consistent with: Euphoria - Thought Process Patient's Thought Process: Coherent, Tangential Thought Content: No Passive Wish, No Suicidal Planning, No Homicidal Ideation, No Paranoid Ideation - Sensorium Experiencing Hallucinations: No, Sensorium is Clear Type of Hallucinations: Visual: No, Auditory: No, Command: No - Level of Consciousness Level of Consciousness: Alert Orientation: Yes Intact, Yes Orientated to Time, Yes Orientated to Place, Yes Orientated to Person - Impulse Control Impulse Control: Tenuous - Insight and Judgement Insight and Judgement: Fair - Group Participation Particating in Group Activities: Yes - Medication Management Medication Management Adherence: Yes Assessment - Assessment Merits Inpatient Hospitalization: Consolidate Improvements, Pending Safe DC Plan Inpatient DSM-V Dx: F25.0 - schizoaffective Clinical Impression: 32yo white male, single, undomiciled with history of schizoaffective d/o and opiate use d/o who has presented to ED multiple times via law enforcement. He has been expressing paranoid delusions and menacing in the community. Patient reports engaging in methamphetamine and suboxone IVDU. In the past week, patient ability to mask psychotic symptoms is decreasing. He merits hospitalization for immediate safety and stabilization. Plan - Plan Treatment Plan: Name: ARLEEN ESPARZA Birthdate: 1985 [id number] The patient has improved greatly and is nearing readiness for discharge, however , he is homeless and lacks placement. He has been receiving maintenance Suboxone treatment as well as Vyvanse 30mg PO qam and Depakote 1000mg PO qday. We're assertively looking at housing options that would allow us to safely discharge him. Continued Medication Management: Different Medication Medications: Current Medications Acetaminophen (Tylenol Tab*) 650 mg PO Q4H PRN PRN Reason: PAIN or TEMP > 101 F Al Hydrox/Mg Hydrox/Simethicone (Maalox Plus*) 30 ml PO Q4H PRN PRN Reason: INDIGESTION Buprenorphine/Naloxone (Suboxone 8-2 Mg Sl Tab*) 1 tab.sl SL BID [facility] Last Admin: 01/20/18 09:49 Dose: Not Given Device (Nicotine Mouth Piece*) 1 each INH .CARTRIDGE [facility] Last Admin: 12/27/17 19:05 Dose: 1 each Diphenhydramine HCl (Benadryl Po*) 50 mg PO Q6H PRN PRN Reason: anxiety/agitation Last Admin: 01/01/18 17:50 Dose: 50 mg Divalproex Sodium (Depakote Dr Tab(*)) 1,000 mg PO BEDTIME [facility] Last Admin: 01/19/18 20:08 Dose: 1,000 mg Lisdexamfetamine Dimesylate (Vyvanse(Nf)) 30 mg PO DAILY [facility] Last Admin: 01/20/18 06:48 Dose: 30 mg Multivitamins (Theragran Tab*) 1 tab PO DAILY [facility] Last Admin: 01/20/18 06:48 Dose: 1 tab Nicotine (Nicotine Inhaler*) 10 mg INH Q2H PRN PRN Reason: CRAVING Last Admin: 01/20/18 09:48 Dose: 10 mg Nicotine (Nicotine Patch 21 Mg/24 Hr*) 1 patch TRANSDERM DAILY@0800 [facility] Last Admin: 01/20/18 09:16 Dose: 1 patch Nicotine Polacrilex (Nicotine Gum*) 2 mg PO Q2H PRN PRN Reason: CRAVING Last Admin: 01/20/18 09:48 Dose: 2 mg Pharmacy Profile Note (Nicotine Patch Removal Note*) 1 note FOLLOW UP 2100 [facility] Last Admin: 01/20/18 01:42 Dose: 1 note - Discharge Plan Discharge Plan: Outpatient Follow Up Outpatient Program: [facility]
--- NOTE | 2018-01-20 16:21 | PN ---
MHU: Group Therapy Note - Service Type Service Type: [id number] Group Psychotherapy - Medication Education Group: Patient was attentive and participatory in group, and remained in good behavioral control. Patient expressed positive insights regarding relevant treatment interventions. Patient stated understanding of material discussed and had appropriate questions.
[2018-01-20] MEDS: Divalproex DR TAB(*) 500 MG PO SCH (20:00)
[2018-01-21] MEDS: Nicotine Patch Removal NOTE FOLLOW UP SCH
[2018-01-21] MEDS: Nicotine GUM* 2 MG PO PRN ×7 (02:50→23:30)
[2018-01-21] MEDS: Nicotine Inhaler* 10 MG AMP INH PRN ×7 (02:50→23:30)
[2018-01-21] MEDS: Buprenorphine/Naloxone 8-2 MG SL TAB* 1 TAB SL SCH ×3 (06:15→20:06)
[2018-01-21] MEDS: Lisdexamfetamine(NF) 10 MG CAP PO SCH ×2 (06:15→09:17)
[2018-01-21] MEDS: Vitamin THERAPEUTIC TAB PO SCH ×2 (06:15→09:17)
[2018-01-21] MEDS: Nicotine PATCH 21 MG/24 HR* PATCH TRANSDERM SCH (07:39)
[2018-01-21] MEDS: Divalproex DR TAB(*) 500 MG PO SCH (20:06)
[2018-01-22] MEDS: Nicotine Patch Removal NOTE FOLLOW UP SCH
[2018-01-22] MEDS: Nicotine Inhaler* 10 MG AMP INH PRN ×8 (04:20→22:56)
[2018-01-22] MEDS: Nicotine GUM* 2 MG PO PRN ×8 (04:20→22:56)
[2018-01-22] MEDS: Vitamin THERAPEUTIC TAB PO SCH ×2 (06:30→07:59)
[2018-01-22] MEDS: Lisdexamfetamine(NF) 10 MG CAP PO SCH ×2 (06:30→07:59)
[2018-01-22] MEDS: Buprenorphine/Naloxone 8-2 MG SL TAB* 1 TAB SL SCH ×3 (06:30→20:04)
[2018-01-22] MEDS: Nicotine PATCH 21 MG/24 HR* PATCH TRANSDERM SCH (07:49)
--- NOTE | 2018-01-22 16:07 | PN ---
Subjective - Subjective Date of Service: 01/22/18 Service Type: [id number] Hosp care 15 min low complexity Subjective: Jonh was taken by inpatient SW to view two potential local apartments within his budget but neither landlord would rent to him. He is frustrated with the process and displacing much of his anger towards the social service assistant who went out of her way to help him. He continues to deny SI or HI. Mr. Roberts is informed that unless he changes his mind about not accepting placement at [facility] or [facility], not accepting a roommate and not accepting a change in his rep-payee to someone local, there may be no available housing in our community that meets his needs, rendering him dischargeable to the [facility] [place] [facility]. He is dissatisfied with this but tolerates his anger adequately without losing behavioral control. Objective - Appearance Appearance: Well Developed/Nourished Dysmorphic Features: No Hygiene: Normal Grooming: Well Kept - Behavior Psychomotor Activities: Normal Exhibits Abnormal Movement: No - Attitude and Relatedness Attitude and Relatedness: Cooperative Eye Contact: Fair - Speech Quality: Pressured Latencies: Short Quantity: Copious - Mood Patient's Decription of Mood: "Irritable" - Affect Observed Affect: Expansive Affect Consistent with: Euphoria - Thought Process Patient's Thought Process: Tangential Thought Content: No Passive Wish, No Suicidal Planning, No Homicidal Ideation, No Paranoid Ideation - Sensorium Experiencing Hallucinations: No, Sensorium is Clear Type of Hallucinations: Visual: No, Auditory: No, Command: No - Level of Consciousness Level of Consciousness: Alert Orientation: Yes Intact, Yes Orientated to Time, Yes Orientated to Place, Yes Orientated to Person - Impulse Control Impulse Control: Poor - Insight and Judgement Insight and Judgement: Impaired - Group Participation Particating in Group Activities: Yes - Medication Management Medication Management Adherence: Yes Assessment - Assessment Merits Inpatient Hospitalization: Consolidate Improvements, Pending Safe DC Plan Inpatient DSM-V Dx: F25.0 - schizoaffective Clinical Impression: 32yo white male, single, undomiciled with history of schizoaffective d/o and opiate use d/o who has presented to ED multiple times via law enforcement. He has been expressing paranoid delusions and menacing in the community. Patient reports engaging in methamphetamine and suboxone IVDU. In the past week, patient ability to mask psychotic symptoms is decreasing. He merits hospitalization for immediate safety and stabilization. Plan - Plan Treatment Plan: Name: ARLEEN ROBERTS Birthdate: 1985 [id number] The patient has improved greatly and is nearing readiness for discharge, however , he is homeless and lacks placement. He has been receiving maintenance Suboxone treatment as well as Vyvanse 30mg PO qam and Depakote 1000mg PO qday. We're assertively looking at housing options that would allow us to safely discharge him. [facility] d/c on January 25. Continued Medication Management: Different Medication Medications: Current Medications Acetaminophen (Tylenol Tab*) 650 mg PO Q4H PRN PRN Reason: PAIN or TEMP > 101 F Al Hydrox/Mg Hydrox/Simethicone (Maalox Plus*) 30 ml PO Q4H PRN PRN Reason: INDIGESTION Buprenorphine/Naloxone (Suboxone 8-2 Mg Sl Tab*) 1 tab.sl SL BID [facility] Last Admin: 01/22/18 07:58 Dose: Not Given Device (Nicotine Mouth Piece*) 1 each INH .CARTRIDGE [facility] Last Admin: 12/27/17 19:05 Dose: 1 each Diphenhydramine HCl (Benadryl Po*) 50 mg PO Q6H PRN PRN Reason: anxiety/agitation Last Admin: 01/01/18 17:50 Dose: 50 mg Divalproex Sodium (Depakote Dr Tab(*)) 1,000 mg PO BEDTIME [facility] Last Admin: 01/21/18 20:06 Dose: 1,000 mg Lisdexamfetamine Dimesylate (Vyvanse(Nf)) 30 mg PO DAILY [facility] Last Admin: 01/22/18 07:59 Dose: Not Given Multivitamins (Theragran Tab*) 1 tab PO DAILY [facility] Last Admin: 01/22/18 07:59 Dose: Not Given Nicotine (Nicotine Inhaler*) 10 mg INH Q2H PRN PRN Reason: CRAVING Last Admin: 01/22/18 13:02 Dose: 10 mg Nicotine (Nicotine Patch 21 Mg/24 Hr*) 1 patch TRANSDERM DAILY@0800 [facility] Last Admin: 01/22/18 07:49 Dose: 1 patch Nicotine Polacrilex (Nicotine Gum*) 2 mg PO Q2H PRN PRN Reason: CRAVING Last Admin: 01/22/18 13:02 Dose: 2 mg Pharmacy Profile Note (Nicotine Patch Removal Note*) 1 note FOLLOW UP 2100 [facility] Last Admin: 01/22/18 00:00 Dose: Not Given - Discharge Plan Discharge Plan: Outpatient Follow Up Outpatient Program: [facility]
[2018-01-22] MEDS: Divalproex DR TAB(*) 500 MG PO SCH (20:04)
[2018-01-23] MEDS: Nicotine Patch Removal NOTE FOLLOW UP SCH (01:42)
[2018-01-23] MEDS: Buprenorphine/Naloxone 8-2 MG SL TAB* 1 TAB SL SCH ×2 (07:45→20:06)
[2018-01-23] MEDS: Nicotine GUM* 2 MG PO PRN ×6 (07:45→20:50)
[2018-01-23] MEDS: Nicotine Inhaler* 10 MG AMP INH PRN ×6 (07:45→20:50)
[2018-01-23] MEDS: Lisdexamfetamine(NF) 10 MG CAP PO SCH (07:45)
[2018-01-23] MEDS: Vitamin THERAPEUTIC TAB PO SCH (07:45)
[2018-01-23] MEDS: Nicotine PATCH 21 MG/24 HR* PATCH TRANSDERM SCH (09:13)
[2018-01-23] MEDS: Divalproex DR TAB(*) 500 MG PO SCH (20:06)
[2018-01-24] MEDS: Nicotine Patch Removal NOTE FOLLOW UP SCH ×2 (01:24→23:55)
[2018-01-24] MEDS: Nicotine Inhaler* 10 MG AMP INH PRN ×6 (06:30→23:54)
[2018-01-24] MEDS: Buprenorphine/Naloxone 8-2 MG SL TAB* 1 TAB SL SCH ×2 (06:30→20:04)
[2018-01-24] MEDS: Vitamin THERAPEUTIC TAB PO SCH (06:30)
[2018-01-24] MEDS: Nicotine GUM* 2 MG PO PRN ×6 (06:30→23:54)
[2018-01-24] MEDS: Nicotine PATCH 21 MG/24 HR* PATCH TRANSDERM SCH (10:15)
[2018-01-24] MEDS: Divalproex DR TAB(*) 500 MG PO SCH (20:05)
[2018-01-25] MEDS: Nicotine Inhaler* 10 MG AMP INH PRN ×9 (02:30→22:40)
[2018-01-25] MEDS: Nicotine GUM* 2 MG PO PRN ×9 (02:30→22:40)
[2018-01-25] MEDS ORDERED: Lisdexamfetamine(NF) 10 MG CAP PO ONE (05:59)
[2018-01-25] MEDS: Lisdexamfetamine(NF) 10 MG CAP PO SCH ×2 (06:00→09:22)
[2018-01-25] MEDS: Vitamin THERAPEUTIC TAB PO SCH ×2 (06:01→09:22)
[2018-01-25] MEDS: Buprenorphine/Naloxone 8-2 MG SL TAB* 1 TAB SL SCH ×3 (06:01→20:23)
[2018-01-25] MEDS: Nicotine PATCH 21 MG/24 HR* PATCH TRANSDERM SCH (06:21)
--- NOTE | 2018-01-25 12:59 | PN ---
MHU: Group Therapy Note - Service Type Service Type: [id number] Group Psychotherapy - Cognitive Behavioral Group Therapy ( CBT):Patient was attentive and participatory in CBT programming this morning, and remained in good behavioral control. Patient expressed positive insights regarding relevant treatment interventions and goals.
--- NOTE | 2018-01-25 13:43 | PN ---
Subjective - Subjective Date of Service: 01/25/18 Service Type: 25957 Hosp care 15 min low complexity Subjective: Jonh remains calm, easily redirectable and future-oriented. He is aware of the plan to discharge him tomorrow to [facility] so that he can seek emergency care home. "I'm excited about it. I've got a friend in the community that has a lead on a bunch of apartments and I'll take what I can get in the meantime." He reports doing well on his current medications, particularly Depakote. "I really think this is gonna make all the difference. It mellows me out without losing my edge." He denies SI, HI or the desire to use drugs. Objective - Appearance Appearance: Well Developed/Nourished Dysmorphic Features: No Hygiene: Normal Grooming: Fairly Well Kept - Behavior Psychomotor Activities: Normal Exhibits Abnormal Movement: No - Attitude and Relatedness Attitude and Relatedness: Cooperative Eye Contact: Good - Speech Quality: Unpressured Latencies: Normal Quantity: Appropriate - Mood Patient's Decription of Mood: "Great" - Affect Observed Affect: Good Affect Consistent with: Euthymia - Thought Process Patient's Thought Process: Coherent Thought Content: No Passive Wish, No Suicidal Planning, No Homicidal Ideation, No Paranoid Ideation - Sensorium Experiencing Hallucinations: No, Sensorium is Clear Type of Hallucinations: Visual: No, Auditory: No, Command: No - Level of Consciousness Level of Consciousness: Alert Orientation: Yes Intact, Yes Orientated to Time, Yes Orientated to Place, Yes Orientated to Person - Impulse Control Impulse Control: Intact - Insight and Judgement Insight and Judgement: Good - Group Participation Particating in Group Activities: Yes - Medication Management Medication Management Adherence: Yes Assessment - Assessment Merits Inpatient Hospitalization: Consolidate Improvements, Pending Safe DC Plan Inpatient DSM-V Dx: F25.0 - schizoaffective Clinical Impression: 32yo white male, single, undomiciled with history of schizoaffective d/o and opiate use d/o who has presented to ED multiple times via law enforcement. He has been expressing paranoid delusions and menacing in the community. Patient reports engaging in methamphetamine and suboxone IVDU. In the past week, patient ability to mask psychotic symptoms is decreasing. He merits hospitalization for immediate safety and stabilization. Plan - Plan Treatment Plan: Name: ARLEEN ESPARZA Birthdate: 1985 [id number] The patient has improved greatly and is nearing readiness for discharge, however , he is homeless and lacks placement. [facility] is closed today due to the Holiday. He has been receiving maintenance Suboxone treatment as well as Vyvanse 30mg PO qam and Depakote 1000mg PO qday. Discharge tomorrow morning, January 26. Will forward scripts to [facility]. Continued Medication Management: Different Medication Medications: Current Medications Acetaminophen (Tylenol Tab*) 650 mg PO Q4H PRN PRN Reason: PAIN or TEMP > 101 F Al Hydrox/Mg Hydrox/Simethicone (Maalox Plus*) 30 ml PO Q4H PRN PRN Reason: INDIGESTION Buprenorphine/Naloxone (Suboxone 8-2 Mg Sl Tab*) 1 tab.sl SL BID [facility] Last Admin: 01/25/18 09:21 Dose: Not Given Device (Nicotine Mouth Piece*) 1 each INH .CARTRIDGE [facility] Last Admin: 12/27/17 19:05 Dose: 1 each Diphenhydramine HCl (Benadryl Po*) 50 mg PO Q6H PRN PRN Reason: anxiety/agitation Last Admin: 01/01/18 17:50 Dose: 50 mg Divalproex Sodium (Depakote Dr Tab(*)) 1,000 mg PO BEDTIME [facility] Last Admin: 01/24/18 20:05 Dose: 1,000 mg Lisdexamfetamine Dimesylate (Vyvanse(Nf)) 30 mg PO DAILY [facility] Stop: 01/30/18 11:00 Last Admin: 01/25/18 09:22 Dose: Not Given Multivitamins (Theragran Tab*) 1 tab PO DAILY [facility] Last Admin: 01/25/18 09:22 Dose: Not Given Nicotine (Nicotine Inhaler*) 10 mg INH Q2H PRN PRN Reason: CRAVING Last Admin: 01/25/18 12:14 Dose: 10 mg Nicotine (Nicotine Patch 21 Mg/24 Hr*) 1 patch TRANSDERM DAILY@0800 [facility] Last Admin: 01/25/18 06:21 Dose: 1 patch Nicotine Polacrilex (Nicotine Gum*) 2 mg PO Q2H PRN PRN Reason: CRAVING Last Admin: 01/25/18 12:14 Dose: 2 mg Pharmacy Profile Note (Nicotine Patch Removal Note*) 1 note FOLLOW UP 2100 [facility] Last Admin: 01/24/18 23:55 Dose: 1 note - Discharge Plan Discharge Plan: Outpatient Follow Up Outpatient Program: [facility]
[2018-01-25] MEDS: Divalproex DR TAB(*) 500 MG PO SCH (20:23)
[2018-01-26] MEDS: Nicotine Inhaler* 10 MG AMP INH PRN ×3 (02:10→09:49)
[2018-01-26] MEDS: Nicotine GUM* 2 MG PO PRN ×3 (02:10→09:49)
[2018-01-26] MEDS: Nicotine Patch Removal NOTE FOLLOW UP SCH (02:10)
[2018-01-26] MEDS: Lisdexamfetamine(NF) 10 MG CAP PO SCH ×2 (06:29→08:00)
[2018-01-26] MEDS: Buprenorphine/Naloxone 8-2 MG SL TAB* 1 TAB SL SCH ×2 (06:29→07:59)
[2018-01-26] MEDS: Vitamin THERAPEUTIC TAB PO SCH ×2 (06:30→08:00)
[2018-01-26] MEDS: Nicotine PATCH 21 MG/24 HR* PATCH TRANSDERM SCH (07:17)
[2018-01-26 08:33] VITALS: BP 119/52
--- NOTE | 2018-01-26 14:45 | DCNOTE ---
Patient reports readiness for discharge and states understanding of plan. He declines offer from fha underwriter to dispose of needles that he presented with so as to avoid temptation. He becomes irritable and states that he does not intend to use IV drugs but that if he did, it would be safer to use clean needles. Patient expresses frustration that other personal items are missing since his admission. (He does not have insight that he was grossly disorganized at that time). Currently, he is A+Ox3 and denies SI or HI/. He has been calm and in behavioral control with the exception of irritability in relation to medications and as described above.
--- NOTE | 2018-01-28 07:48 | DS ---
DISCHARGE SUMMARY: DATE OF ADMISSION: 12/25/17 DATE OF DISCHARGE: 01/26/18 DISCHARGE DIAGNOSES: [place] I: Schizoaffective disorder, bipolar type; opioid use disorder; cannabis use disorder; amphetamine use disorder. [place] II: Deferred. CONDITION AT THE TIME OF DISCHARGE: Improved. The patient is no longer demonstrating paranoia or me nacing behaviors. He has been calm and cooperative throughout this hospitalization and has had no in stances of violence towards others. In fact, he has been safe on all checks. He was able to receive enhanced privileges such as using the computer room and going out for fresh air breaks with staff an d peers. He also received the privileges to go on an apartment hunting pass off campus so that he co uld look for housing accompanied by staff in the community. The patient remains unwilling to conside r antipsychotic therapy; however, he is taking mood stabilizer treatment and is doing considerably be tter on this medication compared to the time of admission. He demonstrates no thought disorganizatio n, responsiveness to internal stimuli, hallucinations, or agitated behavior, and we feel that he woul d be safe receiving treatment on the outpatient basis, which he is agreeable to. MENTAL STATUS EXAM: At the time of discharge, Issac is a young, white male with somewhat scraggly mejia, who is wearing a green T-shirt and espinal slacks. He has good grooming. He is calm, cooperative , makes good eye contact. Speech is mildly pressured and over productive, although articulate. Mood would appear to be hyperthymic with a somewhat expansive affect. Thought process is linear to tange ntial. Thought content is significant for his desire to get an apartment to live independently in [facility]. He is denying suicidal or homicidal ideations. He denies auditory or visual hallucinat ions and there is no evidence of acute paranoia. Insight and judgment are fair given his willingness to follow through with outpatient treatment. Cognitively, he is awake and alert with what would ibrahima ear to be an average intellect. DISCHARGE INSTRUCTIONS: Part-A. Medications: 1. He is taking Vyvanse 30 mg p.o. daily. 2. He takes Depakote 1000 mg p.o. nightly. 3. He takes Suboxone 8/2 mg 1 tab sublingually b.i.d. Part-B. Diet: Regular. Part-C. Activities: As tolerated. The patient is a smoker and received nicotine replacement therap y throughout his hospitalization; however, he is declining continuation of this therapy indicating hi s preference to continue smoking for the time being. There are no laboratory or diagnostic studies p ending at the time of discharge. Part-D. Followup care: The patient is to report directly to the [facility] Department of Benzene Operator at their [facility] branch to receive emergency homeless services. In addition, he wo rks with the [facility] for case management. His mental health followup will be at [facility] with his provider, Darcie Pink. This appointment is established for 02/01/18, at 2 p.m. In addition, he sees a primary care provider, Dr. Kaela Schreiber, a Mignon Lebron for continued Suboxone treatment. Part-E. Substance abuse followup: The patient declined the offer of inpatient or outpatient rehab. However, he is agreeable to following up with [facility] where he will continue receiving Suboxon e which is an FDA approved medication for opioid use disorder. HOSPITAL COURSE: Part A. Reason for admission: The patient is a 32-year-old single, white male with a history of schizoaffective disorder bipolar type as well as polysubstance dependence with the use of amphetamines, opioids, and cannabis, who arrived at the hospital on a 9.39 involuntary legal statu s for bizarre agitated behavior in the community. The patient according to emergency room notes had been responding to internal stimuli, talking to himself in rapid pressured speech and it was difficul t to understand him at times. He continued to be tangential and appeared very disorganized, quickly relating feelings of stress and would not cooperate with his emergency room evaluation and it was det ermined that he would benefit from inpatient hospitalization. Per the police report, he was found wi elding a machete and stating that he wanted to kill people who had been stealing from him. This appa rently unfolded at a local [employer], which necessitated apprehension by law enforcement. When I bernardo russo met him for his intake interview, he was disheveled, eating extra portions of a large tray of fo od, although he was calm and cooperative and mostly fixated on receiving Concerta and Suboxone, which he states are prescribed in the outpatient setting. No further outpatient information was available at that time. Part B: Psychiatric treatment rendered. The patient was [facility] where he was initially treated by psychiatric nurse practitioner, Gardeniakerwin Marie, who has been his treatment provider during previous hospitalizations as well. She attempted to convince him to consid er antipsychotic medications; however, the patient refused these and therefore, a plan was made to ta ke him to court for treatment over his objection. In the meantime, Ms. Marie started him on a trial of low-dose Vyvanse 20 mg daily, which was increased to 30 mg and also Suboxone 8/2 mg sublingually twice daily. She also initiated a trial of Depakote 750 mg nightly. Due to the hospitalist plan to take him to court, his treatment was transferred to the care of Dr. Won Christiansen on 01/06/18. At m y time of first examination, Jonh detailed a longstanding history of limited benefit from antipsycho tic medications, having taken ziprasidone, risperidone, quetiapine, olanzapine, fluphenazine, haloper idol, and aripiprazole in the past. He noted that he did not do well on antipsychotics, had difficul ty sleeping, and they gave him tactile hallucinations. He insisted that he was doing better on Depak ote and felt that mood stabilizer treatment was the best option for him. At that time, we did have t o note that his behavior was considerably better on the unit than we have previously seen him even at times, in which he previously accepted antipsychotic therapy. I was able to check Depakote level on 01/08/18, which was low at 56 and therefore his dose was increased to 1000 mg nightly. Given his hi story of not being on mood stabilizer therapy, I opted to avoid a court hearing and instead treated h im without antipsychotics, this is with the understanding, however, that if he is quickly readmitted to the hospital, that we would feel obligated to take him to court for treatment over his objection a nd initiation of antipsychotic therapy. The patient accepted this, did well on Depakote, we were del ayed in discharging him given the fact that he did not have housing in the community. Unit Social Wo rk tried extensively to find him a sustainable housing; however, nothing was available within his bud get, and we felt obligated to discharge him to the community where he would be receiving emergency sh elter through the department of social media marketing manager. The patient was visited several times on the unit b y his outpatient rifle case repairer, Karey, of the [facility]. He is ag reeable to continuing to work with her. He is agreeable to following up with [facility] to make sure he stays on Depakote and will be following up with outpatient primary care provid er, Dr. Kaela Schreiber, to maintain himself on Suboxone. At this time, we are wishing the patient t he best for a complete recovery and are strongly encouraging him to continue to abstain from drugs an d to take his medications as prescribed. [id number]/[facility] #: [id number]
== END 2018-01-26 11:25 | disposition home or self-care (01) | DRG 750 ==
LOC: ED 15:34 → BSU 12-25 02:45
PROVIDERS: ADMIT Psychiatry & Neurology Psychiatry; ATTEND Psychiatry & Neurology Psychiatry
PROC: GZHZZZZ Group Psychotherapy (ICD-10-PCS; principal; 2017-12-31)
DX: F25.0 Schizoaffective disorder, bipolar type (principal); F41.9 Anxiety disorder, unspecified; F11.90 Opioid use, unspecified, uncomplicated; F12.90 Cannabis use, unspecified, uncomplicated; F15.90 Other stimulant use, unspecified, uncomplicated; I10 Essential (primary) hypertension; K21.9 Gastro-esophageal reflux disease without esophagitis; F32.9 Major depressive disorder, single episode, unspecified; F43.10 Post-traumatic stress disorder, unspecified; F17.210 Nicotine dependence, cigarettes, uncomplicated; F22 Delusional disorders; Q71.32 Congenital absence of left hand and finger; Z59.0 Homelessness; Z86.14 Personal history of Methicillin resistant Staphylococcus aureus infection; Z81.1 Family history of alcohol abuse and dependence; Z72.89 Other problems related to lifestyle
CPT/HCPCS: 36415; 80053; 80061; 80164; 80307; 80320; 80329; 81003; 81015; 83036; 84443; 85025; 87086; 90847; 90853; 99222; 99231; 99232; 99233; 99238; 99283; A9270-GY; G0480

== ENCOUNTER 2018-07-10 19:04 | Emergency (ER) | payer OTHER ==
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
[2018-07-10] MEDS ORDERED: LORazepam INJ* 2 MG/ML 1 ML VIAL IM ONE (21:21)
[2018-07-10] MEDS ORDERED: Haloperidol INJ IV/IM* 5 MG/ML AMP IM ONE (21:21)
[2018-07-10] MEDS ORDERED: diPHENhydraMINE IV* 50 MG/ML 1 ml VIAL (BENADRYL) IM ONE (21:21)
[2018-07-10 21:47] LABS: Urine Appearance Clear; Urine Bilirubin Negative (Negative); Urine Blood Negative (Negative); Urine Color Yellow; Urine Glucose Negative (Negative); Urine Ketones Trace (Negative); Urine Nitrite Negative (Negative); Urine Protein Negative (Negative); Urine Specific Gravity 1.031 (1.010-1.030); Urine Urobilinogen Positive (Negative)
--- NOTE | 2018-07-10 21:57 | ED ---
Progress - Progress Note Progress Note: This patient is signed out from Dr. Gann at 2200 awaiting substance metabolism and mental health evaluation. Course/Dx - Course Course Of Treatment: This patient is signed out from Dr. Gann at 2200 awaiting substance metabolism and mental health evaluation. Patient sleeps without disturbance. Patient will be signed out to Dr. Chan awaiting mental health evaluation. - Diagnoses Provider Diagnoses: Polysubstance dependence Discharge - Sign-Out/Discharge Documenting (check all that apply): Sign-Out Patient Signing out patient TO: Bravo Tang Verenice Patient Received Moderate/Deep Sedation with Procedure: No - Discharge Plan Condition: Stable Disposition: HOME Referrals: Kaela Schreiber MD [Primary Care Provider] - Additional Instructions: Please follow up with [facility] tomorrow morning. Return to the emergency department with any new or worsening symptoms. - Billing Disposition and Condition Condition: STABLE Disposition: Home - Attestation Statements Document Initiated by Ozzyibe: Yes Documenting Scribe: Radha Tavares Provider For Whom Tahira is Documenting (Include Credential): Issac Van MD Scribe Attestation: Radha Holt, scribed for Issac Van MD on 07/14/18 at 1842. Scribe Documentation Reviewed: Yes Provider Attestation: The documentation as recorded by the Radha brewer accurately reflects the service I personally performed and the decisions made by Issac reynoso MD Status of Scribe Document: Viewed
[2018-07-10 22:03] LABS: Barbiturates Urine Screen None Detected (None Detect); Benzodiazepine Urine Screen Presumptive Positive (None Detect); Urine Cannabinoids Screen Presumptive Positive (None Detect)
[2018-07-10 23:27] LABS: ABS Basophils 0.1 10^3/ul (0-0.2); ABS Eosinophils 0.1 10^3/ul (0-0.6); ABS Lymphocytes 2.7 10^3/ul (1.0-4.8); ABS Monocytes 1.1 10^3/ul (0-0.8); ABS Neutrophils 4.6 10^3/ul (1.5-7.7); ABS Nucleated RBC 0 10^3/ul; Eosinophil % 0.6 %; Hematocrit 34 % (36-46); Hemoglobin 11.2 g/dL (14.0-18.0); Lymphocyte % 31.3 %; Mean Corpuscular HGB Conc 33 g/dL (31-36); Mean Corpuscular Hemoglobin 31 pg (27-31); Mean Corpuscular Volume 94 fL (80-94); Mean Platelet Volume 8.8 fL (7.4-10.4); Nucleated Red Blood Cells % 0; Platelet Count 238 10^3/uL (150-450); Red Blood Count 3.59 10^6 /uL (4.18-5.48); Red Cell Distribution Width 14 % (10.5-15); White Blood Count 8.6 10^3/uL (3.5-10.8)
[2018-07-10 23:44] LABS: ALT 19 U/L (7-52); AST 38 U/L (13-39); Albumin 3.8 g/dL (3.2-5.2); Albumin/Globulin Ratio 1.3 (1-3); Alkaline Phosphatase 62 U/L (34-104); Anion Gap 10 mmol/L (2-11); BUN/Creatinine Ratio 22.2 (8-20); Blood Urea Nitrogen 16 mg/dL (6-24); CO2 Carbon Dioxide 26 mmol/L (22-32); Calcium 8.7 mg/dL (8.6-10.3); Chloride 100 mmol/L (101-111); EGFR African American 151.2 (>60); Glucose 87 mg/dL (70-100); Potassium 3.7 mmol/L (3.5-5.0); Sodium 136 mmol/L (135-145); Total Protein 6.8 g/dL (6.4-8.9)
[2018-07-10 23:51] LABS: Acetaminophen < 15 mcg/mL; Alcohol < 10 mg/dL (<10); Salicylate < 2.50 mg/dL (<30)
[2018-07-11 00:06] LABS: TSH (Thyroid Stimulating Horm) 0.97 mcIU/mL (0.34-5.60)
[2018-07-11] MEDS ORDERED: Mouth Piece, Nicotine* 1 EACH CARTRIDGE INH ONE (02:00)
--- NOTE | 2018-07-11 07:36 | ED ---
Progress - Progress Note Progress Note: This patient is signed out from Dr. Van at 0700 awaiting mental health evaluation. Course/Dx - Course Course Of Treatment: The pt was signed out from Dr. Van at [address] Gann who knows the patient, he came into the ED with agitated delirium and should be discharged home with instructions to follow up with [facility]. His dx will be polysubstance use. - Diagnoses Provider Diagnoses: Polysubstance dependence Discharge - Sign-Out/Discharge Documenting (check all that apply): Patient Departure, Receiving Sign-Out Receiving patient FROM: Issac Van Patient Received Moderate/Deep Sedation with Procedure: No - Discharge Plan Condition: Stable Disposition: HOME Referrals: Kaela Schreiber MD [Primary Care Provider] - Additional Instructions: Please follow up with [facility] Medical tomorrow morning. Return to the emergency department with any new or worsening symptoms. - Billing Disposition and Condition Condition: STABLE Disposition: Home - Attestation Statements Document Initiated by Scribe: Yes Documenting Scribe: Brea Aleman Provider For Whom Tahira is Documenting (Include Credential): Bravo Chan MD. Scribe Attestation: Brea Holt, scribed for Bravo Chan MD. on 07/11/18 at 1311. Scribe Documentation Reviewed: Yes Provider Attestation: The documentation as recorded by the scribe, Brea Aleman accurately reflects the service I personally performed and the decisions made by Ruth reynoso MD. Status of Scribe Document: Viewed
[2018-07-11] MEDS ORDERED: Buprenorp/Nalox 8-2 MG FILM 1 EACH SL FILM ONE (10:57)
[2018-07-11] MEDS ORDERED: ALPRAZolam TAB* 0.5 MG PO ONE ×2 (10:57→11:09)
[2018-07-11] MEDS ORDERED: Valproic Acid CAP(*) 250 MG PO ONE ×2 (10:57→11:09)
[2018-07-11] MEDS ORDERED: LISDEXAMFETAMINE 60 MG PO SCH (11:00)
[2018-07-11] MEDS ORDERED: Nicotine Inhaler* 10 MG AMP ONE (11:30)
[2018-07-11] MEDS: Nicotine Inhaler* 10 MG AMP INH PRN ×2 (11:43→14:51)
[2018-07-11] MEDS ORDERED: LISDEXAMFETAMINE 50 MG PO SCH (12:00)
[2018-07-11] MEDS: Lisdexamfetamine(NF) 10 MG CAP PO SCH ×2 (12:21→16:28)
[2018-07-11] MEDS ORDERED: Ibuprofen TAB* 600 MG ONE (15:14)
[2018-07-11] MEDS ORDERED: Ibuprofen TAB* 600 MG PO ONE (15:18)
[2018-07-11] MEDS: Buprenorp/Nalox 8-2 MG FILM 1 EACH SL FILM ONE ×3 (16:31→17:17)
[2018-07-11 17:30] VITALS: BP 127/73
== END 2018-07-11 17:28 | disposition home or self-care (01) ==
LOC: ED 19:04
DX: F19.20 Other psychoactive substance dependence, uncomplicated (principal); F41.9 Anxiety disorder, unspecified; Z59.0 Homelessness; F17.210 Nicotine dependence, cigarettes, uncomplicated
CPT/HCPCS: 36415; 80053; 80164; 80307; 80320; 80329; 81003; 84443; 85025; 96372; 99285; A9270-GY; G0480; J1200; J1630; J2060

== ENCOUNTER 2018-07-19 18:53 | Emergency (ER) | payer MEDICAID ==
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
[2018-07-19 21:24] LABS: Urine Appearance Cloudy; Urine Bilirubin Negative (Negative); Urine Blood Negative (Negative); Urine Color Yellow; Urine Glucose Negative (Negative); Urine Ketones Negative (Negative); Urine Nitrite Negative (Negative); Urine Protein Negative (Negative); Urine Specific Gravity 1.024 (1.010-1.030); Urine Urobilinogen Positive (Negative)
[2018-07-19 22:38] VITALS: BP 153/68
== END 2018-07-19 22:37 | disposition home or self-care (01) ==
LOC: ED 18:53
DX: R10.30 Lower abdominal pain, unspecified (principal); F17.210 Nicotine dependence, cigarettes, uncomplicated; Z86.14 Personal history of Methicillin resistant Staphylococcus aureus infection
CPT/HCPCS: 76870; 81003; 99282

== ENCOUNTER 2018-10-29 17:42 | Emergency (ER) | payer OTHER ==
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
[2018-10-29 20:25] VITALS: BP 148/90
== END 2018-10-29 20:24 | disposition home or self-care (01) ==
LOC: ED 17:42
DX: F29 Unspecified psychosis not due to a substance or known physiological condition (principal); F41.9 Anxiety disorder, unspecified; F32.9 Major depressive disorder, single episode, unspecified; F17.210 Nicotine dependence, cigarettes, uncomplicated
CPT/HCPCS: 99282